=== PATIENT | female | born 1955 | race Caucasian/White ===

== ENCOUNTER 2019-09-10 20:49 | Inpatient (IN) | payer OTHER, SELFPAY ==
--- NOTE | ~2019-09-10 | XR_ITS ---
XR chest 1V portable DATE: 09/10/2019 22:24 INDICATION: Vomiting TECHNIQUE: AP chest on 09/10/2019 at 2202 hours COMPARISON: 10/28/2018 portable AP chest FINDINGS: Normal heart size. There is mild aortic calcification and tortuosity. No hilar or mediastin al enlargement. No pulmonary infiltrate or consolidation, pleural effusion or pulmonary vascular congestion or pneumo thorax. Degenerative spurring of the thoracic spine. IMPRESSION: No active cardiopulmonary disease Reviewed, dictated and finalized at location A. COVER MAKER
--- NOTE | ~2019-09-10 | CT_ITS ---
EXAMINATION: CT abdomen pelvis w con DATE: 09/10/2019 22:24 INDICATION: Abdominal pain, nausea and vomiting. History of prior appendectomy. History of breast can cer. TECHNIQUE: Computed tomography (CT) of the abdomen and pelvis was performed with 100 cc Omnipaque 350 intravenous contrast. Automated exposure control and iterative reconstruction technique were employe d. Exam dose: 702.09 mGy-cm total exam DLP. COMPARISON: 09/29/2018 CT abdomen pelvis FINDINGS: The lung bases are clear. Normal heart size. No pericardial or pleural effusion. Small sliding hiatal hernia. The liver, gallbladder, bile ducts, spleen are unremarkable. There is mild soft tissue infiltration around the uncinate process and head and neck of the pancreas suggesting mild uncomplicated pancreatitis. No pancreatic mass lesion, calcification or ductal dilata tion is evident. Normal morphology of the adrenal glands. No renal mass lesion or urinary tract calculus or hydroureteronephrosis. There is atherosclerotic calcification of the abdominal aorta but no aneurysm. No intraperitoneal or retroperitoneal or pelvic mass lesion or adenopathy or ascites. There is streak artifact in the pelvis from right total hip arthroplasty. No apparent abnormality uri nary bladder or uterus or adnexal areas is identified considering the streak artifact and limited vis ualization as result. There is a prominent amount of fecal material in the colon. No bowel obstruction is evident. There ar e surgical clips in the right lower quadrant. There is severe degenerative disc disease in the lower thoracic spine with prominent eburnation and s purring at multiple levels. There is moderate degenerative disease of the lumbar and lumbosacral spin e. There is degenerative change at the apophyseal joints in the lumbosacral area with associated grade 1 anterolisthesis at L4-5. IMPRESSION: Mild acute uncomplicated pancreatitis Small sliding hiatal hernia Right total hip arthroplasty Reviewed, dictated and finalized at Location [facility]. Reviewed, dictated and finalized at location A. STANT PROFESSOR OF ART
[2019-09-10] MEDS: PROMETHAZINE HCL 25 MG/ML AMPUL (21:05)
[2019-09-10] MEDS: SODIUM CHLORIDE 0.9% IV 1,000 ML 1000 ML ×2 (21:06→21:28)
[2019-09-10 21:11] VITALS: BP 166/93; PULSE 63; RESP 22; TEMP 37.1; O2SAT 100
--- NOTE | 2019-09-10 21:13 | ECG_ITS ---
Measurements Intervals [place] Rate: 65 P: 21 AK: 143 QRS: 4 QRSD: 111 T: 18 QT: 451 QTc: 469 Interpretive Statements SINUS RHYTHM WITH SINUS ARRHYTHMIA ATRIAL PREMATURE COMPLEX INTRAVENTRICULAR CONDUCTION DELAY BORDERLINE ST-T WAVE ABNORMALITY- INFERIOR LEADS BASELINE ARTIFACT- I, II, III, AVR, AVL, AVF, V4-V6 BORDERLINE ECG Electronically Signed On 09-11-2019 7:26:36 ELECTROPLATING WORKER by Jose Enrique Davalos D.O.
[2019-09-10] MEDS: PANTOPRAZOLE SODIUM IV 40 MG VIAL IV PUSH (21:31)
[2019-09-10 21:38] LABS: Basophils Absolute Auto 0.02 K/mm3 (0.00-0.10); Basophils Percent Auto 0.2 % (0.0-1.0); Eosinophils Absolute Auto 0.16 K/mm3 (0.02-0.50); Eosinophils Percent Auto 1.5 % (1.0-6.0); Hematocrit 33.6 % (35.0-49.0); Hemoglobin 11.8 g/dL (12.0-15.0); Immature Granulocyte Absolute 0.06 K/mm3 (0.00-0.00); Immature Granulocyte Percent A 0.5 % (0.0-0.0); Lymphocytes Absolute Auto 1.24 K/mm3 (1.10-4.50); Lymphocytes Percent Auto 11.3 % (18.0-42.0); Mean Corpuscular HGB Conc 35.1 g/dL (32.0-36.0); Mean Corpuscular Hemoglobin 29.9 pg (27.0-31.0); Mean Corpuscular Volume 85.3 fL (78.0-102.0); Mean Platelet Volume 10.2 fl (9.2-11.8); Monocytes Absolute Auto 0.63 K/mm3 (0.10-0.90); Monocytes Percent Auto 5.7 % (2.0-11.0); Neutrophils Absolute Auto 8.9 K/mm3 (1.7-7.2); Neutrophils Percent Auto 80.8 % (50.0-70.0); Platelet Count Result 221 K/mm3 (150-420); Red Blood Count 3.94 M/mm3 (4.20-5.40); Red Cell Distribution Width 13.8 % (11.6-14.4)
--- NOTE | 2019-09-10 21:48 | ED.NAVMDI ---
HPI - Nausea/Vomiting/Diarrhea General Chief complaint: Nausea/Vomiting/Diarrhea Stated complaint: nausea,vomiting Source: patient and family Mode of arrival: ambulatory Limitations: no limitations History of Present Illness HPI Narrative: 64-year-old female presents with nausea vomiting and diarrhea on a denies any current abdominal pain patient a history of GERD with Sow's esophagus and history of alcoholic induced pancreatitis. Currently there is no fever or chills no chest pain no shortness of breath. As a history of breast cancer history of CVA and history of cardiac arrest after taking Zofran /, pancreatitis. Currently no headaches no blurry vision MD elicited complaint: nausea, vomiting and diarrhea Pertinent past history: anorexia Onset (ago): hour(s) Description of vomiting: watery Description of diarrhea: watery Associated nausea: Yes Associated abdominal pain: No Location of pain: none Associated symptoms: nausea/vomiting Related Data Home Medications Medication Instructions Recorded Confirmed atorvastatin 20 mg PO HS 09/10/19 09/10/19 ergocalciferol (vitamin D2) 1 unit PO WEEKLY 09/10/19 09/10/19 escitalopram oxalate 20 mg PO DAILY 09/10/19 09/10/19 losartan-hydrochlorothiazide 1 tablet PO DAILY 09/10/19 09/10/19 metoprolol succinate 100 mg PO DAILY 09/10/19 09/10/19 Allergies Allergy/AdvReac Type Severity Reaction Status Date / Time morphine Allergy Severe SEVERE Verified 08/30/18 11:28 ITCHING prochlorperazine Allergy Severe Seizure Verified 08/30/18 11:28 ondansetron Allergy Anaphylaxis Verified 09/10/19 21:40 Review of Systems Review of Systems: All systems reviewed & are unremarkable except as noted in HPI and below PMFSH Past Medical History Medical History Sow's esophagus determined by biopsy GERD (gastroesophageal reflux disease) H/O: CVA (cerebrovascular accident) Pancreatitis Family History Family History Grandparent Family history of liver disease Carcinoma of colon Family history of lung cancer Mother Family history of lung cancer Father Family history of lung cancer Family history of renal failure Other Family history of malignant neoplasm of stomach Family history of malignant neoplasm of thyroid Social History Social History Smoking status: Former smoker Second hand tobacco smoke exposure: No Smoking end date: 08/17/91 Alcohol intake: current Exam Const: General: no acute distress and alert Orientation/consciousness: patient oriented x3 HENMT: Head: normal to inspection Eyes: Pupils: Equal, round and reactive pupils present Neck: Neck: normal visual inspection Chest: Chest palpation & inspection: normal inspection of the chest Resp: Effort & Inspection: normal respiratory effort Auscultation: clear to auscultation bilaterally Cardio: Rate: regular rate Rhythm: regular rhythm GI: GI Palp: Yes Soft to palpation : General: Yes no CVA tenderness Back/Spine/Pelvis: Back: no CVA tenderness Skin: General skin exam: normal color Rashes: no rashes Neuro: General: patient oriented x3, moves all extremities and no meningeal signs Extrem: General: normal to inspection and no pedal edema Psych: Appearance: grossly normal Mental Status: mental status grossly normal Thought content: Yes Normal thought content present Course Vital Signs Vital signs: Vital Signs Temperature 37.1 C 09/10/19 21:11 Pulse Rate 63 09/10/19 21:11 Respiratory Rate 22 H 09/10/19 21:11 Blood Pressure 166/93 H 09/10/19 21:11 Pulse Oximetry 100 09/10/19 21:11 Temperature 37.1 C 09/10/19 21:11 Pulse Rate 63 09/10/19 21:11 Respiratory Rate 22 H 09/10/19 21:11 Blood Pressure 166/93 H 09/10/19 21:11 Pulse Oximetry 100 09/10/19 21:11 MDM - Nausea/Vomit
[2019-09-10 21:56] LABS: Alanine Aminotransferase 25 U/L (14-59); Albumin Level 3.8 g/dL (3.4-5.0); Alkaline Phosphatase 105 U/L (46-116); Anion Gap 16.3 mmol/L (7-16); Aspartate Amino Transferase 18 U/L (15-37); Bilirubin,Total 0.4 mg/dL (0.00-1.00); Blood Urea Nitrogen 21 mg/dL (7-18); Calcium 8.7 mg/dL (8.5-10.1); Carbon Dioxide 25 mmol/L (21-32); Chloride 100 mmol/L (98-108); Estimated Glomerular Filt Rate 54; Glucose 139 mg/dL (70-99); Lipase 1124 U/L (73-393); Osmolality Calculated 291 mOsm/kg (285-295); Potassium 3.3 mmol/L (3.5-5.1); Sodium 138 mmol/L (136-145); Total Protein 7.4 g/dL (6.4-8.2)
[2019-09-10 21:57] LABS: Troponin I < 0.02 ng/mL (0.00-0.056)
[2019-09-10 21:59] LABS: Lactic Acid 1.8 mmol/L (0.4-2.0)
[2019-09-10 22:07] LABS: Add Urine Microscopic? YES; Appearance Urine Clear (Clear); Bilirubin Urine Negative (Negative); Blood Urine Negative (Negative); Color Urine Yellow (Yellow); Glucose Urine UA Negative (Negative); Ketones Urine 2+ (Negative); Leukocyte Esterase Ur Negative LEU/UL (Negative); Nitrate Urine Negative (Negative); Protein Urine Negative (Negative); Specific Grav Ur 1.015 (1.010-1.020); Urobilinogen Urine 0.2 mg/dL (0.2-1.0)
[2019-09-10 22:15] LABS: RBC Urine 0-2 /hpf (0-2); Squamous Epithelial Cell Urine Few /hpf (Few); WBC Urine 0-3 /hpf (0-3)
[2019-09-10 22:16] LABS: Bacteria Urine Trace /hpf
[2019-09-10] MEDS: PROMETHAZINE HCL 25 MG/ML AMPUL 12.5 MG IV PUSH (22:32)
[2019-09-10] MEDS: SODIUM CHLORIDE 0.9% IV 2,000 ML 999 ML IV CONT (22:33)
--- NOTE | 2019-09-10 22:36 | PC.NURSE ---
THIRD LITER NS INFUSING AT 125 ML/HR. TWO LITERS NS INFUSED AT THIS TIME.
[2019-09-10 22:40] VITALS: BP 182/95; PULSE 81; RESP 20; O2SAT 99
[2019-09-10 23:32] VITALS: BMI 27.7
[2019-09-11] VITALS (9 sets, daily range): BP systolic 120–197; BP diastolic 69–102; PULSE 20–88; RESP 16–20; TEMP 36.2–37.5; O2SAT 92–98
[2019-09-11] MEDS: SODIUM CHLORIDE 0.9% IV 1,000 ML 100 ML IV CONT (00:07)
[2019-09-11] MEDS: KCL 20 MEQ/SW 100 ML 100 ML 50 MEQ IVPB ×3 (00:45→16:35)
[2019-09-11] MEDS: PROMETHAZINE HCL 25 MG/ML AMPUL 12.5 MG IV PUSH ×2 (00:46→04:27)
[2019-09-11 08:16] LABS: Basophils Absolute Auto 0.01 K/mm3 (0.00-0.10); Basophils Percent Auto 0.1 % (0.0-1.0); Hematocrit 38.7 % (35.0-49.0); Hemoglobin 13.1 g/dL (12.0-15.0); Immature Granulocyte Absolute 0.09 K/mm3 (0.00-0.00); Immature Granulocyte Percent A 0.7 % (0.0-0.0); Lymphocytes Absolute Auto 0.64 K/mm3 (1.10-4.50); Lymphocytes Percent Auto 4.9 % (18.0-42.0); Mean Corpuscular HGB Conc 33.9 g/dL (32.0-36.0); Mean Corpuscular Hemoglobin 29.5 pg (27.0-31.0); Mean Corpuscular Volume 87.2 fL (78.0-102.0); Monocytes Absolute Auto 0.28 K/mm3 (0.10-0.90); Monocytes Percent Auto 2.1 % (2.0-11.0); Neutrophils Absolute Auto 12.1 K/mm3 (1.7-7.2); Neutrophils Percent Auto 92.2 % (50.0-70.0); Platelet Count Result 260 K/mm3 (150-420); Red Blood Count 4.44 M/mm3 (4.20-5.40); Red Cell Distribution Width 14.2 % (11.6-14.4); White Blood Count 13.1 K/mm3 (4.8-10.8)
--- NOTE | 2019-09-11 08:20 | PC.NURSE ---
Patient awoke very confused, pulled out IV site right wrist. Patient now alert and oriented. Does not remember pulling site
[2019-09-11 09:00] LABS: Alanine Aminotransferase 24 U/L (14-59); Albumin Level 4.2 g/dL (3.4-5.0); Alkaline Phosphatase 114 U/L (46-116); Anion Gap 24.5 mmol/L (7-16); Aspartate Amino Transferase 20 U/L (15-37); Bilirubin,Total 0.4 mg/dL (0.00-1.00); Blood Urea Nitrogen 13 mg/dL (7-18); Carbon Dioxide 19 mmol/L (21-32); Chloride 95 mmol/L (98-108); Estimated CRCL calculation 36 ml/min; Estimated Glomerular Filt Rate 34; Glucose 150 mg/dL (70-99); Magnesium 1.5 mg/dL (1.8-2.4); Osmolality Calculated 283 mOsm/kg (285-295); Potassium 3.5 mmol/L (3.5-5.1); Sodium 135 mmol/L (136-145); Total Protein 8.6 g/dL (6.4-8.2)
[2019-09-11 09:22] LABS: Lactate Dehydrogenase 258 U/L (81-234)
[2019-09-11 09:41] LABS: Lipase 503 U/L (73-393); Phosphorus 4.5 mg/dL (2.6-4.7)
[2019-09-11 09:42] LABS: Troponin I < 0.02 ng/mL (0.00-0.056)
[2019-09-11] MEDS: MAGNESIUM SULF 4 GM/WATER100ML 4 GM/100 ML BAG IVPB (10:35)
[2019-09-11 10:45] LABS: Lactic Acid 3.7 mmol/L (0.4-2.0)
[2019-09-11] MEDS: SODIUM CHLORIDE 0.9% IV 1,000 ML 200 ML IV CONT (11:01)
[2019-09-11] MEDS: SODIUM CHLORIDE 0.9% IV 500 ML IV CONT (13:15)
--- NOTE | 2019-09-11 13:26 | PM.IMHP ---
H&P: HPI History of Present Illness Chief complaint: nausea,vomiting <Oxana Bender NP - Last Filed: 09/11/19 16:12> Narrative: Meron Watson is a 64 year old female admitted with nausea, vomiting, and diarrhea. At admission, she denied any current abdominal pain. She has a history of GERD with Sow's esophagus, anorexia, and history of alcoholic induced pancreatitis. At admission, there was no fever or chills, no chest pain, and no shortness of breath. History of breast cancer, history of CVA, and history of cardiac arrest after taking Zofran. At admission, denied headaches and denied blurry vision. She was admitted with Acute Pancreatitis. She received IVFs in the ED, Protonix IV, and 2 doses of Promethazine (at 0046 and 0427). Meron was confused early this morning at my first examination of her. She could not remember the events of yesterday or overnight. She could only recall that she came to the ED for uncontrolled vomiting. She did recall that she has worked at [employer] in [place] for the last 4 years. Placed patient on Telemetry with frequent Neuro checks. Concerned that the 2 doses of Promethazine (same family of drug as Prochlorperazine) are lowering her Seizure thresh-hold, so currently holding Promethazine doses and will discuss with Dr. Lopez restarting with change from Q 4 hour to Q 12 hours. Considering using Dexamethasone for N/V treatment as well. Ordered IV Tylenol for her abdominal discomfort. Started IV Pepcid and Protonix. Increase NaCl IVFs to 250 ml/hr. Ordered 4 gm mag and 40 meq KCL IVPBs. Spoke with Radiologist Dr. Quick to review her CT abd at admission just to again rule out Peritonitis or Ileus. <Oxana Bender NP - Last Filed: 09/11/19 16:12> Review of Systems Review of Systems: All systems reviewed & are unremarkable except as noted in HPI and below <Oxana Bender NP - Last Filed: 09/11/19 16:12> Constitutional: Constitutional: Reports as per HPI, Reports no additional constitutional complaints, Reports chills, Reports fatigue, Reports lethargy and Reports weakness <Oxana Bender NP - Last Filed: 09/11/19 16:12> Eyes: Eyes: Reports as per HPI <Oxana Bender TRAFFIC CONTROL SUPERVISOR - Last Filed: 09/11/19 16:12> ENT: Reports as per HPI <Oxana Bender TRAFFIC CONTROL SUPERVISOR - Last Filed: 09/11/19 16:12> Cardiovascular: Cardiovascular: Reports as per HPI and Reports lightheadedness <Oxana Bender TRAFFIC CONTROL SUPERVISOR - Last Filed: 09/11/19 16:12> Respiratory: Respiratory: Reports as per HPI, Denies cough, Denies hemoptysis, Denies dyspnea, Denies dyspnea on exertion and Denies wheezing <Oxana Bender, TRAFFIC CONTROL SUPERVISOR - Last Filed: 09/11/19 16:12> Gastrointestinal: Gastrointestinal: Reports as per HPI, Reports abdominal pain, Denies melena, Reports bloating, Denies hematochezia, Denies constipation, Denies diarrhea, Reports nausea, Reports vomiting and Denies hematemesis <Oxana Bender, TRAFFIC CONTROL SUPERVISOR - Last Filed: 09/11/19 16:12> Genitourinary: Genitourinary: Reports as per HPI, Denies hematuria, Denies urinary frequency, Denies nocturia, Denies dysuria, Denies pelvic pain, Denies flank pain, Denies urinary incontinence, Denies urinary hesitancy and Denies urinary urgency <Oxana Bender, TRAFFIC CONTROL SUPERVISOR - Last Filed: 09/11/19 16:12> Musculoskeletal: Musculoskeletal: Reports as per HPI, Denies back pain, Reports myalgias, Denies arthralgias and Denies neck pain <Oxana Bender NP - Last Filed: 09/11/19 16:12> Integumentary/Breasts: Skin/Breast: Reports as per HPI <Oxana Bender, TRAFFIC CONTROL SUPERVISOR - Last Filed: 09/11/19 16:12> Neurologic: Reports as per HPI, Denies Abnormal speech present, Denies abnormal gait, Reports confusion, Denies headache(s) and Denies numbness <Oxana Bender NP - Last Filed: 09/11/19 16:12> Psychiatric: Psychiatric: Reports as per HPI, Denies anxiety and Reports confusion <Oxana Bender TRAFFIC CONTROL SUPERVISOR - Last Filed: 09/11/19 16:12> PMFSH Past Medical History Medical History: Medical History (Updated 09/11/19 @ 16:05 by Oxana Bender NP)
[2019-09-11 14:23] LABS: Anion Gap 18.2 mmol/L (7-16); Blood Urea Nitrogen 13 mg/dL (7-18); Calcium 8.7 mg/dL (8.5-10.1); Carbon Dioxide 23 mmol/L (21-32); Chloride 97 mmol/L (98-108); Estimated CRCL calculation 57 ml/min; Estimated Glomerular Filt Rate 60; Glucose 122 mg/dL (70-99); Magnesium 2.5 mg/dL (1.8-2.4); Osmolality Calculated 281 mOsm/kg (285-295); Potassium 3.2 mmol/L (3.5-5.1); Sodium 135 mmol/L (136-145)
[2019-09-11 14:32] LABS: Lactic Acid 2.7 mmol/L (0.4-2.0)
[2019-09-11 14:36] LABS: Lipase 436 U/L (73-393)
[2019-09-11 15:46] LABS: Lactate Dehydrogenase 281 U/L (81-234)
--- NOTE | 2019-09-11 16:09 | PM.EVENT ---
Event Note Event Note Event Note: For this patient encounter, I reviewed the MEDICAL LAB SPECIALIST or PA documentation, treatment plan, and medical decision making; and I had [id number] time with this patient. Pt. complains only of nausea, not pain. Past use of Zofran associated with cardiac arrest. Past use of Compazine associated with syncopal episode. Pt. appeared to tolerate promethazine given at 23:00 but confused this AM: medication vs. delirium. Denied hallucinations. Will monitor.
--- NOTE | 2019-09-11 16:52 | PC.NURSE ---
pt complains of general feeling of unwellness, still having trouble with n/v, dr cherry in to round
[2019-09-11] MEDS: FAMOTIDINE 20 MG/ISO 50 ML 20 MG/50 ML BAG 100 MG (17:01)
--- NOTE | 2019-09-11 17:02 | PM.EVENT ---
Event Note Event Note Event Note: 17:00 s) Pt has been having bouts of nausea followed by vomiting, occurring very 1-2 hours, moving sometimes brings it on. Pt. denies pain, headache. O) Stable vitals. Alert and conversant. Easily recites 7 random numbers correctly. Abdomen is flat and soft. A) Pancreatitis, Nausea and vomiting, likely secondary to pancreatitis. Cyclic Vomiting Syndrome possible other etiology. P) No syncope or cardiac arrest with promethazine 12.5 mg IV at 23:00 and 04:00 although she was sedated with some confusion which has resolved. I will give lorazepam 0.5 mg, repeat x 1. If no response, then promethazine 12.5 mg followed by 6.25 every 6 hours prn. Check AM lipase.
[2019-09-11] MEDS: LORAZEPAM INJ 2 MG/ML VIAL 0.5 MG IV PUSH (17:52)
[2019-09-11] MEDS: SODIUM CHLORIDE 0.9% IV 1,000 ML 250 ML IV CONT ×2 (18:17→22:53)
--- NOTE | 2019-09-11 19:10 | PC.NURSE ---
pt up to commode, iv running, still having dry heaves when sitting on commode but says her stomach is starting to feel better, pt puts on brief to help with stress incontinence, call light in reach
[2019-09-11] MEDS: FAMOTIDINE 20 MG/2 ML VIAL IVPB (21:11)
[2019-09-11] MEDS: PANTOPRAZOLE SODIUM IV 40 MG VIAL IV PUSH (21:11)
--- NOTE | 2019-09-11 22:24 | PC.NURSE ---
unable to put a stop time in for famotidine on OCT, stop time of 2140, pt reports only having issues with dry heaves when she sits up now, hob at 20 degrees
--- NOTE | 2019-09-11 23:55 | PC.NURSE ---
Tele SR Pupils reactive, speech clear. Tip Printer strong, equal. In bed @ present.
--- NOTE | 2019-09-12 02:07 | PC.NURSE ---
Pupils reactive to light. Road Commissioner strong. Telemetry SR.
[2019-09-12] MEDS: SODIUM CHLORIDE 0.9% IV 1,000 ML 250 ML IV CONT ×3 (03:22→12:20)
[2019-09-12 03:53] VITALS: PULSE 77
[2019-09-12 04:00] VITALS: BP 173/88; PULSE 74; RESP 20; TEMP 37.2; O2SAT 99
--- NOTE | 2019-09-12 04:04 | PC.NURSE ---
Pupils reactive to light. Speech clear. A&O x4. Factory Machine Computer Operator strong,. equal. Pt in bed @ present. Telemetry SR.
--- NOTE | 2019-09-12 05:46 | PC.NURSE ---
A&O x4. Speech clear sales support assistant strong, equal. Pupils reactive.
[2019-09-12 06:10] LABS: Hematocrit 34.5 % (35.0-49.0); Hemoglobin 12.1 g/dL (12.0-15.0); Mean Corpuscular HGB Conc 35.1 g/dL (32.0-36.0); Mean Corpuscular Hemoglobin 29.7 pg (27.0-31.0); Mean Corpuscular Volume 84.8 fL (78.0-102.0); Mean Platelet Volume 10.4 fl (9.2-11.8); Platelet Count Result 239 K/mm3 (150-420); Red Blood Count 4.07 M/mm3 (4.20-5.40); Red Cell Distribution Width 14.1 % (11.6-14.4); White Blood Count 17.7 K/mm3 (4.8-10.8)
[2019-09-12 06:41] LABS: Alanine Aminotransferase 22 U/L (14-59); Albumin Level 3.8 g/dL (3.4-5.0); Alkaline Phosphatase 96 U/L (46-116); Anion Gap 15.7 mmol/L (7-16); Aspartate Amino Transferase 21 U/L (15-37); Bilirubin,Total 0.5 mg/dL (0.00-1.00); Blood Urea Nitrogen 10 mg/dL (7-18); Calcium 8.5 mg/dL (8.5-10.1); Carbon Dioxide 25 mmol/L (21-32); Chloride 98 mmol/L (98-108); Estimated CRCL calculation 72 ml/min; Estimated Glomerular Filt Rate > 60; Glucose 110 mg/dL (70-99); Osmolality Calculated 282 mOsm/kg (285-295); Potassium 2.7 mmol/L (3.5-5.1); Sodium 136 mmol/L (136-145); Total Protein 7.1 g/dL (6.4-8.2)
[2019-09-12 07:45] VITALS: TEMP 37.9
[2019-09-12 08:00] VITALS: BP 191/78; PULSE 78; PULSE 90; RESP 20; TEMP 37.9; O2SAT 98
[2019-09-12 08:21] VITALS: TEMP 37.7
[2019-09-12] MEDS: KCL 20 MEQ/SW 100 ML 100 ML 50 MEQ IVPB ×2 (08:33→10:36)
[2019-09-12 08:43] LABS: CRP 4.1 mg/dL (0.0-0.9)
[2019-09-12 09:08] LABS: Appearance Urine Clear (Clear); Bilirubin Urine Negative (Negative); Color Urine Yellow (Yellow); Glucose Urine UA Negative (Negative); Ketones Urine Trace (Negative); Leukocyte Esterase Ur Negative LEU/UL (Negative); Nitrate Urine Negative (Negative); Protein Urine Negative (Negative); Urobilinogen Urine 0.2 mg/dL (0.2-1.0)
[2019-09-12 09:23] LABS: Add Urine Microscopic? YES
[2019-09-12 09:24] LABS: Bacteria Urine 1+ /hpf; Blood Urine Trace-Intact (Negative); RBC Urine 0-2 /hpf (0-2); Squamous Epithelial Cell Urine Few /hpf (Few); WBC Urine 0-3 /hpf (0-3)
[2019-09-12 09:43] LABS: Erythrocyte Sedimentation Rate 36 mm/hr (0-20)
[2019-09-12] MEDS: PANTOPRAZOLE SODIUM IV 40 MG VIAL IV PUSH (09:52)
--- NOTE | 2019-09-12 09:57 | ECHO_ITS ---
Patient Info Name: Meron Watson Age: 64 years : 1955 Gender: Female Ht: 66 in Wt: 1,711 lbs BSA: 6.63 m2 HR: 90 bpm BP: 191 / 78 mmHg Heart Rhythm: Sinus Rhythm Technical Quality: Fair Exam Date: 09/12/2019 11:29 AM Exam Location: [facility] Patient Status: Inpatient Admit Date: 09/10/2019 Staff Ordering Physician: Oxana Bender NP Slip Cover Sewer: ARIANA Attending Provider: Dany Machado MD Referring Physician: Napoleon HERNÁNDEZ; Exam Type: CA echo dop color flow w con Study Info Indications I10 - Essential (primary) hypertension Complete two-dimensional, color flow and Doppler transthoracic echocardiogram is performed. History/Risk Factors Hypertension: Yes Dyslipidemia: No Congenital Heart Disease (CHD): No Peripheral Arterial Disease (PAD): No Myocardial Infarction (CO): No Chronic Lung Disease: No Obesity: Yes Renal Disease: No Coronary Artery Disease (CAD) No Congestive Heart Failure (CHF): No Cardiomyopathy/LV Systolic Dysfunction: No Diabetes Mellitus: No COPD: No Tobacco Use: Former Cerebrovascular Disease: CVA, Yes Deep Vein Thrombosis (DVT): None Dialysis: Prior Frailty Scale (CSHA): 4: Vulnerable Cardiac Arrest: No Prior Interventions Pacemaker: No PCI: No CABG: No Valve Surgery: No ICD: No PV Intervention: None Heart Transplant: No Summary 1. Left ventricular chamber dimension is normal. 2. Left ventricular systolic function is normal, estimated at 60-65%. 3. There is moderately increased left ventricular wall thickness. 4. The left ventricular diastolic function is grade II diastolic dysfunction. 5. E/e' 7 is not elevated. 6. Left atrial chamber dimension is mildly enlarged. 7. Bowing of the interatrial septum to the right. 8. There is mild aortic valve sclerosis. 9. Mild mitral annular calcification. 10. There is mild mitral valve regurgitation. 11. There is trace tricuspid valve regurgitation. Left Ventricle E/e' 7 is not elevated. Left ventricular chamber dimension is normal. Left ventricular systolic function is normal, estimated at 60-65%. There is moderately increased left ventricular wall thickness. The left ventricular diastolic function is grade II diastolic dysfunction. Right Ventricle Right ventricular chamber dimension is normal. Right ventricular systolic function is normal. Left Atria Left atrial chamber dimension is mildly enlarged. Right Atria Right atrial chamber dimension is normal. Atrial Septum Bowing of the interatrial septum to the right. Aortic Valve The aortic valve is trileaflet. There is mild aortic valve sclerosis. There is no aortic valve stenosis. There is no aortic valve regurgitation. Pulmonic Valve There is no pulmonic regurgitation. Mitral Valve Mild mitral annular calcification. There is no mitral valve stenosis. There is mild mitral valve regurgitation. Tricuspid Valve There is trace tricuspid valve regurgitation. RVSP is not calculated due to an inadequate TR jet. Pericardium/Pleural There is no pericardial effusion. Inferior Vena Cava Normal inferior vena cava with >50% collapse upon inspiration consistent with normal right atrial pressure, 5 mmHg. Aorta The aortic root size at the sinus of Valsalva is normal. Left Ventricular Outflow Tract
[2019-09-12 10:30] LABS: Phosphorus 2.7 mg/dL (2.6-4.7)
[2019-09-12 10:36] LABS: Magnesium 1.9 mg/dL (1.8-2.4)
--- NOTE | 2019-09-12 11:12 | PM.DS ---
DS: Diagnosis Admitting Diagnosis Admitting Diagnosis: Acute pancreatitis without necrosis or infection, unspecified Discharge Diagnosis (1) Acute pancreatitis: Code(s): K85.90 - Acute pancreatitis without necrosis or infection, unspecified Status: Acute Assessment and Plan: Lactic levels have improved since treating pancreatitis and dehydration with increased IVFs, now at 250 ml/hr. Currently NPO due to persistent Nausea and Vomitting. She has had 2 episodes yesterda with 100ml of emesis out each time and continues to have Dry Heaving consistently today. Confusion this morning has slowly improved over last 24 hours, but still has not completely resolved or returned to baseline. Closely monitoring and replenishing Electrolytes. ordered IV Pepcid and IV Protonix. Continue Telemetry monitoring. Lipase improving from 1124 at admission, to 503, and then to 436. Troponin level was WNL x 2. Spoke with Radiologist Dr. Quick to review her CT abd at admission just to again rule out Peritonitis or Ileus. Should follow up with Pancreatitis / GI physician as soon as possible after discharge. Will continue to closely monitor. Due to New concerns: Fevers and elevating WBC with no improvement of N/V/Abdominal discomfort - now Recommend, Blood and urine Cultures, starting IV Zosyn and Vanc, repeat CT Abd/Pelvis scan and Transfer to [facility] for higher level of care. (2) Dehydration: Code(s): E86.0 - Dehydration Status: Acute Assessment and Plan: Improved since treating dehydration with increased IVFs, now at 250 ml/hr. Confusion and lethargy slightly better. 2 days - Nystagmus present on eye examination, verbal responses to questions are slightly delayed, otherwise neuro checks normal. Continue Telemetry monitoring. Creatinine 1.04 at admission, then 1.55, then after increase in IVFs Creatinine = 0.95 and 0.74 now. Troponin level was WNL x 2. Should follow up with PCP Dr. Larkin in the [facility]. Strict I and Os. Her urine output is finally catching up to her input with I/Os more closely matching now. Will continue to closely monitor. (3) Altered mental status: Code(s): R41.82 - Altered mental status, unspecified Status: Acute Assessment and Plan: Improved since holding the 2 doses of Promethazine (at 0046 and 0427). Continue to hold Promethazine if patient is lethargic or confused. Improved since treating dehydration with increased IVFs, now at 250 ml/hr. Concerned that her confusion this morning was similar to someone after a seizure (post-dictal). She has slowly improved since. Nystagmus present on eye examination, verbal responses to questions are slightly delayed, otherwise neuro checks normal. Ordered Neuro checks Q2 hours. Continue Telemetry monitoring. Hx. Seizures and Stroke and Anaphylactic rxn to past anti-emetic medications. Patient does not have a currently Neurologist that she follows up with on an outpatient basis. She only follow with her PCP Dr. Larkin in the [facility]. Troponin level was WNL x 2. Will continue to closely monitor. (4) Hypokalemia: Code(s): E87.6 - Hypokalemia Status: Acute Assessment and Plan: K = 3.3 at admission, 3.5 this morning with IVFs running at 100 ml/hr, then 3.2 with IVFs running at 250 ml/hr. This morning K = 2.7, ordered 40 meq KCL IV for replenishment since then with repeat BMP at 1300 today. repeat labs in morning. (5) Hypomagnesemia: Code(s): E83.42 - Hypomagnesemia Status: Acute Assessment and Plan: Mag = 1.5 this morning, treated with 4 gm Mag IVPB, then recheck showed Mag = 2.5. Mag was 1.9 this morning. No replacement ordered. Will need to check Mag level this afternoon. continuous IVFs. Telemetry monitoring continuously. (6) Elevated lactic acid level: Code(s): R79.89 - Other specified abnormal findings of blood chemistry S
[2019-09-12 12:00] VITALS: BP 166/92; PULSE 78; RESP 20; TEMP 37.6; O2SAT 98
--- NOTE | 2019-09-12 12:20 | PC.NURSE ---
[facility] ambulance here for patient transfer to [facility] room 259. Patient able to stand and transfer to stretcher. New bag of saline started, sent with EMS. Patient belongings sent with EMS. Patient off floor at 12:20
== END 2019-09-12 12:20 | disposition short-term general hospital (02) | DRG 440 ==
LOC: CHSED 20:54 → CHS2ND 22:52
PROVIDERS: Nurse Practitioner; Surgery; Admitting Provider Emergency Medicine; Emergency Provider Emergency Medicine; PCP Family Medicine; Visit Provider Emergency Medicine
DX: K85.90 Acute pancreatitis without necrosis or infection, unspecified (principal); E86.0 Dehydration; E87.6 Hypokalemia; E83.42 Hypomagnesemia; R41.82 Altered mental status, unspecified; K21.9 Gastro-esophageal reflux disease without esophagitis; K22.70 Barrett's esophagus without dysplasia; Z96.641 Presence of right artificial hip joint; Z86.73 Personal history of transient ischemic attack (TIA), and cerebral infarction without residual deficits; Z85.3 Personal history of malignant neoplasm of breast; Z86.74 Personal history of sudden cardiac arrest
CPT/HCPCS: 36415; 71045; 74177; 80048; 80053; 81001; 83605; 83615; 83690; 83735; 84100; 84484; 85025; 85027; 85652; 86140; 87040; 93005; 96361; 96374; 96375; 96376; 99283; 99285; C8929; C9113; J0131; J2060; J2543; J2550; J3370; J3475; J3480; J7030; J7040; Q9965

== ENCOUNTER 2019-09-12 13:05 | Inpatient (IN) | payer OTHER, SELFPAY ==
[2019-09-12] VITALS (7 sets, daily range): BP systolic 169–202; BP diastolic 81–102; PULSE 82–93; RESP 19–20; TEMP 36.4–37; O2SAT 98–99; BMI 28.8
--- NOTE | ~2019-09-12 | XR_ITS ---
XR chest 1V portable 09/12/2019 19:10 Indication: Right-sided ptosis and fever Procedure: AP portable chest Comparison: Comparison to multiple prior studies sequentially, with oldest reviewed study dated 03/02. Findings: NG tube in the stomach, side port above the GE junction. Heart size normal. No focal air sp jeramy disease, pulmonary edema, pleural effusion or suspected pneumothorax. Impression: 1: No acute cardiopulmonary disease. Reviewed, dictated and finalized at location A. SALES CONSULTANT Impression: 1: No acute cardiopulmonary disease.
--- NOTE | ~2019-09-12 | XR_ITS ---
EXAMINATION: XR abdomen NG/feed tube insert INDICATION: Nasogastric tube insertion TECHNIQUE: Portable AP KUB-NG at 1315 hours COMPARISON: 03/02/2018 FINDINGS: The nasogastric tube is in the stomach. The visualized lung bases are clear. The bowel gas pattern is normal. Surgical clips are noted in the right lower quadrant. IMPRESSION: 1. Nasogastric tube in the stomach. Reviewed, dictated and finalized at location A. [employer] COMMUNICATIONS INTERN
--- NOTE | 2019-09-12 13:18 | WPDGICN ---
Assessment and Plan Assessment and plan (1) Nausea and vomiting: Code(s): R11.2 - Nausea with vomiting, unspecified Status: Acute Assessment and Plan: Will rule out ileus with KUB, consider PUD in differential KUB NG Reglan QID Protonix May consider EGD pending hospital course Keep NPO at this time (2) Acute pancreatitis: Code(s): K85.90 - Acute pancreatitis without necrosis or infection, unspecified Status: Acute Assessment and Plan: Lipids, KT, IGG, a1C Will monitor (3) Leukocytosis: Code(s): D72.829 - Elevated white blood cell count, unspecified Status: Acute GI Consult Note Consult date/time: 09/12/19 13:18 HPI: Meron Watson is a 64 year old female presents as transfer from [facility]. She went to ER on 09/10/2019 after she began experiencing nausea/vomiting. She said the week prior she had flu like symptoms. She was found to have elevated lipase 1124 and mild uncomplicated pancreatitis on CT imaging. She denies abdominal pain but continues to have nausea/vomiting and dry-heaves. She said it is clear liquid. She does take Aciphex BID and that controls GERD symptoms well. She has not had worsening GERD, denies dysphagia or odynophagia. She does say her last BM was Thursday-4 days ago. She denies passing gas as well. She has hx of alcoholic pancreatitis with last episode she said was 10/2018 where she was admitted at [facility]. She said she almost secondary to cardiac arrest. She was noted to have elevated in WBC to 17 and elevated Lactic acid. VSS. Blood cultures are pending. No fevers have been documented thus far. She denies abnormal weight loss, fever or chills at home. Family hx of stomach cancer in grandmother. EGD 08/[address] Dugan she had fundic gland gastric polyps and mild chronic inflammation. No evidence of barretts Colonoscopy 2018 she had noted internal hemorrhoids. Review of Systems Review of Systems: All systems reviewed & are unremarkable except as noted in HPI and below [facility] Past Medical History Medical History (Updated 09/12/19 @ 13:25 by Morenita Mendieta, GARMENT STEAMER) Acute pancreatitis Altered mental status Sow's esophagus determined by biopsy Carcinoma of left breast, estrogen receptor positive Dehydration Fibroadenoma of left breast GERD (gastroesophageal reflux disease) H/O: CVA (cerebrovascular accident) History of external beam radiation therapy Hypokalemia Hypomagnesemia Pancreatitis Syncope TIA (transient ischemic attack) Surgical History Surgical History (Updated 09/12/19 @ 13:24 by Morenita Mendieta, GARMENT STEAMER) History of appendectomy History of total right hip arthroplasty Hx of colonoscopy Hx of esophagogastroduodenoscopy Hx of inguinal hernia repair Social History Social History (Updated 09/12/19 @ 13:25 by Morenita Mendieta, GARMENT STEAMER) Smoking packs per day: 0.5 Smoking cigarettes per day: 10.0 Smoking status: Former smoker Tobacco type: cigarettes Second hand tobacco smoke exposure: No Smoking end date: 08/17/91 Additional smoking assessment comments: dosent know how long smoked Alcohol intake: former Alcohol use details: has been sober for 1 year. Use to drink multiple bottles of wine daily Substance use: never Gender identity (if verbalized by the patient): Female Spiritual care concerns: Yes (episcopal) Meds Home Medications and Allergies Home Medications Medication Instructions Recorded Confirmed Type atorvastatin 20 mg PO HS 09/10/19 09/10/19 History ergocalciferol (vitamin D2) 1 unit PO WEEKLY 09/10/19 09/10/19 History escitalopram oxalate 20 mg PO DAILY 09/10/19 09/10/19 History losartan-hydrochlorothiazide 1 tablet PO DAILY 09/10/19 09/10/19 History metoprolol succinate 100 mg PO DAILY 09/10/19 09/10/19 History acetaminophen [Ofirmev] 1,000 mg IV Q6H PRN 30 Days ml 09/12/19 Rx famotidine (PF)-NaCl (iso-os) 20 mg IV Q12HR 30 Days #3000 ml 09/12/19 Rx
[2019-09-12 13:39] LABS: Basophils Percent Auto 0.2 % (0.2-1.2); Hematocrit 37.3 % (37.0-47.0); Hemoglobin 12.9 g/dL (12.0-15.0); Immature Granulocyte Absolute 0.13 K/mm3 (0.00-0.031); Immature Granulocyte Percent A 0.7 % (0-0.5); Lymphocytes Absolute Auto 1.23 K/mm3 (0.9-3.2); Lymphocytes Percent Auto 7.1 % (18.3-44.2); Mean Corpuscular HGB Conc 34.6 g/dl (32-36); Mean Corpuscular Hemoglobin 29.3 pg (26-34); Mean Corpuscular Volume 84.8 fl (80-100); Monocytes Percent Auto 5.8 % (2.6-8.5); Neutrophils Percent Auto 86.2 % (45.5-73.1); Platelet Count Result 257 k/mm3 (150-375); Red Cell Distribution Width 14.2 % (11.5-14.5); White Blood Count 17.4 K/mm3 (4.5-10.0)
[2019-09-12 13:57] LABS: Blood Urea Nitrogen 9 mg/dL (7-17); Calcium 8.9 mg/dL (8.4-10.2); Carbon Dioxide 23 mmol/L (22-30); Chloride 92 mmol/L (98-107); Estimated Glomerular Filt Rate > 60; Glucose 111 mg/dL (65-105); Potassium 2.9 mmol/L (3.4-5.0); Sodium 128 mmol/L (137-145)
[2019-09-12] MEDS: LACTATED RINGERS 500 ML 125 ML IV CONT (14:12)
[2019-09-12] MEDS: METOCLOPRAMIDE HCL INJ 10 MG/2 ML VIAL 5 MG IV PUSH (14:12)
--- NOTE | 2019-09-12 14:49 | ADMGEN ---
This patient, Meron Watson, was admitted to 2 Medical Room 259-01. Patient/family oriented to hospital policies and general routines including ID bracelet, bed and alarms, visiting hours, pain management, procedures, bathroom and other care routines, personal items, smoking policy, room service/diet, and visiting hours. Valuables list has been completed. Information on how to activate the Rapid Response Team has been discussed. Patient/Family are encouraged to report perceived risks to care and to ask questions if they do not understand what they are told or what they should do.
[2019-09-12 15:14] LABS: Hematocrit 38.2 % (37.0-47.0); Hemoglobin 13.3 g/dL (12.0-15.0); Mean Corpuscular HGB Conc 34.8 g/dl (32-36); Mean Corpuscular Hemoglobin 29.4 pg (26-34); Mean Corpuscular Volume 84.3 fl (80-100); Mean Platelet Volume 10.1 fl (7.4-10.4); Platelet Count Result 258 k/mm3 (150-375); Red Blood Count 4.53 M/mm3 (4.2-5.4); Red Cell Distribution Width 14.2 % (11.5-14.5); White Blood Count 16.8 K/mm3 (4.5-10.0)
[2019-09-12] MEDS: METOPROLOL TARTRATE INJ 5 MG/5 ML VIAL IV PUSH ×2 (15:24→18:34)
[2019-09-12 15:25] LABS: INR 1.1; Prothrombin Time 13.9 Seconds (11.1-14.7)
[2019-09-12 15:36] LABS: Alanine Aminotransferase 21 U/L (4-35); Albumin Level 4.6 g/dL (3.5-5.1); Alkaline Phosphatase 111 U/L (38-126); Aspartate Amino Transferase 28 U/L (14-36); Bilirubin,Total 0.7 mg/dL (0.2-1.3); Blood Urea Nitrogen 9 mg/dL (7-17); Calcium 9.1 mg/dL (8.4-10.2); Carbon Dioxide 25 mmol/L (22-30); Chloride 92 mmol/L (98-107); Cholesterol 157 mg/dL (0-200); Estimated CRCL calculation 89 ml/min; Estimated Glomerular Filt Rate > 60; Glucose 106 mg/dL (65-105); HDL Direct 78 mg/dL; Lipase 196 U/L (23-300); Magnesium 1.7 mg/dL (1.6-2.3); Potassium 2.6 mmol/L (3.4-5.0); Sodium 130 mmol/L (137-145); Triglycerides 80 mg/dL (<150)
[2019-09-12 15:39] LABS: LDL Cholesterol Direct 58 mg/dL
--- NOTE | 2019-09-12 16:00 | PM.IMHP ---
H&P: HPI History of Present Illness Chief complaint: Pancreatitis with persistent nausea and vomiting. Narrative: Meron Watson is a 64 year old female who is being directly admitted to the hospitalist service from [facility] for further treatment and evaluation of ongoing nausea and vomiting as well as pancreatitis. Her medical history is significant for alcohol abuse though she has abstained for 1 years time, pancreatitis, GERD, Sow's esophagus, breast cancer, and hypertension. She initially presented to the emergency department at the outside hospital in the evening of September 10, 2019 with complaints of nausea, vomiting, and abdominal pain. CT of the abdomen pelvis showed mild acute uncomplicated pancreatitis with a lipase of 1124 and she was admitted for aggressive IV fluid rehydration and bowel rest.. Given allergies to a couple of antiemetics, she was given promethazine which caused her some confusion the following morning. Unfortunately, she continues to have nausea, vomiting, and dry heaves. Her lipase has continued to trend downwards. Her white count, however, has climbed from 11.0 on admission to 17.7 this morning and she apparently had a low-grade fever 100.2? earlier this morning, prompting blood cultures, urinalysis, and initiation of vancomycin and Zosyn for unclear reasons. At the time my evaluation, an NG tube has been placed and she reports feeling better. She denies active abdominal pain at this time. She is having some mild back and hip discomfort due to being in bed the last couple of days and is requesting Tylenol for that. She denies fever, chills, and sweats. No headache. No chest pain or shortness of breath. She denies diarrhea and notes a normal bowel movement yesterday. Review of Systems Review of Systems: Narrative: Twelve systems were reviewed with pertinent positives and negatives as per HPI. No headache. No auditory or visual changes. She denies chest pain shortness of breath. No dysuria or hematuria. Abdominal pain from a couple of days ago has resolved at this time. Except as documented, all other systems were reviewed and are negative. [facility] Past Medical History Medical History (Updated 09/12/19 @ 18:15 by Shyla Lyn PA-C) Sow's esophagus determined by biopsy Cancer of left breast Invasive lobular cancer of the left breast, ER/[place] positive, diagnosed in 2011, status post lumpectomy, radiation, and tamoxifen therapy. CVA (cerebral vascular accident) Reported CVA without residual deficit. GERD (gastroesophageal reflux disease) History of alcohol use She has abstained from alcohol since the beginning of 2018. Hyperlipidemia Hypertension Surgical History Surgical History (Updated 09/12/19 @ 18:12 by Shyla Lyn PA-C) History of appendectomy History of total right hip arthroplasty Hx of colonoscopy Hx of esophagogastroduodenoscopy Hx of inguinal hernia repair Status post D&C Status post partial mastectomy of left breast Status post surgical removal of ganglion cyst Family History Family History Grandparent Family history of liver disease Carcinoma of colon Family history of lung cancer Mother Family history of lung cancer Father Family history of lung cancer Family history of renal failure Other Family history of malignant neoplasm of stomach Family history of malignant neoplasm of thyroid Social History Social History (Updated 09/12/19 @ 18:12 by Shyla Lyn PA-C) Smoking packs per day: 0.5 Smoking cigarettes per day: 10.0 Smoking status: Former smoker Tobacco type: cigarettes Second hand tobacco smoke exposure: No Smoking end date: 08/17/91 Additional smoking assessment comments: dosent know how long smoked Alcohol intake: former Alcohol use details: Has been sober for 1 year. Use to drink multiple bottles of wine daily Substance use: altaf
[2019-09-12 16:02] LABS: Hemoglobin A1C 5.7 % (<5.7)
[2019-09-12] MEDS: hydrALAZINE HCL 20 MG/ML VIAL 10 MG IV PUSH (16:09)
[2019-09-12 16:31] LABS: T4 Thyroxine 7.38 ug/dL (5.53-11.0)
[2019-09-12] MEDS: LACTATED RINGERS 1,000 ML 125 ML IV CONT (17:41)
[2019-09-12] MEDS: POTASSIUM PHOS,M-BASIC-D-BASIC 20 MMOL in SODIUM CHLORIDE 0.9% IV 250 ML 64 MMOL IVPB (18:34)
[2019-09-12 19:10] LABS: Influenza Control Positive
[2019-09-12] MEDS: PANTOPRAZOLE SODIUM IV 40 MG VIAL IV PUSH (20:18)
[2019-09-13] VITALS (12 sets, daily range): BP systolic 101–136; BP diastolic 63–88; PULSE 78–92; RESP 15–18; TEMP 36.4–37.2; O2SAT 94–96
[2019-09-13] MEDS: LACTATED RINGERS 1,000 ML 125 ML IV CONT ×2 (00:14→02:28)
[2019-09-13] MEDS: METOPROLOL TARTRATE INJ 5 MG/5 ML VIAL IV PUSH ×5 (00:16→23:46)
[2019-09-13 05:39] LABS: Basophils Percent Auto 0.1 % (0.2-1.2); Eosinophils Percent Auto 0.1 % (0-4.4); Immature Granulocyte Absolute 0.09 K/mm3 (0.00-0.031); Immature Granulocyte Percent A 0.6 % (0-0.5); Lymphocytes Absolute Auto 1.42 K/mm3 (0.9-3.2); Mean Corpuscular HGB Conc 34.2 g/dl (32-36); Mean Corpuscular Hemoglobin 28.9 pg (26-34); Mean Corpuscular Volume 84.4 fl (80-100); Mean Platelet Volume 10.2 fl (7.4-10.4); Monocytes Percent Auto 7.4 % (2.6-8.5); Neutrophils Absolute Auto 11.6 K/mm3 (1.3-6.7); Neutrophils Percent Auto 81.8 % (45.5-73.1); Platelet Count Result 254 k/mm3 (150-375); White Blood Count 14.1 K/mm3 (4.5-10.0)
[2019-09-13 05:53] LABS: Alanine Aminotransferase 19 U/L (4-35); Albumin Level 4.2 g/dL (3.5-5.1); Alkaline Phosphatase 95 U/L (38-126); Aspartate Amino Transferase 26 U/L (14-36); Bilirubin,Total 0.6 mg/dL (0.2-1.3); Blood Urea Nitrogen 9 mg/dL (7-17); Calcium 8.9 mg/dL (8.4-10.2); Carbon Dioxide 28 mmol/L (22-30); Chloride 90 mmol/L (98-107); Estimated CRCL calculation 89 ml/min; Estimated Glomerular Filt Rate > 60; Glucose 101 mg/dL (65-105); Magnesium 1.5 mg/dL (1.6-2.3); Phosphorus 2.8 mg/dL (2.5-4.5); Potassium 2.5 mmol/L (3.4-5.0); Sodium 130 mmol/L (137-145)
--- NOTE | 2019-09-13 06:23 | PC.NURSE ---
Linda Cleveland called at [address] Kim with no return call.
[2019-09-13] MEDS: MAGNESIUM SULF 1 GM/D5W 100 ML 1 GM/100 ML BAG IVPB (07:54)
[2019-09-13] MEDS: PANTOPRAZOLE SODIUM IV 40 MG VIAL IV PUSH ×2 (07:55→20:45)
--- NOTE | 2019-09-13 09:37 | WPDGIPROGNO ---
Subjective Date/time seen: 09/13/19 09:37 This very pleasant lady's feeling better. Tolerating NG tube. No further nausea or vomiting. No significant abdominal pain. Chest x-ray and KUB reviewed. Heart rate rhythm regular. Lungs CTA. Abdomen is soft without guarding or rigidity. Bowel sounds were active. Extremity without edema. Neuro nonfocal. HEENT and unremarkable. Impression: Acute pancreatitis. History of alcohol abuse. Presently in remission for the last year. GERD. Gastroparesis. Hypothyroidism. Electrolyte disorder. History of breast cancer. Hypertension. Hyperlipidemia. CVA/TIA. Status post cardiopulmonary arrest. Recommendation: Continue IV fluids. Recheck laboratory studies. Out of bed and ambulate. Continue Reglan as needed. Replace electrolytes. May consider EGD in the future. Continue PPI. Objective Data Vital Signs Vital Signs: Vital Signs - 24 hr 09/12/19 14:00 09/12/19 15:24 09/12/19 16:04 Temperature 37.0 C Pulse Rate 82 92 Respiratory Rate 19 Blood Pressure 202/96 H 191/102 H Pulse Oximetry 98 09/12/19 16:58 09/12/19 18:34 09/12/19 20:00 Temperature 36.9 C Pulse Rate 93 93 Respiratory Rate 19 Blood Pressure 169/81 H Pulse Oximetry 98 09/12/19 22:00 09/13/19 00:16 09/13/19 06:00 Temperature 36.4 C 36.8 C Pulse Rate 93 80 78 Respiratory Rate 20 18 Blood Pressure 175/95 H 136/82 Pulse Oximetry 99 96 09/13/19 06:05 09/13/19 09:26 Temperature Pulse Rate 80 Respiratory Rate Blood Pressure 108/72 Pulse Oximetry Intake/Output Intake/Output: Intake & Output 09/10/19 09/11/19 09/12/19 09/13/19 23:59 23:59 23:59 23:59 Intake Total 600 2350 Output Total 675 2050 Balance -75 300 Meds/Results Medications: Active Medications Generic Name Dose Route Start Last Admin Trade Name Freq PRN Reason Stop Dose Admin Dextrose 12.5 gm 09/12/19 18:21 Dextrose 50% Syringe IV PUSH PRN PRN Hypoglycemia Protocol Glucagon 1 mg 09/12/19 18:21 Glucagon For Inj IM PRN PRN Hypoglycemia Protocol Glucose 15 gm 09/12/19 18:21 Glutose 15 PO PRN PRN Hypoglycemia Protocol Hydralazine HCl 10 mg 09/12/19 15:05 09/12/19 16:09 Apresoline Hcl Inj IV PUSH 10 mg Q6H PRN Administration SBP > 165 or DBP > 105 Dextrose 1,000 mls @ 100 mls/hr 09/12/19 18:21 Dextrose 5% 1,000 Ml IVPB PRN PRN Hypoglycemia Protocol Potassium Phosphate 20 mmol/ 256.6667 mls @ 64 mls/hr 09/13/19 10:55 Sodium Chloride IVPB 09/13/19 14:55 ONCE ONE Potassium Chloride 500 mls @ 125 mls/hr 09/13/19 06:55 09/13/19 07:54 Kcl 40 Meq/D5w 500 Ml Peripheral IVPB 09/13/19 10:54 125 mls/hr ONCE ONE Administration Potassium Chloride/Sodium Chloride 1,000 mls @ 125 mls/hr 09/13/19 14:56 Kcl 40 Meq/Ns IV CONT .Q8H THANH Acetaminophen 1,000 mg in 100 mls @ 400 mls/hr 09/13/19 09:09 Ofirmev 1,000 Mg Ivpb IVPB 09/14/19 09:10 Q6H PRN Pain or Fever Metoclopramide HCl 5 mg 09/12/19 13:42 09/12/19 14:12 Reglan IV PUSH 5 mg Q6HR PRN Administration Nausea And Vomiting Metoprolol Tartrate 5 mg 09/12/19 15:05 09/13/19 06:05 Lopressor Inj IV PUSH 5 mg Q6HR THANH Administration Pantoprazole Sodium 40 mg 09/12/19 21:00 09/13/19 07:55 Protonix Iv IV PUSH 40 mg Q12HR THANH Administration Radiology Results: ITS Impressions Abdomen X-Ray 09/12/19 14:13 IMPRESSION: 1. Nasogastric tube in the stomach. Chest X-Ray 09/12/19 19:51 Impression: 1: No acute cardiopulmonary disease. Labs Labs: Laboratory Results - last 24 hr 09/12/19 09/12/19 09/12/19 13:34 13:34 14:56 WBC 17.4 H RBC 4.40 Hgb 12.9 Hct 37.3 MCV 84.8 MCH 29.3 MCHC 34.6 RDW 14.2 Plt Count 257 MPV 10.0 Immature Gran % (Auto) 0.7 H Neut % (Auto) 86.2 H Lymph % (Auto
--- NOTE | 2019-09-13 11:53 | PM.IMPN ---
Progress Note: A&P Assessment and Plan (1) Pancreatitis: Qualifiers: Chronicity: acute Pancreatitis type: unspecified pancreatitis type Acute pancreatitis complication: no infection or necrosis Qualified Code(s): K85.90 - Acute pancreatitis without necrosis or infection, unspecified Code(s): K85.90 - Acute pancreatitis without necrosis or infection, unspecified Status: Acute Assessment and Plan: She has a history of alcoholic pancreatitis, but reports she has abstained from alcohol for the last [address] Dugan following - appreciate recommendations regarding NG and diet advancement. Lipase was elevated to 1124, resolved to 196 yesterday. Continue supportive care with IV hydration and antiemetics. (2) Electrolyte abnormality: Code(s): E87.8 - Other disorders of electrolyte and fluid balance, not elsewhere classified Status: Acute Assessment and Plan: Including hyponatremia, hypokalemia, hypomagnesemia and hypophosphatemia. Potassium, Mag, phosphate replacement today and continue to monitor. Continue IV fluids with 40meq potassium, recheck levels in AM. (3) Leukocytosis: Qualifiers: Leukocytosis type: unspecified Qualified Code(s): D72.829 - Elevated white blood cell count, unspecified Code(s): D72.829 - Elevated white blood cell count, unspecified Status: Acute Assessment and Plan: Suspect secondary to above, improving today. Chest x-ray is clear. Influenza negative. UA grossly unremarkable. Continue to monitor CBC. No indication for antibiotics at this time. (4) Intractable nausea and vomiting: Code(s): R11.2 - Nausea with vomiting, unspecified Status: Acute Assessment and Plan: She lists severe allergies to ondansetron and prochlorperazine. Promethazine caused confusion. NG tube was placed and seems to be helping. Continue Reglan as needed. (5) Hypertension: Qualifiers: Hypertension type: essential hypertension Qualified Code(s): I10 - Essential (primary) hypertension Code(s): I10 - Essential (primary) hypertension Status: Acute Assessment and Plan: Blood pressures are variable. She had not been able to take her antihypertensive since Thursday due to vomiting. She has been started on scheduled IV Lopressor q.6. Hydralazine also available if needed. Continue to monitor BPs and adjust treatment as needed. (6) DVT prophylaxis: Code(s): Z29.9 - Encounter for prophylactic measures, unspecified Status: Acute Assessment and Plan: SCDs Subjective Date/time seen: 09/13/19 0945 Interval history: Ms. Watson is a 64yo F admitted with pancreatitis. She reports feeling improved. She denies nausea or vomiting this morning. She does complain of a slight headache and some throat irritation from the NG tube. She denies any chest pain or shortness of breath. Review of Systems Review of Systems: Narrative: Twelve systems were reviewed with pertinent positives and negatives as per HPI. Exam Narrative: Exam Narrative: General: Female resting supine in bed in no acute distress. HEENT: Normocephalic, EOMI, oral mucosa tacky. NG intact. Cardiovascular: Rate and rhythm regular. Respiratory: Lungs clear to auscultation all abbott. Non-labored breathing. Abdomen: Soft, non-tender, non-distended, bowel sounds present. Extremities: Peripheral pulses intact. No edema. Neuro: No focal neurological deficits. Speech is clear. Objective Data Vital Signs Vital Signs: Last Vital Signs Temp 98.3 F 09/13/19 06:00 Pulse 80 09/13/19 06:05 Resp 18 09/13/19 06:00 BP 108/72 09/13/19 09:26 Pulse Ox 96 09/13/19 06:00 Intake/Output Intake/Output: Intake & Output 09/10/19 09/11/19 09/12/19 09/13/19 2
[2019-09-13 12:14] LABS: Hematocrit 39.3 % (37.0-47.0); Hemoglobin 13.6 g/dL (12.0-15.0); Mean Corpuscular HGB Conc 34.6 g/dl (32-36); Mean Corpuscular Hemoglobin 29.1 pg (26-34); Mean Corpuscular Volume 84.2 fl (80-100); Mean Platelet Volume 9.9 fl (7.4-10.4); Platelet Count Result 262 k/mm3 (150-375); Red Blood Count 4.67 M/mm3 (4.2-5.4); Red Cell Distribution Width 13.9 % (11.5-14.5)
[2019-09-13 12:33] LABS: Alanine Aminotransferase 19 U/L (4-35); Albumin Level 4.3 g/dL (3.5-5.1); Alkaline Phosphatase 102 U/L (38-126); Aspartate Amino Transferase 26 U/L (14-36); Bilirubin,Total 0.7 mg/dL (0.2-1.3); Blood Urea Nitrogen 11 mg/dL (7-17); Calcium 9.1 mg/dL (8.4-10.2); Carbon Dioxide 29 mmol/L (22-30); Chloride 86 mmol/L (98-107); Estimated CRCL calculation 68 ml/min; Estimated Glomerular Filt Rate > 60; Glucose 104 mg/dL (65-105); Magnesium 2.7 mg/dL (1.6-2.3); Phosphorus 2.5 mg/dL (2.5-4.5); Potassium 2.8 mmol/L (3.4-5.0); Sodium 128 mmol/L (137-145)
[2019-09-13] MEDS: POTASSIUM PHOS,M-BASIC-D-BASIC 20 MMOL in SODIUM CHLORIDE 0.9% IV 250 ML 64 MMOL IVPB (13:17)
[2019-09-13] MEDS: KCL 40 MEQ/0.9% SOD CHL 1,000 ML 125 ML IV CONT (17:17)
[2019-09-14 05:39] LABS: Hematocrit 37.1 % (37.0-47.0); Hemoglobin 12.6 g/dL (12.0-15.0); Mean Corpuscular Volume 85.3 fl (80-100); Mean Platelet Volume 9.8 fl (7.4-10.4); Platelet Count Result 213 k/mm3 (150-375); Red Blood Count 4.35 M/mm3 (4.2-5.4); Red Cell Distribution Width 14.3 % (11.5-14.5); White Blood Count 8.8 K/mm3 (4.5-10.0)
[2019-09-14 06:00] VITALS: BP 125/66; PULSE 72; PULSE 88; RESP 16; TEMP 36.4; O2SAT 97
[2019-09-14] MEDS: METOPROLOL TARTRATE INJ 5 MG/5 ML VIAL IV PUSH (06:00)
[2019-09-14 06:03] LABS: Blood Urea Nitrogen 18 mg/dL (7-17); Calcium 8.5 mg/dL (8.4-10.2); Carbon Dioxide 27 mmol/L (22-30); Chloride 97 mmol/L (98-107); Estimated CRCL calculation 61 ml/min; Estimated Glomerular Filt Rate > 60; Glucose 81 mg/dL (65-105); Magnesium 2.4 mg/dL (1.6-2.3); Phosphorus 3.9 mg/dL (2.5-4.5); Potassium 3.3 mmol/L (3.4-5.0); Sodium 133 mmol/L (137-145)
[2019-09-14] MEDS: KCL 40 MEQ/0.9% SOD CHL 1,000 ML 125 ML IV CONT ×2 (08:20→16:32)
[2019-09-14] MEDS: PANTOPRAZOLE SODIUM IV 40 MG VIAL IV PUSH ×2 (08:20→20:26)
--- NOTE | 2019-09-14 11:28 | WPDGIPROGNO ---
Progress Note: A&P Assessment and Plan (1) Acute pancreatitis: Code(s): K85.90 - Acute pancreatitis without necrosis or infection, unspecified Status: Acute Assessment and Plan: This has resolved. EUS outpatient Will follow up in office.KT and IGG labs still pending (2) Nausea and vomiting: Code(s): R11.2 - Nausea with vomiting, unspecified Status: Acute Assessment and Plan: Discontinue NG and start clear liquids. Advance as tolerated to low fat diet (3) GERD (gastroesophageal reflux disease): Code(s): K21.9 - Gastro-esophageal reflux disease without esophagitis Status: Acute Assessment and Plan: Continue PPI at discharge (4) Gastroparesis: Code(s): K31.84 - Gastroparesis Status: Acute Assessment and Plan: Reglan PRN Consider before meals Subjective Date/time seen: 09/14/19 11:28 Patient denies nausea, vomiting or abdominal pain. Still remains NPO with NG in place. She feels hungry and ready to eat. She has not had BM but does report passing gas Review of Systems Review of Systems: All systems reviewed & are unremarkable except as noted in HPI and below Exam Const: General: cooperative, healthy appearing, comfortable, alert and awake Nutritional Appearance: average body habitus Orientation/consciousness: oriented to person, oriented to place, oriented to time and patient oriented x3 Limitations: no limitations HENMT: Head: normal to inspection and normocephalic General nose exam: Other nasal findings present (NG noted in place with green liquid in canister) Mouth: Yes Normal oral and palatal mucosa present and Yes moist mucous membranes Neck: Neck: normal visual inspection, supple and no JVD Carotids: no bruits Resp: Effort & Inspection: normal respiratory effort and no respiratory distress Auscultation: clear to auscultation bilaterally Cardio: Rate: regular rate Rhythm: regular rhythm Heart sounds: S1 normal heart sound present, S2 normal heart sound present, no gallops, no murmurs and no rubs GI: Inspection: normal to inspection and obesity GI Palp: No abdominal tenderness and No No hepatosplenomegaly present Percussion: Yes normal to percussion Auscultation: normal bowel sounds Rectal Exam: deferred Skin: General skin exam: normal color Lesions: no lesions Rashes: no rashes Neuro: General: oriented to person, oriented to place, oriented to time, patient oriented x3 and moves all extremities Cognition (Neuro): normal cognition Speech: normal speech Gait exam (Neuro): Normal gait present Extrem: General: normal to inspection Psych: Appearance: grossly normal Mental Status: mental status grossly normal Speech and movement: Normal speech and movement present Affect: normal affect Attitude: cooperative Thought process: Normal thought process present Objective Data Vital Signs Vital Signs: Vital Signs - 24 hr 09/13/19 13:16 09/13/19 13:17 09/13/19 14:00 Temperature 37.2 C Pulse Rate 92 92 87 Respiratory Rate 15 Blood Pressure 127/88 105/75 Pulse Oximetry 96 09/13/19 16:30 09/13/19 17:25 09/13/19 22:00 Temperature 36.4 C Pulse Rate 91 88 Respiratory Rate 16 Blood Pressure 119/66 101/72 Pulse Oximetry 94 09/13/19 23:46 09/13/19 23:57 09/14/19 06:00 Temperature 36.4 C L Pulse Rate 88 72 Respiratory Rate 16 Blood Pressure 122/63 125/66 Pulse Oximetry 97 Intake/Output Intake/Output: Intake & Output 09/11/19 09/12/19 09/13/19 09/14/19 23:59 23:59 23:59 23:59 Intake Total 600 4300 1000 Output Total 675 3350 750 Balance -75 950 250 Meds/Results Medications: Active Medications Generic Name Dose Route Start Last Admin Trade Name Freq PRN Reason Stop Dose Admin Dextrose 12.5 gm 09/12/19 18:21 Dextrose 50% Syringe IV PUSH PRN PRN Hypoglycemia Protocol Glucagon 1 mg 09/12/19 18:21 Glucagon For Inj IM PRN PRN Hypoglycemi
--- NOTE | 2019-09-14 11:51 | PM.IMPN ---
Progress Note: A&P Assessment and Plan (1) Pancreatitis: Qualifiers: Acute pancreatitis complication: no infection or necrosis Chronicity: acute Pancreatitis type: unspecified pancreatitis type Qualified Code(s): K85.90 - Acute pancreatitis without necrosis or infection, unspecified Code(s): K85.90 - Acute pancreatitis without necrosis or infection, unspecified Status: Acute Assessment and Plan: She has a history of alcoholic pancreatitis, but reports she has abstained from alcohol for the last 1 year. Lipase was elevated to 1124, resolved to 196. Dr Dugan following. Discussed case with ROXANNE Xavier. Plan to remove NG and start clear liquids. Continue supportive care with IV hydration and PRN reglan. (2) Electrolyte abnormality: Code(s): E87.8 - Other disorders of electrolyte and fluid balance, not elsewhere classified Status: Acute Assessment and Plan: Including hyponatremia, hypokalemia, hypomagnesemia and hypophosphatemia. Potassium improved this AM. Continue IV fluids with 40meq potassium, repeat levels in AM. (3) Leukocytosis: Qualifiers: Leukocytosis type: unspecified Qualified Code(s): D72.829 - Elevated white blood cell count, unspecified Code(s): D72.829 - Elevated white blood cell count, unspecified Status: Acute Assessment and Plan: Resolved. Suspect stress reaction related to above. (4) Intractable nausea and vomiting: Code(s): R11.2 - Nausea with vomiting, unspecified Status: Acute Assessment and Plan: She lists severe reactions to ondansetron and prochlorperazine. Promethazine caused confusion. NG tube helped and her symptoms are resolved this AM. Continue Reglan as needed. (5) Hypertension: Qualifiers: Hypertension type: essential hypertension Qualified Code(s): I10 - Essential (primary) hypertension Code(s): I10 - Essential (primary) hypertension Status: Acute Assessment and Plan: Stop IV lopressor and add back metoprolol succinate since her diet is advanced. Continue to monitor BPs and adjust treatment as needed. (6) DVT prophylaxis: Code(s): Z29.9 - Encounter for prophylactic measures, unspecified Status: Acute Assessment and Plan: SCDs Subjective Date/time seen: 09/14/19 1000 Interval history: Ms. Watson is a 64yo F admitted with pancreatitis. She reports she is feeling better and denies nausea or abdominal pain this morning. She continues to have throat discomfort related to the NG tube. She denies chest pain, shortness of breath, or calf tenderness. She is hungry and wants to eat. Review of Systems Review of Systems: Narrative: Twelve systems were reviewed with pertinent positives and negatives as per HPI. Exam Narrative: Exam Narrative: General: Female resting supine in bed in no acute distress. HEENT: Normocephalic, EOMI, oral mucosa tacky. NG intact. Cardiovascular: Rate and rhythm regular. Respiratory: Lungs clear to auscultation all abbott. Non-labored breathing. Abdomen: Soft, non-tender, non-distended, bowel sounds present. Extremities: Peripheral pulses intact. No edema. Neuro: No focal neurological deficits. Speech is clear. Objective Data Vital Signs Vital Signs: Laboratory Tests 09/14/19 05:22 09/14/19 05:22 Intake/Output Intake/Output: Intake & Output 09/11/19 09/12/19 09/13/19 09/14/19 23:59 23:59 23:59 23:59 Intake Total 600 4300 1000 Output Total 675 3350 750 Balance -75 950 250 Meds/Results Medications: Active Medications Generic Name Dose Route Start Last Admin Trade Name Cristoferq PRN Reason Stop Dose Admin Aspirin 81 mg 09/15/19 09:00 Aspirin Ec PO DAILY THANH Atorvastatin Calcium 20 mg 09/14/19 21:00 Lipitor PO
[2019-09-14 12:23] VITALS: PULSE 82
[2019-09-14] MEDS: METOPROLOL SUCCINATE EXT REL 50 MG TABCR PO (12:23)
[2019-09-14 14:00] VITALS: BP 112/70; PULSE 88; RESP 16; TEMP 36.6; O2SAT 97
[2019-09-14 20:00] VITALS: PULSE 88; RESP 16; O2SAT 97
[2019-09-14] MEDS: ATORVASTATIN 20 MG TABLET PO (20:25)
[2019-09-14 21:51] VITALS: BP 110/58; PULSE 81; RESP 20; TEMP 37.1; O2SAT 98
[2019-09-14 22:56] LABS: Immunoglobulin G, Serum 1138 mg/dL (600-1540); Immunoglobulin G1 767 mg/dL (382-929); Immunoglobulin G2 222 mg/dL (241-700); Immunoglobulin G3 46 mg/dL (22-178); Immunoglobulin G4 1.3 mg/dL (4.0-86.0)
[2019-09-15] MEDS: KCL 40 MEQ/0.9% SOD CHL 1,000 ML 125 ML IV CONT (00:55)
[2019-09-15 05:48] VITALS: BP 129/68; PULSE 76; RESP 20; TEMP 36.6; O2SAT 97
[2019-09-15 06:15] LABS: Blood Urea Nitrogen 11 mg/dL (7-17); Calcium 8.5 mg/dL (8.4-10.2); Carbon Dioxide 27 mmol/L (22-30); Chloride 104 mmol/L (98-107); Estimated CRCL calculation 68 ml/min; Estimated Glomerular Filt Rate > 60; Glucose 87 mg/dL (65-105); Magnesium 1.8 mg/dL (1.6-2.3); Phosphorus 2.9 mg/dL (2.5-4.5); Potassium 4.3 mmol/L (3.4-5.0); Sodium 136 mmol/L (137-145)
[2019-09-15 08:32] VITALS: PULSE 82
[2019-09-15] MEDS: PANTOPRAZOLE SODIUM IV 40 MG VIAL IV PUSH (08:32)
[2019-09-15] MEDS: ASPIRIN 81 MG ENTERIC TABLET PO (08:32)
[2019-09-15] MEDS: METOPROLOL SUCCINATE EXT REL 100 MG TABCR PO (08:32)
[2019-09-15] MEDS: ESCITALOPRAM OXALATE 10 MG TABLET 20 MG PO (08:32)
--- NOTE | 2019-09-15 09:52 | WPDGIPROGNO ---
Subjective Date/time seen: 09/15/19 09:52 This very pleasant lady's feeling much better. Tolerating clear liquids. No nausea, vomiting or abdominal pain. She is passing flatus and stool. Heart rate rhythm regular. Lungs CTA. Abdomen is soft with no guarding or rigidity. Bowel sounds were active. Impression: Acute pancreatitis. History of alcohol abuse. Presently in remission for the last year. GERD. Gastroparesis. Hypothyroidism. Electrolyte disorder. History of breast cancer. Hypertension. Hyperlipidemia. CVA/TIA. Status post cardiopulmonary arrest. Recommendation: Advance to low-fat diet. Repeat CT scan 6 weeks. Routine office visit after CT scan. Will arrange EUS after office visit. Objective Data Vital Signs Vital Signs: Vital Signs - 24 hr 09/14/19 12:23 09/14/19 14:00 09/14/19 20:00 Temperature 36.6 C Pulse Rate 82 88 88 Respiratory Rate 16 16 Blood Pressure 112/70 Pulse Oximetry 97 97 09/14/19 21:51 09/15/19 05:48 09/15/19 08:32 Temperature 37.1 C 36.6 C Pulse Rate 81 76 82 Respiratory Rate 20 20 Blood Pressure 110/58 L 129/68 Pulse Oximetry 98 97 Intake/Output Intake/Output: Intake & Output 09/12/19 09/13/19 09/14/19 09/15/19 23:59 23:59 23:59 23:59 Intake Total 600 4300 3440 2600 Output Total 675 3350 1200 1200 Balance -75 950 2240 1400 Meds/Results Medications: Active Medications Generic Name Dose Route Start Last Admin Trade Name Freq PRN Reason Stop Dose Admin Aspirin 81 mg 09/15/19 09:00 09/15/19 08:32 Aspirin Ec PO 81 mg DAILY THANH Administration Atorvastatin Calcium 20 mg 09/14/19 21:00 09/14/19 20:25 Lipitor PO 20 mg HS HTANH Administration Dextrose 12.5 gm 09/12/19 18:21 Dextrose 50% Syringe IV PUSH PRN PRN Hypoglycemia Protocol Escitalopram Oxalate 20 mg 09/15/19 09:00 09/15/19 08:32 Lexapro PO 20 mg DAILY THANH Administration Glucagon 1 mg 09/12/19 18:21 Glucagon For Inj IM PRN PRN Hypoglycemia Protocol Glucose 15 gm 09/12/19 18:21 Glutose 15 PO PRN PRN Hypoglycemia Protocol Hydralazine HCl 10 mg 09/12/19 15:05 09/12/19 16:09 Apresoline Hcl Inj IV PUSH 10 mg Q6H PRN Administration SBP > 165 or DBP > 105 Dextrose 1,000 mls @ 100 mls/hr 09/12/19 18:21 Dextrose 5% 1,000 Ml IVPB PRN PRN Hypoglycemia Protocol Metoclopramide HCl 5 mg 09/12/19 13:42 09/12/19 14:12 Reglan IV PUSH 5 mg Q6HR PRN Administration Nausea And Vomiting Metoprolol Succinate 100 mg 09/15/19 09:00 09/15/19 08:32 Toprol Xl PO 100 mg DAILY THANH Administration Pantoprazole Sodium 40 mg 09/12/19 21:00 09/15/19 08:32 Protonix Iv IV PUSH 40 mg Q12HR THANH Administration Phenol 1 spray 09/13/19 11:54 Chloraseptic Maramec MUCOUS MEM PRN PRN Sore Throat Radiology Results: ITS Impressions Abdomen X-Ray 09/12/19 14:13 IMPRESSION: 1. Nasogastric tube in the stomach. Chest X-Ray 09/12/19 19:51 Impression: 1: No acute cardiopulmonary disease. Labs Labs: Laboratory Results - last 24 hr 09/12/19 09/15/19 14:55 05:26 Sodium 136 L Potassium 4.3 Chloride 104 Carbon Dioxide 27 BUN 11 D Creatinine 0.80 Estim Creat Clear Calc 68 Estimated GFR > 60 Glucose 87 Calcium 8.5 Phosphorus 2.9 Magnesium 1.8 IgG 1138 IgG1 767 IgG2 222 L IgG3 46 IgG4 1.3 L
[2019-09-15 14:00] VITALS: BP 128/66; PULSE 77; RESP 16; TEMP 36.2; O2SAT 100
--- NOTE | 2019-09-15 18:21 | PM.DS ---
DS: Diagnosis Admitting Diagnosis Admitting Diagnosis: Nausea with vomiting, unspecified Discharge Diagnosis (1) Pancreatitis: Qualifiers: Chronicity: acute Pancreatitis type: unspecified pancreatitis type Acute pancreatitis complication: no infection or necrosis Qualified Code(s): K85.90 - Acute pancreatitis without necrosis or infection, unspecified Code(s): K85.90 - Acute pancreatitis without necrosis or infection, unspecified Status: Acute Assessment and Plan: Date of Service 09/15/19 Ms. Watson is a pleasant 64 yo F with history of hypertension who [facility] nausea and vomiting with abdominal pain. She was treated at [facility] from 09/10/19 - 09/12/19 for pancreatitis, transferred to [facility] for further management after no improvement in her symptoms. She is known to have been a heavy drinker in the past and has suffered from alcoholic pancreatitis previously, but she reported this admission that she has abstained from alcohol consumption for the last [address] abdomen showed mild acute uncomplicated pancreatitis and lipase was elevated to 1124. She is known to have severe reactions to zofran and prochlorperazine. On arrival to [facility], GI was consulted (Dr Dugan) and NG tube was placed to low intermittent suction. Her nausea improved and vomiting resolved not long after initiation of NG. She had relief with Reglan as well. She was treated with supportive care to include bowel rest, IV hydration, and electrolyte repletion. She was found to have hypokalemia, hypomagnesemia, and hypophosphatemia on arrival. This electrolytes were replaced parenterally and stable at discharge. After 2 days of bowel rest with NG tube, her symptoms were resolved and she was feeling much better. NG was removed and she was started on a clear liquid diet and advanced to a low-fat diet as tolerated. She tolerated a low fat diet without nausea, vomiting, or abdominal pain prior to discharge. She was hemodynamically stable for discharge 09/15/19 with plans to follow up with PCP and Dr Dugan. Recommendations: Repeat abdominal CT in 6 weeks. Office appointment with Dr Dugan in [address] scan is obtained. Dr Dugan considering endoscopic ultrasound in the future. Short-interval follow up with PCP in the interim. She has a history of alcoholic pancreatitis, but reports she has abstained from alcohol for the last 1 year. Lipase was elevated to 1124, resolved to 196. Improved with supportive care. (2) Electrolyte abnormality: Code(s): E87.8 - Other disorders of electrolyte and fluid balance, not elsewhere classified Status: Acute Assessment and Plan: Including hyponatremia, hypokalemia, hypomagnesemia and hypophosphatemia. Suspect secondary to GI loss. Replaced IV and stable at discharge. (3) Leukocytosis: Qualifiers: Leukocytosis type: unspecified Qualified Code(s): D72.829 - Elevated white blood cell count, unspecified Code(s): D72.829 - Elevated white blood cell count, unspecified Status: Acute Assessment and Plan: Resolved. Suspect stress reaction related to above. (4) Intractable nausea and vomiting: Code(s): R11.2 - Nausea with vomiting, unspecified Status: Acute Assessment and Plan: She lists severe reactions to ondansetron and prochlorperazine. Promethazine caused confusion. She had relief here with Reglan. See above. (5) Hypertension: Qualifiers: Hypertension type: essential hypertension Qualified Code(s): I10 - Essential (primary) hypertension Code(s): I10 - Essential (primary) hypertension Status: Acute Assessment and Plan: Maintained on IV lopressor while NPO, transitioned back to her oral metoprolol
== END 2019-09-15 15:00 | disposition home or self-care (01) | DRG 439 ==
PROVIDERS: Internal Medicine Gastroenterology; Nurse Practitioner; Physician Assistant; Admitting Provider Family Medicine; PCP Family Medicine; Visit Provider Family Medicine
DX: K85.90 Acute pancreatitis without necrosis or infection, unspecified (principal); E87.1 Hypo-osmolality and hyponatremia; D72.829 Elevated white blood cell count, unspecified; K21.9 Gastro-esophageal reflux disease without esophagitis; I10 Essential (primary) hypertension; E78.5 Hyperlipidemia, unspecified; E87.6 Hypokalemia; E83.39 Other disorders of phosphorus metabolism; E83.42 Hypomagnesemia; K31.84 Gastroparesis; E03.9 Hypothyroidism, unspecified; Z96.641 Presence of right artificial hip joint; Z86.73 Personal history of transient ischemic attack (TIA), and cerebral infarction without residual deficits; Z85.3 Personal history of malignant neoplasm of breast; Z87.891 Personal history of nicotine dependence
CPT/HCPCS: 36415; 71045; 80048; 80053; 80061; 80076; 82784; 82787; 83036; 83690; 83735; 84100; 84132; 84436; 84443; 85025; 85027; 85610; 86038; 87804; A9270; C9113; J0131; J0360; J2765; J3475; J3480; J7050; J7120

== ENCOUNTER 2019-12-13 08:27 | Outpatient (CLI) | payer OTHER, SELFPAY ==
--- NOTE | ~2019-12-13 | MM_ITS ---
EXAMINATION: MM screening [facility] BI w ciera HISTORY: Screening mammogram TECHNIQUE: Craniocaudal and mediolateral oblique 3-D tomosynthesis images were obtained and synthetic 2-D images were generated. CAD analysis was submitted and interpreted. COMPARISON: Comparison to multiple prior studies sequentially, with oldest reviewed study dated 01/02. BREAST PARENCHYMAL COMPOSITION: There are scattered areas of fibroglandular density. FINDINGS: Stable architectural distortion of the left breast consistent with previous lumpectomy. The re is no evidence of suspicious mass, calcification, or architectural distortion to suggest malignanc y in either breast. There has been no suspicious interval change. IMPRESSION: 1. No mammographic evidence of malignancy. 2. Recommend routine screening mammography in one year. BI-RADS Category 2: Benign finding(s). Reviewed, dictated and finalized at location A.
== END 2019-12-13 08:28 | disposition home or self-care (01) ==
LOC: ANHIMG 08:30
PROVIDERS: PCP Family Medicine; Visit Provider Obstetrics & Gynecology Gynecology
DX: Z12.31 Encounter for screening mammogram for malignant neoplasm of breast (principal)
CPT/HCPCS: 77063; 77067

== ENCOUNTER 2020-02-07 13:36 | Emergency (ER) | payer OTHER, SELFPAY ==
--- NOTE | ~2020-02-07 | XR_ITS ---
EXAMINATION: XR ankle LT min 3V EXAM DATE: 02/07/2020 14:18 INDICATION: Initial encounter following injury, with pain of the left ankle. TECHNIQUE: Left ankle frontal, lateral and oblique projections obtained and reviewed. There is no pr ior study for comparison. FINDINGS: The left ankle mortise appears intact. There are no acute fractures or dislocations ident ified. There is no subcutaneous gas. There is soft tissue swelling over the ankle laterally. There are no radiopaque foreign bodies. IMPRESSION: 1. Left ankle exam without acute osseous findings. 2. Soft tissue swelling. Reviewed, dictated and finalized at location B.
[2020-02-07 13:55] VITALS: BP 82/56; PULSE 64; RESP 12; TEMP 36.9; O2SAT 96
--- NOTE | 2020-02-07 14:00 | ED.LOWEXIN ---
HPI - Extremity Injury (Lower) General Chief Complaint: Extremity Injury, Lower Stated Complaint: L ankle pain Time Seen by Provider: 02/07/20 14:00 Source: patient Mode of arrival: wheelchair Limitations: no limitations History of Present Illness HPI Narrative: 64-year-old woman comes in today complaining of left ankle pain and swelling. She states that this morning she slipped on some stairs and twisted her ankle in the process. She denies other injury. She states that 1st he was able to bear weight but as time went on she was unable to bear weight because of pain. She denies any numbness or tingling is had no prior ankle or foot issues. complaint: ankle injury Onset (ago): hour(s) (2) Injury: Left: ankle Type of Injury: inversion Place: home Severity: moderate Relieving factors: rest Exacerbating factors: weight bearing, movement and palpation Context: walking Associated symptoms: swelling and unable to bear weight Related Data Home Medications Medication Instructions Recorded Confirmed ergocalciferol (vitamin D2) 1 unit PO WEEKLY 09/10/19 02/07/20 escitalopram oxalate 20 mg PO DAILY 09/10/19 02/07/20 aspirin 81 mg PO DAILY 09/12/19 02/07/20 multivitamin 1 tablet PO DAILY 09/26/19 02/07/20 Allergies Allergy/AdvReac Type Severity Reaction Status Date / Time morphine Allergy Severe SEVERE Verified 01/24/20 14:11 ITCHING ondansetron Allergy Severe Anaphylaxis Verified 01/24/20 14:11 prochlorperazine Allergy Severe Seizure Verified 01/24/20 14:11 Review of Systems Constitutional: Constitutional: Denies chills and Denies fever(s) Cardiovascular: Cardiovascular: Denies chest pain and Denies radiating jaw, neck or arm pain Respiratory: Respiratory: Denies cough, Denies dyspnea and Denies wheezing Gastrointestinal: Gastrointestinal: Denies abdominal pain and Denies nausea Musculoskeletal: Musculoskeletal: Reports as per HPI, Denies back pain, Reports arthralgias and Reports joint swelling Integumentary/Breasts: Skin/Breast: Denies pruritus, Denies rash and Denies skin ulcer Neurologic: Denies vertigo, Denies dizziness and Denies syncope Hematologic/Lymphatic: Hematologic/Lymphatic: Denies easy bleeding and Denies easy bruising Allergic/Immunologic: Allergic/Immunologic: Denies lip swelling and Denies wheezing PMFSH Past Medical History Medical History Sow's esophagus determined by biopsy Cancer of left breast Invasive lobular cancer of the left breast, ER/[place] positive, diagnosed in 2011, status post lumpectomy, radiation, and tamoxifen therapy. CVA (cerebral vascular accident) Reported CVA without residual deficit. GERD (gastroesophageal reflux disease) History of alcohol use She has abstained from alcohol since the beginning of 2018. Hyperlipidemia Recurrent pancreatitis Surgical History Surgical History History of appendectomy History of total right hip arthroplasty Hx of esophagogastroduodenoscopy Hx of inguinal hernia repair Status post D&C Status post partial mastectomy of left breast Status post surgical removal of ganglion cyst Social History Social History Smoking packs per day: 0.5 Smoking cigarettes per day: 10.0 Smoking status: Former smoker Tobacco type: cigarettes Second hand tobacco smoke exposure: No Smoking end date: 08/17/91 Additional smoking assessment comments: dosent know how long smoked Alcohol intake: former Substance use: never Additional living arrangements comments: Lives with in [place]. Additional occupation/education comments: Works at [employer]. Gender identity (if verbalized by the patient): Female Spiritual care concerns: No Agree to blood products: Yes Exam Const: General: healthy appearing and alert Orientation/consciousness: pat
[2020-02-07] MEDS: ACETAMINOPHEN 325 MG TABLET 650 MG PO (14:25)
[2020-02-07 15:16] VITALS: BP 101/54; PULSE 64; RESP 14; O2SAT 98
== END 2020-02-07 15:22 | disposition home or self-care (01) ==
PROVIDERS: Emergency Provider Emergency Medicine; PCP Family Medicine
DX: S93.402A Sprain of unspecified ligament of left ankle, initial encounter (principal); W01.0XXA Fall on same level from slipping, tripping and stumbling without subsequent striking against object, initial encounter
CPT/HCPCS: 29515; 73610; 99282; 99283; A9270; L4350

== ENCOUNTER 2020-02-20 07:20 | Outpatient (CLI) | payer OTHER, SELFPAY ==
[2020-02-20 07:29] LABS: Basophils Absolute Auto 0.04 K/mm3 (0.00-0.10); Basophils Percent Auto 0.5 % (0.0-1.0); Eosinophils Absolute Auto 0.19 K/mm3 (0.02-0.50); Eosinophils Percent Auto 2.5 % (1.0-6.0); Hemoglobin 12.9 g/dL (12.0-15.0); Immature Granulocyte Absolute 0.02 K/mm3 (0.00-0.00); Immature Granulocyte Percent A 0.3 % (0.0-0.0); Lymphocytes Absolute Auto 1.72 K/mm3 (1.10-4.50); Lymphocytes Percent Auto 22.9 % (18.0-42.0); Mean Corpuscular HGB Conc 33.9 g/dL (32.0-36.0); Mean Corpuscular Hemoglobin 29.9 pg (27.0-31.0); Mean Platelet Volume 9.8 fl (9.2-11.8); Monocytes Absolute Auto 0.45 K/mm3 (0.10-0.90); Neutrophils Absolute Auto 5.1 K/mm3 (1.7-7.2); Neutrophils Percent Auto 67.8 % (50.0-70.0); Platelet Count Result 191 K/mm3 (150-420); Red Blood Count 4.32 M/mm3 (4.20-5.40); Red Cell Distribution Width 14.6 % (11.6-14.4); White Blood Count 7.5 K/mm3 (4.8-10.8)
[2020-02-20 08:45] LABS: Alanine Aminotransferase 55 U/L (14-59); Albumin Level 4.1 g/dL (3.4-5.0); Alkaline Phosphatase 147 U/L (46-116); Anion Gap 11.3 mmol/L (7-16); Aspartate Amino Transferase 29 U/L (15-37); Bilirubin,Total 0.3 mg/dL (0.00-1.00); Blood Urea Nitrogen 18 mg/dL (7-18); Calcium 9.4 mg/dL (8.5-10.1); Carbon Dioxide 32 mmol/L (21-32); Chloride 100 mmol/L (98-108); Cholesterol 193 mg/dL (0-200); Estimated Glomerular Filt Rate 55; Glucose 82 mg/dL (70-99); HDL Direct 59 mg/dL (40-60); LDL Cholesterol Calculated 90 mg/dL (<130); Osmolality Calculated 288 mOsm/kg (285-295); Potassium 4.3 mmol/L (3.5-5.1); Sodium 139 mmol/L (136-145); Thyroid Stimulating Hormone 5.37 uIU/mL (0.36-3.74); Total Protein 7.5 g/dL (6.4-8.2); Triglycerides 220 mg/dL (0-150)
[2020-02-22 21:22] LABS: Vitamin D 25 Hydroxy 50 ng/mL (30-100)
== END 2020-02-20 07:21 | disposition home or self-care (01) ==
LOC: CHSLAB 07:22
PROVIDERS: PCP Family Medicine; Visit Provider Family Medicine
DX: Z00.00 Encounter for general adult medical examination without abnormal findings (principal); E78.5 Hyperlipidemia, unspecified; I10 Essential (primary) hypertension; E55.9 Vitamin D deficiency, unspecified
CPT/HCPCS: 36415; 80053; 80061; 82306; 84443; 85025

== ENCOUNTER 2020-05-25 08:46 | Outpatient (CLI) | payer OTHER, SELFPAY ==
--- NOTE | ~2020-05-25 | DEXA_ITS ---
Bone Density Report Name: Meron Watson Age: 64 Sex: Female Ethnicity: White Date of : 1955 Indication: postmenopausal; cancer; Referring Provider: BRISEYDA WOLF Study: Bone densitometry was performed. Exam Date: May 25, 2020 Accession number: [id number] Bone Density: Region BMD T-score Z-score Classification AP Spine (L1-L4) 1.121 0.7 2.3 Normal Femoral Neck (Left) 0.993 1.3 2.7 Normal Total Hip (Left) 1.137 1.6 2.7 Normal World Health Organization criteria for BMD impression classify patients as: Normal (T-score at or above -1.0), Osteopenia (T-score between -1.0 and -2.5), or Osteoporosis (T-score at or below -2.5). 10-year Fracture Risk: FRAX not reported because: All T-scores for Spine Total, Hip Total, Femoral Neck at or above -1.0 Previous Exams: Region Exam Age BMD T-score BMD Change BMD Change Date g/cm2 vs Baseline vs Previous AP Spine(L1-L4) 05/25/2020 64 1.121 0.7 -0.037(-3.2%)* -0.037(-3.2%)* 03/26/2017 61 1.158 1.0 Total Hip(Left) 05/25/2020 64 1.137 1.6 -0.069(-5.8%)* -0.069(-5.8%)* 03/26/2017 61 1.206 2.2 *Denotes significance at 95% confidence level, LSC for AP Spine = 0.022 g/cm2, LSC for Total Hip = 0.027 g/cm2 Clinical Information Provided by Patient: Has used the following medications: Vitamin D Has the following medical conditions: Cancer Patient maximum height was 66 Menopause Age: 54 Onset of menses at age 13 Number of children 1 Impression: The patient has normal bone mass. The BMD for the AP Spine(L1-L4) decreased, changing by -3.2% since the last DXA exam. The BMD for the Total Hip(Left) decreased, changing by -5.8% since the last DXA exam. Discussion: LOW RISK OF FRACTURE; BONE DENSITY IS WELL ABOVE THE MINIMUM DESIRABLE LEVEL AND ABOVE AVERAGE FOR AGE AND SEX AT ALL SKELETAL SITES TESTED. This person's bone density is above expected limits for age and sex. This is rarely clinically significant, but should be pursued if there are significant musculoskeletal complaints. The patient should follow a healthful lifestyle (good nutrition with adequate calcium and vitamin D, and appropriate weight-bearing exercise). Follow-Up: Consider repeating this study in 3 to 4 years to reassess this patient's status, or sooner if there is some new clinical indication. Reported by: JOSE on 05/25/2020 9:03:00 AM. Reviewed, dictated and finalized at location Jonathan CALLAHAN
== END 2020-05-25 08:47 | disposition home or self-care (01) ==
LOC: ANHIMG 08:47
PROVIDERS: PCP Family Medicine; Visit Provider Obstetrics & Gynecology Gynecology
DX: Z78.0 Asymptomatic menopausal state (principal)
CPT/HCPCS: 77080

== ENCOUNTER 2020-12-26 08:05 | Outpatient (CLI) | payer SELFPAY ==
--- NOTE | ~2020-12-26 | MM_ITS ---
EXAMINATION: MM screening [facility] BI w ciera HISTORY: Screening mammogram, history of left breast cancer TECHNIQUE: Craniocaudal and mediolateral oblique 3-D tomosynthesis images were obtained and synthetic 2-D images were generated. CAD analysis was submitted and interpreted. COMPARISON: 12/13/2019, 11/29/2018, 11/16/2017 BREAST PARENCHYMAL COMPOSITION: The breasts are heterogeneously dense, which may obscure small masses . FINDINGS: There are stable lumpectomy changes in the upper outer quadrant of the left breast. There i s no evidence of suspicious mass, calcification, or architectural distortion to suggest malignancy in either breast. There has been no suspicious interval change. IMPRESSION: 1. No mammographic evidence of malignancy. 2. Recommend routine screening mammography in one year. BI-RADS Category 2: Benign finding(s). Reviewed, dictated and finalized at location A.
== END 2020-12-26 08:06 | disposition home or self-care (01) ==
LOC: ANHIMG 08:07
PROVIDERS: PCP Family Medicine; Visit Provider Obstetrics & Gynecology Gynecology
DX: Z12.31 Encounter for screening mammogram for malignant neoplasm of breast (principal)
CPT/HCPCS: 77063; 77067

== ENCOUNTER 2021-01-04 09:15 | Inpatient (IN) | payer OTHER, SELFPAY ==
[2021-01-04] VITALS (7 sets, daily range): BP systolic 130–168; BP diastolic 81–97; PULSE 75–90; RESP 16–20; TEMP 36.8–37.3; O2SAT 96–100
--- NOTE | ~2021-01-04 | XR_ITS ---
XR abdomen NG/feed tube insert DATE: 01/04/2021 14:58 INDICATION: NG tube placement TECHNIQUE: Portable supine AP view on 01/04/2021 at 1415 hours COMPARISON: None FINDINGS: A nasogastric tube is present in the proximal stomach, the proximal side-port situated just distal to the diaphragmatic hiatus. Advancement of the tube is recommended. There is bilateral excretion of contrast material by the kidneys without evidence of hydronephrosis. The bowel gas pattern is unremarkable. Surgical clips overlie the right lower quadrant. IMPRESSION: NG tube in very proximal stomach; advancement is recommended Reviewed, dictated and finalized at [facility]. Reviewed, dictated and finalized at [facility].
--- NOTE | ~2021-01-04 | CT_ITS ---
EXAMINATION: CT abdomen pelvis w con EXAM DATE: 01/04/2021 10:40 INDICATION: Pancreatitis. TECHNIQUE: Spiral CT of the abdomen and pelvis was performed following intravenous injection of 100 m L Omnipaque 350. Axial, coronal and sagittal images of the abdomen and pelvis were reviewed. The do se-length product (DLP) for this examination was 723.14 mGy-cm. The exposure was tailored according to patient size (auto mA exposure control), and iterative reconstruction (ASIR) was used as additiona l dose reduction technique. Comparison is made to prior examination from 09/10/2019. FINDINGS: There is mild to moderate inflammation surrounding the pancreatic head and uncinate process , appearance consistent with acute uncomplicated pancreatitis. Gallbladder is unremarkable. No bili corinne obstruction. Portal and splenic veins are patent. Kidneys enhance symmetrically. There is no h ydronephrosis. The uterus is unremarkable. The bladder is unremarkable. There is no retroperiton eal or pelvic lymphadenopathy. There is mild scattered arteriosclerotic disease. Pericecal surgical clips. The stomach and small bowel are unremarkable. There is expected amount of colonic stool. No free intraperitoneal gas. The heart is normal in size. There are no pericardi al or pleural effusions. The lung bases are unremarkable. There are no osteoblastic or osteolytic l esions identified. There is advanced lower thoracic disc disease. Right hip replacement. Patient had acute pancreatitis on prior study, there is more inflammation on this appearance. IMPRESSION: 1. Acute uncomplicated pancreatitis. Reviewed, dictated and finalized at [facility].
--- NOTE | ~2021-01-04 | XR_ITS ---
EXAMINATION: XR abdomen NG/feed tube rechec INDICATION: Nasogastric tube repositioning TECHNIQUE: Portable AP KUB-NG at 1542 hours COMPARISON: 1458 hours FINDINGS: A nasogastric tube has been advanced and now ends with its tip and proximal side port in th e stomach. The lung bases are clear. Surgical clips are noted in the right mid abdomen. Contrast from earlier CT partially opacifies the urinary tract. IMPRESSION: 1. Nasogastric tube in the stomach. Reviewed, dictated and finalized at [facility].
[2021-01-04] MEDS: SODIUM CHLORIDE 0.9% IV 1,000 ML 150 ML IV CONT (09:47)
[2021-01-04] MEDS: fentaNYL CITRATE INJ (*CRX) 100 MCG/2 ML VIAL 50 MCG IV PUSH (09:47)
[2021-01-04 10:09] LABS: Basophils Percent Auto 0.2 % (0.2-1.2); Eosinophils Absolute Auto 0.2 K/mm3 (0-0.3); Eosinophils Percent Auto 1.1 % (0-4.4); Hematocrit 43.1 % (37.0-47.0); Hemoglobin 14.4 g/dL (12.0-15.0); Immature Granulocyte Absolute 0.04 K/mm3 (0.00-0.031); Immature Granulocyte Percent A 0.3 % (0-0.5); Lymphocytes Absolute Auto 1.01 K/mm3 (0.9-3.2); Lymphocytes Percent Auto 7.7 % (18.3-44.2); Mean Corpuscular HGB Conc 33.4 g/dl (32-36); Mean Corpuscular Hemoglobin 29.6 pg (26-34); Mean Corpuscular Volume 88.5 fl (80-100); Mean Platelet Volume 10.7 fl (7.4-10.4); Monocytes Absolute Auto 0.9 K/mm3 (0.1-0.6); Monocytes Percent Auto 6.8 % (2.6-8.5); Neutrophils Absolute Auto 11.1 K/mm3 (1.3-6.7); Neutrophils Percent Auto 83.9 % (45.5-73.1); Platelet Count Result 227 k/mm3 (150-375); Red Blood Count 4.87 M/mm3 (4.2-5.4); Red Cell Distribution Width 13.9 % (11.5-14.5); White Blood Count 13.2 K/mm3 (4.5-10.0)
[2021-01-04 10:21] LABS: Alanine Aminotransferase 23 U/L (4-35); Alkaline Phosphatase 98 U/L (38-126); Anion Gap 8 mmol/L (8-16); Aspartate Amino Transferase 27 U/L (14-36); Bilirubin,Total 0.6 mg/dL (0.2-1.3); Blood Urea Nitrogen 14 mg/dL (7-17); Calcium 10.1 mg/dL (8.4-10.2); Carbon Dioxide 30 mmol/L (22-30); Chloride 97 mmol/L (98-107); Estimated CRCL calculation 59 ml/min; Estimated Glomerular Filt Rate > 60; Glucose 104 mg/dL (65-105); Potassium 3.6 mmol/L (3.4-5.0); Sodium 135 mmol/L (137-145)
[2021-01-04 10:34] LABS: Lipase 211 U/L (23-300)
[2021-01-04 10:37] LABS: Ethanol < 10 mg/dL (<10)
[2021-01-04 10:42] LABS: Prothrombin Time 13.7 Seconds (11.1-14.7)
[2021-01-04 11:10] LABS: Add Urine Microscopic? NO; Appearance Urine Clear (Clear); Bilirubin Urine Negative (Negative); Blood Urine Negative (Negative); Color Urine Straw (Yellow); Glucose Urine UA Negative (Negative); Ketones Urine Negative (Negative); Leukocyte Esterase Ur Negative LEU/UL (Negative); Nitrate Urine Negative (Negative); Protein Urine Negative (Negative); Urobilinogen Urine Negative mg/dL (<2.0)
--- NOTE | 2021-01-04 11:40 | ED.ABDPAIN ---
HPI - Abdominal Pain General Chief Complaint: Abdominal Pain Stated Complaint: abdominal pain Time Seen by Provider: 01/04/21 09:23 Source: patient and family Mode of arrival: ambulatory Limitations: no limitations History of Present Illness HPI narrative: 65-year-old with a history of pancreatitis HTN , here with complaints of upper abdominal pain associated with nausea patient states that she has been dealing this pain for last 4 to 5 days. She followed all instructions given by her primary doctor however symptoms got worse this morning she states that she threw up once prior to coming to the ER. She denies any fever or chills. No history of blood in the stool. She denied any alcohol in the recent past. MD elicited complaint: abdominal pain Pertinent past history: none Onset (ago): day(s) (5) Location: epigastric Severity: moderate Quality: aching Migration to: no migration Exacerbating factors: nothing Relieving factors: nothing Related Data Home Medications Medication Instructions Recorded Confirmed ergocalciferol (vitamin D2) 1 unit PO WEEKLY 09/10/19 01/04/21 escitalopram oxalate 20 mg PO DAILY 09/10/19 01/04/21 aspirin 81 mg PO DAILY 09/12/19 02/07/20 multivitamin 1 tablet PO DAILY 09/26/19 02/07/20 Allergies Allergy/AdvReac Type Severity Reaction Status Date / Time morphine Allergy Severe SEVERE Verified 01/04/21 09:41 ITCHING ondansetron Allergy Severe Anaphylaxis Verified 01/04/21 09:41 prochlorperazine Allergy Severe Seizure Verified 01/04/21 09:41 Review of Systems Review of Systems: All systems reviewed & are unremarkable except as noted in HPI and below Constitutional: Constitutional: Reports no additional constitutional complaints Eyes: Eyes: Reports no additional eye complaints ENT: Reports system reviewed and no additional complaints, except as documented Cardiovascular: Cardiovascular: Reports no additional cardiovascular complaints Respiratory: Respiratory: Reports no additional respiratory complaints Gastrointestinal: Gastrointestinal: Reports as per HPI Musculoskeletal: Musculoskeletal: Reports no additional musculoskeletal complaints Integumentary/Breasts: Skin/Breast: Reports system reviewed and no additional complaints, except as docu Neurologic: Reports system reviewed and no additional complaints, except as documented Psychiatric: Psychiatric: Reports no additional psychiatric complaints PMFSH Past Medical History Medical History (Updated 01/04/21 @ 11:49 by Ramón Short MD) Sow's esophagus determined by biopsy Cancer of left breast Invasive lobular cancer of the left breast, ER/[place] positive, diagnosed in 2011, status post lumpectomy, radiation, and tamoxifen therapy. CVA (cerebral vascular accident) Reported CVA without residual deficit. GERD (gastroesophageal reflux disease) History of alcohol use She has abstained from alcohol since the beginning of 2018. Hyperlipidemia Recurrent pancreatitis Surgical History Surgical History History of appendectomy History of total right hip arthroplasty Hx of esophagogastroduodenoscopy Hx of inguinal hernia repair Status post D&C Status post partial mastectomy of left breast Status post surgical removal of ganglion cyst Family History Family History Grandparent Family history of liver disease Carcinoma of colon Family history of lung cancer Mother Family history of lung cancer Father Family history of lung cancer Family history of renal failure Other Family history of malignant neoplasm of stomach Family history of malignant neoplasm of thyroid Social History Social History Smoking packs per day: 0.5 Smoking cigarettes per day: 10.0 Smoking status: Former smoker Tobacco type: cigarettes Second hand tobacco smoke exposure: No Smoking
--- NOTE | 2021-01-04 12:27 | PC.NURSE ---
called to give report. Was told that nurse was in anther room and will call me back when done.
--- NOTE | 2021-01-04 12:55 | ADMGEN ---
This patient, Meron aWtson, was admitted to 2 Medical Room 257-01. Patient/family oriented to hospital policies and general routines including ID bracelet, bed and alarms, visiting hours, pain management, procedures, bathroom and other care routines, personal items, smoking policy, room service/diet, and visiting hours. Information on how to activate the Rapid Response Team has been discussed. Patient/Family are encouraged to report perceived risks to care and to ask questions if they do not understand what they are told or what they should do.
[2021-01-04] MEDS: SODIUM CHLORIDE 0.9% IV 1,000 ML 125 ML IV CONT ×2 (13:06→22:15)
[2021-01-04] MEDS: LORazepam INJ (*CRX) 2 MG/ML VIAL 0.5 MG IV PUSH ×3 (13:17→23:05)
--- NOTE | 2021-01-04 13:29 | PM.IMHP ---
H&P: HPI History of Present Illness Date/Time: 01/04/21 13:29Celestino is a 65-year-old female patient who has a past medical history of having pancreatitis. The patient has abstained from alcohol since 2018. Her last episode of pancreatitis was August of 2019. The patient stated that the only new medication that she started was a fish oil. She has not had any alcohol. Complaints of upper abdominal pain associated with nausea vomiting without any diarrhea. This is been going on for 4-5 days. When I assessed her she stated that she had a tenderness all over her abdomen. She said she vomited multiple times. She did not notice any coffee-ground emesis or any bright red blood. The patient has multiple allergies to pain medication and nausea medication. The patient stated that she typically has a NG tube when she gets admitted. The patient is afebrile. White count is 13.2. Lipase is 211 radiology as acute uncomplicated pancreatitis. The patient was ordered fentanyl. The patient stated that she has severe allergic reaction to Zofran and Compazine in the past. The patient is being admitted to inpatient status on the date of service 01/04/2021 Chief Complaint: Abdominal pain Review of Systems Review of Systems: All systems reviewed & are unremarkable except as noted in HPI and below Constitutional: Constitutional: Reports as per HPI and Reports no additional constitutional complaints Eyes: Eyes: Reports as per HPI and Reports no additional eye complaints ENT: Reports system reviewed and no additional complaints, except as documented and Reports Normal hearing present Cardiovascular: Cardiovascular: Reports no additional cardiovascular complaints Respiratory: Respiratory: Reports no additional respiratory complaints and Reports no additional respiratory complaints Gastrointestinal: Gastrointestinal: Reports as per HPI and Reports no additional gastrointestinal complaints Musculoskeletal: Musculoskeletal: Reports no additional musculoskeletal complaints Integumentary/Breasts: Skin/Breast: Reports system reviewed and no additional complaints, except as docu and Reports as per HPI Neurologic: Reports system reviewed and no additional complaints, except as documented, Reports as per HPI and Reports Normal hearing present Psychiatric: Psychiatric: Reports no additional psychiatric complaints and Reports as per HPI Endocrine: Endocrine: Reports no additional endocrine complaints Hematologic/Lymphatic: Hematologic/Lymphatic: Reports no additional hematologic/lymphatic complaints Allergic/Immunologic: Allergic/Immunologic: Reports no additional allergic/immunologic complaints PMFSH Past Medical History Medical History Sow's esophagus determined by biopsy Cancer of left breast Invasive lobular cancer of the left breast, ER/[place] positive, diagnosed in 2011, status post lumpectomy, radiation, and tamoxifen therapy. CVA (cerebral vascular accident) Reported CVA without residual deficit. GERD (gastroesophageal reflux disease) History of alcohol use She has abstained from alcohol since the beginning of 2018. Hyperlipidemia Recurrent pancreatitis Surgical History Surgical History (Updated 01/04/21 @ 13:47 by Ledy Gamez NP) History of appendectomy History of total right hip arthroplasty Hx of esophagogastroduodenoscopy Hx of inguinal hernia repair Status post D&C Status post partial mastectomy of left breast The patient had a lumpectomy and then reconstructive surgery to another lump that was removed Status post surgical removal of ganglion cyst Family History Family History Grandparent Family history of liver disease Carcinoma of colon Family history of lung cancer Mother Family history of lung cancer Father Family history of lung cancer Family history of renal failure Other Family history of malignant neopl
[2021-01-04] MEDS: KETOROLAC 30 MG/ML VIAL (*BKC) IV PUSH ×2 (14:27→22:18)
[2021-01-05 05:34] VITALS: BP 139/74; PULSE 77; RESP 18; TEMP 36.4; O2SAT 96
[2021-01-05 06:55] LABS: Basophils Percent Auto 0.2 % (0.2-1.2); Eosinophils Percent Auto 0.1 % (0-4.4); Hematocrit 34.2 % (37.0-47.0); Hemoglobin 11.5 g/dL (12.0-15.0); Immature Granulocyte Absolute 0.07 K/mm3 (0.00-0.031); Immature Granulocyte Percent A 0.5 % (0-0.5); Lymphocytes Absolute Auto 1.16 K/mm3 (0.9-3.2); Mean Corpuscular HGB Conc 33.6 g/dl (32-36); Mean Corpuscular Hemoglobin 29.6 pg (26-34); Mean Corpuscular Volume 88.1 fl (80-100); Mean Platelet Volume 10.5 fl (7.4-10.4); Monocytes Absolute Auto 0.9 K/mm3 (0.1-0.6); Neutrophils Absolute Auto 12.4 K/mm3 (1.3-6.7); Neutrophils Percent Auto 85.2 % (45.5-73.1); Platelet Count Result 188 k/mm3 (150-375); Red Blood Count 3.88 M/mm3 (4.2-5.4); White Blood Count 14.6 K/mm3 (4.5-10.0)
[2021-01-05 07:10] LABS: Alanine Aminotransferase 15 U/L (4-35); Albumin Level 3.9 g/dL (3.5-5.1); Alkaline Phosphatase 74 U/L (38-126); Anion Gap 6 mmol/L (8-16); Aspartate Amino Transferase 21 U/L (14-36); Bilirubin,Total 0.4 mg/dL (0.2-1.3); Blood Urea Nitrogen 16 mg/dL (7-17); Calcium 8.8 mg/dL (8.4-10.2); Carbon Dioxide 25 mmol/L (22-30); Chloride 104 mmol/L (98-107); Estimated CRCL calculation 59 ml/min; Estimated Glomerular Filt Rate > 60; Glucose 105 mg/dL (65-105); Lipase 60 U/L (23-300); Magnesium 1.7 mg/dL (1.6-2.3); Potassium 3.9 mmol/L (3.4-5.0); Sodium 135 mmol/L (137-145)
[2021-01-05] MEDS: SODIUM CHLORIDE 0.9% IV 1,000 ML 125 ML IV CONT ×2 (09:16→20:02)
[2021-01-05] MEDS: PANTOPRAZOLE SODIUM IV 40 MG VIAL IV PUSH (09:45)
[2021-01-05] MEDS: LORazepam INJ (*CRX) 2 MG/ML VIAL 0.5 MG IV PUSH (11:24)
[2021-01-05] MEDS: KETOROLAC 30 MG/ML VIAL (*BKC) IV PUSH ×2 (11:27→22:40)
[2021-01-05 14:00] VITALS: BP 137/71; PULSE 84; RESP 20; TEMP 36.6; O2SAT 97
--- NOTE | 2021-01-05 15:23 | PM.IMPN ---
Progress Note: A&P Assessment and Plan (1) Acute pancreatitis: Qualifiers: Acute pancreatitis complication: no infection or necrosis Pancreatitis type: unspecified pancreatitis type Qualified Code(s): K85.90 - Acute pancreatitis without necrosis or infection, unspecified Code(s): K85.90 - Acute pancreatitis without necrosis or infection, unspecified Status: Acute Assessment and Plan: Lipase was 211 yesterday and down to [address] scan: acute uncomplicated pancreatitis. The patient has multiple allergies and cannot take Compazine or Zofran. Reglan 10mg IV q6hr. Ativan 0.5 iV q6hr PRN NG tube for decompression fentanyl 50mcq IV q2hr, Toradol 30mg IV Q6hr PRN NPO except for ice chips at this time. NS 125ml/hr (2) Anxiety: Code(s): F41.9 - Anxiety disorder, unspecified Status: Acute Assessment and Plan: Ativan 0.5 IV Q6hr PRN Will continue Lexapro when able to take PO (3) History of stroke: Code(s): Z86.73 - Personal history of transient ischemic attack (TIA), and cerebral infarction without residual deficits Status: Acute Assessment and Plan: aspirin and atorvastatin. (4) GERD (gastroesophageal reflux disease): Code(s): K21.9 - Gastro-esophageal reflux disease without esophagitis Status: Acute Assessment and Plan: Continue with IV Protonix 40mg IV Daily (5) History of breast cancer: Code(s): Z85.3 - Personal history of malignant neoplasm of breast Status: Acute Assessment and Plan: The patient had a lumpectomy x2 with reconstructive surgery to the left breast. She was treated with radiation and tamoxifen. (6) Essential (primary) hypertension: Code(s): I10 - Essential (primary) hypertension Status: Acute Assessment and Plan: Trend blood pressure Patient is NPO Hold losartan at home. hydralazine 10mg IV q8hr PRN with parameters. Adjust medications as needed (7) Dyslipidemia: Code(s): E78.5 - Hyperlipidemia, unspecified Status: Acute Assessment and Plan: Atorvastatin is on hold. Will continue statin when she is able to take PO Subjective Date/time seen: 01/05/21 15:23 Patient is a 65-year-old female with past medical history of pancreatitis and alcohol abuse who presented to the ED yesterday for severe abdominal pain accompanied with nausea vomiting. Patient stated that she was having some nausea this morning and pain that was relieved with pain medication. She states that she is feeling better today however she still unable to take anything p.o.. She stated that she is unaware of the trigger however she stated that her thinks it was that it was all the cheese she eats. however she states she started taking fish oil as well. Patient currently has an NG tube which she stated was helping her a lot. She states she still has no appetite and is tolerating ice chips with the suction on. She did have some nausea and her pain was mainly in her stomach and back she also has a cough that is not producing anything and when she vomits she always has a headache. Patient denies chest pain shortness of breath, constipation, diarrhea, vomiting, headache, numbness and tingling, lightheadedness, dizziness, syncope or falls. I explained to patient the plan of care she agreed and all questions were answered. Review of Systems Review of Systems: All systems reviewed & are unremarkable except as noted in HPI and below Exam Const: General: cooperative, healthy appearing, comfortable, no acute distress, well developed, alert, awake and Physically active Nutritional Appearance: average body habitus and well nourished Orientation/consciousness: oriented to person, oriented to place, oriented to time and patient oriented x3 Limitations: no limitations HENMT: Head: normal to inspect
[2021-01-05 21:06] VITALS: BP 136/83; PULSE 80; RESP 20; TEMP 37.1; O2SAT 93
[2021-01-06 02:14] VITALS: O2SAT 93
[2021-01-06] MEDS: SODIUM CHLORIDE 0.9% IV 1,000 ML 125 ML IV CONT (04:11)
[2021-01-06 04:49] VITALS: BP 163/84; PULSE 73; RESP 20; TEMP 36.4; O2SAT 97
[2021-01-06 05:24] LABS: Hemoglobin 10.6 g/dL (12.0-15.0); Mean Corpuscular HGB Conc 34.2 g/dl (32-36); Mean Corpuscular Hemoglobin 29.8 pg (26-34); Mean Corpuscular Volume 87.1 fl (80-100); Mean Platelet Volume 10.3 fl (7.4-10.4); Platelet Count Result 168 k/mm3 (150-375); Red Blood Count 3.56 M/mm3 (4.2-5.4); Red Cell Distribution Width 14.1 % (11.5-14.5); White Blood Count 9.5 K/mm3 (4.5-10.0)
[2021-01-06 05:39] LABS: Anion Gap 5 mmol/L (8-16); Blood Urea Nitrogen 14 mg/dL (7-17); Calcium 8.3 mg/dL (8.4-10.2); Carbon Dioxide 25 mmol/L (22-30); Chloride 105 mmol/L (98-107); Estimated CRCL calculation 66 ml/min; Estimated Glomerular Filt Rate > 60; Glucose 93 mg/dL (65-105); Lipase 85 U/L (23-300); Sodium 135 mmol/L (137-145)
[2021-01-06 08:26] VITALS: O2SAT 95
[2021-01-06] MEDS: MAGNESIUM SULF 2 GM/WATER 50ML 2 GM/50 ML BAG IVPB (08:48)
--- NOTE | 2021-01-06 10:38 | P.PNIM_ITS ---
Progress Note: A&P Assessment and Plan (1) Acute pancreatitis: Qualifiers: Acute pancreatitis complication: no infection or necrosis Pancreatitis type: unspecified pancreatitis type Qualified Code(s): K85.90 - Acute pancreatitis without necrosis or infection, unspecified Code(s): K85.90 - Acute pancreatitis without necrosis or infection, unspecified Status: Acute Assessment and Plan: * Lipase was 60 yesterday and up a bit to 85 today. * CT scan: acute uncomplicated pancreatitis. * The patient has multiple allergies and cannot take Compazine or Zofran. * Reglan 10mg IV q6hr. * Ativan 0.5 IV q6hr PRN * NG tube for decompression--DC'd * fentanyl 50mcq IV q4hr, Toradol 30mg IV Q6hr PRN * Clear diet advanced to full liquids * If tolerating full liquids will advance to a bland diet * NS 125ml/hr--DC'd (2) Anxiety: Code(s): F41.9 - Anxiety disorder, unspecified Status: Acute Assessment and Plan: * Ativan 0.5 IV Q6hr PRN * continue Lexapro 20MG DAILY (3) History of stroke: Code(s): Z86.73 - Personal history of transient ischemic attack (TIA), and cerebral infarction without residual deficits Status: Acute Assessment and Plan: * Continue aspirin 81mg and atorvastatin 20mg (4) GERD (gastroesophageal reflux disease): Code(s): K21.9 - Gastro-esophageal reflux disease without esophagitis Status: Acute Assessment and Plan: * Continue with IV Protonix 40mg IV Daily (5) History of breast cancer: Code(s): Z85.3 - Personal history of malignant neoplasm of breast Status: Acute Assessment and Plan: * The patient had a lumpectomy x2 with reconstructive surgery to the left breast. She was treated with radiation and tamoxifen. (6) Essential (primary) hypertension: Code(s): I10 - Essential (primary) hypertension Status: Acute Assessment and Plan: * BP is 163/84 * Trend blood pressure * Patient is tolerating PO * Continued home losartan/HCTZ 50/12.5 and Metoprolol 100mg Daily. * hydralazine 10mg IV q8hr PRN with parameters. * Adjust medications as needed (7) Dyslipidemia: Code(s): E78.5 - Hyperlipidemia, unspecified Status: Acute Assessment and Plan: * Atorvastatin 20mg PO. Subjective Date/time seen: 01/06/21 10:38 Patient is a 65-year-old female with a past medical history of alcohol abuse and pancreatitis who presented to the ER on Thursday01/04/2021 with complaints of nausea vomiting and abdominal pain. Patient stated that she is doing a lot better today she is able to keep down clears. NG tube was hanging out at 10 cm today from 50 cm yesterday, so I took the NG tube out. Patient does not have any complaints of nausea vomiting she also states she is able to tolerate some liquids. She is little hesitant to do anything acidic or any types of juices. Currently patient is in the chair and this morning she had broth Jell-O and ensure. Which she stated the Ensure was an apple juice. She did say she is not hungry however she would like to try foods I told I would advance her diet to a full liquid if she does well with full liquid then at dinner I will transition her into a bland diet. Patient also stated that her abdominal pain is better she is able to touch and palpate her abdomen, but states that she does not know if she has pain or not. Patient denies chest pain
--- NOTE | 2021-01-06 10:38 | PM.IMPN ---
Progress Note: A&P Assessment and Plan (1) Acute pancreatitis: Qualifiers: Acute pancreatitis complication: no infection or necrosis Pancreatitis type: unspecified pancreatitis type Qualified Code(s): K85.90 - Acute pancreatitis without necrosis or infection, unspecified Code(s): K85.90 - Acute pancreatitis without necrosis or infection, unspecified Status: Acute Assessment and Plan: Lipase was 60 yesterday and up a bit to [address] scan: acute uncomplicated pancreatitis. The patient has multiple allergies and cannot take Compazine or Zofran. Reglan 10mg IV q6hr. Ativan 0.5 IV q6hr PRN NG tube for decompression--DC'd fentanyl 50mcq IV q4hr, Toradol 30mg IV Q6hr PRN Clear diet advanced to full liquids If tolerating full liquids will advance to a bland diet NS 125ml/hr--DC'd (2) Anxiety: Code(s): F41.9 - Anxiety disorder, unspecified Status: Acute Assessment and Plan: Ativan 0.5 IV Q6hr PRN continue Lexapro 20MG DAILY (3) History of stroke: Code(s): Z86.73 - Personal history of transient ischemic attack (TIA), and cerebral infarction without residual deficits Status: Acute Assessment and Plan: Continue aspirin 81mg and atorvastatin 20mg (4) GERD (gastroesophageal reflux disease): Code(s): K21.9 - Gastro-esophageal reflux disease without esophagitis Status: Acute Assessment and Plan: Continue with IV Protonix 40mg IV Daily (5) History of breast cancer: Code(s): Z85.3 - Personal history of malignant neoplasm of breast Status: Acute Assessment and Plan: The patient had a lumpectomy x2 with reconstructive surgery to the left breast. She was treated with radiation and tamoxifen. (6) Essential (primary) hypertension: Code(s): I10 - Essential (primary) hypertension Status: Acute Assessment and Plan: BP is 163/84 Trend blood pressure Patient is tolerating PO Continued home losartan/HCTZ 50/12.5 and Metoprolol 100mg Daily. hydralazine 10mg IV q8hr PRN with parameters. Adjust medications as needed (7) Dyslipidemia: Code(s): E78.5 - Hyperlipidemia, unspecified Status: Acute Assessment and Plan: Atorvastatin 20mg PO. Subjective Date/time seen: 01/06/21 10:38 Patient is a 65-year-old female with a past medical history of alcohol abuse and pancreatitis who presented to the ER on Thursday01/04/2021 with complaints of nausea vomiting and abdominal pain. Patient stated that she is doing a lot better today she is able to keep down clears. NG tube was hanging out at 10 cm today from 50 cm yesterday, so I took the NG tube out. Patient does not have any complaints of nausea vomiting she also states she is able to tolerate some liquids. She is little hesitant to do anything acidic or any types of juices. Currently patient is in the chair and this morning she had broth Jell-O and ensure. Which she stated the Ensure was an apple juice. She did say she is not hungry however she would like to try foods I told I would advance her diet to a full liquid if she does well with full liquid then at dinner I will transition her into a bland diet. Patient also stated that her abdominal pain is better she is able to touch and palpate her abdomen, but states that she does not know if she has pain or not. Patient denies chest pain, shortness of breath, cough, palpitations, weakness, nausea, vomiting, numbness and tingling, headache, weakness, fatigue, syncope, diarrhea, or urination issues. Patient did state that she is constipated however this is nothing new for her she stated that she usually has 1 day a week that is her day to have a bowel movement. She was offered a laxative have however she stated that anything synthetic makes her stomach hurt and she worries that she will put herself into an exacerbatio
[2021-01-06] MEDS: PANTOPRAZOLE SODIUM IV 40 MG VIAL IV PUSH (10:52)
[2021-01-06] MEDS: KETOROLAC 30 MG/ML VIAL (*BKC) IV PUSH ×2 (13:01→20:26)
[2021-01-06 14:00] VITALS: BP 133/82; PULSE 81; RESP 18; TEMP 37.1; O2SAT 99
[2021-01-06] MEDS: ERGOCALCIFEROL 50,000 UNIT CAPSULE 50000 UNITS PO (15:27)
[2021-01-06 16:40] LABS: Potassium 3.3 mmol/L (3.4-5.0)
[2021-01-06 20:23] VITALS: BP 148/72; PULSE 75; RESP 16; TEMP 36.7; O2SAT 99
[2021-01-06] MEDS: ATORVASTATIN 20 MG TABLET PO (20:24)
[2021-01-07 05:17] LABS: Hematocrit 30.2 % (37.0-47.0); Hemoglobin 10.4 g/dL (12.0-15.0); Mean Corpuscular HGB Conc 34.4 g/dl (32-36); Mean Corpuscular Hemoglobin 29.9 pg (26-34); Mean Corpuscular Volume 86.8 fl (80-100); Platelet Count Result 181 k/mm3 (150-375); Red Blood Count 3.48 M/mm3 (4.2-5.4); White Blood Count 5.9 K/mm3 (4.5-10.0)
[2021-01-07 05:19] LABS: Alanine Aminotransferase 14 U/L (4-35); Albumin Level 3.4 g/dL (3.5-5.1); Alkaline Phosphatase 64 U/L (38-126); Anion Gap 1 mmol/L (8-16); Aspartate Amino Transferase 19 U/L (14-36); Bilirubin,Total 0.4 mg/dL (0.2-1.3); Blood Urea Nitrogen 10 mg/dL (7-17); Calcium 8.5 mg/dL (8.4-10.2); Carbon Dioxide 27 mmol/L (22-30); Chloride 108 mmol/L (98-107); Estimated CRCL calculation 66 ml/min; Estimated Glomerular Filt Rate > 60; Glucose 99 mg/dL (65-105); Potassium 3.4 mmol/L (3.4-5.0); Sodium 136 mmol/L (137-145)
[2021-01-07 05:45] VITALS: BP 142/82; PULSE 73; RESP 16; TEMP 36.6; O2SAT 99
[2021-01-07] MEDS: hydroCHLOROthiazide 12.5 MG CAPSULE PO (08:26)
[2021-01-07] MEDS: LOSARTAN POTASSIUM 50 MG TABLET PO (08:26)
[2021-01-07] MEDS: ASPIRIN 81 MG ENTERIC TABLET PO (08:26)
[2021-01-07] MEDS: ESCITALOPRAM OXALATE 10 MG TABLET 20 MG PO (08:26)
[2021-01-07 08:27] VITALS: PULSE 85
[2021-01-07] MEDS: PANTOPRAZOLE SODIUM IV 40 MG VIAL IV PUSH (08:27)
[2021-01-07] MEDS: METOPROLOL SUCCINATE EXT REL 100 MG TABCR PO (08:27)
[2021-01-07] MEDS: MULTIVITAMINS THERAPEUTIC TAB (*BKC) 1 TABLET PO (08:27)
--- NOTE | 2021-01-07 08:57 | P.DS_ITS ---
DS: Admitting Diagnosis Admitting Diagnosis Admitting Diagnosis: Acute pancreatitis DS: Discharge Diagnosis Discharge Diagnosis (1) Acute pancreatitis: Qualifiers: Acute pancreatitis complication: no infection or necrosis Pancreatitis type: unspecified pancreatitis type Qualified Code(s): K85.90 - Acute pancre atitis without necrosis or infection, unspecified Code(s): K85.90 - Acute pancreatitis without necrosis or infection, unspecified Status: Acute Assessment and Plan: * Lipase was 60 yesterday and up a bit to 85 today. * CT scan: acute uncomplicated pancreatitis. * The patient has multiple allergies and cannot take Compazine or Zofran. * Reglan 10mg IV q6hr. * Ativan 0.5 IV q6hr PRN * NG tube for decompression--DC'd * fentanyl 50mcq IV q4hr, Toradol 30mg IV Q6hr PRN * Clear diet advanced to full liquids * If tolerating full liquids will advance to a bland diet * NS 125ml/hr--DC'd (2) Anxiety: Code(s): F41.9 - Anxiety disorder, unspecified Status: Acute Assessment and Plan: * Ativan 0.5 IV Q6hr PRN * continue Lexapro 20MG DAILY (3) History of stroke: Code(s): Z86.73 - Personal history of transient ischemic attack (TIA), and cerebral infarction without residual deficits Status: Acute Assessment and Plan: * Continue aspirin 81mg and atorvastatin 20mg (4) GERD (gastroesophageal reflux disease): Qualifiers: Esophagitis presence: esophagitis presence not specified Qualified Code(s): K21.9 - Gastro-esophageal reflux disease without esophagitis Code(s): K21.9 - Gastro-esophageal reflux disease without esophagitis Status: Acute Assessment and Plan: * Continue with IV Protonix 40mg IV Daily (5) History of breast cancer: Code(s): Z85.3 - Personal history of malignant neoplasm of breast Status: Acute Assessment and Plan: * The patient had a lumpectomy x2 with reconstructive surgery to the left breast. She was treated with radiation and tamoxifen. (6) Essential (primary) hypertension: Code(s): I10 - Essential (primary) hypertension Status: Acute Assessment and Plan: * BP is 142/82 * Trend blood pressure * Patient is tolerating PO * Continued home losartan/HCTZ 50/12.5 and Metoprolol 100mg Daily. * hydralazine 10mg IV q8hr PRN with parameters. * Adjust medications as needed (7) Dyslipidemia: Code(s): E78.5 - Hyperlipidemia, unspecified Status: Acute Assessment and Plan: * Atorvastatin 20mg PO. DS: Summary Hospital Course Reason for hospitalization: Acute pancreatitis Hospital Course: Patient is a 65-year-old female with past medical history of alcohol abuse and pancreatitis who presented to the ED on 01/04/21 with complaints of nausea, vomiting and abdominal pain. Since patient has been here she has had NG tube to help decompress her stomach, Ativan and fentanyl for nausea and pain. Yesterday NG tube was discontinued and patient was given a diet she was slowly increased to a bland diet. She was able to tolerate her diet and today was sitting in the chair writing down her visit. Patient stated that she is feeling a whole lot better, she does which she knew with exacerbation was from. The only culprit she could come up with, but that is a new fish oil supplement and eating cheese. The eating cheese she said is no
--- NOTE | 2021-01-07 08:57 | PM.DS ---
DS: Admitting Diagnosis Admitting Diagnosis Admitting Diagnosis: Acute pancreatitis DS: Discharge Diagnosis Discharge Diagnosis (1) Acute pancreatitis: Qualifiers: Acute pancreatitis complication: no infection or necrosis Pancreatitis type: unspecified pancreatitis type Qualified Code(s): K85.90 - Acute pancreatitis without necrosis or infection, unspecified Code(s): K85.90 - Acute pancreatitis without necrosis or infection, unspecified Status: Acute Assessment and Plan: Lipase was 60 yesterday and up a bit to [address] scan: acute uncomplicated pancreatitis. The patient has multiple allergies and cannot take Compazine or Zofran. Reglan 10mg IV q6hr. Ativan 0.5 IV q6hr PRN NG tube for decompression--DC'd fentanyl 50mcq IV q4hr, Toradol 30mg IV Q6hr PRN Clear diet advanced to full liquids If tolerating full liquids will advance to a bland diet NS 125ml/hr--DC'd (2) Anxiety: Code(s): F41.9 - Anxiety disorder, unspecified Status: Acute Assessment and Plan: Ativan 0.5 IV Q6hr PRN continue Lexapro 20MG DAILY (3) History of stroke: Code(s): Z86.73 - Personal history of transient ischemic attack (TIA), and cerebral infarction without residual deficits Status: Acute Assessment and Plan: Continue aspirin 81mg and atorvastatin 20mg (4) GERD (gastroesophageal reflux disease): Qualifiers: Esophagitis presence: esophagitis presence not specified Qualified Code(s): K21.9 - Gastro-esophageal reflux disease without esophagitis Code(s): K21.9 - Gastro-esophageal reflux disease without esophagitis Status: Acute Assessment and Plan: Continue with IV Protonix 40mg IV Daily (5) History of breast cancer: Code(s): Z85.3 - Personal history of malignant neoplasm of breast Status: Acute Assessment and Plan: The patient had a lumpectomy x2 with reconstructive surgery to the left breast. She was treated with radiation and tamoxifen. (6) Essential (primary) hypertension: Code(s): I10 - Essential (primary) hypertension Status: Acute Assessment and Plan: BP is 142/82 Trend blood pressure Patient is tolerating PO Continued home losartan/HCTZ 50/12.5 and Metoprolol 100mg Daily. hydralazine 10mg IV q8hr PRN with parameters. Adjust medications as needed (7) Dyslipidemia: Code(s): E78.5 - Hyperlipidemia, unspecified Status: Acute Assessment and Plan: Atorvastatin 20mg PO. DS: Summary Hospital Course Reason for hospitalization: Acute pancreatitis Hospital Course: Patient is a 65-year-old female with past medical history of alcohol abuse and pancreatitis who presented to the ED on 01/04/21 with complaints of nausea, vomiting and abdominal pain. Since patient has been here she has had NG tube to help decompress her stomach, Ativan and fentanyl for nausea and pain. Yesterday NG tube was discontinued and patient was given a diet she was slowly increased to a bland diet. She was able to tolerate her diet and today was sitting in the chair writing down her visit. Patient stated that she is feeling a whole lot better, she does which she knew with exacerbation was from. The only culprit she could come up with, but that is a new fish oil supplement and eating cheese. The eating cheese she said is not new. Since she has been here patient has received multiple doses potassium probably related to the NG tube. Educated patient about sticking with a bland diet for a week or 2. I also educated patient about following up with primary in a week or 2. Patient stated that she was ready to go home and she felt fine. Patient denies chest pain, shortness of breath, nausea vomiting, abdominal pain, numbness and tingling, headache, sweats chills, syncope, falls, or generalized pain weakness or fatigue.
== END 2021-01-07 11:35 | disposition home or self-care (01) | DRG 440 ==
LOC: ANHED 11:49 → ANH2MED 12:02
PROVIDERS: Admitting Provider Internal Medicine; Emergency Provider Family Medicine; PCP Family Medicine; Visit Provider Nurse Practitioner
DX: K85.90 Acute pancreatitis without necrosis or infection, unspecified (principal); Z86.73 Personal history of transient ischemic attack (TIA), and cerebral infarction without residual deficits; E78.5 Hyperlipidemia, unspecified; F41.9 Anxiety disorder, unspecified; Z85.3 Personal history of malignant neoplasm of breast; I10 Essential (primary) hypertension; K21.9 Gastro-esophageal reflux disease without esophagitis
CPT/HCPCS: 36415; 74018; 74177; 80048; 80053; 80307; 81003; 83605; 83690; 83735; 84132; 85025; 85027; 85610; 96374; 96375; 99285; A9270; C9113; J1885; J2060; J3010; J3475; J3480; J7030; Q9967

== ENCOUNTER 2021-06-18 09:24 | Inpatient (IN) | payer OTHER, SELFPAY ==
[2021-06-18] VITALS (9 sets, daily range): BP systolic 143–190; BP diastolic 72–106; PULSE 58–70; RESP 14–18; TEMP 36.2–36.8; O2SAT 97–100; BMI 27.4
--- NOTE | ~2021-06-18 | CT_ITS ---
EXAMINATION: CT abdomen pelvis w con INDICATION: Pancreatitis TECHNIQUE: Computed tomographic images of the abdomen and pelvis were obtained after the administrati on of 100 cc of Omnipaque 350 intravenous contrast. The dose-length product (DLP) was 608.25 mGy-cm. Automated exposure control and iterative reconstruction technique were employed. COMPARISON: 01/04/2021 FINDINGS: Minimal dependent atelectasis is present in the lung bases. The heart size is normal. The l iver, spleen, and adrenal glands are normal. There is stranding and fluid surrounding the pancreas. F at stranding is also seen surrounding the gallbladder which is not distended. Hypoattenuating lesions in the kidneys, measuring up to 3 mm on the right, are too small to characterize but likely represen t cysts. There is calcified atherosclerosis of the aorta and many of the other arteries. No pathologi jody enlarged abdominal or pelvic lymph nodes are identified. There is no free intraperitoneal gas o r evidence of bowel obstruction. There are changes of right total hip arthroplasty. There is mild ost eoarthritis of the left hip. There is mild lumbar and severe lower thoracic spondylosis. Foci of gas and infiltration in the subcutaneous tissues of the right lower abdomen likely reflect injection sit es. IMPRESSION: 1. Findings consistent with acute pancreatitis, likely interstitial edematous. Reviewed, dictated and finalized at location B.
--- NOTE | ~2021-06-18 | XR_ITS ---
XR abdomen/kub 1V DATE: 06/18/2021 17:56 INDICATION: Vomiting, hyperactive bowel signs. Pancreatitis. History of appendectomy. TECHNIQUE: 2 supine AP views COMPARISON: 01/04/2021 KUB for NG tube placement FINDINGS: Surgical clips, right lower quadrant; history of appendectomy. The psoas shadows are intact. No visceromegaly is evident. No evidence of bowel obstruction. Status post right total hip arthroplasty. There is moderate left hip osteoarthritis. IMPRESSION: No evidence of bowel obstruction Status post appendectomy Status post right total hip arthroplasty; moderate left hip arthritis Reviewed, dictated and finalized at Location A. Reviewed, dictated and finalized at location A.
--- NOTE | 2021-06-18 09:40 | ED.ABDPAIN ---
HPI - Abdominal Pain General Chief Complaint: Abdominal Pain Stated Complaint: RUQ ABD PAIN Time Seen by Provider: 06/18/21 09:31 Source: patient and family Mode of arrival: ambulatory Limitations: no limitations History of Present Illness HPI narrative: The patient is a 66-year-old female with a past medical history of hypertension, hyperlipidemia, acid reflux, stroke, breast cancer, recurrent pancreatitis presenting for evaluation of nausea, vomiting, epigastric pain. Patient states it feels like previous episode of pancreatitis for which she was hospitalized for. Patient has abstained from alcohol since 2019. She denies any recent alcohol use or drug use. States that she ate fried salmon patties over the weekend, and she believes this may have triggered her pancreatitis. Patient reports dull, aching pain in the upper epigastric region with radiation to the mid back. She denies chest pain, palpitations, shortness of breath. She reports nausea with 1 episode of vomiting this morning. Patient denies diarrhea or constipation. No lower abdominal pain. Of note, patient with history of cardiac arrest twice secondary to allergic reaction to Compazine(11/02) and Zofran(02/01). With her last inpatient stay she received scheduled Reglan and Ativan for nausea. Related Data Home Medications Medication Instructions Recorded Confirmed ergocalciferol (vitamin D2) 1 unit PO WEEKLY 09/10/19 03/13/21 escitalopram oxalate 20 mg PO DAILY 09/10/19 03/13/21 aspirin 81 mg PO DAILY 09/12/19 03/13/21 multivitamin 1 tablet PO DAILY 09/26/19 03/13/21 Allergies Allergy/AdvReac Type Severity Reaction Status Date / Time morphine Allergy Severe SEVERE Verified 06/18/21 11:06 ITCHING ondansetron Allergy Severe Anaphylaxis Verified 06/18/21 11:06 prochlorperazine Allergy Severe Seizure Verified 06/18/21 11:06 Review of Systems Review of Systems: CONSTITUTIONAL: Denies fever, chills, or sweats. EYES: Denies visual changes, redness, or discharge. ENT: Denies rhinorrhea, congestion, sore throat, or otalgia. CARDIOVASCULAR: Denies chest pain, palpitations, or edema. RESPIRATORY: Denies cough or dyspnea. GASTROINTESTINAL: Reports abdominal pain, nausea, vomiting GENITOURINARY: Denies dysuria or hematuria. SKIN: Denies rash or itching. MUSCULOSKELETAL: Reports middle back pain without joint pain, or myalgia. NEUROLOGIC: Denies headache, numbness, or weakness. [facility], [facility] Past Medical History Medical History Cancer of left breast Invasive lobular cancer of the left breast, ER/SD positive, diagnosed in 2011, status post lumpectomy, radiation, and tamoxifen therapy. CVA (cerebral vascular accident) Reported CVA without residual deficit. History of alcohol use She has abstained from alcohol since the beginning of 2018. Hyperlipidemia Recurrent pancreatitis Surgical History Surgical History History of appendectomy (~1990) History of total right hip arthroplasty (~2010) Hx of esophagogastroduodenoscopy (~2010) Hx of inguinal hernia repair (~1962) Status post D&C (~2018) Status post partial mastectomy of left breast (~2012) The patient had a lumpectomy and then reconstructive surgery to another lump that was removed Status post surgical removal of ganglion cyst (~2006) Family History Family History Grandparent Family history of liver disease Carcinoma of colon Family history of lung cancer Mother Family history of lung cancer Father Family history of lung cancer Family history of renal failure Other Family history of malignant neoplasm of stomach Family history of malignant neoplasm of thyroid Social History Social History Social History: The patient works for an [employer] office. 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 Now s
[2021-06-18] MEDS: SODIUM CHLORIDE 0.9% IV 1,000 ML 999 ML IV CONT (09:59)
[2021-06-18] MEDS: METOCLOPRAMIDE HCL INJ 10 MG/2 ML VIAL IV PUSH ×2 (10:00→17:07)
[2021-06-18] MEDS: LORazepam INJ (*CRX) 2 MG/ML VIAL 0.5 MG IV PUSH (10:00)
[2021-06-18 10:07] LABS: Basophils Percent Auto 0.4 % (0.2-1.2); Eosinophils Absolute Auto 0.1 K/mm3 (0-0.3); Eosinophils Percent Auto 1.7 % (0-4.4); Hematocrit 38.6 % (37.0-47.0); Hemoglobin 13.2 g/dL (12.0-15.0); Immature Granulocyte Absolute 0.01 K/mm3 (0.00-0.031); Immature Granulocyte Percent A 0.1 % (0-0.5); Lymphocytes Absolute Auto 1.06 K/mm3 (0.9-3.2); Lymphocytes Percent Auto 12.7 % (18.3-44.2); Mean Corpuscular HGB Conc 34.2 g/dl (32-36); Mean Corpuscular Hemoglobin 30.1 pg (26-34); Mean Corpuscular Volume 88.1 fl (80-100); Mean Platelet Volume 10.6 fl (7.4-10.4); Monocytes Absolute Auto 0.5 K/mm3 (0.1-0.6); Neutrophils Absolute Auto 6.6 K/mm3 (1.3-6.7); Neutrophils Percent Auto 79.1 % (45.5-73.1); Platelet Count Result 194 k/mm3 (150-375); Red Blood Count 4.38 M/mm3 (4.2-5.4); White Blood Count 8.3 K/mm3 (4.5-10.0)
[2021-06-18 10:22] LABS: Add Urine Microscopic? NO; Appearance Urine Clear (Clear); Bilirubin Urine Negative (Negative); Blood Urine Negative (Negative); Color Urine Yellow (Yellow); Glucose Urine UA Negative (Negative); Ketones Urine Negative (Negative); Leukocyte Esterase Ur Negative LEU/UL (Negative); Nitrate Urine Negative (Negative); Protein Urine Negative (Negative); Specific Grav Ur 1.016 (1.001-1.035); Urobilinogen Urine Negative mg/dL (<2.0)
[2021-06-18 10:47] LABS: Alanine Aminotransferase 23 U/L (4-35); Albumin Level 4.5 g/dL (3.5-5.1); Alkaline Phosphatase 97 U/L (38-126); Anion Gap 9 mmol/L (8-16); Aspartate Amino Transferase 27 U/L (14-36); Bilirubin,Total 0.6 mg/dL (0.2-1.3); Blood Urea Nitrogen 16 mg/dL (7-17); Calcium 9.7 mg/dL (8.4-10.2); Carbon Dioxide 27 mmol/L (22-30); Chloride 99 mmol/L (98-107); Estimated CRCL calculation 65 ml/min; Estimated Glomerular Filt Rate > 60; Glucose 98 mg/dL (65-110); Lipase 1925 U/L (23-300); Potassium 4.1 mmol/L (3.4-5.0); Sodium 135 mmol/L (137-145)
[2021-06-18] MEDS: fentaNYL CITRATE INJ (*CRX) 100 MCG/2 ML VIAL 25 MCG IV PUSH (13:08)
--- NOTE | 2021-06-18 14:29 | ADMGEN ---
This patient, Meron Watson, was admitted to [facility] Surg Room 328-01. Patient/family oriented to hospital policies and general routines including ID bracelet, bed and alarms, visiting hours, pain management, procedures, bathroom and other care routines, personal items, smoking policy, room service/diet, and visiting hours. Information on how to activate the Rapid Response Team has been discussed. Patient/Family are encouraged to report perceived risks to care and to ask questions if they do not understand what they are told or what they should do.
--- NOTE | 2021-06-18 14:34 | ECG_ITS ---
Measurements Intervals [place] Rate: 71 P: 12 SC: 205 QRS: -21 QRSD: 102 T: 6 QT: 406 QTc: 441 Interpretive Statements SINUS RHYTHM INCOMPLETE RIGHT BUNDLE BRANCH BLOCK POOR R WAVE PROGRESSION, ANTERIOR LEADS INFERIOR INFARCT, AGE INDETERMINATE BASELINE ARTIFACT- I, II, AVR, V1 ABNORMAL ECG Electronically Signed On 06-18-2021 15:09:31 CDT by Jose Enrique Davalos D.O.
--- NOTE | 2021-06-18 15:00 | PM.IMHP ---
H&P: HPI History of Present Illness Date/Time: 06/18/21 15:00 Chief Complaint: Abdominal pain, nausea, and vomiting. Narrative: This is a 66-year-old female with history of recurrent pancreatitis, Sow's esophagus, gastroesophageal reflux disease, hypertension, and breast cancer who presented to the emergency department earlier today from home for evaluation of abdominal pain, nausea, and vomiting. Yesterday afternoon not long after eating salmon patties she developed a dull, aching pain in the upper abdomen which radiated somewhat through to the mid back. She was able to sleep overnight however this morning the discomfort had returned along with the nausea, vomiting, bloating, and sweats. The symptoms are similar to when she had pancreatitis in the past and she presented to the emergency department this morning for evaluation. Aside from a lipase of 1925, the rest of her labs were unremarkable. Clinically she was suffering from recurrent pancreatitis and given ongoing nausea and vomiting it was felt best to keep her overnight for observation. At the time my evaluation she is in quite a bit of discomfort due to ongoing nausea. Unfortunately she is allergic to Compazine and Zofran thus we are relying on Reglan at this time. She did receive a half a mg of Ativan the emergency department as well, with some benefit. She denies fever, chest pain, shortness of breath, hematemesis, melena, and hematochezia. She had a bowel movement yesterday which was unremarkable. Patient reports a history of alcohol abuse but has abstained since 2018. Review of Systems Review of Systems: Twelve systems were reviewed. No recent cold or flu symptoms. She denies sick contacts. Except as documented, all other systems were reviewed and are negative. [facility] Past Medical History Medical History Sow esophagus (05/10/08) Cancer of left breast Invasive lobular cancer of the left breast, ER/NH positive, diagnosed in 2011, status post lumpectomy, radiation, and tamoxifen therapy. Cerebrovascular accident Without residual deficit. Gastroesophageal reflux disease History of alcohol use She has abstained from alcohol since the beginning of 2018. 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 Hyperlipidemia Hypertension Recurrent pancreatitis Seizure (03/01/18) Precipitating etiology unclear, may have been related to Compazine or alcohol withdrawal. Surgical History Surgical History History of appendectomy (~1990) History of esophagogastroduodenoscopy (~2010) History of inguinal hernia repair (~1962) History of total right hip arthroplasty (~2010) Status post D&C (~2018) Status post partial mastectomy of left breast (~2012) The patient had a lumpectomy and then reconstructive surgery to another lump that was removed Status post surgical removal of ganglion cyst (~2006) Family History Family History Grandparent Family history of lung cancer Family history of liver disease Carcinoma of colon Mother Family history of lung cancer Father Family history of lung cancer Family history of renal failure Other Family history of malignant neoplasm of stomach Son Family history of malignant neoplasm of thyroid Social History Social History (Updated 06/18/21 @ 19:11 by Shyla Lyn PA-C) Social History: Surrogate decision maker: Donn Shirley, spouse. Code status: Full code. Smoking packs per day: 0.5 Smoking cigarettes per day: 10.0 Smoking status: Former smoker Second hand tobacco smoke exposure: No Alcohol intake: never Alcohol use details: History of alcohol abuse. Sober since early 2018. Substance use: current Substance use type: marijuana Additional living arrangements comments: Lives with h
[2021-06-18] MEDS: SODIUM CHLORIDE 0.9% IV 1,000 ML 100 ML IV CONT (15:09)
[2021-06-18] MEDS: ENOXAPARIN 40 MG/0.4 ML SYRINGE SUB-Q (20:59)
[2021-06-18] MEDS: PANTOPRAZOLE SODIUM IV 40 MG VIAL IV PUSH (21:22)
[2021-06-19] MEDS: SODIUM CHLORIDE 0.9% IV 1,000 ML 150 ML IV CONT ×2 (00:05→06:24)
[2021-06-19] MEDS: METOCLOPRAMIDE HCL INJ 10 MG/2 ML VIAL IV PUSH (03:37)
[2021-06-19 06:00] VITALS: BP 158/84; PULSE 77; RESP 16; TEMP 36.9; O2SAT 97
[2021-06-19 06:06] LABS: Hematocrit 40.4 % (37.0-47.0); Hemoglobin 13.8 g/dL (12.0-15.0); Mean Corpuscular HGB Conc 34.2 g/dl (32-36); Mean Corpuscular Hemoglobin 30.4 pg (26-34); Mean Platelet Volume 10.6 fl (7.4-10.4); Platelet Count Result 199 k/mm3 (150-375); Red Blood Count 4.54 M/mm3 (4.2-5.4); Red Cell Distribution Width 14.1 % (11.5-14.5)
[2021-06-19 06:13] LABS: Alanine Aminotransferase 22 U/L (4-35); Albumin Level 4.9 g/dL (3.5-5.1); Alkaline Phosphatase 99 U/L (38-126); Anion Gap 16 mmol/L (8-16); Aspartate Amino Transferase 27 U/L (14-36); Bilirubin,Total 0.8 mg/dL (0.2-1.3); Blood Urea Nitrogen 13 mg/dL (7-17); Calcium 9.4 mg/dL (8.4-10.2); Carbon Dioxide 22 mmol/L (22-30); Chloride 98 mmol/L (98-107); Estimated CRCL calculation 84 ml/min; Estimated Glomerular Filt Rate > 60; Glucose 144 mg/dL (65-110); Lipase 647 U/L (23-300); Magnesium 1.6 mg/dL (1.6-2.3); Potassium 3.3 mmol/L (3.4-5.0); Sodium 136 mmol/L (137-145); Triglycerides 151 mg/dL (<150)
[2021-06-19] MEDS: PANTOPRAZOLE SODIUM IV 40 MG VIAL IV PUSH ×2 (09:20→20:10)
[2021-06-19 09:23] VITALS: PULSE 77
[2021-06-19] MEDS: hydroCHLOROthiazide 12.5 MG CAPSULE PO (09:23)
[2021-06-19] MEDS: METOPROLOL SUCCINATE EXT REL 100 MG TABCR PO (09:23)
[2021-06-19] MEDS: LOSARTAN POTASSIUM 50 MG TABLET PO (09:23)
[2021-06-19] MEDS: MAGNESIUM SULFATE 3GM/D5W100ML 3 GM/100 ML BAG IVPB (11:49)
[2021-06-19 14:00] VITALS: BP 192/98; PULSE 92; RESP 18; TEMP 36.8; O2SAT 98
--- NOTE | 2021-06-19 14:04 | PCCCNOTE ---
On 06/19/21, the student, [Evette Villanueva ], provided care and completed [facility] documentation on this patient. I have reviewed the student's documentation and agree with the findings.
[2021-06-19] MEDS: SODIUM CHLORIDE 0.9% IV 1,000 ML 250 ML IV CONT ×3 (14:59→23:13)
--- NOTE | 2021-06-19 17:12 | PM.IMPN ---
Progress Note: A&P Assessment and Plan (1) Recurrent pancreatitis: Code(s): K85.90 - Acute pancreatitis without necrosis or infection, unspecified Status: Acute (2) Acute pancreatitis: Qualifiers: Pancreatitis type: unspecified pancreatitis type Acute pancreatitis complication: unspecified Qualified Code(s): K85.90 - Acute pancreatitis without necrosis or infection, unspecified Code(s): K85.90 - Acute pancreatitis without necrosis or infection, unspecified Status: Acute (3) Nausea and vomiting: Qualifiers: Vomiting type: unspecified Vomiting Intractability: non-intractable Qualified Code(s): R11.2 - Nausea with vomiting, unspecified Code(s): R11.2 - Nausea with vomiting, unspecified Status: Acute (4) Anxiety: Code(s): F41.9 - Anxiety disorder, unspecified Status: Acute (5) Dyslipidemia: Code(s): E78.5 - Hyperlipidemia, unspecified Status: Acute (6) Essential (primary) hypertension: Code(s): I10 - Essential (primary) hypertension Status: Acute (7) GERD without esophagitis: Code(s): K21.9 - Gastro-esophageal reflux disease without esophagitis Status: Acute (8) History of breast cancer: Code(s): Z85.3 - Personal history of malignant neoplasm of breast Status: Acute (9) Hypokalemia: Code(s): E87.6 - Hypokalemia Status: Acute Time Spent With Patient Time: 1. recurrent Pancreatitis- acute: -has been extensively evaluated in the past with triglyceride levels as well as IgG4 levels -patient reports complete abstinence to alcohol -it is only noted that her medication that could be concerning for recurrent episodes of pancreatitis could possibly be losartan which we are holding for now -she tells me that lisinopril gave her worsening cough and she was not able to tolerate it hence she was changed to losartan roughly around 2 years ago -continue IV fluids, NPO status, antiemetics and IV fentanyl 3 5 mg Q 4 p.r.n. for pain in combination with IV Toradol as needed 2. Uncontrolled blood pressure: -possibly secondary to pain -we will increase the dosage of hydrochlorothiazide to 25 mg daily. Will discontinue losartan. Continue metoprolol 100 daily and will also add amlodipine 10 mg -will add IV hydralazine p.r.n. Time with patient: 25 - 35 minutes Subjective Date/time seen: 06/19/21 17:12 Interval history: 89 female with past medical history significant for recurrent pancreatitis, Sow's esophagus, GERD, hypertension and history of breast cancer presented with nausea vomiting and abdominal pain. She is being managed as a case of acute pancreatitis. She has continued to receive IV fluids, is currently NPO and is being monitored closely. With regard to the etiology of pancreatitis, patient has a history of alcohol abuse however she has been clean and has not had any alcohol since 2019. She is noted to be on losartan which she had started roughly about 2 years ago after she was unable to tolerate lisinopril. She had an extensive workup for her recurrent pancreatitis, even after discontinuing alcohol, with tightness when seen in the wound to be within normal limits an IgG 4 levels were also elevated the troponin normal. Surgeon continued to worsen we can obtain a CT abdomen pelvis to re-evaluate. Review of Systems Review of Systems: A 10 point review of system was conducted which was otherwise negative Exam Narrative: General: Moderately ill-appearing female lying on her right side in bed. Weight: 77.1 kg. BMI: 27.4. HEENT: PERRL, EOMI. Sclerae anicteric. Tacky mucous membranes. Oropharynx poorly visualized. Neck: Supple. Respiratory: Lungs are clear to auscultation bilaterally. Cardiovascular: Regular rate and rhythm with S1-S2. Gastrointestinal: Abdomen is soft and nondistended with hypoactive bowel sounds. She is tender to palpation in the upper abdomen without voluntary guarding or reboun
[2021-06-19 18:30] LABS: Glucose Point of Care 139 mg/dl (65-105)
[2021-06-19] MEDS: KETOROLAC 15 MG/ML VIAL (*BKC) IV PUSH (18:59)
[2021-06-19] MEDS: ENOXAPARIN 40 MG/0.4 ML SYRINGE SUB-Q (20:10)
[2021-06-19 22:00] VITALS: BP 192/108; PULSE 96; RESP 18; TEMP 36.9; O2SAT 99
[2021-06-19] MEDS: hydrALAZINE HCL 20 MG/ML VIAL 10 MG IV PUSH (22:22)
[2021-06-20 00:18] LABS: Glucose Point of Care 124 mg/dl (65-105)
[2021-06-20] MEDS: SODIUM CHLORIDE 0.9% IV 1,000 ML 250 ML IV CONT ×2 (05:51→12:44)
[2021-06-20] MEDS: hydrALAZINE HCL 20 MG/ML VIAL 10 MG IV PUSH (05:51)
[2021-06-20 06:00] VITALS: BP 193/95; PULSE 93; RESP 18; TEMP 36.7; O2SAT 96
[2021-06-20 06:04] LABS: Glucose Point of Care 149 mg/dl (65-105)
[2021-06-20 06:21] LABS: Basophils Percent Auto 0.1 % (0.2-1.2); Hematocrit 41.6 % (37.0-47.0); Hemoglobin 14.3 g/dL (12.0-15.0); Immature Granulocyte Absolute 0.15 K/mm3 (0.00-0.031); Immature Granulocyte Percent A 0.8 % (0-0.5); Lymphocytes Absolute Auto 1.02 K/mm3 (0.9-3.2); Lymphocytes Percent Auto 5.7 % (18.3-44.2); Mean Corpuscular HGB Conc 34.4 g/dl (32-36); Mean Corpuscular Volume 87.2 fl (80-100); Mean Platelet Volume 10.9 fl (7.4-10.4); Monocytes Absolute Auto 1.2 K/mm3 (0.1-0.6); Monocytes Percent Auto 6.8 % (2.6-8.5); Neutrophils Absolute Auto 15.4 K/mm3 (1.3-6.7); Neutrophils Percent Auto 86.6 % (45.5-73.1); Platelet Count Result 221 k/mm3 (150-375); Red Blood Count 4.77 M/mm3 (4.2-5.4); Red Cell Distribution Width 14.6 % (11.5-14.5); White Blood Count 17.8 K/mm3 (4.5-10.0)
[2021-06-20] MEDS: KETOROLAC 15 MG/ML VIAL (*BKC) IV PUSH ×2 (06:21→12:47)
[2021-06-20 06:41] LABS: Lactic Acid Reflex 1.1 mmol/L (0.7-2.1)
[2021-06-20 07:34] LABS: Alanine Aminotransferase 20 U/L (4-35); Albumin Level 4.5 g/dL (3.5-5.1); Alkaline Phosphatase 100 U/L (38-126); Anion Gap 14 mmol/L (8-16); Aspartate Amino Transferase 28 U/L (14-36); Bilirubin,Total 0.9 mg/dL (0.2-1.3); Blood Urea Nitrogen 12 mg/dL (7-17); Calcium 8.9 mg/dL (8.4-10.2); Carbon Dioxide 23 mmol/L (22-30); Chloride 95 mmol/L (98-107); Creatine Kinase 79 U/L (30-135); Estimated CRCL calculation 75 ml/min; Estimated Glomerular Filt Rate > 60; Glucose 115 mg/dL (65-110); Phosphorus 2.6 mg/dL (2.5-4.5); Potassium 2.6 mmol/L (3.4-5.0); Sodium 132 mmol/L (137-145)
[2021-06-20 08:22] LABS: Glucose Point of Care 125 mg/dl (65-105)
[2021-06-20 08:39] VITALS: PULSE 95
[2021-06-20] MEDS: METOPROLOL SUCCINATE EXT REL 100 MG TABCR PO (08:39)
[2021-06-20] MEDS: hydroCHLOROthiazide 25 MG TABLET PO (08:39)
[2021-06-20] MEDS: amLODIPine BESYLATE 5 MG TABLET 10 MG PO (08:39)
[2021-06-20] MEDS: PANTOPRAZOLE SODIUM IV 40 MG VIAL IV PUSH ×2 (08:40→22:07)
[2021-06-20 12:26] LABS: Glucose Point of Care 113 mg/dl (65-105)
[2021-06-20 14:00] VITALS: BP 160/90; PULSE 91; RESP 18; TEMP 36.9; O2SAT 98
[2021-06-20 17:17] LABS: Glucose Point of Care 116 mg/dl (65-105)
--- NOTE | 2021-06-20 18:59 | PM.IMPN ---
Progress Note: A&P Assessment and Plan (1) Acute pancreatitis: Qualifiers: Pancreatitis type: unspecified pancreatitis type Acute pancreatitis complication: unspecified Qualified Code(s): K85.90 - Acute pancreatitis without necrosis or infection, unspecified Code(s): K85.90 - Acute pancreatitis without necrosis or infection, unspecified Status: Acute (2) Hypokalemia: Code(s): E87.6 - Hypokalemia Status: Acute (3) Leukocytosis: Code(s): D72.829 - Elevated white blood cell count, unspecified Status: Acute (4) Nausea and vomiting: Qualifiers: Vomiting type: unspecified Vomiting Intractability: non-intractable Qualified Code(s): R11.2 - Nausea with vomiting, unspecified Code(s): R11.2 - Nausea with vomiting, unspecified Status: Resolved (5) Gastroesophageal reflux disease: Code(s): K21.9 - Gastro-esophageal reflux disease without esophagitis Status: Acute (6) Dyslipidemia: Code(s): E78.5 - Hyperlipidemia, unspecified Status: Acute (7) GERD without esophagitis: Code(s): K21.9 - Gastro-esophageal reflux disease without esophagitis Status: Acute (8) Recurrent pancreatitis: Code(s): K85.90 - Acute pancreatitis without necrosis or infection, unspecified Status: Acute Additional Plan 1. Increasing leukocytosis: -noted to have increased to 17.8 CT abdomen pelvis with IV contrast was performed for this purpose and noted to have interstitial edematous acute pancreatitis -should the patient spike a fever, or have increasing leukocytosis, I would suggest the patient be started on antibiotics (Cipro and Flagyl) -advance diet to clear liquids and if tolerated can go up to regular diet -check CRP, ESR Time Spent With Patient Time with patient: 25 - 35 minutes Subjective Date/time seen: 06/20/21 18:59 Interval history: 66 year old female with past medical history significant for recurrent pancreatitis, Sow's esophagus, GERD, hypertension and history of breast cancer presented with nausea vomiting and abdominal pain. She is being managed as a case of acute pancreatitis. She she was managed with IV fluids, pain medications and NPO status. Patient received a CT abdomen pelvis with concerns for acute pancreatitis more so interstitial edematous. She is now being started on liquid diet and will be advanced as tolerated. With regard to the etiology of pancreatitis, patient has a history of alcohol abuse however she has been clean and has not had any alcohol since 2019. She is noted to be on losartan which she had started roughly about 2 years ago after she was unable to tolerate lisinopril. She had an extensive workup for her recurrent pancreatitis, even after discontinuing alcohol, with tightness when seen in the wound to be within normal limits an IgG 4 levels were also elevated the troponin normal. Review of Systems Review of Systems: A 10 point review of system was conducted which was otherwise negative Exam Narrative: General: Moderately ill-appearing female lying on her right side in bed. Weight: 77.1 kg. BMI: 27.4. HEENT: PERRL, EOMI. Sclerae anicteric. Tacky mucous membranes. Oropharynx poorly visualized. Neck: Supple. Respiratory: Lungs are clear to auscultation bilaterally. Cardiovascular: Regular rate and rhythm with S1-S2. Gastrointestinal: Abdomen is soft and nondistended with hypoactive bowel sounds. She is tender to palpation in the upper abdomen without voluntary guarding or rebound tenderness. Some improvement noted Skin: Warm and moist. Extremities: No cyanosis, clubbing, or edema. Radial and pedal pulses intact. Neurological: Alert. Cranial nerves 2-12 are grossly intact. No gross focal deficits to casual conversation. Psychiatric: Appropriate mood and affect. Objective Data Vital Signs Vital Signs: Vital Signs - 24 hr 06/19/21 22:00 06/20/21 06:00 06/20/21 08:39 Temperature 9
[2021-06-20 20:00] VITALS: PULSE 85; RESP 16; O2SAT 99
[2021-06-20 20:02] LABS: Anion Gap 7 mmol/L (8-16); Blood Urea Nitrogen 15 mg/dL (7-17); Calcium 9.6 mg/dL (8.4-10.2); Carbon Dioxide 30 mmol/L (22-30); Chloride 95 mmol/L (98-107); Estimated CRCL calculation 58 ml/min; Estimated Glomerular Filt Rate > 60; Glucose 118 mg/dL (65-110); Potassium 2.6 mmol/L (3.4-5.0); Sodium 132 mmol/L (137-145)
[2021-06-20 22:00] VITALS: BP 172/92; PULSE 85; RESP 16; TEMP 36.8; O2SAT 99
[2021-06-20] MEDS: fentaNYL CITRATE INJ (*CRX) 100 MCG/2 ML VIAL 25 MCG IV PUSH (22:06)
[2021-06-20] MEDS: ENOXAPARIN 40 MG/0.4 ML SYRINGE SUB-Q (22:07)
[2021-06-21 05:42] LABS: Glucose Point of Care 98 mg/dl (65-105)
[2021-06-21 06:00] VITALS: BP 173/92; PULSE 71; RESP 16; TEMP 36.6; O2SAT 98
[2021-06-21 06:18] VITALS: PULSE 72
[2021-06-21] MEDS: LABETALOL HCL INJ 100 MG/20 ML VIAL 10 MG IV PUSH (06:18)
[2021-06-21 06:33] LABS: Basophils Percent Auto 0.1 % (0.2-1.2); Eosinophils Percent Auto 0.1 % (0-4.4); Hemoglobin 13.6 g/dL (12.0-15.0); Immature Granulocyte Absolute 0.07 K/mm3 (0.00-0.031); Immature Granulocyte Percent A 0.6 % (0-0.5); Lymphocytes Absolute Auto 1.12 K/mm3 (0.9-3.2); Lymphocytes Percent Auto 8.9 % (18.3-44.2); Mean Corpuscular HGB Conc 34.9 g/dl (32-36); Mean Corpuscular Hemoglobin 29.5 pg (26-34); Mean Corpuscular Volume 84.6 fl (80-100); Mean Platelet Volume 9.9 fl (7.4-10.4); Monocytes Absolute Auto 0.9 K/mm3 (0.1-0.6); Monocytes Percent Auto 7.1 % (2.6-8.5); Neutrophils Absolute Auto 10.5 K/mm3 (1.3-6.7); Neutrophils Percent Auto 83.2 % (45.5-73.1); Platelet Count Result 205 k/mm3 (150-375); Red Blood Count 4.61 M/mm3 (4.2-5.4); Red Cell Distribution Width 14.5 % (11.5-14.5); White Blood Count 12.6 K/mm3 (4.5-10.0)
[2021-06-21 06:50] LABS: Alanine Aminotransferase 18 U/L (4-35); Albumin Level 4.1 g/dL (3.5-5.1); Alkaline Phosphatase 76 U/L (38-126); Anion Gap 7 mmol/L (8-16); Aspartate Amino Transferase 26 U/L (14-36); Bilirubin,Total 0.8 mg/dL (0.2-1.3); Blood Urea Nitrogen 17 mg/dL (7-17); CRP 7.1 mg/dL (<1.0); Calcium 9.1 mg/dL (8.4-10.2); Carbon Dioxide 28 mmol/L (22-30); Chloride 97 mmol/L (98-107); Creatine Kinase 73 U/L (30-135); Estimated CRCL calculation 65 ml/min; Estimated Glomerular Filt Rate > 60; Glucose 107 mg/dL (65-110); Potassium 2.9 mmol/L (3.4-5.0); Sodium 132 mmol/L (137-145)
[2021-06-21] MEDS: SODIUM CHLORIDE 0.9% IV 1,000 ML 250 ML IV CONT ×2 (09:49→14:34)
[2021-06-21] MEDS: amLODIPine BESYLATE 5 MG TABLET 10 MG PO (09:50)
[2021-06-21] MEDS: METOPROLOL SUCCINATE EXT REL 100 MG TABCR PO (09:50)
[2021-06-21] MEDS: PANTOPRAZOLE SODIUM IV 40 MG VIAL IV PUSH ×2 (09:50→21:53)
[2021-06-21 12:30] LABS: Glucose Point of Care 80 mg/dl (65-105)
--- NOTE | 2021-06-21 12:42 | PCCCNOTE ---
On 06/21/21, the student, [Evette Villanueva ], provided care and completed [facility] documentation on this patient. I have reviewed the student's documentation and agree with the findings.
[2021-06-21] MEDS: POTASSIUM CHLORIDE 20 MEQ PACKET (FOR LIQUID) 40 MEQ PO (13:04)
[2021-06-21 14:00] VITALS: BP 96/50; PULSE 75; RESP 16; TEMP 36.7; O2SAT 100
[2021-06-21] MEDS: LIDOCAINE 5% PATCH 1 PATCH TRANSDERM (16:46)
[2021-06-21] MEDS: KETOROLAC 15 MG/ML VIAL (*BKC) IV PUSH (16:59)
[2021-06-21 17:15] LABS: Glucose Point of Care 110 mg/dl (65-105)
--- NOTE | 2021-06-21 20:08 | PM.IMPN ---
Progress Note: A&P Assessment and Plan (1) Acute pancreatitis: Qualifiers: Pancreatitis type: unspecified pancreatitis type Acute pancreatitis complication: unspecified Qualified Code(s): K85.90 - Acute pancreatitis without necrosis or infection, unspecified Code(s): K85.90 - Acute pancreatitis without necrosis or infection, unspecified Status: Acute (2) Hypokalemia: Code(s): E87.6 - Hypokalemia Status: Acute (3) Leukocytosis: Code(s): D72.829 - Elevated white blood cell count, unspecified Status: Acute (4) Nausea and vomiting: Qualifiers: Vomiting type: unspecified Vomiting Intractability: non-intractable Qualified Code(s): R11.2 - Nausea with vomiting, unspecified Code(s): R11.2 - Nausea with vomiting, unspecified Status: Resolved (5) Gastroesophageal reflux disease: Code(s): K21.9 - Gastro-esophageal reflux disease without esophagitis Status: Acute (6) Dyslipidemia: Code(s): E78.5 - Hyperlipidemia, unspecified Status: Acute (7) GERD without esophagitis: Code(s): K21.9 - Gastro-esophageal reflux disease without esophagitis Status: Acute (8) Recurrent pancreatitis: Code(s): K85.90 - Acute pancreatitis without necrosis or infection, unspecified Status: Acute Additional Plan 1. Increasing leukocytosis: improving. CT abdomen pelvis with IV contrast was performed for this purpose and noted to have interstitial edematous acute pancreatitis -should the patient spike a fever, or have increasing leukocytosis, I would suggest the patient be started on antibiotics (Cipro and Flagyl) -advance diet to clear liquids and if tolerated can go up to regular diet -Monitor CRP, ESR Subjective Date/time seen: 06/21/21 20:08 S: Patient is examined at the bedside. She denies any complaints. Diet is advanced to regular tonight. Potassium is being replaced. Interval history: 66 year old female with past medical history significant for recurrent pancreatitis, Sow's esophagus, GERD, hypertension and history of breast cancer presented with nausea vomiting and abdominal pain. She is being managed as a case of acute pancreatitis. She she was managed with IV fluids, pain medications and NPO status. Patient received a CT abdomen pelvis with concerns for acute pancreatitis more so interstitial edematous. She is now being started on liquid diet and will be advanced as tolerated. With regard to the etiology of pancreatitis, patient has a history of alcohol abuse however she has been clean and has not had any alcohol since 2019. She is noted to be on losartan which she had started roughly about 2 years ago after she was unable to tolerate lisinopril. She had an extensive workup for her recurrent pancreatitis, even after discontinuing alcohol, with tightness when seen in the wound to be within normal limits an IgG 4 levels were also elevated the troponin normal. Review of Systems Review of Systems: All systems reviewed & are unremarkable except as noted in HPI and below Exam Narrative: General: Moderately ill-appearing female lying on her right side in bed. Weight: 77.1 kg. BMI: 27.4. HEENT: PERRL, EOMI. Sclerae anicteric. Tacky mucous membranes. Oropharynx poorly visualized. Neck: Supple. Respiratory: Lungs are clear to auscultation bilaterally. Cardiovascular: Regular rate and rhythm with S1-S2. Gastrointestinal: Abdomen is soft and nondistended with hypoactive bowel sounds. She is tender to palpation in the upper abdomen without voluntary guarding or rebound tenderness. Some improvement noted Skin: Warm and moist. Extremities: No cyanosis, clubbing, or edema. Radial and pedal pulses intact. Neurological: Alert. Cranial nerves 2-12 are grossly intact. No gross focal deficits to casual conversation. Psychiatric: Appropriate mood and affect. Objective Data Vital Signs Vital Signs: Vital Signs - 24 hr 06/20/21 22:
[2021-06-21 20:35] VITALS: PULSE 74; RESP 16; O2SAT 100
[2021-06-21] MEDS: ENOXAPARIN 40 MG/0.4 ML SYRINGE SUB-Q (21:52)
[2021-06-21 22:00] VITALS: BP 116/59; PULSE 74; RESP 16; TEMP 36.4; O2SAT 100
[2021-06-22 06:00] VITALS: BP 137/60; PULSE 64; RESP 18; TEMP 36.6; O2SAT 94
[2021-06-22 07:02] LABS: Hematocrit 32.4 % (37.0-47.0); Mean Corpuscular Hemoglobin 29.6 pg (26-34); Mean Corpuscular Volume 87.3 fl (80-100); Mean Platelet Volume 10.1 fl (7.4-10.4); Platelet Count Result 158 k/mm3 (150-375); Red Blood Count 3.71 M/mm3 (4.2-5.4); Red Cell Distribution Width 14.8 % (11.5-14.5); White Blood Count 6.7 K/mm3 (4.5-10.0)
[2021-06-22 07:15] LABS: Alanine Aminotransferase 14 U/L (4-35); Albumin Level 3.2 g/dL (3.5-5.1); Alkaline Phosphatase 55 U/L (38-126); Anion Gap 2 mmol/L (8-16); Aspartate Amino Transferase 20 U/L (14-36); Bilirubin,Total 0.5 mg/dL (0.2-1.3); Blood Urea Nitrogen 17 mg/dL (7-17); Calcium 8.5 mg/dL (8.4-10.2); Carbon Dioxide 28 mmol/L (22-30); Chloride 104 mmol/L (98-107); Estimated CRCL calculation 58 ml/min; Estimated Glomerular Filt Rate > 60; Glucose 91 mg/dL (65-110); Potassium 3.5 mmol/L (3.4-5.0); Sodium 134 mmol/L (137-145)
[2021-06-22 08:58] VITALS: PULSE 64
[2021-06-22] MEDS: METOPROLOL SUCCINATE EXT REL 100 MG TABCR PO (08:58)
[2021-06-22] MEDS: amLODIPine BESYLATE 5 MG TABLET 10 MG PO (08:58)
[2021-06-22] MEDS: PANTOPRAZOLE SODIUM IV 40 MG VIAL IV PUSH (08:59)
[2021-06-22] MEDS: POTASSIUM CHLORIDE 20 MEQ PACKET (FOR LIQUID) 40 MEQ PO (09:58)
--- NOTE | 2021-06-22 17:22 | PM.DS ---
DS: Admitting Diagnosis Discharge Date 06/22/21 Admitting Diagnosis Acute pancreatitis DS: Discharge Diagnosis Discharge Diagnosis (1) Acute pancreatitis: Qualifiers: Pancreatitis type: unspecified pancreatitis type Acute pancreatitis complication: unspecified Qualified Code(s): K85.90 - Acute pancreatitis without necrosis or infection, unspecified Code(s): K85.90 - Acute pancreatitis without necrosis or infection, unspecified Status: Acute (2) Hypokalemia: Code(s): E87.6 - Hypokalemia Status: Acute (3) Leukocytosis: Code(s): D72.829 - Elevated white blood cell count, unspecified Status: Acute (4) Nausea and vomiting: Qualifiers: Vomiting type: unspecified Vomiting Intractability: non-intractable Qualified Code(s): R11.2 - Nausea with vomiting, unspecified Code(s): R11.2 - Nausea with vomiting, unspecified Status: Resolved (5) Gastroesophageal reflux disease: Code(s): K21.9 - Gastro-esophageal reflux disease without esophagitis Status: Acute (6) Dyslipidemia: Code(s): E78.5 - Hyperlipidemia, unspecified Status: Acute (7) GERD without esophagitis: Code(s): K21.9 - Gastro-esophageal reflux disease without esophagitis Status: Acute (8) Recurrent pancreatitis: Code(s): K85.90 - Acute pancreatitis without necrosis or infection, unspecified Status: Acute DS: Summary Hospital Course Reason for hospitalization: Abdominal pain, nausea, and vomiting. Hospital Course: Please refer to the admission HPI. Briefly, this is a 66-year-old female with history of recurrent pancreatitis, Sow's esophagus, gastroesophageal reflux disease, hypertension, and breast cancer who presented to the emergency department on 06/18/2021 from home for evaluation of abdominal pain, nausea, and vomiting. Yesterday afternoon not long after eating salmon patties she developed a dull, aching pain in the upper abdomen which radiated somewhat through to the mid back. She was able to sleep overnight however this morning the discomfort had returned along with the nausea, vomiting, bloating, and sweats. The symptoms are similar to when she had pancreatitis in the past and she presented to the emergency department this morning for evaluation. Aside from a lipase of 1925, the rest of her labs were unremarkable. Clinically she was suffering from recurrent pancreatitis and given ongoing nausea and vomiting it was felt best to keep her overnight for observation. she feels that her episodes are triggered by ingestion of fatty food. Historically,patient reports a history of alcohol abuse but has abstained since 2019. on admission the patient was stable and afebrile. She was nontoxic in appearance in an abdominal exam was benign. He was managed conservatively with IV fluids, IV Protonix, and potassium supplementation. Losartan was held. Patient has cough with lisinopril. She was treated with IV fluids, NPO, antiemetics and IV fentanyl and IV Toradol. Leukocytosis was worsening from 15-17.8. CT abdomen pelvis with IV contrast was performed for this purpose and noted to have interstitial edema to his acute pancreatitis. Patient remain afebrile and was never started on antibiotic. She is on the 2nd day of admission she was advanced to clear liquid. On day 3 of admission her leukocytosis improved from 17.8-12.6. Diet was advanced to regular diet. On the day of discharge white count was normal as acid 0.7. Potassium was normal at 3.5. She was given 1 final dose of potassium 40 minutes POA the repeat labs scheduled within a week of discharge. During his admission the patient complained of back pain which appears to be chronic in nature. She did not have any deficit. She was started on lidocaine pain patch which was prescribed as an outpatient. She will follow-up with her provider within 1 week of discharge. Time Spent with Patient Time attestation
== END 2021-06-22 11:40 | disposition home or self-care (01) | DRG 440 ==
LOC: ANHED 11:26 → ANH3MEDSUR 12:00
PROVIDERS: Internal Medicine; Physician Assistant; Admitting Provider Family Medicine; Emergency Provider Emergency Medicine; PCP Family Medicine; Visit Provider Internal Medicine
DX: K85.90 Acute pancreatitis without necrosis or infection, unspecified (principal); K21.9 Gastro-esophageal reflux disease without esophagitis; Z23 Encounter for immunization; E87.6 Hypokalemia; D72.829 Elevated white blood cell count, unspecified; E78.5 Hyperlipidemia, unspecified; I10 Essential (primary) hypertension; Z96.641 Presence of right artificial hip joint; Z85.3 Personal history of malignant neoplasm of breast; Z86.73 Personal history of transient ischemic attack (TIA), and cerebral infarction without residual deficits; Z90.49 Acquired absence of other specified parts of digestive tract; Z79.82 Long term (current) use of aspirin
CPT/HCPCS: 36415; 74018; 74177; 80048; 80053; 81003; 82550; 82948; 83605; 83690; 83735; 84100; 84478; 85025; 85027; 86140; 90471; 90653; 93005; 96361; 96374; 96375; 99285; A9270; C9113; G0008; G0378; J0131; J0360; J1650; J1885; J2060; J2765; J3010; J3475; J3480; J7030; J7060; Q9967

== ENCOUNTER 2021-12-03 10:43 | Emergency (ER) | payer OTHER, SELFPAY ==
--- NOTE | ~2021-12-03 | XR_ITS ---
EXAMINATION: XR shoulder RT min 2V DATE: 12/03/2021 10:59 INDICATION: Right shoulder pain. Limited range of motion. TECHNIQUE: 4 views of right shoulder were obtained. COMPARISON: None. FINDINGS: Bone alignment is normal. No fracture. There is mild osteoarthritis of glenohumeral joint a nd severe osteoarthritis of acromioclavicular joint. There is a loose body in bicipital groove. IMPRESSION: 1. Polyarticular osteoarthritis. 2. Loose body in bicipital groove. Reviewed, dictated and finalized at location B.
[2021-12-03 10:47] VITALS: BP 133/90; PULSE 58; RESP 16; TEMP 36.4; O2SAT 97
--- NOTE | 2021-12-03 10:50 | ED.UPPEXIN ---
HPI - Extremity Injury (Upper) General Chief Complaint: Extremity Injury, Upper Stated Complaint: R SHOULDER INJURY Time Seen by Provider: 12/03/21 10:50 Source: patient Mode of arrival: ambulatory Limitations: no limitations History of Present Illness HPI narrative: 66-year-old female presented for complaint of right shoulder pain for over 1 week. She states that the onset she injured it while overusing it in the garden. Pain Improved but then about 2 days ago she states the holiday caused her to use the arm more putting away dishes and cooking etc. She states she has been taking Tylenol for pain with moderate relief. Pain is worse with movement and endorses decreased range of motion. Pain at rest is about a 2 out of 10. Denies numbness, tingling, weakness of the extremity. Related Data Home Medications Medication Instructions Recorded Confirmed ergocalciferol (vitamin D2) 1 unit PO WEEKLY 09/10/19 06/18/21 escitalopram oxalate 20 mg PO DAILY 09/10/19 06/18/21 aspirin 81 mg PO DAILY 09/12/19 06/18/21 multivitamin 1 tablet PO DAILY 09/26/19 06/18/21 Allergies Allergy/AdvReac Type Severity Reaction Status Date / Time morphine Allergy Severe SEVERE Verified 06/18/21 14:48 ITCHING ondansetron Allergy Severe Anaphylaxis Verified 06/18/21 14:48 prochlorperazine Allergy Severe Seizure Verified 06/18/21 14:48 Review of Systems Review of Systems: CONSTITUTIONAL: Denies body aches, fever, chills EYES: Denies visual changes ENT: Denies rhinorrhea, congestion CARDIOVASCULAR: Denies chest pain, palpitations, or edema. RESPIRATORY: Denies cough or dyspnea. GASTROINTESTINAL: Denies abdominal pain, nausea, vomiting, or diarrhea. SKIN: Denies rash, itching, or wounds. MUSCULOSKELETAL:reports right shoulder pain. NEUROLOGIC: Denies headache, numbness, tingling, or weakness. PSYCH: Denies depression or anxiety. All systems reviewed & are unremarkable except as noted in HPI and below PMFSH Past Medical History Medical History Sow esophagus (05/10/08) Cancer of left breast Invasive lobular cancer of the left breast, ER/[place] positive, diagnosed in 2011, status post lumpectomy, radiation, and tamoxifen therapy. Cerebrovascular accident Without residual deficit. Gastroesophageal reflux disease History of alcohol use She has abstained from alcohol since the beginning of 2018. 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 Hyperlipidemia Hypertension Recurrent pancreatitis Seizure (03/01/18) Precipitating etiology unclear, may have been related to Compazine or alcohol withdrawal. Surgical History Surgical History History of appendectomy (~1990) History of esophagogastroduodenoscopy (~2010) History of inguinal hernia repair (~1962) History of total right hip arthroplasty (~2010) Status post D&C (~2018) Status post partial mastectomy of left breast (~2012) The patient had a lumpectomy and then reconstructive surgery to another lump that was removed Status post surgical removal of ganglion cyst (~2006) Family History Family History Grandparent Family history of lung cancer Family history of liver disease Carcinoma of colon Mother Family history of lung cancer Father Family history of lung cancer Family history of renal failure Other Family history of malignant neoplasm of stomach Son Family history of malignant neoplasm of thyroid Social History Social History Social History: Surrogate decision maker: Donn Watson, spouse. Code status: Full code. Smoking packs per day: 0.5 Smoking cigarettes per day: 10.0 Smoking status: Former smoker Second hand tobacco smoke exposure: No Alcohol intake: never [place]
== END 2021-12-03 11:28 | disposition home or self-care (01) ==
PROVIDERS: Emergency Provider Nurse Practitioner Family; PCP Family Medicine
DX: M25.511 Pain in right shoulder (principal); Z87.891 Personal history of nicotine dependence; K22.70 Barrett's esophagus without dysplasia; Z85.3 Personal history of malignant neoplasm of breast; Z86.73 Personal history of transient ischemic attack (TIA), and cerebral infarction without residual deficits; K21.9 Gastro-esophageal reflux disease without esophagitis; E78.5 Hyperlipidemia, unspecified; I10 Essential (primary) hypertension; G40.909 Epilepsy, unspecified, not intractable, without status epilepticus; Z96.641 Presence of right artificial hip joint; Z90.12 Acquired absence of left breast and nipple
CPT/HCPCS: 73030; 99213; G0463

== ENCOUNTER 2021-12-18 08:12 | Outpatient (RCR) | payer OTHER, SELFPAY ==
--- NOTE | 2021-12-24 08:01 | PTOPEVAL ---
Thank you for referring Meron Watson to [facility].? The patient is scheduled to be seen for therapy? ____x/week for ___ weeks. Please review, sign, date and return this plan of care MIL. I agree with and certify that the following plan of care is medically necessary. Referring Physician Date Admitting Provider: Attending Provider: BLANCA Gu Referring Provider: *PT Outpatient Evaluation Start: 12/18/21 07:52 Freq: Status: Active Protocol: Document 12/18/21 08:01 Rivera (Rec: 12/18/21 09:38 [facility] [id number]) Therapy Assessment Status Assessment Status Assessment Status Evaluation Outpatient Past Medical History Neurological History Hx Cerebrovascular Accident (CVA) Yes Cardiovascular History Hx Hypercholesterolemia Yes Hx Hypertension Yes Hx Other Cardiac Disorders Yes: CARDIAC ARREST - APPARENT ANAPHYLAXIS Respiratory History Hx Respiratory Disorders No Significant History Gastrointestinal History Hx Appendectomy Yes Hx Gastroesophageal Reflux Disease Yes Hx Hernia Yes Hx Pancreatitis Yes Genitourinary History Hx Urinary Tract Infection Yes Musculoskeletal History Hx Joint Replacement Yes: right hip replacement 2009 Hx Other Musculoskeletal Disorders Yes: left ankle sprain Hematological History Hx Hematological Disorders No Significant History Endocrine History Hx Endocrine Disorders No Significant History HEENT History Hx HEENT Disorders No Significant History Integumentary History Hx Skin Disorders No Significant History Reproductive History Hx Post Menopausal Yes Psychosocial History Hx Anxiety Yes Pain History Has Past Pain Affected Your Daily Life Yes: Hx of pancreatitis Anesthesia History Hx Anesthesia Reactions No Significant History Other History Hx Cancer Yes: L breast lymph node removal Hx Radiation Therapy Yes Evaluation Information Problem Diagnosis R Shoulder Pain Onset 10/31/21 Additional Evaluation Detail quick dash = 47% functionally impaired Subjective Information Pt reports that she was Query Text:As Reported By Patient/ digging in the garden approx 2 Family weeks ago and that she overdid it. She went to urgent care and got an XRAY, showing arthritis. She got a cortisone shot and prednisone which helped to reduce the pain. She reports that
--- NOTE | 2022-04-23 06:52 | PCPTNOTE ---
Shirley Fay attended her initial evaluation on 12/18/21. She has failed to return to the clinic and will be discharged from our care.
== END 2021-12-18 23:59 | disposition home or self-care (01) ==
LOC: CHSPT 08:12
PROVIDERS: Visit Provider Physician Assistant Surgical
DX: M25.511 Pain in right shoulder (principal)
CPT/HCPCS: 97014; 97110; 97161; G0283

== ENCOUNTER 2022-02-08 11:28 | Emergency (ER) | payer OTHER, SELFPAY ==
--- NOTE | ~2022-02-08 | XR_ITS ---
EXAMINATION: XR chest 1V portable INDICATION: Lower chest pain TECHNIQUE: Portable AP chest at 1249 hours COMPARISON: 09/12/2019 FINDINGS: The lungs are free of acute opacities. No pleural effusion or pneumothorax. The cardiomedia stinal silhouette is normal. IMPRESSION: 1. No acute cardiopulmonary abnormality. Reviewed, dictated and finalized at location A.
--- NOTE | ~2022-02-08 | CT_ITS ---
EXAMINATION: CT abdomen pelvis w con INDICATION: Abdominal pain and vomiting TECHNIQUE: Computed tomographic images of the abdomen and pelvis were obtained after the administrati on of 100 cc of Omnipaque 350 intravenous contrast. The dose-length product (DLP) was 582.52 mGy-cm. Automated exposure control and iterative reconstruction technique were employed. COMPARISON: 06/20/2021 FINDINGS: Minimal dependent atelectasis is present in the lung bases. The heart size is normal. The l iver, spleen, pancreas, gallbladder, and adrenal glands are normal. Hypoattenuating lesions in the ki dneys, measuring up to 3 mm on the right, are too small to characterize but likely represent cysts. N o pathologically enlarged abdominal or pelvic lymph nodes are identified. There is no free intraperit tran gas or evidence of bowel obstruction. There are surgical changes of appendectomy. Streak artifa ct from right total hip arthroplasty partially obscures visualization of the pelvis. There is severe lower thoracic spondylosis. IMPRESSION: 1. No CT correlate for the patient's symptoms. Reviewed, dictated and finalized at location A.
[2022-02-08 11:36] VITALS: BP 176/103; PULSE 63; RESP 14; TEMP 36.1; O2SAT 100
[2022-02-08 11:44] LABS: Basophils Percent Auto 0.6 % (0.2-1.2); Eosinophils Absolute Auto 0.2 K/mm3 (0-0.3); Eosinophils Percent Auto 2.5 % (0-4.4); Hematocrit 40.1 % (37.0-47.0); Hemoglobin 13.5 g/dL (12.0-15.0); Immature Granulocyte Absolute 0.02 K/mm3 (0.00-0.031); Immature Granulocyte Percent A 0.3 % (0-0.5); Lymphocytes Absolute Auto 1.47 K/mm3 (0.9-3.2); Lymphocytes Percent Auto 20.5 % (18.3-44.2); Mean Corpuscular HGB Conc 33.7 g/dl (32-36); Mean Corpuscular Hemoglobin 29.7 pg (26-34); Mean Corpuscular Volume 88.3 fl (80-100); Mean Platelet Volume 9.7 fl (7.4-10.4); Monocytes Absolute Auto 0.5 K/mm3 (0.1-0.6); Monocytes Percent Auto 6.6 % (2.6-8.5); Neutrophils Percent Auto 69.5 % (45.5-73.1); Platelet Count Result 228 k/mm3 (150-375); Red Blood Count 4.54 M/mm3 (4.2-5.4); Red Cell Distribution Width 14.6 % (11.5-14.5); White Blood Count 7.2 K/mm3 (4.5-10.0)
[2022-02-08 11:53] LABS: Alanine Aminotransferase 26 U/L (6-35); Alkaline Phosphatase 128 U/L (38-126); Anion Gap 8 mmol/L (8-16); Aspartate Amino Transferase 29 U/L (14-36); Bilirubin,Total 0.2 mg/dL (0.2-1.3); Blood Urea Nitrogen 21 mg/dL (7-17); Calcium 9.6 mg/dL (8.4-10.2); Carbon Dioxide 29 mmol/L (22-30); Chloride 99 mmol/L (98-107); Estimated CRCL calculation 65 ml/min; Estimated Glomerular Filt Rate > 60; Glucose 94 mg/dL (65-110); Lipase 104 U/L (23-300); Potassium 4.6 mmol/L (3.4-5.0); Sodium 136 mmol/L (137-145)
--- NOTE | 2022-02-08 12:10 | ECG_ITS ---
Measurements Intervals [place] Rate: 58 P: 25 NC: 216 QRS: -15 QRSD: 103 T: -4 QT: 424 QTc: 417 Interpretive Statements SINUS BRADYCARDIA WITH FIRST DEGREE AV BLOCK ABNORMAL ECG COMPARED TO ECG 06/18/2021 14:53:14 NC INTERVAL IS SLIGHTLY LONGER Electronically Signed On 02-09-2022 7:08:00 CDT by Dany Corral M.D.
--- NOTE | 2022-02-08 12:14 | ED.ABDPAIN ---
HPI - Abdominal Pain General Chief Complaint: Abdominal Pain Stated Complaint: abdominal pain - pancreatitis i think - prior hx Time Seen by Provider: 02/08/22 12:02 Source: RN notes reviewed History of Present Illness HPI narrative: Patient presents emergency department from home for abdominal pain. Patient states symptoms began this morning. The pain is located in the epigastric region of the abdomen described as aching in nature states it radiated into her back earlier today states she has had nausea and vomiting with the episode states that she has a history of pancreatitis and this feels similar to prior she denies any fevers or chills denies shortness of breath denies any diarrhea. States she has a history of recurrent pancreatitis from alcohol use was not drinking for years having followed by Dr. Nino in the past and is now being followed by a new GI physician at all Related Data Home Medications Medication Instructions Recorded Confirmed ergocalciferol (vitamin D2) 1,250 1 unit PO WEEKLY 09/10/19 06/18/21 mcg (50,000 unit) capsule escitalopram oxalate 20 mg tablet 20 mg PO DAILY 09/10/19 06/18/21 aspirin 81 mg tablet,delayed 81 mg PO DAILY 09/12/19 06/18/21 release multivitamin 1 tablet PO DAILY 09/26/19 06/18/21 Allergies Allergy/AdvReac Type Severity Reaction Status Date / Time morphine Allergy Severe SEVERE Verified 02/08/22 11:54 ITCHING ondansetron Allergy Severe Anaphylaxis Verified 02/08/22 11:54 prochlorperazine Allergy Severe Seizure Verified 02/08/22 11:54 Review of Systems Review of Systems: Gen.: Denies fevers or chills ENT: Denies congestion Respiratory: Denies shortness of breath or cough CV: Denies chest pain or palpitations GI: See HPI Musculoskeletal: Denies back pain or muscle pain Neuro: Denies numbness, tingling, weakness or focal weakness Skin: Denies rash Except as documented, all other systems reviewed and negative PMFSH Past Medical History Medical History Sow esophagus (05/10/08) Cancer of left breast Invasive lobular cancer of the left breast, ER/[place] positive, diagnosed in 2011, status post lumpectomy, radiation, and tamoxifen therapy. Cerebrovascular accident Without residual deficit. Gastroesophageal reflux disease History of alcohol use She has abstained from alcohol since the beginning of 2018. 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 Hyperlipidemia Hypertension Recurrent pancreatitis Seizure (03/01/18) Precipitating etiology unclear, may have been related to Compazine or alcohol withdrawal. Surgical History Surgical History History of appendectomy (~1990) History of esophagogastroduodenoscopy (~2010) History of inguinal hernia repair (~1962) History of total right hip arthroplasty (~2010) Status post D&C (~2018) Status post partial mastectomy of left breast (~2012) The patient had a lumpectomy and then reconstructive surgery to another lump that was removed Status post surgical removal of ganglion cyst (~2006) Family History Family History Grandparent Family history of lung cancer Family history of liver disease Carcinoma of colon Mother Family history of lung cancer Father Family history of lung cancer Family history of renal failure Other Family history of malignant neoplasm of stomach Son Family history of malignant neoplasm of thyroid Social History Social History Social History: Surrogate decision maker: Donn Shirley, spouse. Code status: Full code. Smoking packs per day: 0.5 Smoking cigarettes per day: 10.0 Smoking status: Former smoker Second hand tobacco smoke exposure: No Alcohol intake: never Alcohol use details: Hist
[2022-02-08 12:22] LABS: Appearance Urine Clear (Clear); Bilirubin Urine Negative (Negative); Color Urine Yellow (Yellow); Glucose Urine UA Negative (Negative); Ketones Urine Negative (Negative); Leukocyte Esterase Ur Negative LEU/UL (Negative); Nitrate Urine Negative (Negative); Protein Urine Negative (Negative); Urobilinogen Urine 0.2 mg/dL (<2.0); pH Urine 6.5 (5.0-9.0)
[2022-02-08] MEDS: SODIUM CHLORIDE 0.9% IV 1,000 ML 999 ML IV CONT (12:30)
[2022-02-08 12:39] LABS: Bacteria Urine Trace /hpf; Mucus Urine Rare /lpf; WBC Urine 0-3 /hpf
[2022-02-08 12:42] LABS: Add Urine Microscopic? YES; Blood Urine Trace-Intact (Negative)
[2022-02-08 12:47] LABS: Troponin I < 0.012 ng/mL (0.000-0.034)
[2022-02-08 15:35] LABS: Troponin I < 0.012 ng/mL (0.000-0.034)
[2022-02-08 16:07] VITALS: BP 179/87; PULSE 61; RESP 18; O2SAT 100
== END 2022-02-08 16:06 | disposition home or self-care (01) ==
PROVIDERS: Emergency Medicine; Emergency Provider Emergency Medicine; PCP Family Medicine
DX: R10.13 Epigastric pain (principal); Z79.82 Long term (current) use of aspirin; K22.70 Barrett's esophagus without dysplasia; Z85.3 Personal history of malignant neoplasm of breast; Z86.73 Personal history of transient ischemic attack (TIA), and cerebral infarction without residual deficits; K21.9 Gastro-esophageal reflux disease without esophagitis; E78.5 Hyperlipidemia, unspecified; I10 Essential (primary) hypertension; Z96.641 Presence of right artificial hip joint; Z90.12 Acquired absence of left breast and nipple; I44.0 Atrioventricular block, first degree; R00.1 Bradycardia, unspecified
CPT/HCPCS: 36415; 71045; 74177; 80053; 81001; 83690; 84484; 85025; 93005; 96360; 99284; A9270; J7030; Q9967

== ENCOUNTER 2022-02-08 18:34 | Observation (INO) | payer OTHER, SELFPAY ==
--- NOTE | ~2022-02-08 | US_ITS ---
EXAMINATION: US abdomen limited DATE: 02/10/2022 07:58 INDICATION: Abdominal pain TECHNIQUE: Multiple grayscale and Doppler ultrasound images of the abdomen were obtained. COMPARISON: CT from 02/08/2022 FINDINGS: Bowel gas obscures visualization of the pancreas. The liver is normal with normal echogenic ity and echotexture. No surface nodularity. Normal hepatopetal flow in the main portal vein. The gall bladder is normal with no abnormal wall thickening, pericholecystic fluid or stones. The normal commo n bile duct measures 4 mm. There was no sonographic Plummer sign. IMPRESSION: 1. Normal sonographic study of the gallbladder. Reviewed, dictated and finalized at location A.
[2022-02-08 18:46] VITALS: BP 144/82; PULSE 81; RESP 16; TEMP 36.8; O2SAT 97
[2022-02-08 19:12] LABS: Glucose Point of Care 139 mg/dl (65-105)
[2022-02-08 19:19] VITALS: BP 204/98; PULSE 64; RESP 18; O2SAT 100
[2022-02-08 19:20] LABS: Basophils Percent Auto 0.3 % (0.2-1.2); Eosinophils Absolute Auto 0.1 K/mm3 (0-0.3); Eosinophils Percent Auto 0.9 % (0-4.4); Hematocrit 39.7 % (37.0-47.0); Hemoglobin 14.4 g/dL (12.0-15.0); Immature Granulocyte Absolute 0.06 K/mm3 (0.00-0.031); Immature Granulocyte Percent A 0.5 % (0-0.5); Lymphocytes Absolute Auto 1.38 K/mm3 (0.9-3.2); Lymphocytes Percent Auto 12.6 % (18.3-44.2); Mean Corpuscular HGB Conc 36.3 g/dl (32-36); Mean Corpuscular Hemoglobin 30.4 pg (26-34); Mean Corpuscular Volume 83.8 fl (80-100); Mean Platelet Volume 10.5 fl (7.4-10.4); Monocytes Absolute Auto 0.6 K/mm3 (0.1-0.6); Monocytes Percent Auto 5.7 % (2.6-8.5); Neutrophils Absolute Auto 8.7 K/mm3 (1.3-6.7); Platelet Count Result 278 k/mm3 (150-375); Red Blood Count 4.74 M/mm3 (4.2-5.4); Red Cell Distribution Width 14.4 % (11.5-14.5); White Blood Count 10.9 K/mm3 (4.5-10.0)
--- NOTE | 2022-02-08 19:20 | ED.GENADULT ---
HPI - General Adult General Chief complaint: Nausea/Vomiting/Diarrhea Stated complaint: nausea and vomiting after d/c from here at 3pm Time Seen by Provider: 02/08/22 18:41 Source: RN notes reviewed History of Present Illness HPI narrative: Patient presents emergency department from home via EMS for nausea vomiting. Patient states she has been having numerous episodes of nausea vomiting since approximately 3 PM today states is been associated with abdominal pain in the epigastric region. Patient denies any fevers or chills denies any chest pain shortness of breath or any other symptoms states she has a history of recurrent pancreatitis. The patient was seen earlier today in the emergency department had a negative work-up at that time including a CT scan of her abdomen pelvis patient states she is allergic to Zofran Related Data Home Medications Medication Instructions Recorded Confirmed ergocalciferol (vitamin D2) 1,250 1 unit PO WEEKLY 09/10/19 06/18/21 mcg (50,000 unit) capsule escitalopram oxalate 20 mg tablet 20 mg PO DAILY 09/10/19 06/18/21 aspirin 81 mg tablet,delayed 81 mg PO DAILY 09/12/19 06/18/21 release multivitamin 1 tablet PO DAILY 09/26/19 06/18/21 Allergies Allergy/AdvReac Type Severity Reaction Status Date / Time morphine Allergy Severe SEVERE Verified 02/08/22 18:47 ITCHING ondansetron Allergy Severe Anaphylaxis Verified 02/08/22 18:47 prochlorperazine Allergy Severe Seizure Verified 02/08/22 18:47 Review of Systems Review of Systems: Gen.: Denies fevers or chills ENT: Denies congestion Respiratory: Denies shortness of breath or cough CV: Denies chest pain or palpitations GI: see HPI Musculoskeletal: Denies back pain or muscle pain Neuro: Denies numbness, tingling, weakness or focal weakness Skin: Denies rash Except as documented, all other systems reviewed and negative PMF Past Medical History Medical History Sow esophagus (05/10/08) Cancer of left breast Invasive lobular cancer of the left breast, ER/[place] positive, diagnosed in 2011, status post lumpectomy, radiation, and tamoxifen therapy. Cerebrovascular accident Without residual deficit. Gastroesophageal reflux disease History of alcohol use She has abstained from alcohol since the beginning of 2018. 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 Hyperlipidemia Hypertension Recurrent pancreatitis Seizure (03/01/18) Precipitating etiology unclear, may have been related to Compazine or alcohol withdrawal. Surgical History Surgical History History of appendectomy (~1990) History of esophagogastroduodenoscopy (~2010) History of inguinal hernia repair (~1962) History of total right hip arthroplasty (~2010) Status post D&C (~2018) Status post partial mastectomy of left breast (~2012) The patient had a lumpectomy and then reconstructive surgery to another lump that was removed Status post surgical removal of ganglion cyst (~2006) Family History Family History Grandparent Family history of lung cancer Family history of liver disease Carcinoma of colon Mother Family history of lung cancer Father Family history of lung cancer Family history of renal failure Other Family history of malignant neoplasm of stomach Son Family history of malignant neoplasm of thyroid Social History Social History Social History: Surrogate decision maker: Donn Fallonlincolnmadison, spouse. Code status: Full code. Smoking packs per day: 0.5 Smoking cigarettes per day: 10.0 Smoking status: Former smoker Second hand tobacco smoke exposure: No Alcohol intake: never Alcohol use details: History of alcohol abuse. Sober since early 2018. Substance use:
[2022-02-08] MEDS: METOCLOPRAMIDE HCL INJ 10 MG/2 ML VIAL IV PUSH (19:21)
[2022-02-08] MEDS: SODIUM CHLORIDE 0.9% IV 1,000 ML 999 ML IV CONT (19:21)
[2022-02-08 19:31] LABS: Alanine Aminotransferase 25 U/L (6-35); Alkaline Phosphatase 132 U/L (38-126); Anion Gap 17 mmol/L (8-16); Aspartate Amino Transferase 28 U/L (14-36); Bilirubin,Total 0.6 mg/dL (0.2-1.3); Blood Urea Nitrogen 17 mg/dL (7-17); Calcium 9.8 mg/dL (8.4-10.2); Carbon Dioxide 15 mmol/L (22-30); Chloride 102 mmol/L (98-107); Estimated CRCL calculation 58 ml/min; Estimated Glomerular Filt Rate > 60; Glucose 127 mg/dL (65-110); Lipase 106 U/L (23-300); Potassium 3.2 mmol/L (3.4-5.0); Sodium 134 mmol/L (137-145)
--- NOTE | 2022-02-08 19:50 | PM.IMHP ---
H&P: HPI History of Present Illness Date/Time: 02/08/22 19:50 Chief Complaint: Nausea and vomiting. Narrative: This is a 66-year-old female with past medical history significant for tobacco dependence, alcohol dependence, chronic pancreatitis. Patient presents to the emergency room due to intractable nausea and vomiting ongoing for 1 day initially presented to emergency room and was able to be discharged home however returns via EMS due to continuing vomiting and nausea, patient denies any fevers, rigors, chills, cough, sputum production, no diarrhea. Patient with abdominal pain localized to the epigastric area, relieved by IV medication, has been present for 1 day started the evening prior, patient has been her usual state of health up until this point. Preliminary workup has been essentially nonrevealing including CT of abdomen and pelvis which showed no acute intra-abdominal abnormality. Patient has been admitted for further evaluation management and treatment. Review of Systems Review of Systems: Nausea vomiting and abdominal pain. Constitutional: Constitutional: Denies chills, Denies fatigue, Denies fever(s), Denies lethargy, Denies malaise and Denies poor appetite Eyes: Eyes: Denies change in vision ENT: Denies dysphagia, Denies vertigo, Denies dizziness, Denies nasal congestion, Denies nasal discharge and Denies odynophagia Cardiovascular: Cardiovascular: Denies chest pain, Denies pedal edema, Denies lightheadedness, Denies palpitations, Denies dyspnea, Denies dyspnea on exertion and Denies paroxysmal nocturnal dyspnea Respiratory: Respiratory: Denies chest congestion, Denies cough and Denies excessive phlegm production Gastrointestinal: Gastrointestinal: Reports abdominal pain, Denies dyspepsia, Denies heartburn, Denies diarrhea, Reports nausea and Reports vomiting Genitourinary: Genitourinary: Denies dysuria Musculoskeletal: Musculoskeletal: Denies arthralgias and Denies joint swelling Integumentary/Breasts: Skin/Breast: Denies rash Neurologic: Denies focal weakness and Denies Sensory deficit (Neuro) Psychiatric: Psychiatric: Reports no additional psychiatric complaints and Reports as per HPI Endocrine: Endocrine: Denies cold intolerance, Denies fatigue, Denies flushing, Denies heat intolerance, Denies polyphagia, Denies polydipsia and Denies palpitations Hematologic/Lymphatic: Hematologic/Lymphatic: Reports no additional hematologic/lymphatic complaints and Reports as per HPI Allergic/Immunologic: Allergic/Immunologic: Reports no additional allergic/immunologic complaints PMFSH Past Medical History Medical History (Updated 02/09/22 @ 16:24 by Valentine Bright APRN) Sow esophagus (05/10/08) Cancer of left breast Invasive lobular cancer of the left breast, ER/[place] positive, diagnosed in 2011, status post lumpectomy, radiation, and tamoxifen therapy. Cerebrovascular accident Without residual deficit. Gastroesophageal reflux disease History of alcohol use She has abstained from alcohol since the beginning of 2018. 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 Hyperlipidemia Hypertension Recurrent pancreatitis Seizure (03/01/18) Precipitating etiology unclear, may have been related to Compazine or alcohol withdrawal. Surgical History Surgical History History of appendectomy (~1990) History of esophagogastroduodenoscopy (~2010) History of inguinal hernia repair (~1962) History of total right hip arthroplasty (~2010) Status post D&C (~2018) Status post partial mastectomy of left breast (~2012) The patient had a lumpectomy and then reconstructive surgery to another lump that was removed Status post surgical removal of ganglion cyst (~2006) Family History Family History Grandparent Family history of lung cancer Family history of
[2022-02-08] MEDS: PANTOPRAZOLE SODIUM IV 40 MG VIAL IV PUSH (20:00)
[2022-02-08 20:52] VITALS: BP 187/99; PULSE 76; RESP 28; O2SAT 100
--- NOTE | 2022-02-08 21:05 | ADMGEN ---
This patient, Meron Watson, was admitted to 2 Medical Room 260-01. Patient/family oriented to hospital policies and general routines including ID bracelet, bed and alarms, visiting hours, pain management, procedures, bathroom and other care routines, personal items, smoking policy, room service/diet, and visiting hours. Information on how to activate the Rapid Response Team has been discussed. Patient/Family are encouraged to report perceived risks to care and to ask questions if they do not understand what they are told or what they should do.
[2022-02-08 21:24] VITALS: BP 185/78; PULSE 71; RESP 18; TEMP 35.8; O2SAT 99
[2022-02-08 21:25] VITALS: BMI 28.1
[2022-02-08] MEDS: SODIUM CHLORIDE 0.9% IV 1,000 ML 125 ML IV CONT (22:19)
[2022-02-08] MEDS: ZOLPIDEM TARTRATE (*CRX) 5 MG TABLET PO (23:04)
[2022-02-09 02:49] VITALS: BP 180/86; PULSE 71; RESP 17; TEMP 36.6; O2SAT 95
[2022-02-09] MEDS: METOCLOPRAMIDE HCL INJ 10 MG/2 ML VIAL IV PUSH (03:18)
[2022-02-09 05:41] LABS: Basophils Percent Auto 0.1 % (0.2-1.2); Hematocrit 42.3 % (37.0-47.0); Hemoglobin 14.4 g/dL (12.0-15.0); Immature Granulocyte Absolute 0.06 K/mm3 (0.00-0.031); Immature Granulocyte Percent A 0.5 % (0-0.5); Lymphocytes Absolute Auto 0.71 K/mm3 (0.9-3.2); Lymphocytes Percent Auto 5.9 % (18.3-44.2); Mean Corpuscular Hemoglobin 29.8 pg (26-34); Mean Corpuscular Volume 87.4 fl (80-100); Mean Platelet Volume 10.2 fl (7.4-10.4); Monocytes Absolute Auto 0.4 K/mm3 (0.1-0.6); Monocytes Percent Auto 3.1 % (2.6-8.5); Neutrophils Percent Auto 90.4 % (45.5-73.1); Platelet Count Result 246 k/mm3 (150-375); Red Blood Count 4.84 M/mm3 (4.2-5.4); Red Cell Distribution Width 14.7 % (11.5-14.5); White Blood Count 12.1 K/mm3 (4.5-10.0)
[2022-02-09 05:44] LABS: Alanine Aminotransferase 26 U/L (6-35); Albumin Level 5.2 g/dL (3.5-5.1); Alkaline Phosphatase 110 U/L (38-126); Anion Gap 12 mmol/L (8-16); Aspartate Amino Transferase 30 U/L (14-36); Bilirubin,Total 0.7 mg/dL (0.2-1.3); Blood Urea Nitrogen 13 mg/dL (7-17); Calcium 8.9 mg/dL (8.4-10.2); Carbon Dioxide 23 mmol/L (22-30); Chloride 97 mmol/L (98-107); Estimated CRCL calculation 74 ml/min; Estimated Glomerular Filt Rate > 60; Glucose 146 mg/dL (65-110); Lipase 111 U/L (23-300); Potassium 3.8 mmol/L (3.4-5.0); Sodium 132 mmol/L (137-145)
[2022-02-09] MEDS: SODIUM CHLORIDE 0.9% IV 1,000 ML 125 ML IV CONT ×2 (06:29→22:19)
[2022-02-09 09:52] VITALS: PULSE 71
[2022-02-09] MEDS: PANTOPRAZOLE 40 MG TABLET PO (09:52)
[2022-02-09] MEDS: ASPIRIN 81 MG ENTERIC TABLET PO (09:52)
[2022-02-09] MEDS: METOPROLOL SUCCINATE EXT REL 100 MG TABCR PO (09:52)
[2022-02-09] MEDS: ATORVASTATIN 20 MG TABLET PO (09:52)
[2022-02-09] MEDS: ESCITALOPRAM OXALATE 10 MG TABLET 20 MG PO (09:52)
[2022-02-09] MEDS: ENOXAPARIN 40 MG/0.4 ML SYRINGE SUB-Q (09:53)
[2022-02-09 14:00] VITALS: BP 130/74; PULSE 71; RESP 18; TEMP 37.3; O2SAT 97
--- NOTE | 2022-02-09 15:59 | PM.IMPN ---
Progress Note: A&P Assessment and Plan (1) Abdominal pain, epigastric: Code(s): R10.13 - Epigastric pain Status: Acute Assessment and Plan: CT abd/pelvis negative for acute disease. Lipase and LFTs normal. -Check RUQ US to rule out gallbladder disease. -Clear liquid diet. Advance as tolerated to low fat diet. -Continue PPI. -Consider GI consult if symptoms do not improve. (2) Nausea and vomiting: Code(s): R11.2 - Nausea with vomiting, unspecified Status: Acute Assessment and Plan: -PRN Reglan for nausea & vomiting. Patient has anaphylaxis allergy to Zofran. (3) Gastroesophageal reflux disease: Code(s): K21.9 - Gastro-esophageal reflux disease without esophagitis Status: Chronic Assessment and Plan: H/O Sow's esophagus. -Continue PPI. Plan CODE STATUS: FULL CODE DISPOSITION: home with spouse Estimated LOS: Plan to discharge tomorrow if tolerating diet and US negative. Time Spent With Patient Time with patient: 15 - 25 minutes Subjective Date/time seen: 02/09/22 15:59 Patient is a 66 yo female with medical history of Sow esophagus, chronic pancreatitis, GERD, HTN, HLD, and left breast cancer. She presented to the ED twice yesterday for c/o epigastric pain, nausea and vomiting. CT abdomen/pelvis and lab work was negative for acute disease, despite persistent symptoms. She reports feeling a little better this morning. She denies abdominal pain, nausea or emesis since admission. She does endorse epigastric pain yesterday that radiated to her back after eating, which she thought was a recurrence of pancreatitis. She denies fever, chills, hematemesis, melena, or hematochezia. She c/o not wanting to eat this morning, so has only been taking sips of water. Review of Systems Review of Systems: All systems reviewed & are unremarkable except as noted in HPI and below Exam Narrative: GENERAL: No distress, older adult female lying in bed. No oxygen. HEENT: normocephalic, atraumatic. PERRLA/EOMI, conjunctivae clear. Hearing grossly intact. Mucous membranes dry. Oropharynx normal. NECK: Supple. Thyroid without nodularity. Trachea midline. No JVD. LUNGS: Respirations unlabored. Lung sounds clear to auscultation without wheezing, rhonchi or rales. No accessory muscle use. HEART: Normal S1 and S2 regular rate and rhythm without murmurs, rubs or gallops. ABDOMEN: Soft, round, mildly tender to palpation epigastric region. No CVA or suprapubic tenderness. Normoactive bowel sounds.? No guarding. EXTREMITIES: Moves all extremities equally and with full strength. No edema. No calf tenderness. NEURO: Alert. AOx4. Cranial nerves II through XII grossly intact.? Speech clear. SKIN: Warm, dry. Fair and normal for ethnicity. No rashes, lesions or open wounds. PSYCHIATRIC: Neutral mood and flat affect Objective Data Vital Signs Vital Signs: Vital Signs - 24 hr 02/08/22 18:46 02/08/22 19:19 02/08/22 20:52 Temperature 98.2 F Pulse Rate 81 64 76 Respiratory Rate 16 18 28 H Blood Pressure 144/82 H 204/98 H 187/99 H Pulse Oximetry 97 100 100 Oxygen Delivery 02/08/22 21:24 02/09/22 02:49 02/09/22 09:52 Temperature 96.5 F L 97.8 F Pulse Rate 71 71 71 Respiratory Rate 18 17 Blood Pressure 185/78 H 180/86 H Pulse Oximetry 99 95 Oxygen Delivery 02/09/22 08:00 02/09/22 14:00 Temperature 99.1 F Pulse Rate 71 Respiratory Rate 18 Blood Pressure 130/74 Pulse Oximetry 97 Oxygen Delivery Room Air Intake/Output Intake/Output: Intake & Output 02/06/22 02/07/22 02/08/22 02/09/22 23:59 23:59 23:59 23:59 Intake Total 1000 1120 Output Total 800 3200 Balance 200 -2080 Meds/Results Medications: Active Medications Generic Name Dose Route Start Last Admin Trade Name Freq PRN Reason Stop Dose Admin Aspirin 81 mg 02/09/22 09:00 02/09/22 09:52 Aspirin 81 Mg Enteric Tablet PO 81 mg DAILY THANH Adminis
[2022-02-09 19:56] VITALS: BP 108/58; PULSE 66; RESP 18; TEMP 37.1; O2SAT 98
[2022-02-10 04:29] VITALS: BP 145/77; PULSE 67; RESP 18; TEMP 36.6; O2SAT 99
[2022-02-10 05:21] LABS: Basophils Percent Auto 0.2 % (0.2-1.2); Eosinophils Percent Auto 0.5 % (0-4.4); Hematocrit 33.6 % (37.0-47.0); Hemoglobin 11.3 g/dL (12.0-15.0); Immature Granulocyte Absolute 0.04 K/mm3 (0.00-0.031); Immature Granulocyte Percent A 0.5 % (0-0.5); Lymphocytes Absolute Auto 1.86 K/mm3 (0.9-3.2); Lymphocytes Percent Auto 22.4 % (18.3-44.2); Mean Corpuscular HGB Conc 33.6 g/dl (32-36); Mean Corpuscular Hemoglobin 29.7 pg (26-34); Mean Corpuscular Volume 88.4 fl (80-100); Mean Platelet Volume 9.5 fl (7.4-10.4); Monocytes Absolute Auto 0.7 K/mm3 (0.1-0.6); Monocytes Percent Auto 8.3 % (2.6-8.5); Neutrophils Absolute Auto 5.7 K/mm3 (1.3-6.7); Neutrophils Percent Auto 68.1 % (45.5-73.1); Platelet Count Result 195 k/mm3 (150-375); Red Cell Distribution Width 15.1 % (11.5-14.5); White Blood Count 8.3 K/mm3 (4.5-10.0)
[2022-02-10 05:40] LABS: Lipase 171 U/L (23-300)
[2022-02-10 05:47] LABS: Alanine Aminotransferase 16 U/L (6-35); Albumin Level 3.5 g/dL (3.5-5.1); Alkaline Phosphatase 67 U/L (38-126); Anion Gap 5 mmol/L (8-16); Aspartate Amino Transferase 24 U/L (14-36); Bilirubin,Total 0.4 mg/dL (0.2-1.3); Blood Urea Nitrogen 13 mg/dL (7-17); Calcium 8.2 mg/dL (8.4-10.2); Carbon Dioxide 26 mmol/L (22-30); Chloride 106 mmol/L (98-107); Estimated CRCL calculation 66 ml/min; Estimated Glomerular Filt Rate > 60; Glucose 94 mg/dL (65-110); Potassium 3.2 mmol/L (3.4-5.0); Sodium 137 mmol/L (137-145)
[2022-02-10] MEDS: SODIUM CHLORIDE 0.9% IV 1,000 ML 125 ML IV CONT (06:04)
[2022-02-10 08:15] LABS: Magnesium 1.8 mg/dL (1.6-2.3)
[2022-02-10 08:18] VITALS: PULSE 58
[2022-02-10] MEDS: MULTIVITAMINS THERAPEUTIC TAB (*BKC) 1 TABLET PO (08:18)
[2022-02-10] MEDS: ENOXAPARIN 40 MG/0.4 ML SYRINGE SUB-Q (08:18)
[2022-02-10] MEDS: PANTOPRAZOLE 40 MG TABLET PO (08:18)
[2022-02-10] MEDS: METOPROLOL SUCCINATE EXT REL 100 MG TABCR PO (08:18)
[2022-02-10] MEDS: ERGOCALCIFEROL 50,000 UNIT CAPSULE 50000 UNITS PO (08:18)
[2022-02-10] MEDS: ATORVASTATIN 20 MG TABLET PO (08:18)
[2022-02-10] MEDS: ASPIRIN 81 MG ENTERIC TABLET PO (08:19)
[2022-02-10] MEDS: POTASSIUM CHLORIDE 20 MEQ PACKET (FOR LIQUID) 40 MEQ PO (08:27)
[2022-02-10] MEDS: ESCITALOPRAM OXALATE 10 MG TABLET 20 MG PO (08:56)
[2022-02-10] MEDS: ACETAMINOPHEN 325 MG TABLET 650 MG PO (10:31)
--- NOTE | 2022-02-10 11:53 | PM.DS ---
DS: Admitting Diagnosis Discharge Date 02/10/2022 1632 Admitting Diagnosis Abdominal pain, epigastric Nausea and vomiting DS: Discharge Diagnosis Discharge Diagnosis (1) Abdominal pain, epigastric: Code(s): R10.13 - Epigastric pain Status: Acute (2) Nausea and vomiting: Code(s): R11.2 - Nausea with vomiting, unspecified Status: Acute (3) Gastroesophageal reflux disease: Code(s): K21.9 - Gastro-esophageal reflux disease without esophagitis Status: Chronic (4) Essential (primary) hypertension: Code(s): I10 - Essential (primary) hypertension Status: Chronic (5) Sow esophagus: Onset Date: 05/10/08 Code(s): K22.70 - Sow's esophagus without dysplasia Status: Chronic DS: Summary Hospital Course Hospital Course: Meron Pena is a 66 yo female with past medical history significant for tobacco dependence, alcohol dependence, and chronic pancreatitis.? She presented to the emergency room due to intractable nausea and vomiting ongoing for 1 day. She had been seen in the emergency room earlier in the day and discharged home, however, she continued to have vomiting. No fevers, rigors, chills, cough, sputum production, or diarrhea.?She had associated abdominal pain localized to the epigastric area, relieved by IV medication. She reported the pain radiated to her mid-back at one point. Preliminary workup has been essentially nonrevealing including CT of abdomen and pelvis which showed no acute intra-abdominal abnormality. CMP and lipase were negative. WBC was 10. She was afebrile with stable vitals in the ED. The patient was referred for observation. She was placed on clear liquid diet, IV fluids and IV PPI. Her symptoms improved, however, she continued to have poor appetite. Her WBC increased to 12 on hospital day 2 and given her symptoms, RUQ ultrasound was ordered. Today, the patient reported no c/o indigestion, nausea, vomiting or abdominal pain. RUQ US was negative for gallbladder disease. Her diet was advanced with good tolerance. Her symptoms were thought to be secondary to GERD/Sow esophagus or possible food poisoning. She was counseled to continue PPI therapy as prescribed, decrease portion sizes, avoid acid producing foods/drinks, sit up following meals, not eat right before bed and to schedule outpatient appointment with GI for Sow esophagus surveillance. She was also instructed to avoid smoking marijuana, as this could be a possible trigger for worsening GERD. She was discharged home in stable condition. Time spent discussing smoking cessation with patient: 3 to 10 minutes Status at Discharge Cognitive/behavioral status at discharge: AAOx4. Pleasant Functional status at discharge: independent ambulation Overall status at discharge: patient is back to baseline Time Spent with Patient Time attestation: Total time spent providing and/or coordinating discharge services: Time spent: Less than 30 minutes Exam Narrative: GENERAL: No distress, older adult female lying in bed. No oxygen. HEENT: normocephalic, atraumatic. PERRLA/EOMI, conjunctivae clear. Hearing grossly intact. Mucous membranes dry. Oropharynx normal. NECK: Supple. Thyroid without nodularity. Trachea midline. No JVD. LUNGS: Respirations unlabored. Lung sounds clear to auscultation without wheezing, rhonchi or rales. No accessory muscle use. HEART: Normal S1 and S2 regular rate and rhythm without murmurs, rubs or gallops. ABDOMEN: Soft, round, mildly tender to palpation epigastric region. No CVA or suprapubic tenderness. Normoactive bowel sounds.? No guarding. EXTREMITIES: Moves all extremities equally and with full strength. No edema. No calf tenderness. NEURO: Alert. AOx4. Cranial nerves II through XII grossly intact.? Speech clear. SKIN: Warm, dry. Fair and normal for ethnicity. No rashes, lesions or open wounds. PSYCHIATRIC: Neutral mood and flat affect DS: Data Data Completed an
== END 2022-02-10 13:30 | disposition home or self-care (01) ==
LOC: ANHED 20:18 → ANH2MED 02-09 00:49
PROVIDERS: Admitting Provider Internal Medicine; Emergency Provider Emergency Medicine; PCP Family Medicine; Visit Provider Nurse Practitioner Family
DX: R10.13 Epigastric pain (principal); R11.2 Nausea with vomiting, unspecified; Z79.82 Long term (current) use of aspirin; Z85.3 Personal history of malignant neoplasm of breast; K21.9 Gastro-esophageal reflux disease without esophagitis; I10 Essential (primary) hypertension; E78.5 Hyperlipidemia, unspecified; Z86.73 Personal history of transient ischemic attack (TIA), and cerebral infarction without residual deficits; Z87.891 Personal history of nicotine dependence; K22.70 Barrett's esophagus without dysplasia
CPT/HCPCS: 36415; 71045; 74177; 76705; 80053; 81001; 82948; 83690; 83735; 84484; 85025; 93005; 96360; 96361; 96374; 99285; A9270; C9113; G0378; J1650; J2765; J7030; Q9967

== ENCOUNTER 2022-03-27 08:57 | Outpatient (CLI) | payer OTHER, SELFPAY ==
--- NOTE | ~2022-03-27 | MM_ITS ---
EXAMINATION: MM screening cherelle BI w ciera HISTORY: Screening mammogram, history of left breast cancer TECHNIQUE: Craniocaudal and mediolateral oblique 3-D tomosynthesis images were obtained and synthetic 2-D images were generated. CAD analysis was submitted and interpreted. COMPARISON: 12/26/2020, 12/13/2019, 11/29/2018 BREAST PARENCHYMAL COMPOSITION: There are scattered areas of fibroglandular density. FINDINGS: Again seen are stable lumpectomy changes in the upper outer quadrant of the left breast. Th ere is no suspicious mass, calcification, or architectural distortion to suggest malignancy in either breast. There has been no suspicious interval change. IMPRESSION: 1. No mammographic evidence of malignancy. 2. Recommend routine screening mammography in one year. BI-RADS Category 2: Benign finding(s). Reviewed, dictated and finalized at location A.
== END 2022-03-27 08:58 | disposition home or self-care (01) ==
LOC: ANHIMG 08:59
PROVIDERS: PCP Family Medicine; Visit Provider Obstetrics & Gynecology Gynecology
DX: Z12.31 Encounter for screening mammogram for malignant neoplasm of breast (principal)
CPT/HCPCS: 77063; 77067

== ENCOUNTER 2022-08-19 15:44 | Emergency (ER) | payer MEDICARE, SELFPAY ==
--- NOTE | ~2022-08-19 | CT_ITS ---
EXAMINATION: CT abdomen pelvis w con DATE: 08/19/2022 22:19 INDICATION: abdominal pain, history of pancreatitis TECHNIQUE: Computed tomography (CT) of the abdomen and pelvis was performed with 100 mL Omnipaque-350 intravenous contrast. Automated exposure control and iterative reconstruction technique were employe d. The dose-length product was 511.68 mGy-cm. COMPARISON: 02/08/2022. FINDINGS: Lower thorax: Moderate coronary artery calcification Liver: Normal. Biliary/Gallbladder: Gallbladder is normal. No bile duct dilation. Pancreas: Mild edema and inflammatory change at the pancreatic head. Spleen: Normal. Adrenals:No mass. Kidneys: No mass, stone, or hydronephrosis. GI tract: Distal esophageal and gastric wall edema No small or large bowel dilation. Status post appe ndectomy Mesentery/Peritoneum: No ascites, mass, or free air. Retroperitoneum: No mass. Pelvis: Pelvic organs are within normal limits. Soft Tissues: Soft tissues and body wall unremarkable. Bones: No acute osseous finding. Uncomplicated appearing right hip arthroplasty. IMPRESSION: Esophagitis/gastritis. Mild edema at the pancreatic head, may represent early/mild pancreatitis in th e appropriate clinical and laboratory context. Otherwise no acute abdominopelvic process detected. Reviewed, dictated and finalized at location K. DESK SUPPORT SPECIALIST IMPRESSION: Esophagitis/gastritis. Mild edema at the pancreatic head, may represent early/m ild pancreatitis in the appropriate clinical and laboratory context. Otherwise no acute abdominopelvic process detected.
[2022-08-19 16:00] VITALS: BP 130/93; PULSE 73; RESP 18; TEMP 36.8; O2SAT 96
[2022-08-19 16:43] LABS: Basophils Percent Auto 0.3 % (0.2-1.2); Eosinophils Absolute Auto 0.1 K/mm3 (0-0.3); Eosinophils Percent Auto 0.7 % (0-4.4); Hematocrit 42.5 % (37.0-47.0); Hemoglobin 14.6 g/dL (12.0-15.0); Immature Granulocyte Absolute 0.04 K/mm3 (0.00-0.031); Immature Granulocyte Percent A 0.3 % (0-0.5); Lymphocytes Absolute Auto 1.06 K/mm3 (0.9-3.2); Lymphocytes Percent Auto 8.2 % (18.3-44.2); Mean Corpuscular HGB Conc 34.4 g/dl (32-36); Mean Corpuscular Hemoglobin 30.2 pg (26-34); Mean Corpuscular Volume 87.8 fl (80-100); Mean Platelet Volume 10.1 fl (7.4-10.4); Monocytes Absolute Auto 0.7 K/mm3 (0.1-0.6); Monocytes Percent Auto 5.6 % (2.6-8.5); Neutrophils Absolute Auto 10.9 K/mm3 (1.3-6.7); Neutrophils Percent Auto 84.9 % (45.5-73.1); Platelet Count Result 233 k/mm3 (150-375); Red Blood Count 4.84 M/mm3 (4.2-5.4); Red Cell Distribution Width 14.1 % (11.5-14.5); White Blood Count 12.9 K/mm3 (4.5-10.0)
[2022-08-19 16:53] LABS: Alanine Aminotransferase 28 U/L (6-35); Albumin Level 5.2 g/dL (3.5-5.1); Alkaline Phosphatase 103 U/L (38-126); Anion Gap 13 mmol/L (8-16); Aspartate Amino Transferase 27 U/L (14-36); Bilirubin,Total 0.6 mg/dL (0.2-1.3); Blood Urea Nitrogen 14 mg/dL (7-17); Calcium 9.9 mg/dL (8.4-10.2); Carbon Dioxide 26 mmol/L (22-30); Chloride 94 mmol/L (98-107); Estimated CRCL calculation 58 ml/min; Estimated Glomerular Filt Rate > 60; Glucose 107 mg/dL (65-110); Lipase 132 U/L (23-300); Potassium 3.7 mmol/L (3.4-5.0); Sodium 133 mmol/L (137-145)
[2022-08-19 17:59] LABS: Add Urine Microscopic? YES; Appearance Urine Clear (Clear); Bilirubin Urine Negative (Negative); Blood Urine Negative (Negative); Color Urine Yellow (Yellow); Glucose Urine UA Negative (Negative); Ketones Urine 2+ mg/dL (Negative); Leukocyte Esterase Ur Trace LEU/UL (Negative); Nitrate Urine Negative (Negative); Protein Urine 1+ mg/dL (Negative); Specific Grav Ur 1.015 (1.001-1.035); Urobilinogen Urine 0.2 mg/dL (<2.0)
[2022-08-19 18:05] LABS: Bacteria Urine Trace /hpf; Mucus Urine Rare /lpf; Squamous Epithelial Cell Urine Rare /hpf (Few)
[2022-08-19 21:52] VITALS: BP 162/116; PULSE 94; RESP 20; O2SAT 98
[2022-08-19] MEDS: LACTATED RINGERS 1,000 ML 999 ML IV CONT (22:50)
--- NOTE | 2022-08-19 22:54 | PC.NURSE ---
Dr. Rivas at bedside to assess pt.
[2022-08-19 22:55] VITALS: BP 155/93; PULSE 76; RESP 14; O2SAT 99
--- NOTE | 2022-08-19 23:15 | PC.NURSE ---
Patient report given to YAN Mancilla. All questions answered and care of patient transferred.
[2022-08-19] MEDS: METOCLOPRAMIDE HCL INJ 10 MG/2 ML VIAL IV PUSH (23:29)
[2022-08-19] MEDS: diphenhydrAMINE HCl INJ 50 MG/ML VIAL 25 MG IV PUSH (23:29)
--- NOTE | 2022-08-20 01:03 | ED.NAVMDI ---
HPI - Nausea/Vomiting/Diarrhea General Chief complaint: Nausea/Vomiting/Diarrhea Stated complaint: vomiting Time Seen by Provider: 08/19/22 22:28 History of Present Illness HPI Narrative: 67-year-old female with history of pancreatitis presents here with some nausea and a mild headache, she states that she wanted to make sure she came in before she went to full-blown pancreatitis. She has had symptoms like this in the past where it was pancreatitis. No abdominal pain. No dysuria. Related Data Home Medications Medication Instructions Recorded Confirmed ergocalciferol (vitamin D2) 1,250 1 unit PO WEEKLY 09/10/19 06/19/22 mcg (50,000 unit) capsule escitalopram oxalate 20 mg tablet 20 mg PO DAILY 09/10/19 06/19/22 aspirin 81 mg tablet,delayed 81 mg PO DAILY 09/12/19 06/19/22 release multivitamin 1 tablet PO DAILY 09/26/19 06/19/22 rabeprazole 20 mg tablet,delayed 20 mg PO DAILY 06/19/22 06/19/22 release (AcipHex) Allergies Allergy/AdvReac Type Severity Reaction Status Date / Time morphine Allergy Severe SEVERE Verified 08/19/22 16:03 ITCHING ondansetron Allergy Severe Anaphylaxis Verified 08/19/22 16:03 prochlorperazine Allergy Severe Seizure Verified 08/19/22 16:03 Review of Systems Review of Systems: CONST: No fever. HEENT: No sore throat C/V: No chest pain RESP: No cough GI: Reports nausea, vomiting : No dysuria. M/S: No joint pain. SKIN: No rash. NEURO: LEE without focal numbness or weakness PSYCH: [No depression] [facility] Past Medical History Medical History Sow esophagus (05/10/08) Cancer of left breast Invasive lobular cancer of the left breast, ER/MA positive, diagnosed in 2011, status post lumpectomy, radiation, and tamoxifen therapy. Cerebrovascular accident Without residual deficit. Gastroesophageal reflux disease History of alcohol use She has abstained from alcohol since the beginning of 2018. 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 Hyperlipidemia Hypertension Recurrent pancreatitis Seizure (03/01/18) Precipitating etiology unclear, may have been related to Compazine or alcohol withdrawal. Surgical History Surgical History History of appendectomy (~1990) History of esophagogastroduodenoscopy (~2010) History of inguinal hernia repair (~1962) History of total right hip arthroplasty (~2010) Status post D&C (~2018) Status post partial mastectomy of left breast (~2012) The patient had a lumpectomy and then reconstructive surgery to another lump that was removed Status post surgical removal of ganglion cyst (~2006) Family History Family History Grandparent Family history of lung cancer Family history of liver disease Carcinoma of colon Mother Family history of lung cancer Father Family history of lung cancer Family history of renal failure Other Family history of malignant neoplasm of stomach Son Family history of malignant neoplasm of thyroid Social History Social History Social History: Surrogate decision maker: Donn Watson, spouse. Code status: Full code. Smoking packs per day: 0.5 Smoking cigarettes per day: 10.0 Smoking status: Never smoker Second hand tobacco smoke exposure: No Alcohol intake: never Alcohol use details: History of alcohol abuse. Sober since early 2018. Substance use: current Substance use type: marijuana Last use: 02/07/22 Additional living arrangements comments: Lives with in [place]. 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 Gender identity (if verbalized by the patient): Female Sexual Orientation (if Verbalized by the Patient): Straight or Heterosexual Spiritual care concerns: No Exa
[2022-08-20 01:30] VITALS: BP 143/86; PULSE 77; RESP 14; O2SAT 100
== END 2022-08-20 01:30 | disposition home or self-care (01) ==
PROVIDERS: Emergency Medicine; Emergency Provider Emergency Medicine; PCP Family Medicine
DX: K85.90 Acute pancreatitis without necrosis or infection, unspecified (principal); E78.5 Hyperlipidemia, unspecified; I10 Essential (primary) hypertension; K21.9 Gastro-esophageal reflux disease without esophagitis; Z96.641 Presence of right artificial hip joint; Z90.12 Acquired absence of left breast and nipple; Z86.73 Personal history of transient ischemic attack (TIA), and cerebral infarction without residual deficits; Z85.3 Personal history of malignant neoplasm of breast; F17.210 Nicotine dependence, cigarettes, uncomplicated; Z79.82 Long term (current) use of aspirin; K20.90 Esophagitis, unspecified without bleeding; K29.70 Gastritis, unspecified, without bleeding
CPT/HCPCS: 36415; 74177; 80053; 81001; 83690; 85025; 96361; 96374; 96375; 99284; J1200; J2765; J7120; Q9967

== ENCOUNTER 2023-04-22 07:18 | Outpatient (CLI) | payer MEDICARE, SELFPAY ==
[2023-04-22 07:29] LABS: Basophils Absolute Auto 0.04 K/mm3 (0.00-0.10); Basophils Percent Auto 0.8 % (0.0-1.0); Eosinophils Absolute Auto 0.16 K/mm3 (0.02-0.50); Eosinophils Percent Auto 3.2 % (1.0-6.0); Hematocrit 38.2 % (35.0-42.0); Immature Granulocyte Absolute 0.01 K/mm3 (0.00-0.00); Immature Granulocyte Percent A 0.2 % (0.0-0.0); Lymphocytes Absolute Auto 1.16 K/mm3 (1.10-4.50); Mean Corpuscular Hemoglobin 30.9 pg (27.0-31.0); Mean Corpuscular Volume 90.7 fL (78.0-102.0); Mean Platelet Volume 9.9 fl (9.2-11.8); Monocytes Absolute Auto 0.33 K/mm3 (0.10-0.90); Monocytes Percent Auto 6.5 % (2.0-11.0); Neutrophils Absolute Auto 3.4 K/mm3 (1.7-7.2); Neutrophils Percent Auto 66.3 % (50.0-70.0); Platelet Count Result 185 K/mm3 (150-420); Red Blood Count 4.21 M/mm3 (4.20-5.40); Red Cell Distribution Width 13.3 % (11.6-14.4); White Blood Count 5.1 K/mm3 (4.8-10.8)
[2023-04-22 08:12] LABS: Alanine Aminotransferase 22 U/L (14-59); Albumin Level 3.8 g/dL (3.4-5.0); Alkaline Phosphatase 110 U/L (46-116); Anion Gap 6 mmol/L (8-16); Aspartate Amino Transferase 13 U/L (15-37); Bilirubin,Total 0.4 mg/dL (0.00-1.00); Blood Urea Nitrogen 17 mg/dL (7-18); Calcium 9.3 mg/dL (8.5-10.1); Carbon Dioxide 30 mmol/L (21-32); Chloride 105 mmol/L (98-108); Cholesterol 177 mg/dL (0-200); Estimated Glomerular Filt Rate 57; Glucose 85 mg/dL (70-99); HDL Direct 54 mg/dL (40-60); LDL Cholesterol Calculated 92 mg/dL (<130); Osmolality Calculated 292 mOsm/kg (285-295); Potassium 4.4 mmol/L (3.5-5.1); Sodium 141 mmol/L (136-145); Thyroid Stimulating Hormone 2.28 uIU/mL (0.36-3.74); Total Protein 6.8 g/dL (6.4-8.2); Triglycerides 157 mg/dL (0-150)
== END 2023-04-22 07:19 | disposition home or self-care (01) ==
LOC: CHSLAB 07:21
PROVIDERS: PCP Internal Medicine; Visit Provider Internal Medicine
DX: I10 Essential (primary) hypertension (principal); E78.5 Hyperlipidemia, unspecified
CPT/HCPCS: 36415; 80053; 80061; 84443; 85025

== ENCOUNTER 2023-05-26 13:58 | Outpatient (CLI) | payer MEDICARE, SELFPAY ==
--- NOTE | ~2023-05-26 | XR_ITS ---
AP and lateral views of the bilateral hips Clinical history: Pain Findings: No acute fracture or dislocation is seen. Right hip arthroplasty in place. No hardware conv ocation seen. There is mild degenerative change of the left hip joint. Soft tissues are unremarkable. Impression: Mild left hip joint degenerative change. Right hip arthroplasty in place. Reviewed, dictated and finalized at location . Impression: Mild left hip joint degenerative change. Right hip arthroplasty in place.
--- NOTE | ~2023-05-26 | XR_ITS ---
XR lumbar spine 2-3V 05/26/2023 14:30 Indication: Chronic leg pain Procedure: 3 views lumbar spine Comparison: No prior studies for comparison. Findings: There is disc narrowing at L4-5 and L5-S1. Vertebral body heights are maintained. There is multilevel degenerative disc disease of the lower thoracic spine. There is facet hypertrophy of the m id and lower lumbar spine. No evidence for spondylolisthesis. No acute osseous abnormality. Impression: 1: Moderate lower thoracic and lumbar spondylosis. Reviewed, dictated and finalized at location L. Impression: 1: Moderate lower thoracic and lumbar spondylosis.
== END 2023-05-26 13:59 | disposition home or self-care (01) ==
LOC: CHSIMG 14:01
PROVIDERS: PCP Internal Medicine; Visit Provider Internal Medicine
DX: M79.605 Pain in left leg (principal); M79.604 Pain in right leg; M43.06 Spondylolysis, lumbar region; Z96.641 Presence of right artificial hip joint
CPT/HCPCS: 72100; 73521

== ENCOUNTER 2023-05-30 07:39 | Outpatient (CLI) | payer MEDICARE, SELFPAY ==
--- NOTE | ~2023-05-30 | MR_ITS ---
EXAMINATION: MR lumbar spine wo con DATE: 05/30/2023 08:30 INDICATION: Spinal stenosis. Numbness in the feet. TECHNIQUE: Magnetic resonance imaging (MRI) of the lumbar spine was performed without intravenous con trast. Sequences included sagittal T2-weighted FSE, sagittal T2-weighted FS FSE, sagittal T1-weighted FSE, and axial T2-weighted FSE. COMPARISON: None FINDINGS: There is 6 degrees dextrocurvature of lumbar spine. There is 4 mm anterolisthesis of L4 on L5. Vertebral body heights are normal. There is severely decreased disc height at T10-T11 and T11-T12 , mildly decreased disc at L3-L4, and severely decreased disc height at L4-L5. The distal spinal cord signal intensity is normal. The conus medullaris is at L1-L2. The following disc levels are specific ally discussed: L1-L2: The disc is bulging. There is moderate bilateral facet joint osteoarthritis. There is no neura l foraminal stenosis. There is mild central canal stenosis. L2-L3: The disc is bulging. There is severe bilateral facet joint osteoarthritis. There is mild bilat eral neural foraminal stenosis. There is no central canal stenosis. L3-L4: The disc is bulging and has an annular fissure. There is severe bilateral facet joint osteoart hritis. There is mild bilateral neural foraminal stenosis. There is mild central canal stenosis. L4-L5: The disc is bulging and has an annular fissure. There is severe bilateral facet joint osteoart hritis. There is mild right and moderate left neural foraminal stenosis. There is moderate central ca nal stenosis. L5-S1: The disc does not extend beyond the endplate margin. There is severe bilateral facet joint ost eoarthritis. There is mild bilateral neural foraminal stenosis. There is no central canal stenosis. IMPRESSION: 1. Severe lumbar and thoracic spondylosis. Reviewed, dictated and finalized at location A.
== END 2023-05-30 07:40 | disposition home or self-care (01) ==
LOC: CHSIMG 07:41
PROVIDERS: PCP Internal Medicine; Visit Provider Internal Medicine
DX: M48.061 Spinal stenosis, lumbar region without neurogenic claudication (principal); M43.04 Spondylolysis, thoracic region; M43.06 Spondylolysis, lumbar region
CPT/HCPCS: 72148

== ENCOUNTER 2023-06-01 08:34 | Outpatient (CLI) | payer MEDICARE, SELFPAY ==
--- NOTE | ~2023-06-01 | MM_ITS ---
EXAMINATION: MM screening cherelle BI w ciera HISTORY: Screening TECHNIQUE: Craniocaudal and mediolateral oblique 3-D tomosynthesis images were obtained and synthetic 2-D images were generated. CAD analysis was submitted and interpreted. COMPARISON: Comparison to multiple prior studies sequentially, with oldest reviewed study dated 01/03. BREAST PARENCHYMAL COMPOSITION: Breast composed of scattered areas of fibroglandular density FINDINGS: There is no evidence of suspicious mass, calcification, or architectural distortion to sugg est malignancy in either breast. There has been no suspicious interval change. IMPRESSION: 1. No mammographic evidence of malignancy. 2. Recommend routine screening mammography in one year. BI-RADS Category 1: Negative Reviewed, dictated and finalized at location A.
== END 2023-06-01 08:35 | disposition home or self-care (01) ==
LOC: ANHIMG 08:39
PROVIDERS: PCP Internal Medicine; Visit Provider Obstetrics & Gynecology Gynecology
DX: Z12.31 Encounter for screening mammogram for malignant neoplasm of breast (principal)
CPT/HCPCS: 77063; 77067

== ENCOUNTER 2023-06-09 07:48 | Outpatient (RCR) | payer MEDICARE, SELFPAY ==
--- NOTE | 2023-06-09 07:59 | OPREHPOC ---
Outpatient Therapy Plan of Care This is a Multidisciplinary Plan of Care that may contain components documented by all disciplines (PT, OT, and ST.) PT Problem 1 PT Problem #1 Knowledge Deficit PT Goal 1 Goal independent and compliant with HEP to improve tolerance for continued skilled PT and exercises. Target Visit 4 PT Problem 2 PT Problem #2 Pain PT Goal 1 Goal reduce pain at worst to 4/10 in the lower back. patient to report reduction of all paresthesias to not passed the buttocks. Target Visit 8 PT Problem 3 PT Problem #3 Impaired Strength PT Goal 1 Goal improve bilateral hip strength to 4+/5 or better overall. improve bilateral knee flex to 5/5. improve core strength to hold PPT in hooklying double hip flexion for 10 seconds. Target Visit 8 PT Problem 4 PT Problem #4 Impaired Functional Mobil PT Goal 1 Goal patient to stand and exercise for 30 minutes without sitting rest. patient to complete 10 minute walk for improved endurance and quality of life. patient to squat and safely lift 30lbs from floor to waist. Target Visit 8
--- NOTE | 2023-06-09 08:00 | PTOPEVAL1 ---
Assessment and note entered by JT File, PT Evaluation Information Assessment Status Evaluation Diagnosis lumbar spinal stenosis Onset 06/04/23 Subjective Information patient reports she has been having sharp/shooting pains down her legs. she reports her feet and ankles are also numb all the time. she reports she went and saw the MD who thinks it is her lower back. she reports she has difficulty with walking. she reports the legs are pulling and cramping while she is walking. she reports she is taking steroid meds and an anti-inflamatory that have helped. she reports it has been worse since this summer. she reports she did have xrays and and MRI already. she reports she would like to get back to walking for exercise, lifting things for home care, and her other normal activities. Reported Pain Level Pain Score 0: Self Report Assessment PT Clinical Summary mrs. lewis is a 67 yo woman who presents to skilled PT services for evaluation and treatment of lower back pain and bilateral LE paresthesias. she presents this date with weakness of the core, weakness of the hips, and pulling/paresthesias down the R more than L LE. her symptoms are consistent with her referring diagnosis of lumbar spinal stenosis. she would benefit from continued skilled PT to address her objective/functional deficits and return to her prior level functional activity performance/quality of life. Plan of Care Interventions Electrical Stimulation,Gait Training,Hot Pack/Cold Pack,Manual Therapy,Neuro Re-education,Patient/ Caregiver Educati,Therapeutic Activities, Therapeutic Exercise PT Services Indicated Yes Treatment Frequency and 2x weekly for 8 visits Duration These treatments will address the objective and functional deficits as defined above. The patient will be advanced safely and appropriately in order for the patient to progress towards his/her prior level of function. Additional exercises will be introduced and as well as a comprehensive home exercise program upon discharge, if needed, ?to ensure carryover of functional gains achieved in the clinic. This treatment plan has been reviewed and agreement upon by the patient.
== END 2023-06-11 14:30 | disposition home or self-care (01) ==
LOC: CHSPT 07:48
PROVIDERS: PCP Internal Medicine; Visit Provider Internal Medicine
DX: M48.061 Spinal stenosis, lumbar region without neurogenic claudication (principal); M54.16 Radiculopathy, lumbar region
CPT/HCPCS: 97110; 97140; 97161

== ENCOUNTER 2023-07-07 10:39 | Outpatient (CLI) | payer MEDICARE, SELFPAY ==
--- NOTE | ~2023-07-07 | DEXA_ITS ---
Bone Density Report Name: YAIR GARCIA Age: 68 Sex: Female Ethnicity: White Date of : 1955 Indication: postmenopausal; screening for osteoporosis; height loss; Referring Provider: RUTH DICKERSON Study: Bone densitometry was performed. Exam Date: July 07, 2023 Accession number: [id number] Bone Density: Region BMD T-score Z-score Classification AP Spine(L1-L4) 1.130 0.8 2.6 Normal Femoral Neck (Left) 0.995 1.3 2.9 Normal Total Hip (Left) 1.075 1.1 2.4 Normal World Health Organization criteria for BMD impression classify patients as: Normal (T-score at or above -1.0), Osteopenia (T-score between -1.0 and -2.5), or Osteoporosis (T-score at or below -2.5). 10-year Fracture Risk: FRAX not reported because: All T-scores for Spine Total, Hip Total, Femoral Neck at or above -1.0 Clinical Information Provided by Patient: Has used the following medications: Vitamin D, MULTIVITAMIN Patient maximum height was 66 No regular weight bearing exercise Drinks caffeinated beverages Onset of menses at age 14 Number of children 1 Impression: The patient has normal bone mass. Discussion: LOW RISK OF FRACTURE; BONE DENSITY IS WELL ABOVE THE MINIMUM DESIRABLE LEVEL AND ABOVE AVERAGE FOR AGE AND SEX AT ALL SKELETAL SITES TESTED. This person's bone density is above expected limits for age and sex. This is rarely clinically significant, but should be pursued if there are significant musculoskeletal complaints. The patient should follow a healthful lifestyle (good nutrition with adequate calcium and vitamin D, and appropriate weight-bearing exercise). Follow-Up: Consider repeating this study in 5 years or sooner if there is some new clinical indication. Reported by: Dr. Hossein Quick on 07/07/2023 11:04:00 AM. Reviewed, dictated and finalized at location A.
== END 2023-07-07 10:40 | disposition home or self-care (01) ==
LOC: CHSIMG 10:41
PROVIDERS: PCP Internal Medicine; Visit Provider Advanced Practice Midwife
DX: Z78.0 Asymptomatic menopausal state (principal)
CPT/HCPCS: 77080

== ENCOUNTER 2023-09-22 10:12 | Outpatient (CLI) | payer MEDICARE, SELFPAY ==
[2023-09-25 12:22] LABS: Vitamin D 25 Hydroxy 47 ng/mL (30-100)
== END 2023-09-22 10:13 | disposition home or self-care (01) ==
LOC: CHSLAB 10:14
PROVIDERS: PCP Internal Medicine; Visit Provider Advanced Practice Midwife
DX: E55.9 Vitamin D deficiency, unspecified (principal)
CPT/HCPCS: 36415; 82306

== ENCOUNTER 2023-10-29 07:27 | Outpatient (CLI) | payer MEDICARE, SELFPAY ==
[2023-10-29 07:39] LABS: Appearance Urine Clear (Clear); Bilirubin Urine Negative (Negative); Blood Urine 1+ (Negative); Color Urine Light Yellow (Yellow); Glucose Urine UA Negative (Negative); Ketones Urine Negative (Negative); Leukocyte Esterase Ur 1+ (Negative); Nitrate Urine Negative (Negative); Protein Urine Negative (Negative); Urobilinogen Urine 0.2 mg/dL (0.2-1.0)
[2023-10-29 07:44] LABS: Add Urine Microscopic? YES; RBC Urine 0-2 /hpf (0-2)
[2023-10-29 07:45] LABS: Bacteria Urine Trace /hpf; Renal Epithelial Cells Urine Few /hpf; Squamous Epithelial Cell Urine Few /hpf (Few); WBC Urine 0-3 /hpf (0-3)
[2023-10-29 08:40] LABS: Alanine Aminotransferase 24 U/L (14-59); Albumin Level 4.4 g/dL (3.4-5.0); Alkaline Phosphatase 117 U/L (46-116); Anion Gap 11 mmol/L (8-16); Aspartate Amino Transferase 28 U/L (15-37); Bilirubin,Total 0.5 mg/dL (0.00-1.00); Blood Urea Nitrogen 21 mg/dL (7-18); Calcium 9.3 mg/dL (8.5-10.1); Carbon Dioxide 29 mmol/L (21-32); Chloride 100 mmol/L (98-108); Cholesterol 223 mg/dL (0-200); Estimated Glomerular Filt Rate 52; Glucose 91 mg/dL (70-99); HDL Direct 75 mg/dL (40-60); LDL Cholesterol Calculated 126 mg/dL (<130); Osmolality Calculated 293 mOsm/kg (285-295); Potassium 4.3 mmol/L (3.5-5.1); Sodium 140 mmol/L (136-145); Total Protein 7.8 g/dL (6.4-8.2); Triglycerides 111 mg/dL (0-150)
== END 2023-10-29 07:28 | disposition home or self-care (01) ==
LOC: CHSLAB 07:28
PROVIDERS: PCP Internal Medicine; Visit Provider Internal Medicine
DX: I10 Essential (primary) hypertension (principal); E78.5 Hyperlipidemia, unspecified
CPT/HCPCS: 36415; 80053; 80061; 81001

== ENCOUNTER 2023-11-27 07:54 | Outpatient (CLI) | payer MEDICARE, SELFPAY ==
--- NOTE | ~2023-11-27 | CT_ITS ---
EXAMINATION: CT lumbar spine w con DATE: 11/27/2023 08:40 INDICATION: Lumbar spinal stenosis. TECHNIQUE: Computed tomography (CT) of the lumbar spine was performed with 100 mL Omnipaque 350 intra venous contrast. Automated exposure control and iterative reconstruction technique were employed. The dose-length product was 935.95 mGy-cm. COMPARISON: None FINDINGS: Aortic atherosclerosis is noted. There is 4 degrees levocurvature of thoracic lumbar spine. There is 3 mm anterolisthesis of L4 on L5. There is mild chronic anterior wedging of T10-T12 vertebr al bodies. There is severely decreased disc height from T9-T10 through T11-T12, mildly decreased disc height at L3-L4, and severely decreased disc height at L4-L5. The following disc levels are specific ally discussed: L1-L2: There is a left foraminal protrusion. There is moderate bilateral facet joint osteoarthritis. There is mild left neural foraminal stenosis. There is no central canal stenosis. L2-L3: The disc is bulging. There is severe bilateral facet joint osteoarthritis. There is mild bilat eral neural foraminal stenosis. There is mild central canal stenosis. L3-L4: The disc is bulging. There is severe bilateral facet joint osteoarthritis. There is mild bilat eral neural foraminal stenosis. There is mild central canal stenosis. L4-L5: The disc is bulging. There is severe bilateral facet joint osteoarthritis. There is moderate b ilateral neural foraminal stenosis. There is severe central canal stenosis. L5-S1: This is bulging. There is severe bilateral facet joint osteoarthritis. There is mild bilateral neural foraminal stenosis. There is mild central canal stenosis. IMPRESSION: 1. Severe lumbar spondylosis. Severe lower thoracic spondylosis. Reviewed, dictated and finalized at location A.
--- NOTE | ~2023-11-27 | XR_ITS ---
EXAMINATION: XR lumbar spine min 4V DATE: 11/27/2023 08:40 INDICATION: Lumbar spinal stenosis. TECHNIQUE: 4 views of lumbar spine including flexion and extension views were obtained. COMPARISON: Lumbar spine radiograph 05/26/2023 FINDINGS: There is 10 degrees levoscoliosis of thoracolumbar spine. There is 3 mm anterolisthesis of L3 on L4 and 9 mm anterolisthesis of L4 on L5. There is mild chronic anterior wedging of T11 and T12 vertebral bodies. There is severely decreased disc height at T10-T11 and T11-T12, mildly decreased di sc height at L3-L4, and severely decreased disc height at L4-L5. There are endplate osteophytes at mo st levels. There is multilevel severe facet joint osteoarthritis. Surgical clips overlie the right ab domen. There is a right hip arthroplasty. IMPRESSION: 1. Severe lower thoracic and lower lumbar spondylosis, stable from 05/26/2023. 2. Thoracolumbar levoscoliosis. Reviewed, dictated and finalized at location A.
== END 2023-11-27 07:55 | disposition home or self-care (01) ==
LOC: CHSIMG 07:56
PROVIDERS: PCP Internal Medicine; Visit Provider Neurological Surgery
DX: M48.061 Spinal stenosis, lumbar region without neurogenic claudication (principal); M43.06 Spondylolysis, lumbar region; M43.04 Spondylolysis, thoracic region
CPT/HCPCS: 72110; 72132; Q9967

== ENCOUNTER 2024-01-21 11:56 | Observation (INO) | payer MEDICARE, SELFPAY ==
[2024-01-21] VITALS (49 sets, daily range): BP systolic 171–204; BP diastolic 88–124; PULSE 81–105; RESP 16–24; TEMP 35.7–36.7; O2SAT 91–100; BMI 26.9
--- NOTE | ~2024-01-21 | XR_ITS ---
EXAMINATION: XR chest 1V portable DATE: 01/21/2024 12:19 INDICATION: Dyspnea. TECHNIQUE: A single frontal view of the chest was obtained. COMPARISON: Chest single view 02/08/2022, CT abdomen pelvis 08/19/2022 FINDINGS: There is no pneumonia, pleural effusion, or pneumothorax. The heart size is normal. IMPRESSION: 1. No acute cardiopulmonary disease. Reviewed, dictated and finalized at location A.
--- NOTE | ~2024-01-21 | CT_ITS ---
EXAMINATION: CTA chest PE abdomen pel DATE: 01/21/2024 14:21 INDICATION: Shortness of breath. TECHNIQUE: Computed tomography angiography (CTA) of the chest was performed with 100 mL Omnipaque-350 intravenous contrast timed to evaluate the pulmonary arteries. Coronal maximum intensity projection 3D-reconstructions were created by the technologist. Computed tomography (CT) of the abdomen and pelv is was performed with intravenous contrast. Automated exposure control and iterative reconstruction t echnique were employed. The dose-length product was 767.47 mGy-cm. COMPARISON: CT abdomen and pelvis 08/19/2022 FINDINGS: CTA chest: The lungs demonstrate mild dependent atelectasis. No pleural effusion. The heart size is n ormal. There are coronary artery calcifications. No pericardial effusion. There is no pulmonary embol us. CT abdomen and pelvis: There is a small sliding hiatal hernia. The liver, spleen, gallbladder, pancre as, and adrenal glands are normal. There are cysts in the kidneys measuring up to 6 mm on the right. There are no dilated loops of bowel. There are changes of appendectomy. There are no pathologically e nlarged lymph nodes. There is no free intraperitoneal fluid. Aortic atherosclerosis is noted. There i s a total right hip arthroplasty. There are changes of anterior and posterior fusion procedures at L4 -L5. There is severe thoracic spondylosis and mild lumbar spondylosis. IMPRESSION: 1. No pulmonary embolus. 2. Small sliding hiatal hernia. Reviewed, dictated and finalized at location A.
--- NOTE | 2024-01-21 12:02 | ECG_ITS ---
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 Measurements Intervals [place] Rate: 91 P: 70 CT: 199 QRS: 1 QRSD: 104 T: 18 QT: 324 QTc: 400 Interpretive Statements SINUS RHYTHM WITH OCCASIONAL SUPRAVENTRICULAR PREMATURE COMPLEXES NONSPECIFIC T-WAVE ABNORMALITY No previous ECG available for comparison Electronically Signed On 01-21-2024 13:32:59 CDT by Linda Saez M.D.
[2024-01-21] MEDS: SODIUM CHLORIDE 0.9% IV 1,000 ML 999 ML IV CONT (12:11)
[2024-01-21] MEDS: METOCLOPRAMIDE HCL INJ 10 MG/2 ML VIAL IV PUSH ×3 (12:11→21:47)
[2024-01-21] MEDS: LORazepam INJ (*CRX) 2 MG/ML VIAL 0.5 MG IV PUSH (12:34)
[2024-01-21 12:39] LABS: Base Excess ABG -2.1 mmol/L (0-2); HCO3 ABG 16.6 mmol/L (23-29); Oxygen Content ABG 15.4 %vol (16.0-22.0); Oxygen Saturation ABG 98.3 % (95-97); Oxyhemoglobin 97.7 % (94-100); PO2 ABG 119.7 mmHg (75-85); Total Hemoglobin 11.1 g/dL (12.0-18.0); pH ABG 7.64 (7.35-7.45)
[2024-01-21 12:43] LABS: Basophils Absolute Auto 0.03 K/mm3 (0.00-0.10); Basophils Percent Auto 0.2 % (0.0-1.0); Eosinophils Absolute Auto 0.04 K/mm3 (0.02-0.50); Eosinophils Percent Auto 0.3 % (1.0-6.0); Hematocrit 32.6 % (35.0-42.0); Hemoglobin 10.9 g/dL (11.7-13.8); Immature Granulocyte Absolute 0.09 K/mm3 (0.00-0.00); Immature Granulocyte Percent A 0.7 % (0.0-0.0); Lymphocytes Absolute Auto 1.03 K/mm3 (1.10-4.50); Lymphocytes Percent Auto 7.7 % (18.0-42.0); Mean Corpuscular HGB Conc 33.4 g/dL (32-36); Mean Corpuscular Hemoglobin 29.1 pg (27.0-31.0); Mean Corpuscular Volume 86.9 fL (78.0-102.0); Mean Platelet Volume 9.7 fl (9.2-11.8); Monocytes Absolute Auto 0.95 K/mm3 (0.10-0.90); Monocytes Percent Auto 7.1 % (2.0-11.0); Platelet Count Result 310 K/mm3 (150-420); Red Blood Count 3.75 M/mm3 (4.20-5.40); Red Cell Distribution Width 13.9 % (11.6-14.4); White Blood Count 13.3 K/mm3 (4.8-10.8)
[2024-01-21 12:44] LABS: Device ROOM AIR; Modified Allen's Test Pass; Site Drawn RIGHT RADIAL
[2024-01-21 12:45] LABS: PCO2 ABG 15.7 mmHg (35-45)
[2024-01-21 12:52] LABS: Lipase 24 U/L (16-77)
[2024-01-21 13:05] LABS: Alanine Aminotransferase 16 U/L (14-59); Albumin Level 3.3 g/dL (3.4-5.0); Alkaline Phosphatase 92 U/L (46-116); Anion Gap 22 mmol/L (4-12); Aspartate Amino Transferase 16 U/L (15-37); Bilirubin,Total 0.7 mg/dL (0.00-1.00); Blood Urea Nitrogen 10 mg/dL (7-18); Calcium 9.2 mg/dL (8.5-10.1); Carbon Dioxide 20 mmol/L (21-32); Chloride 94 mmol/L (98-108); Estimated CRCL calculation 43 ml/min; Estimated Glomerular Filt Rate 51; Glucose 158 mg/dL (70-99); Magnesium 1.5 mg/dL (1.8-2.4); NT Pro B Type Natriuretic Pept 1025 pg/mL (0-125); Osmolality Calculated 284 mOsm/kg (285-295); Potassium 2.6 mmol/L (3.5-5.1); Sodium 136 mmol/L (136-145); Total Protein 7.3 g/dL (6.4-8.2); Troponin I 21.6 ng/L (0.00-60.4)
[2024-01-21 13:07] LABS: Partial Thromboplastin Time 25.4 Sec (23.9-30.70); Prothrombin Time 10.6 Seconds (9.50-12.1)
[2024-01-21 13:10] LABS: D Dimer 4.42 mg/L (0.19-0.50)
[2024-01-21 13:23] LABS: SARS-CoV-2 RNA PCR Negative (Negative)
[2024-01-21 13:26] LABS: Influenza A QL RT-PCR Negative (Negative); Influenza B QL RT-PCR Negative (Negative); RSV RNA, RT-PCR Negative (Negative)
[2024-01-21] MEDS: LABETALOL HCL INJ 100 MG/20 ML VIAL 20 MG IV PUSH ×2 (13:28→14:27)
[2024-01-21] MEDS: KCL 20 MEQ/SW 100 ML 100 ML 50 MEQ IVPB (13:28)
[2024-01-21 13:38] LABS: Base Excess ABG -3.4 mmol/L (0-2); HCO3 ABG 18.4 mmol/L (23-29); Oxygen Content ABG 15.4 %vol (16.0-22.0); Oxygen Saturation ABG 98.2 % (95-97); Oxyhemoglobin 97.7 % (94-100); PCO2 ABG 23.8 mmHg (35-45); PO2 ABG 131.6 mmHg (75-85); pH ABG 7.51 (7.35-7.45)
[2024-01-21 13:38] LABS: Appearance Urine Clear (Clear); Bilirubin Urine Negative (Negative); Blood Urine Negative (Negative); Color Urine Light Yellow (Yellow); Glucose Urine UA Negative (Negative); Ketones Urine 3+ (Negative); Leukocyte Esterase Ur Trace LEU/UL (Negative); Nitrate Urine Negative (Negative); Protein Urine Negative (Negative); Urobilinogen Urine 0.2 mg/dL (0.2-1.0); pH Urine 7.5 (5.0-8.0)
[2024-01-21 13:39] LABS: Amphetamine Screen Urine Negative (Negative); Barbiturate Screen Urine Negative (Negative); Benzodiazepines Screen Urine Negative (Negative); Cannabinoid Screen Urine Positive (Negative); Cocaine Screen Urine Negative (Negative); Methadone Screen Urine Negative (Negative); Opiate Screen Urine Negative (Negative); Phencyclidine Screen Urine Negative (Negative)
[2024-01-21 13:39] LABS: Device ROOM AIR; Modified Allen's Test Pass; Site Drawn RIGHT RADIAL
[2024-01-21 13:47] LABS: Add Urine Microscopic? YES; Bacteria Urine Rare /hpf; RBC Urine None seen /hpf (0-2); Squamous Epithelial Cell Urine Rare /hpf (Few); WBC Urine 0-3 /hpf (0-3)
[2024-01-21] MEDS: MAGNESIUM SULF 2 GM/WATER 50ML 2 GM/50 ML BAG IVPB (14:27)
--- NOTE | 2024-01-21 14:30 | ED.SOB ---
HPI - SOB/Dyspnea General Chief Complaint: Nausea/Vomiting/Diarrhea Stated Complaint: nausea, vomiting, chest pain, and short of breath Time Seen by Provider: 01/21/24 12:01 Source: patient and EMS Mode of arrival: EMS Limitations: no limitations History of Present Illness HPI Narrative: this is a 68-year-old female that presents via EMS with shortness breath this started earlier this morning patient appears anxious/ apprehensive with no chest pain no abdominal pain the patient does have nausea with no vomiting. Patient has a history of hypertension history of anxiety history of pancreatitis. Patient recently had lumbar spinal surgery fusion approximately 1 week ago at [facility] in [place]. Patient states she has also had episodes of constipation. Patient has no fever chills denies chest pain no abdominal pain no flank pain no dysuria. MD elicited complaint: shortness of breath Onset (ago): hour(s) Timing: constant Severity: severe Exacerbating factors: stress and talking Relieving factors: oxygen and rest Associated symptoms: nausea/vomiting Treatment prior to arrival: none Related Data Home Medications Medication Instructions Recorded Confirmed ergocalciferol (vitamin D2) 1,250 1 unit PO WEEKLY 09/10/19 06/19/22 mcg (50,000 unit) capsule escitalopram oxalate 20 mg tablet 20 mg PO DAILY 09/10/19 06/19/22 aspirin 81 mg tablet,delayed 81 mg PO DAILY 09/12/19 06/19/22 release multivitamin 1 tablet PO DAILY 09/26/19 06/19/22 rabeprazole 20 mg tablet,delayed 20 mg PO DAILY 06/19/22 06/19/22 release (AcipHex) Allergies Allergy/AdvReac Type Severity Reaction Status Date / Time morphine Allergy Severe SEVERE Verified 08/19/22 16:03 ITCHING ondansetron Allergy Severe Anaphylaxis Verified 08/19/22 16:03 prochlorperazine Allergy Severe Seizure Verified 08/19/22 16:03 Review of Systems Review of Systems: All systems reviewed & are unremarkable except as noted in HPI and below PMFSH Past Medical History Medical History 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 Cerebrovascular accident Without residual deficit. Gastroesophageal reflux disease History of alcohol use She has abstained from alcohol since the beginning of 2018. 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 Hyperlipidemia Hypertension Recurrent pancreatitis Seizure (03/01/18) Precipitating etiology unclear, may have been related to Compazine or alcohol withdrawal. Surgical History Surgical History History of appendectomy (~1990) History of esophagogastroduodenoscopy (~2010) History of inguinal hernia repair (~1962) History of total right hip arthroplasty (~2010) Status post D&C (~2018) Status post partial mastectomy of left breast (~2012) The patient had a lumpectomy and then reconstructive surgery to another lump that was removed Status post surgical removal of ganglion cyst (~2006) Family History Family History Grandparent Family history of lung cancer Family history of liver disease Carcinoma of colon Mother Family history of lung cancer Father Family history of lung cancer Family history of renal failure Other Family history of malignant neoplasm of stomach Son Family history of malignant neoplasm of thyroid Social History Social History Social History: Surrogate decision maker: Donn Watson, spouse. Code status: Full code. Smoking packs per day: 0.5 Smoking cigarettes per day: 10.0 Smoking status: Never smoker Second hand tobacco smoke exposure: No Alcohol intak
[2024-01-21] MEDS: ENALAPRILAT 2.5 MG/2 ML VIAL IV PUSH (15:06)
[2024-01-21 15:42] LABS: Reflex Lactic Acid Yes or No Add Lactic
[2024-01-21 16:03] LABS: Base Excess ABG 1.6 mmol/L (0-2); HCO3 ABG 22.9 mmol/L (23-29); Oxygen Saturation ABG 96.4 % (95-97); Oxyhemoglobin 95.9 % (94-100); PCO2 ABG 26.4 mmHg (35-45); PO2 ABG 87.1 mmHg (75-85); Total Hemoglobin 11.8 g/dL (12.0-18.0); pH ABG 7.56 (7.35-7.45)
[2024-01-21 16:05] LABS: Device ROOM AIR; Modified Allen's Test Pass; Site Drawn LEFT RADIAL
[2024-01-21 16:14] LABS: Lactic Acid 1.6 mmol/L (0.4-2.0)
[2024-01-21] MEDS: SODIUM CHLORIDE 0.9% IV 1,000 ML 100 ML IV CONT (17:27)
--- NOTE | 2024-01-21 17:35 | ADMGEN ---
This patient, Meron Watson, was admitted to 2nd Floor Room 209-1. Patient/family oriented to hospital policies and general routines including ID bracelet, bed and alarms, visiting hours, pain management, procedures, bathroom and other care routines, personal items, smoking policy, room service/diet, and visiting hours. Information on how to activate the Rapid Response Team has been discussed. Patient/Family are encouraged to report perceived risks to care and to ask questions if they do not understand what they are told or what they should do.
--- NOTE | 2024-01-21 17:40 | PC.NURSE ---
Patient had oyxcodone and Tizanidine in purse. Patient prescribed medications for recent back surgery. Patients xin jonas took medications home.
[2024-01-21] MEDS: ENALAPRILAT 2.5 MG/2 ML VIAL 1.25 MG IV PUSH ×2 (18:16→23:46)
[2024-01-22] VITALS (17 sets, daily range): BP systolic 150–212; BP diastolic 91–118; PULSE 89–112; RESP 16–17; TEMP 35.8–36.7; O2SAT 96–99
[2024-01-22] MEDS: METOPROLOL SUCCINATE EXT REL 50 MG TABCR 100 MG PO (00:46)
[2024-01-22] MEDS: hydroCHLOROthiazide 25 MG TABLET PO (00:47)
--- NOTE | 2024-01-22 01:35 | PC.NURSE ---
Spoke with Dr. Machado to clarify medication orders for blood pressure medications
--- NOTE | 2024-01-22 02:50 | PC.NURSE ---
Pt's blood pressure is 214/106; Dr. Machado notified and new orders were recieved and noted for Lopressor 5mg IVP x1
[2024-01-22] MEDS: METOPROLOL TARTRATE INJ 5 MG/5 ML VIAL IV PUSH ×2 (03:03→03:48)
--- NOTE | 2024-01-22 03:15 | PC.NURSE ---
Dr. Machado called and wanted pt's blood pressure checked now; It was 179/108. Dr. Machado ordered another dose of Lopressor 5 mg IVP x1 and hydralazine 10 mg PO every 6 hrs with the first dose now.
[2024-01-22] MEDS: hydrALAZINE 10 MG TABLET PO (03:48)
[2024-01-22] MEDS: SODIUM CHLORIDE 0.9% IV 1,000 ML 100 ML IV CONT (04:04)
[2024-01-22 05:30] LABS: Base Excess ABG 1.2 mmol/L (0-2); Basophils Absolute Auto 0.03 K/mm3 (0.00-0.10); Basophils Percent Auto 0.2 % (0.0-1.0); Eosinophils Absolute Auto 0.02 K/mm3 (0.02-0.50); Eosinophils Percent Auto 0.1 % (1.0-6.0); HCO3 ABG 22.5 mmol/L (23-29); Hematocrit 35.6 % (35.0-42.0); Immature Granulocyte Absolute 0.09 K/mm3 (0.00-0.00); Immature Granulocyte Percent A 0.6 % (0.0-0.0); Lymphocytes Absolute Auto 0.84 K/mm3 (1.10-4.50); Lymphocytes Percent Auto 5.5 % (18.0-42.0); Mean Corpuscular HGB Conc 33.7 g/dL (32-36); Mean Corpuscular Hemoglobin 28.5 pg (27.0-31.0); Mean Corpuscular Volume 84.6 fL (78.0-102.0); Mean Platelet Volume 9.2 fl (9.2-11.8); Monocytes Absolute Auto 0.77 K/mm3 (0.10-0.90); Monocytes Percent Auto 5.1 % (2.0-11.0); Neutrophils Absolute Auto 13.48 K/mm3 (1.70-7.20); Neutrophils Percent Auto 88.5 % (50.0-70.0); Oxygen Saturation ABG 97.9 % (95-97); Oxyhemoglobin 96.8 % (94-100); PCO2 ABG 26.9 mmHg (35-45); PO2 ABG 106.1 mmHg (75-85); Platelet Count Result 384 K/mm3 (150-420); Red Blood Count 4.21 M/mm3 (4.20-5.40); Red Cell Distribution Width 14.1 % (11.6-14.4); Total Hemoglobin 13.1 g/dL (12.0-18.0); White Blood Count 15.2 K/mm3 (4.8-10.8); pH ABG 7.54 (7.35-7.45)
[2024-01-22 05:33] LABS: Device ROOM AIR; Modified Allen's Test Pass; Site Drawn LEFT RADIAL
[2024-01-22] MEDS: ENALAPRILAT 2.5 MG/2 ML VIAL 1.25 MG IV PUSH ×2 (05:34→08:08)
[2024-01-22 05:59] LABS: Alanine Aminotransferase 16 U/L (14-59); Albumin Level 3.3 g/dL (3.4-5.0); Alkaline Phosphatase 96 U/L (46-116); Anion Gap 16 mmol/L (4-12); Aspartate Amino Transferase 17 U/L (15-37); Bilirubin,Total 0.6 mg/dL (0.00-1.00); Blood Urea Nitrogen 6 mg/dL (7-18); Calcium 9.1 mg/dL (8.5-10.1); Carbon Dioxide 24 mmol/L (21-32); Chloride 94 mmol/L (98-108); Estimated CRCL calculation 62 ml/min; Estimated Glomerular Filt Rate > 60; Glucose 152 mg/dL (70-99); Osmolality Calculated 278 mOsm/kg (285-295); Potassium 2.8 mmol/L (3.5-5.1); Sodium 134 mmol/L (136-145); Total Protein 7.7 g/dL (6.4-8.2)
[2024-01-22 06:11] LABS: NT Pro B Type Natriuretic Pept 7023 pg/mL (0-125)
--- NOTE | 2024-01-22 06:50 | PC.NURSE ---
New orders for lasix and KCL rider. Pt given lasix 40 mg IVP and KCL 20 MEQ rider infusing as ordered.
[2024-01-22] MEDS: FUROSEMIDE INJ 40 MG/4 ML VIAL IV PUSH (06:55)
[2024-01-22] MEDS: KCL 20 MEQ/SW 100 ML 100 ML 50 MEQ IVPB (06:57)
--- NOTE | 2024-01-22 07:40 | PC.NURSE ---
elevated blood pressure reported to bianca Watkins. Awaiting orders.
[2024-01-22] MEDS: LABETALOL HCL INJ 100 MG/20 ML VIAL 20 MG IV PUSH (08:07)
[2024-01-22] MEDS: METOCLOPRAMIDE HCL INJ 10 MG/2 ML VIAL IV PUSH ×2 (08:16→14:07)
--- NOTE | 2024-01-22 09:10 | PC.NURSE ---
bp repeated 1 hour after ivp meds. Still elevated. Reported to NP. Roland
--- NOTE | 2024-01-22 10:05 | PC.NURSE ---
Elevated blood pressure reported to ROXANNE Watkins. Awaiting orders.
--- NOTE | 2024-01-22 10:08 | PM.IMHP ---
H&P: HPI History of Present Illness Date/Time: 01/22/24 10:08 Chief Complaint: dyspnea, vomiting Narrative: This is a 68-year-old female patient past history of cyclic vomiting, hypertension, GERD, CVA without residual. Patient has previously suffered cardiac arrest with successful resuscitation thought to be related to IV Zofran. Patient has also had history of alcohol withdrawal in the past states she no longer uses alcohol and had seizure attributed to either alcohol withdrawal or Compazine. Patient presented to the emergency department yesterday with complaints of acute onset dyspnea and nausea vomiting unable to tolerate oral intake. Initial workup in the emergency department was significant for hypertension, hypokalemia, elevated D-dimer. Patient underwent CTA of the chest with follow-through abdomen and pelvis. CTA negative for PE, L4-L5 surgical hardware in place with radiation scatter throughout the abdomen pelvis CT. Patient reports that she was also having diarrhea yesterday. Patient received IV potassium and IV fluids. Lactic acid initially 6 and now has decreased to normal range. No signs of infection the blood cell count is somewhat elevated. ProBNP was mildly elevated at about a 1000 on initial labs troponin was initially normal. Repeat labs this morning show proBNP up to 7000 and troponin had elevated 5 times initial measurement with morning labs. Unable to tolerate oral intake as she is still having significant nausea and vomiting. We have attempted IV antihypertensives without much improvement. Patient initially attempted to be transferred to [place] who declined yesterday then tried transfer to [facility] yesterday but the orthopedic surgeon said that her recent surgery has nothing to do with her current condition so declined. Patient reports that after her surgery she was on narcotic pain medication as well as her antihypertensives and her blood pressure was low so she was told not to restart her blood pressure medicines yet. She has been about a week off of her usual antihypertensives of metoprolol, hydrochlorothiazide and losartan. She reports that she did attempt to take those yesterday prior to coming to the emergency department but with the recurrent vomiting uncertain if any of them stayed down. Patient denies fever chills. She denies abdominal pain or tenderness. Patient will be initiated on nicardipine drip and transfer arranged to another facility capable of obtaining echocardiogram with Cardiology consult if needed. 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 Cerebrovascular accident Without residual deficit. Gastroesophageal reflux disease History of alcohol use She has abstained from alcohol since the beginning of 2018. 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 Hyperlipidemia Hypertension Recurrent pancreatitis Seizure (03/01/18) Precipitating etiology unclear, may have been related to Compazine or alcohol withdrawal. Surgical History Surgical History History of appendectomy (~1990) History of esophagogastroduodenoscopy (~2010) History of inguinal hernia repair (~1962) History of total right hip arthroplasty (~2010) Status post D&C (~2018) Status post partial mastectomy of left breast (~2012) The patient had a lumpectomy and then reconstructive surgery to another lump that was removed Status post surgical removal of ganglion cyst (~2006) Family History Family History (Reviewed 01/22/24 @ 12:04 by Hossein Fischer,
[2024-01-22 10:26] LABS: Troponin I 126.1 ng/L (0.00-60.4)
--- NOTE | 2024-01-22 10:48 | ECG_ITS ---
Test Date: 2024-01-22 11:04:08 Measurements Intervals [place] Rate: 93 P: 56 RI: 171 QRS: -30 QRSD: 96 T: 43 QT: 397 QTc: 495 Interpretive Statements SINUS RHYTHM INFERIOR MYOCARDIAL INFARCTION , PROBABLY OLD [40+ ms Q WAVE AND/OR ST/T ABNORMALITY IN II/aVF] NONSPECIFIC T-WAVE ABNORMALITY Compared to ECG 01/21/2024 12:25:09 Myocardial infarct finding now present Electronically Signed On 01-26-2024 10:38:04 CDT by Linda Saez M.D.
[2024-01-22] MEDS: niCARdipine 20 MG/200 ML 20 MG/200 ML BAG 25 MG IV CONT (11:19)
--- NOTE | 2024-01-22 11:53 | PM.TDS ---
Transfer Discharge Sum: Prov Provider Date of admission: 01/21/24 17:03 Primary care physician: Dc Velarde MD Admitting clinician: Jeramie Frey MD Attending physician on discharge: Reddy Frey Discharging clinician: Hosesin Fischer Anticipated date of transfer: 01/22/24 Receiving physician/facility: Dr. Golden, Intesivist at [facility] DS: Admitting Diagnosis Discharge Date 01/22/2024 Admitting Diagnosis anxiety, alkalosis, nausea vomiting DS: Discharge Diagnosis Discharge Diagnosis (1) Hypertensive crisis: Code(s): I16.9 - Hypertensive crisis, unspecified Status: Acute (2) Elevated troponin: Code(s): R79.89 - Other specified abnormal findings of blood chemistry Status: Acute (3) Leukocytosis: Code(s): D72.829 - Elevated white blood cell count, unspecified Status: Acute (4) Hypokalemia: Code(s): E87.6 - Hypokalemia Status: Acute (5) Nausea and vomiting: Code(s): R11.2 - Nausea with vomiting, unspecified Status: Acute (6) Gastroesophageal reflux disease: Code(s): K21.9 - Gastro-esophageal reflux disease without esophagitis Status: Chronic (7) Anxiety: Code(s): F41.9 - Anxiety disorder, unspecified Status: Acute (8) Dyslipidemia: Code(s): E78.5 - Hyperlipidemia, unspecified Status: Acute (9) History of breast cancer: Code(s): Z85.3 - Personal history of malignant neoplasm of breast Status: Acute (10) History of stroke: Code(s): Z86.73 - Personal history of transient ischemic attack (TIA), and cerebral infarction without residual deficits Status: Acute (11) Acute respiratory alkalosis: Code(s): E87.3 - Alkalosis Status: Acute (12) History of sudden cardiac arrest successfully resuscitated: Code(s): Z86.74 - Personal history of sudden cardiac arrest Status: Acute Assessment and Plan: due to Zofran, ???QT prolongation (13) Lactic acidosis: Code(s): E87.20 - Acidosis, unspecified Status: Acute Transfer Discharge Sum: Med Medications Active and Home Medications: Home Medications ergocalciferol (vitamin D2) 1,250 mcg (50,000 unit) capsule 1 unit PO WEEKLY 09/10/19 [History Confirmed 01/22/24] escitalopram oxalate 20 mg tablet 20 mg PO DAILY 09/10/19 [History Confirmed 01/22/24] aspirin 81 mg tablet,delayed release 81 mg PO DAILY 09/12/19 [History Confirmed 01/22/24] multivitamin 1 tablet PO DAILY 09/26/19 [History Confirmed 01/22/24] atorvastatin 20 mg tablet 20 mg PO DAILY #90 tabs 03/20/22 [Rx Confirmed 01/22/24] losartan 50 mg-hydrochlorothiazide 12.5 mg tablet 1 tablet PO DAILY #90 tabs 03/20/22 [Rx Confirmed 01/22/24] metoprolol succinate 100 mg tablet,extended release 24 hr 100 mg PO DAILY #90 tabs 03/20/22 [Rx Confirmed 01/22/24] rabeprazole 20 mg tablet,delayed release (AcipHex) 20 mg PO DAILY 06/19/22 [History Confirmed 01/22/24] metoclopramide HCl 10 mg tablet (Reglan) 10 mg PO Q6H PRN nausea and vomiting #10 tabs 08/20/22 [Rx Confirmed 01/22/24] Active Medications Hydralazine HCl (Hydralazine 10 Mg Tablet) 10 mg PO Q6H [facility] Last Admin: 01/22/24 11:30 Dose: Not Given Hydrochlorothiazide (Hydrochlorothiazide 25 Mg Tablet) 25 mg PO QAM [facility] Last Admin: 01/22/24 11:28 Dose: Not Given Nicardipine/Sodium Chloride (Cardene 20 Mg/200 Ml Ns) 20 mg in 200 mls @ 25 mls/hr IV CONT .Q8H [facility] Last Admin: 01/22/24 11:19 Dose: 2.5 mg/hr, 25 mls/hr Lorazepam (Lorazepam Inj (*Crx) 2 Mg/Ml Vial) 0.5 mg IV PUSH Q6H PRN PRN Reason: Anxiety Losartan Potassium (Losartan Potassium 50 Mg Tablet) 100 mg PO DAILY [facility] Last Admin: 01/22/24 11:28 Dose: Not Given Metoclopramide HCl (Metoclopramide Hcl Inj 10 Mg/2 Ml Vial) 10 mg IV PUSH Q6HR PRN PRN Reason: Nausea And Vomiting Last Admin: 01/22/24 08:16 Dose: 10 mg Metoprolol Succinate (Metoprolol Succinate Ext Rel 50 Mg Tabcr) 100 mg PO DAILY S
[2024-01-22] MEDS: diphenhydrAMINE HCl INJ 50 MG/ML VIAL (14:08)
--- NOTE | 2024-01-22 14:15 | PC.NURSE ---
Report given to SAAEris. Pt assisted to strether and discharged with nicardipine drip infusing.
== END 2024-01-22 14:15 | disposition short-term general hospital (02) ==
LOC: CHSED 17:03 → CHS2ND 17:11
PROVIDERS: Nurse Practitioner; Admitting Provider Internal Medicine; Emergency Provider Emergency Medicine; PCP Internal Medicine; Visit Provider Internal Medicine
DX: I16.9 Hypertensive crisis, unspecified (principal); R79.89 Other specified abnormal findings of blood chemistry; D72.829 Elevated white blood cell count, unspecified; E87.6 Hypokalemia; E87.20 Acidosis, unspecified; F41.9 Anxiety disorder, unspecified; F12.90 Cannabis use, unspecified, uncomplicated; E87.3 Alkalosis; R11.2 Nausea with vomiting, unspecified; R07.9 Chest pain, unspecified; R06.02 Shortness of breath; K21.9 Gastro-esophageal reflux disease without esophagitis; I10 Essential (primary) hypertension; E78.5 Hyperlipidemia, unspecified; Z98.1 Arthrodesis status; Z79.82 Long term (current) use of aspirin; Z85.3 Personal history of malignant neoplasm of breast; Z92.3 Personal history of irradiation; Z86.73 Personal history of transient ischemic attack (TIA), and cerebral infarction without residual deficits; Z86.74 Personal history of sudden cardiac arrest; Z20.822 Contact with and (suspected) exposure to COVID-19
CPT/HCPCS: 36415; 36600; 71045; 71275; 74177; 80053; 80307; 81001; 82805; 83605; 83690; 83735; 83880; 84484; 85025; 85380; 85610; 85730; 87040; 87637; 93005; 96361; 96365; 96366; 96367; 96375; 96376; 99285; A9270; G0378; J1200; J1940; J2060; J2404; J2765; J3475; J3480; J7030; Q9967

== ENCOUNTER 2024-02-02 08:23 | Outpatient (CLI) | payer MEDICARE, SELFPAY ==
[2024-02-02 08:40] LABS: Hematocrit 30.9 % (35.0-42.0); Hemoglobin 10.4 g/dL (11.7-13.8); Mean Corpuscular HGB Conc 33.7 g/dL (32-36); Mean Corpuscular Hemoglobin 29.5 pg (27.0-31.0); Mean Corpuscular Volume 87.8 fL (78.0-102.0); Mean Platelet Volume 8.8 fl (9.2-11.8); Platelet Count Result 358 K/mm3 (150-420); Red Blood Count 3.52 M/mm3 (4.20-5.40); Red Cell Distribution Width 14.9 % (11.6-14.4); White Blood Count 6.8 K/mm3 (4.8-10.8)
[2024-02-02 09:00] LABS: Anion Gap 10 mmol/L (4-12); Blood Urea Nitrogen 9 mg/dL (7-18); Calcium 8.9 mg/dL (8.5-10.1); Carbon Dioxide 27 mmol/L (21-32); Chloride 100 mmol/L (98-108); Estimated Glomerular Filt Rate > 60; Glucose 90 mg/dL (70-99); Magnesium 1.7 mg/dL (1.8-2.4); Osmolality Calculated 282 mOsm/kg (285-295); Potassium 4.2 mmol/L (3.5-5.1); Sodium 137 mmol/L (136-145)
== END 2024-02-02 08:24 | disposition home or self-care (01) ==
LOC: CHSLAB 08:27
PROVIDERS: PCP Internal Medicine
DX: E87.1 Hypo-osmolality and hyponatremia (principal)
CPT/HCPCS: 36415; 80048; 83735; 85027

== ENCOUNTER 2024-02-25 09:03 | Outpatient (CLI) | payer MEDICARE, SELFPAY ==
--- NOTE | ~2024-02-25 | XR_ITS ---
Lumbosacral Spine: AP and lateral views Clinical History: Spinal stenosis COMPARISON: 11/27/2023 Findings: Status post interval posterior and interbody fusion from L4 to L5. Interval reduction of th e anterolisthesis of L4 over L5. Extensive severe facet arthropathy is present. There are mild degene rative disc changes throughout the lumbar spine otherwise. The sacroiliac joints are normally outline d. Impression: Status post interval posterior and interbody fusion of L4-L5. Recommend diffuse facet arthropathy. Reviewed, dictated and finalized at location M. Impression: Status post interval posterior and interbody fusion of L4-L5. Recommend diffuse facet arthropathy.
== END 2024-02-25 09:04 | disposition home or self-care (01) ==
LOC: CHSIMG 09:08
PROVIDERS: PCP Internal Medicine
DX: M48.061 Spinal stenosis, lumbar region without neurogenic claudication (principal); Z98.1 Arthrodesis status
CPT/HCPCS: 72100

== ENCOUNTER 2024-05-14 05:48 | Emergency (ER) | payer MEDICARE, SELFPAY ==
[2024-05-14] VITALS (40 sets, daily range): BP systolic 167–222; BP diastolic 92–134; PULSE 58–88; RESP 17–28; TEMP 33.2–35.1; O2SAT 99–100
--- NOTE | ~2024-05-14 | CT_ITS ---
EXAMINATION: CT BRAIN W/O DATE: 05/14/2024 06:37 INDICATION: Altered mental status TECHNIQUE: Computed tomography (CT) of the head was performed without intravenous contrast. The dose- length product was 756.67 mGy-cm. COMPARISON: No prior studies for comparison. FINDINGS: Normal brain parenchymal volume for age. Normal loyola-white differentiation. No acute intrac ranial hemorrhage, infarction, mass or mass effect. Mild generalized atrophy. There is intracranial a therosclerosis. There are scattered mild periventricular and subcortical white matter changes, most l ikely related to small vessel ischemic disease (microangiopathy). No ventriculomegaly or midline shift. Midline sagittal images demonstrate a normal corpus callosum, c raniovertebral junction and sella turcica. Basilar cisterns are patent. Paranasal sinuses and mastoids are pneumatized. No depressed skull fractures. IMPRESSION: 1. No acute intracranial abnormality. Reviewed, dictated and finalized at location B.
--- NOTE | ~2024-05-14 | CT_ITS ---
EXAMINATION: CT abdomen pelvis wo con DATE: 05/14/2024 07:25 INDICATION: Abdomen pain, vomiting and shortness of breath. TECHNIQUE: Computed tomography (CT) of the abdomen and pelvis was performed without intravenous contr ast. The dose-length product was 1155.99 mGy-cm. Automated exposure control and iterative reconstruct ion technique were employed. COMPARISON: CT dated 01/21/2024 FINDINGS: There is residual contrast in the renal collecting systems, ureters and bladder. Correlate for recent CT examination. Lung bases unremarkable. No significant pleural or pericardial effusion. H eart size normal. The liver, spleen, pancreas, adrenal glands and kidneys are unremarkable. Gallbladd er is present. There is moderate colonic fecal loading. No obstruction. There are surgical clips sugg esting prior appendectomy. Gallbladder is present. No free air or free fluid. Status post fusion at L 4-5 with grade 1 spondylolisthesis at this level. There is prosthetic disc device. There is severe lo wer thoracic spondylosis. There is a right total hip arthroplasty. Small hiatal hernia. IMPRESSION: 1. No acute abdominal abnormality. Reviewed, dictated and finalized at location B.
--- NOTE | ~2024-05-14 | CT_ITS ---
EXAMINATION: CTA chest DATE: 05/14/2024 06:50 CDT INDICATION: Chest pain and shortness of breath TECHNIQUE: Computed tomographic angiography (CTA) of the chest was performed with 100 mL Omnipaque-35 0 intravenous contrast. The dose-length product was 732.89 mGy-cm. Maximum intensity projection 3D-re constructions of the aorta and other arteries were constructed by the technologist on a separate work station. Automated exposure control and iterative reconstruction technique were employed. COMPARISON: CT dated 01/21/2024. FINDINGS: The liver, spleen, pancreas, adrenal glands and kidneys are unremarkable. Gallbladder is pr esent. No evidence for aortic aneurysm or dissection. No focal airspace consolidation. No pulmonary n odules or masses. No pneumothorax. No endobronchial lesions. No thoracic lymphadenopathy. Small hiatal hernia. No pulmonary embolism identified. There is severe t horacic spondylosis. IMPRESSION: 1. No acute cardiopulmonary disease identified. Reviewed, dictated and finalized at location B.
--- NOTE | 2024-05-14 05:50 | PC.NURSE ---
ERP notified of low temp, will apply warm blankets at this time.
[2024-05-14] MEDS: SODIUM CHLORIDE 0.9% IV 1,000 ML 999 ML IV CONT (06:00)
--- NOTE | 2024-05-14 06:11 | ECG_ITS ---
Test Date: 2024-05-14 06:00:10 Measurements Intervals [place] Rate: 59 P: 62 WV: 174 QRS: 11 QRSD: 112 T: 29 QT: 475 QTc: 471 Interpretive Statements SINUS BRADYCARDIA INTRAVENTRICULAR CONDUCTION DELAY DELAYED PRECORDIAL R/S TRANSITION CONSIDER INFERIOR INFARCT, AGE INDETERMINATE BASELINE ARTIFACT- II, III, AVF ABNORMAL ECG Compared to ECG 01/22/2024 11:04:08 HEART RATE HAS DECREASED Electronically Signed On 05-14-2024 09:19:34 CDT by Jose Enrique Davalos D.O.
[2024-05-14] MEDS: methylPREDNISolone SOD SUCC 125 MG VIAL IV PUSH (06:25)
--- NOTE | 2024-05-14 06:25 | PC.NURSE ---
temp came up a little bit, ERP notified, will apply bear hugger to patient to increase core temp.
[2024-05-14 06:27] LABS: Basophils Absolute Auto 0.04 K/mm3 (0.00-0.10); Basophils Percent Auto 0.3 % (0.0-1.0); Eosinophils Absolute Auto 0.12 K/mm3 (0.02-0.50); Eosinophils Percent Auto 0.9 % (1.0-6.0); Hematocrit 41.6 % (35.0-42.0); Hemoglobin 13.7 g/dL (11.7-13.8); Immature Granulocyte Absolute 0.06 K/mm3 (0.00-0.00); Immature Granulocyte Percent A 0.4 % (0.0-0.0); Immature Platelet Fraction Pct 3.7 % (1.0-7.0); Lymphocytes Absolute Auto 1.38 K/mm3 (1.10-4.50); Lymphocytes Percent Auto 10.3 % (18.0-42.0); Mean Corpuscular HGB Conc 32.9 g/dL (32-36); Mean Corpuscular Hemoglobin 27.9 pg (27.0-31.0); Mean Corpuscular Volume 84.7 fL (78.0-102.0); Mean Platelet Volume 11.5 fl (9.2-11.8); Monocytes Absolute Auto 0.61 K/mm3 (0.10-0.90); Monocytes Percent Auto 4.6 % (2.0-11.0); Neutrophils Absolute Auto 11.13 K/mm3 (1.70-7.20); Neutrophils Percent Auto 83.5 % (50.0-70.0); Platelet Count Result 197 K/mm3 (150-420); Red Blood Count 4.91 M/mm3 (4.20-5.40); Red Cell Distribution Width 14.7 % (11.6-14.4); White Blood Count 13.3 K/mm3 (4.8-10.8)
--- NOTE | 2024-05-14 06:30 | PC.NURSE ---
Patient taken down CT via stretcher with photo lab technician and this RN on monitor.
--- NOTE | 2024-05-14 06:30 | ED.CHESTPAIN ---
HPI - Chest Pain General Chief Complaint: Chest Pain Stated Complaint: vomiting dizzy Time Seen by Provider: 05/14/24 05:52 Source: patient Mode of arrival: EMS Limitations: no limitations History of Present Illness HPI narrative: patient is a 68-year-old female with no prior coronary issues having some chest pain and elevated blood pressure and hypothermia presentation to the emergency room via EMS. She awoke from sleep about an hour ago with these symptoms. She has associated nausea and vomiting. MD complaint: chest pain Onset (ago): hour(s) (1) Timing of current episode: constant Prior episodes: No Onset: during rest Pain location: substernal Pain radiation: none Severity: moderate Pain scale (0-10): 5 Quality: heaviness Relieving factors: nothing Exacerbating factors: nothing Context: other ( Patient awoke with acute pain and nausea with vomiting) Associated symptoms: nausea and vomiting Treatment prior to arrival: none Risk Factors Coronary artery disease risk factors: hyperlipidemia and hypertension Thoracic aortic dissection risk factors: none Related Data On Oral Contraceptives: No Home Medications Medication Instructions Recorded Confirmed ergocalciferol (vitamin D2) 1,250 1 unit PO WEEKLY 09/10/19 05/14/24 mcg (50,000 unit) capsule escitalopram oxalate 20 mg tablet 20 mg PO DAILY 09/10/19 05/14/24 aspirin 81 mg tablet,delayed 81 mg PO DAILY 09/12/19 05/14/24 release multivitamin 1 tablet PO DAILY 09/26/19 05/14/24 rabeprazole 20 mg tablet,delayed 20 mg PO DAILY 06/19/22 05/14/24 release (AcipHex) losartan 50 mg tablet 50 mg PO Q12H 05/14/24 05/14/24 metoprolol succinate 50 mg 50 mg PO Q12H 05/14/24 05/14/24 tablet,extended release 24 hr Allergies Allergy/AdvReac Type Severity Reaction Status Date / Time ondansetron Allergy Severe Anaphylaxis Verified 05/14/24 08:31 prochlorperazine Allergy Severe Seizure Verified 05/14/24 08:31 morphine Allergy Intermediate Nausea and Verified 05/14/24 12:26 Vomiting Review of Systems Review of Systems: All systems reviewed & are unremarkable except as noted in HPI and below Constitutional: Constitutional: Reports no additional constitutional complaints Eyes: Eyes: Reports no additional eye complaints ENT: Reports system reviewed and no additional complaints, except as documented Cardiovascular: Cardiovascular: Reports no additional cardiovascular complaints Respiratory: Respiratory: Reports no additional respiratory complaints Gastrointestinal: Gastrointestinal: Reports no additional gastrointestinal complaints Genitourinary: Genitourinary: Reports no additional female genitourinary complaints Musculoskeletal: Musculoskeletal: Reports no additional musculoskeletal complaints Integumentary/Breasts: Skin/Breast: Reports system reviewed and no additional complaints, except as docu Neurologic: Reports system reviewed and no additional complaints, except as documented Psychiatric: Psychiatric: Reports no additional psychiatric complaints Endocrine: Endocrine: Reports no additional endocrine complaints Hematologic/Lymphatic: Hematologic/Lymphatic: Reports no additional hematologic/lymphatic complaints Allergic/Immunologic: Allergic/Immunologic: Reports no additional allergic/immunologic complaints [facility] Past Medical History Medical History (Updated 05/15/24 @ 07:28 by Anjel Cohen MD) Anxiety 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 Cerebrovascular accident Without residual deficit. Cyclic vomiting syndrome Gastroesophageal reflux disease History of alcohol use She has abstained from alcohol since the beginning of 2018. History of sudden cardiac arrest successfully resuscitated Secondary to allergic reaction to Zofran (01/2018). Hyperlipidemia Hypertension Marijuana abuse Recur
[2024-05-14 06:33] LABS: INR 0.9; Partial Thromboplastin Time 23.1 Sec (23.9-30.70); Prothrombin Time 10.3 Seconds (9.50-12.1)
[2024-05-14 06:38] LABS: Alanine Aminotransferase 18 U/L (14-59); Albumin Level 4.1 g/dL (3.4-5.0); Alkaline Phosphatase 113 U/L (46-116); Anion Gap 18 mmol/L (4-12); Aspartate Amino Transferase 21 U/L (15-37); Bilirubin,Total 0.5 mg/dL (0.00-1.00); Blood Urea Nitrogen 22 mg/dL (7-18); Calcium 9.6 mg/dL (8.5-10.1); Carbon Dioxide 18 mmol/L (21-32); Chloride 101 mmol/L (98-108); Estimated CRCL calculation 39 ml/min; Estimated Glomerular Filt Rate 46; Glucose 171 mg/dL (70-99); Osmolality Calculated 291 mOsm/kg (285-295); Sodium 137 mmol/L (136-145); Total Protein 7.8 g/dL (6.4-8.2)
--- NOTE | 2024-05-14 06:45 | PC.NURSE ---
patient back in room
--- NOTE | 2024-05-14 07:20 | PC.NURSE ---
Patient taken back down to CT via stretcher with this RN and anesthesiology technologist.
[2024-05-14 07:31] LABS: NT Pro B Type Natriuretic Pept 372 pg/mL (0-125)
--- NOTE | 2024-05-14 07:37 | PC.NURSE ---
patient back in room.
--- NOTE | 2024-05-14 07:45 | PC.NURSE ---
Patient had urinated, still needed straight cathed as she could not finish urinating without getting up. Patient was cleaned up, new gown put on patient, bear hugger reapplied, blankets put on patient. Patient states she is more comfortable at this time.
--- NOTE | 2024-05-14 08:00 | PC.NURSE ---
ERP updated niece at bedside of plan of care of patient.
[2024-05-14] MEDS: hydrALAZINE HCL 20 MG/ML VIAL 10 MG IV PUSH (08:07)
[2024-05-14] MEDS: KCL 20 MEQ/SW 100 ML 100 ML 50 MEQ IVPB (08:09)
[2024-05-14 08:20] LABS: Add Urine Microscopic? NO; Appearance Urine Clear (Clear); Bilirubin Urine Negative (Negative); Blood Urine Negative (Negative); Color Urine Light Yellow (Yellow); Glucose Urine UA Negative (Negative); Ketones Urine 1+ (Negative); Leukocyte Esterase Ur Negative (Negative); Nitrate Urine Negative (Negative); Protein Urine Negative (Negative); Specific Grav Ur <= 1.005 (1.010-1.020); Urobilinogen Urine 0.2 mg/dL (0.2-1.0); pH Urine 5.5 (5.0-8.0)
[2024-05-14 08:24] LABS: Lactic Acid Reflex 6.8 mmol/L (0.4-2.0)
[2024-05-14] MEDS: PIPERACILLN/TAZ 3.375GM/NS50ML 3.375 GM/50 ML BAG IVPB (08:42)
[2024-05-14 08:47] LABS: Lipase 34 U/L (16-77)
[2024-05-14 09:17] LABS: Base Excess ABG -4.8 mmol/L (0-2); HCO3 ABG 13.9 mmol/L (23-29); Oxygen Content ABG 19.9 %vol (16.0-22.0); Oxygen Saturation ABG 98.2 % (95-97); Oxyhemoglobin 97.8 % (94-100); pH ABG 7.57 (7.35-7.45)
[2024-05-14 09:18] LABS: Device ROOM AIR; Modified Allen's Test Pass; PCO2 ABG 15.4 mmHg (35-45); Site Drawn RIGHT RADIAL
[2024-05-14] MEDS: PANTOPRAZOLE SODIUM IV 40 MG VIAL 80 MG IV PUSH (09:25)
[2024-05-14] MEDS: SODIUM BICARBONATE 8.4% 50 MEQ/50 ML SYRINGE 75 MEQ IV PUSH (09:34)
[2024-05-14 10:31] LABS: Salicylate 3.3 mg/dL (2.8-20.0)
[2024-05-14 10:32] LABS: Reflex Lactic Acid Yes or No Add Lactic
[2024-05-14 10:55] LABS: Lactic Acid 8.3 mmol/L (0.4-2.0)
[2024-05-14 10:55] LABS: Troponin I 19.5 ng/L (0.00-60.4)
--- NOTE | 2024-05-20 13:38 | PC.NURSE ---
noted blood culture, no growth 5 days
== END 2024-05-14 11:30 | disposition short-term general hospital (02) ==
PROVIDERS: Emergency Medicine; Emergency Provider Emergency Medicine; PCP Internal Medicine
DX: I16.9 Hypertensive crisis, unspecified (principal); R11.2 Nausea with vomiting, unspecified; E87.20 Acidosis, unspecified; I10 Essential (primary) hypertension; E78.5 Hyperlipidemia, unspecified; Z79.82 Long term (current) use of aspirin; Z79.899 Other long term (current) drug therapy; Z87.891 Personal history of nicotine dependence
CPT/HCPCS: 36415; 36600; 70450; 71275; 74176; 80053; 80307; 81003; 82805; 82810; 83605; 83690; 83880; 84484; 85018; 85025; 85055; 85610; 85730; 87040; 93005; 96361; 96365; 96366; 96367; 96375; 99285; J0360; J2470; J2543; J2919; J3480; J7030; Q9967

== ENCOUNTER 2024-05-14 16:38 | Inpatient (IN) | payer MEDICARE, SELFPAY ==
[2024-05-14] VITALS (23 sets, daily range): BP systolic 145–196; BP diastolic 73–123; PULSE 88–130; RESP 12–28; TEMP 36.5–37.3; O2SAT 97–100; BMI 26.5
--- NOTE | ~2024-05-14 | US_ITS ---
US retroperitoneal duplex ltd Ordering provider: Ramo iH MD History: . Repeat test to evaluate left side . Comparison: None. Technique: Ultrasound left kidney Doppler sampling. Findings/impression: Proximal left renal artery peak systolic velocity is 64.7 cm/s. Proximal left renal artery end diastolic velocity is 13.1 cm/s. Proximal resistive index is 0.80 Mid left renal artery peak systolic velocity is 44 cm/s. Mid left renal artery end-diastolic velocity is 12.8 cm/s. Mid left renal artery Resistive index is 0.71 Distal left renal artery peak systolic velocity is 54.5 cm/s. Distal left renal artery end diastolic velocity is 9.3 cm/s. Distal resistive index is 0.73 Reviewed, dictated and finalized at location A.
--- NOTE | ~2024-05-14 | MR_ITS ---
MRI of the brain Clinical History: Encephalopathy Technique: Axial and sagittal T1-weighted images were acquired. These were followed by axial T2-weigh angelica, diffusion weighted, gradient, and FLAIR images. Following intravenous administration of 15 cc Mu ltiHance gadolinium, T1-weighted fat-sat imaging was performed in the axial and coronal planes. Findings: No acute infarct, internal hemorrhage, mass lesion seen. Single small focal area of FLAIR h yperintensity present in the white matter in the left occipital region. Ventricles and subarachnoid spaces are unremarkable. Orbits are unremarkable. Paranasal sinuses and m astoid air cells are clear. Major intracranial flow voids are intact. Sagittal midline structures are intact. No abnormal postcontrast enhancement identified. IMPRESSION: Single small nonspecific FLAIR hyperintense white matter lesion in the left occipital region. Focal/m ild chronic microvascular ischemic change is a consideration. Demyelinating disease, vasculitis would be alternative considerations. Reviewed, dictated and finalized at location . IMPRESSION: Single small nonspecific FLAIR hyperintense white matter lesion in the left occ ipital region. Focal/mild chronic microvascular ischemic change is a considerat ion. Demyelinating disease, vasculitis would be alternative considerations.
--- NOTE | ~2024-05-14 | CT_ITS ---
CT brain wo con Ordering provider: Reddy Frey MD History: 68 years Female with . stroke r/o . Comparison: None. Technique: CT of the head without contrast. Radiation reduction technique utilized. The dose-length product was 1059.33 3mGy-cm. FINDINGS: BRAIN PARENCHYMA AND CSF SPACES: Mild leukoaraiosis and diffuse cortical atrophy. Mild atheromatous d isease.No midline shift, mass effect or hemorrhage. The brain parenchyma and CSF spaces are otherwis e normal. VISUALIZED PARANASAL SINUSES: Well aerated. MASTOIDS: Well aerated. BONES: The bones appear intact. Old fracture in the medial wall of the right orbit. SOFT TISSUES: Visualized nasopharynx is normal. Superficial soft tissues are normal. IMPRESSION: No acute intracranial findings. Reviewed, dictated and finalized at location A.
--- NOTE | ~2024-05-14 | US_ITS ---
US retroperitoneal comp, US retroperitoneal duplex ltd Ordering provider: Shyla Lyn PA-C History: . ELEV CREATININE . Comparison: None. Technique: Ultrasound bilateral kidneys. Findings: RIGHT KIDNEY: Measures 9.9x 5.2x 5.2 cm in length which is normal in size. No renal cysts. No renal m ass or visualized echogenic stones. Otherwise, normal echotexture and contour. No hydronephrosis. Nor mal renal cortical thickness. Distal PS velocity is 107.4 cm/s. Distal end diastolic velocity is 25.8 cm/s. Resistive indexes 0.76. MID artery PS velocity is 127.7 cm/s. MId artery end diastolic velocity is 31.3 cm/s. Resistive indexes 0.76. LEFT KIDNEY: Measures 10.4X 6.3X 5.1 cm in length which is normal in size. No renal cysts. No renal m ass or visualized echogenic stones. Otherwise, normal echotexture and contour. No hydronephrosis. Nor mal renal cortical thickness. Vascularity was not possible to be evaluated.. BLADDER: Niño's catheter is seen. IMPRESSION: No definite abnormality seen in both kidneys. Resistive index of the right renal artery is 0.76. The vascularity of the left kidney was not possible to be evaluated. Reviewed, dictated and finalized at location A. IMPRESSION: No definite abnormality seen in both kidneys. Resistive index of the right renal artery is 0.76. The vascularity of the left kidney was not possible to be evaluated.
--- NOTE | 2024-05-14 12:19 | ADMGEN ---
This patient, Meron Watson, was admitted to IMU Room 232-01. Patient/family oriented to hospital policies and general routines including ID bracelet, bed and alarms, visiting hours, pain management, procedures, bathroom and other care routines, personal items, smoking policy, room service/diet, and visiting hours. Information on how to activate the Rapid Response Team has been discussed. Patient/Family are encouraged to report perceived risks to care and to ask questions if they do not understand what they are told or what they should do.
--- NOTE | 2024-05-14 14:10 | PM.IMHP ---
H&P: HPI History of Present Illness Date/Time: 05/14/24 14:10 <Shyla Lyn PA-C - Last Filed: 05/15/24 13:13> Chief Complaint: Chest pain, vomiting, dizziness. <Shyla Lyn PA-C - Last Filed: 05/15/24 13:13> Narrative: This is a 68-year-old female with history of hypertension, pancreatitis, Sow's esophagus, gastroesophageal reflux disease, numerous hospitalizations for cyclic vomiting, breast cancer, anxiety, daily marijuana use, and alcohol abuse for which she has abstained since 2019 who presented to the emergency department at [facility] via EMS from home for evaluation of chest pain, vomiting, and dizziness. The patient provides the following history. She was in her usual state of health yesterday and did yard work and got her porch decorated for fall. Later in the evening she had some nausea and sometime in the middle of the night she started dry heaving. She also had a couple episodes of nonbloody and nonbilious emesis. She was feeling dizzy at that time and reports having pain in the lower chest and epigastric region. She went to the bathroom at around 04:30 and when went to check on her she was on the ground and he called 911. The patient does not really remember how she ended up on the floor and she does not think she passed out. She reports a mild headache and continues to have nausea and abdominal discomfort. She denies visual changes, facial droop, difficulty speaking and swallowing, exertional chest pain, pleuritic pain, cough, hematemesis, melena, hematochezia, diarrhea, and dysuria. In the ED: Vital signs include a temperature of 91.7? F, blood pressure 219/134, pulse is 70, respiratory rate 23, SpO2 100% on room air. Labs were significant for WBC count 13.3, sodium 137, potassium 3.0, carbon dioxide 18, anion gap 18, BUN 22, creatinine 1.18, glucose 171, lactic acid 8.3, high sensitivity troponin 6.0. ABG showed a pH of 7.57, pCO2 15.4, HC03 13.9. Urine showed a specific gravity < 1.005 and 1+ ketones. CT scans of the head, chest, and abdomen and pelvis were without acute abnormalities. She was placed under a Reji Hugger with improvement in her temperature. She was initially started on a nitroprusside drip for her blood pressure but that was discontinued. She also received sodium bicarbonate 75 mEq, potassium chloride 20 mEq, hydralazine 10 mg, methylprednisolone 125 mg, and piperacillin/tazobactam 3.375 g. Transfer was initiated to [facility]. Upon arrival to her room: She was alert and oriented x4 and provided the above history. At 15:11 a rapid response was called after the automation control technician entered the room and found the patient unresponsive with ?fluid coming out of her mouth.? Nurse reports that she was not responding to physical or verbal stimuli and she was diaphoretic and body was rigid. Vitals at that time included a blood pressure of 210/115, heart rate 90, SpO2 97% on room air. Glucose was 243. She became more alert over the next 5 minutes or so but was not following commands or answering questions however would track with her eyes. Stat brain CT was ordered which was without acute findings. Repeat ABG showed a pH of 7.208, pCO2 22.0, bicarb 8.6. Repeat labs were significant for a potassium of 3.1, carbon dioxide 14, anion gap 22, glucose 225, lactic acid 7.7, beta hydroxybutyrate 0.31, CRP 1.5, troponin 0.039. She was given 2 g of sodium bicarbonate and 30 mL/kg IV fluid bolus. She was also started on nicardipine drip and was transferred to the ICU after discussing with the instrument technologist. On re-examination she was very restless, moaning, and consistently moving around in the bed. She seemed anxious and had persistent dry heaves. Rvmotfia-[id number] states she has had several hospitalizations over the years with similar symptoms attributed to cyclic vomiting and her symptoms improved with benzodiazepines. Ativan 1 mg given with some improvement. <Shyla Lyn PA-C - Last Filed: 05/15/24 13:1
[2024-05-14 14:31] LABS: Basophils Percent Auto 0.2 % (0.2-1.2); Hematocrit 42.3 % (37.0-47.0); Hemoglobin 14.7 g/dL (12.0-15.0); Immature Granulocyte Absolute 0.09 K/mm3 (0.00-0.031); Immature Granulocyte Percent A 0.6 % (0-0.5); Lymphocytes Absolute Auto 0.51 K/mm3 (0.9-3.2); Lymphocytes Percent Auto 3.5 % (18.3-44.2); Mean Corpuscular HGB Conc 34.8 g/dl (32-36); Mean Corpuscular Hemoglobin 28.7 pg (26-34); Mean Corpuscular Volume 82.6 fl (80-100); Mean Platelet Volume 10.6 fl (7.4-10.4); Monocytes Absolute Auto 0.3 K/mm3 (0.1-0.6); Neutrophils Absolute Auto 13.7 K/mm3 (1.3-6.7); Neutrophils Percent Auto 93.7 % (45.5-73.1); Platelet Count Result 235 k/mm3 (150-375); Red Blood Count 5.12 M/mm3 (4.2-5.4); Red Cell Distribution Width 14.9 % (11.5-14.5); White Blood Count 14.6 K/mm3 (4.5-10.0)
--- NOTE | 2024-05-14 14:32 | ECG_ITS ---
Test Date: 2024-05-14 14:48:28 Measurements Intervals [place] Rate: 90 P: 50 MI: 205 QRS: -4 QRSD: 108 T: 45 QT: 415 QTc: 510 Interpretive Statements SINUS RHYTHM BORDERLINE AV CONDUCTION DELAY MODERATE ST DEPRESSION IN ANTEROLATERAL LEADS- CONSIDER ISCHEMIA BASELINE ARTIFACT- I, II, III, AVR, AVL, AVF ABNORMAL ECG Compared to ECG 05/14/2024 06:00:10 HEART RATE HAS INCREASED ST DEPRESSION NOW PRESENT Electronically Signed On 05-14-2024 16:51:14 CDT by Jose Enrqiue Davalos D.O.
[2024-05-14 14:41] LABS: Salicylate < 1.0 mg/dL (2-20)
[2024-05-14 14:42] LABS: Ethanol < 10 mg/dL (<10)
[2024-05-14 14:44] LABS: CRP 1.5 mg/dL (<1.0); Phosphorus 2.7 mg/dL (2.5-4.5)
[2024-05-14 14:46] LABS: Beta-Hydroxybutyrate/Acetoacetate 0.31 mmol/L (0.02-0.27)
[2024-05-14 14:53] LABS: Erythrocyte Sedimentation Rate 8 mm/hr (0-20)
[2024-05-14 14:54] LABS: Alanine Aminotransferase 28 U/L (6-35); Albumin Level 5.4 g/dL (3.5-5.1); Alkaline Phosphatase 124 U/L (38-126); Anion Gap 22 mmol/L (4-12); Aspartate Amino Transferase 35 U/L (14-36); Blood Urea Nitrogen 17 mg/dL (7-17); Calcium 9.9 mg/dL (8.4-10.2); Carbon Dioxide 14 mmol/L (22-30); Chloride 103 mmol/L (98-107); Estimated CRCL calculation 56 ml/min; Estimated Glomerular Filt Rate > 60; Glucose 225 mg/dL (65-110); Magnesium 1.7 mg/dL (1.6-2.3); Potassium 3.1 mmol/L (3.4-5.0); Sodium 139 mmol/L (137-145)
[2024-05-14 14:59] LABS: Lactic Acid Reflex 7.7 mmol/L (0.7-2.0)
[2024-05-14 15:23] LABS: Alveolar/Arterial O2 Gradient 16.8 mmHg; Base Excess ABG -17.2 mEq/l (+/-2.0); Fractional Inspired Oxygen 21 %; HCO3 ABG 8.6 mEq/l (22.0-26.0); Oxygen Content ABG 21.6 %vol (16.0-22.0); Oxygen Saturation ABG 96.9 % (95.0-100.0); Oxyhemoglobin 96.3 % THb (90.0-100.0); PO2 ABG 106.6 mmHg (80.0-100.0); PO2 FiO2 Ratio Arterial Blood 5.08 %; Total Hemoglobin 15.9 g/dL (12.0-18.0)
[2024-05-14 15:23] LABS: Hemoglobin A1C 5.6 % (<5.7)
[2024-05-14 15:29] LABS: pH ABG 7.208 (7.350-7.450)
[2024-05-14 15:30] LABS: Device ROOM AIR; Site Drawn RIGHT BRACHIAL
--- NOTE | 2024-05-14 15:41 | ECG_ITS ---
Test Date: 2024-05-14 15:45:12 Measurements Intervals [place] Rate: 101 P: 60 [place]: 201 QRS: -8 QRSD: 108 T: 54 QT: 382 QTc: 496 Interpretive Statements SINUS TACHYCARDIA POSSIBLE LEFT ATRIAL ENLARGEMENT BORDERLINE AV CONDUCTION DELAY CONSIDER INFERIOR INFARCT, AGE INDETERMINATE BORDERLINE ST ABNORMALITY- ANTEROLATERAL LEADS BASELINE ARTIFACT- II, III, AVF ABNORMAL ECG Compared to ECG 05/14/2024 14:48:28 HEART RATE HAS INCREASED Electronically Signed On 05-15-2024 08:56:32 CDT by Jose Enrique Davalos D.O.
--- NOTE | 2024-05-14 15:42 | PC.NURSE ---
Pt was found with foamy discharge around her mouth. Eyes open but unfocused Not responding. Rapid response called. BP 210/115, HR 90, oxygen 97%. BS 243. Dr. Frey and Gerson Lyn at bedside. ABG drawn. Pt sent for stat CT of the head accompanied by RN.
--- NOTE | 2024-05-14 15:45 | PC.NURSE ---
Pt received into ICU-7 from 232 after rapid response. Bedside report received from RN
[2024-05-14] MEDS: SODIUM BICARBONATE 8.4% 50 MEQ/50 ML SYRINGE 75 MEQ IV PUSH (15:48)
[2024-05-14 15:50] LABS: Troponin I 0.039 ng/mL (0.000-0.034)
[2024-05-14] MEDS: SODIUM CHLORIDE 0.9% IV 2,200 ML/1,000 ML BAG 999 ML IV CONT ×3 (15:55→18:13)
[2024-05-14] MEDS: niCARdipine 20 MG/200 ML 20 MG/200 ML BAG 50 MG IV CONT ×2 (16:11)
[2024-05-14 16:22] LABS: Procalcitonin 0.1 ng/mL
[2024-05-14] MEDS: POTASSIUM CHLORIDE INJ 40 MEQ in SODIUM CHLORIDE 0.9% IV 500 ML 130 MEQ IVPB (16:28)
[2024-05-14 16:31] LABS: Creatinine Urine 19.4 mg/dL
[2024-05-14 16:32] LABS: Potassium Urine Random 21.8 meq/L; Sodium Urine Random 162 meq/L
[2024-05-14 16:34] LABS: Amphetamine Screen Urine Negative (Negative); Barbiturate Screen Urine Negative (Negative); Benzodiazepines Screen Urine Negative (Negative); Cannabinoid Screen Urine Positive (Negative); Cocaine Screen Urine Negative (Negative); Methadone Screen Urine Negative (Negative); Opiate Screen Urine Negative (Negative); Phencyclidine Screen Urine Negative (Negative)
[2024-05-14 16:40] LABS: Glucose Point of Care 232 mg/dl (65-105)
[2024-05-14 17:06] LABS: Ammonia < 9 umol/L (9-30)
[2024-05-14 17:29] LABS: MRSA (PCR) NOT DETECTED (NOT DETECTE)
[2024-05-14] MEDS: LORazepam INJ (*CRX) 2 MG/ML VIAL 1 MG IV PUSH (17:36)
[2024-05-14 17:47] LABS: Glucose Point of Care 222 mg/dl (65-105)
[2024-05-14 17:48] LABS: HIV 1/2 Ab P24 Ag Result Negative (Negative)
[2024-05-14 21:45] LABS: Rapid Plasma Reagin Non-Reactive (NonReactive)
[2024-05-14 22:32] LABS: Fractional Inspired Oxygen 21 %; PO2 VBG 44.8 mmHg (35.0-45.0)
[2024-05-14 22:34] LABS: Device ROOM AIR; PCO2 VBG 24.8 mmHg (42.0-48.0); pH VBG 7.453 (7.300-7.400)
[2024-05-14 22:43] LABS: Lactic Acid Reflex 3.1 mmol/L (0.7-2.0)
[2024-05-14 22:44] LABS: Anion Gap 17 mmol/L (4-12); Blood Urea Nitrogen 14 mg/dL (7-17); Calcium 9.4 mg/dL (8.4-10.2); Carbon Dioxide 15 mmol/L (22-30); Chloride 110 mmol/L (98-107); Estimated CRCL calculation 64 ml/min; Estimated Glomerular Filt Rate > 60; Glucose 196 mg/dL (65-110); Potassium 3.6 mmol/L (3.4-5.0); Sodium 142 mmol/L (137-145)
[2024-05-14 23:10] LABS: Troponin I 0.265 ng/mL (0.000-0.034)
[2024-05-15] VITALS (17 sets, daily range): BP systolic 92–185; BP diastolic 50–123; PULSE 62–120; RESP 14–23; TEMP 36.9–37.7; O2SAT 95–100
[2024-05-15 00:19] LABS: Glucose Point of Care 155 mg/dl (65-105)
[2024-05-15] MEDS: LACTATED RINGERS 1,000 ML 100 ML IV CONT (00:38)
[2024-05-15 01:31] LABS: Reflex Lactic Acid Yes or No Add Lactic
[2024-05-15 02:12] LABS: Lactic Acid 2.8 mmol/L (0.7-2.0)
[2024-05-15 05:25] LABS: Hematocrit 45.4 % (37.0-47.0); Hemoglobin 14.9 g/dL (12.0-15.0); Mean Corpuscular HGB Conc 32.8 g/dl (32-36); Mean Corpuscular Volume 88.3 fl (80-100); Mean Platelet Volume 10.3 fl (7.4-10.4); Platelet Count Result 242 k/mm3 (150-375); Red Blood Count 5.14 M/mm3 (4.2-5.4); Red Cell Distribution Width 15.8 % (11.5-14.5); White Blood Count 20.7 K/mm3 (4.5-10.0)
[2024-05-15 05:38] LABS: Alanine Aminotransferase 16 U/L (6-35); Albumin Level 4.7 g/dL (3.5-5.1); Alkaline Phosphatase 106 U/L (38-126); Anion Gap 13 mmol/L (4-12); Aspartate Amino Transferase 30 U/L (14-36); Bilirubin,Total 0.5 mg/dL (0.2-1.3); Blood Urea Nitrogen 17 mg/dL (7-17); Calcium 9.1 mg/dL (8.4-10.2); Carbon Dioxide 18 mmol/L (22-30); Chloride 111 mmol/L (98-107); Estimated CRCL calculation 51 ml/min; Estimated Glomerular Filt Rate > 60; Glucose 138 mg/dL (65-110); Lactic Acid Reflex 2.5 mmol/L (0.7-2.0); Sodium 142 mmol/L (137-145)
[2024-05-15] MEDS: METOCLOPRAMIDE HCL INJ 10 MG/2 ML VIAL IV PUSH ×4 (05:56→23:22)
[2024-05-15 08:39] LABS: Troponin I 0.366 ng/mL (0.000-0.034)
[2024-05-15] MEDS: MULTIVITAMINS THERAPEUTIC TAB (*BKC) 1 TABLET PO (08:45)
[2024-05-15] MEDS: ATORVASTATIN 20 MG TABLET PO (08:45)
[2024-05-15] MEDS: ASPIRIN 81 MG ENTERIC TABLET PO (08:45)
[2024-05-15] MEDS: PANTOPRAZOLE SODIUM IV 40 MG VIAL IV PUSH (08:45)
[2024-05-15] MEDS: LOSARTAN POTASSIUM 50 MG TABLET PO (08:45)
[2024-05-15] MEDS: METOPROLOL SUCCINATE EXT REL 50 MG TABCR PO (08:45)
--- NOTE | 2024-05-15 10:26 | WPDCNINT ---
Assessment and Plan Assessment and plan (1) Hypertensive emergency: Code(s): I16.1 - Hypertensive emergency Status: Acute Assessment and Plan: Patient presented with high blood pressure with systolic above 200 range she was started on nicardipine infusion which has been now been weaned off She she has been resumed on her home dose of losartan and metoprolol I have added p.r.n. labetalol hydralazine Depending on her blood pressures today we will adjust her medication may need to add a 3rd medication if poorly controlled It appears the patient's hypertension has been poorly controlled even as an outpatient. At the time of admission the admitting physician has ordered workup for pheochromocytoma with 24 hour metanephrines and catecholamines Renal ultrasound with duplex ordered and may have to be repeated due to incomplete. Resistive index on the right renal artery was slightly elevated. Consult nephrology (2) Acute kidney failure: Code(s): N17.9 - Acute kidney failure, unspecified Status: Acute Assessment and Plan: Patient presented with creatinine elevated at 1.1 in the ER but has now normalized after treatment with IV fluids and control of her blood pressure (3) Lactic acidosis: Code(s): E87.20 - Acidosis, unspecified Status: Acute Assessment and Plan: Patient presented with lactic acidosis with no obvious signs of infection Her CT scan of chest abdomen pelvis is negative for any evidence infection, UA is normal, procalcitonin level is low Quite possible the patient had a seizure leading to lactic acidosis Lactic acid level is improving and is now down to 2.5 Continue monitoring. Continue IV fluids (4) Encephalopathy: Code(s): G93.40 - Encephalopathy, unspecified Status: Acute Assessment and Plan: Patient was encephalopathy when she came in but now she is alert oriented x3 and appears to be at baseline Hypertensive encephalopathy versus postictal Monitor. Avoid sedatives Control blood pressure Head CT was negative MRI brain has been done and report is pending (5) Seizures: Code(s): R56.9 - Unspecified convulsions Status: Acute Assessment and Plan: Is quite possible the patient had a seizure secondary to elevated hypertensive encephalopathy Seizure precautions and monitor in ICU Hold AEDs at this time MRI brain has been done and is pending Plan DVT prophylaxis - Lovenox Nutrition -diet ordered Code Status - Full Code Director Of Marketing And Promotions Consult Note Consult date: 05/15/24 Reason for consult: Uncontrolled hypertension HPI: Meron Watson is a 68 year old female with past medical history of hypertension, back surgery who presented yesterday to [facility] ER with with chief complaint of dizziness and nausea vomiting. Patient today states the patient was laying in bed and she suddenly started feeling dizzy with room spinning around. After that followed by nausea and vomiting which would not get better has she went to ER. She states prior to that she was feeling good and she does not have vomiting regularly. Patient denies fever, chest pain, shortness of breath, cough, abdominal pain,, diarrhea, headache, blurred vision or constipation. At this time she denies any any complaints sinus symptoms have resolved. All other systems were reviewed and were negative Patient told me that she has had yiafflimp-[id number] blood pressures since she had her back surgery and she is currently taking 2 different medication although she admits that prior to that she was not even monitoring her blood pressures so she does not know whether it was well controlled or not prior to the surgery. In start in ER patient was found to be hypertensive with systolic blood pressure above 200. Had a CT head and CTA of chest abdomen pelvis done which was unremarkable. Her lactate was elevated. She was given IV fluids and started IV antibiotics although no f
[2024-05-15] MEDS: LACTATED RINGERS 1,000 ML 75 ML IV CONT ×2 (10:52→23:22)
--- NOTE | 2024-05-15 12:07 | P.CONNP_ITS ---
Assessment and Plan Assessment and plan (1) Hypertensive emergency: Code(s): I16.1 - Hypertensive emergency Status: Acute Assessment and Plan: * as noted on presentation to OSH ER as well as on transfer to [facility] * initated on nicardipine gtt upon transfer to ICU * weaned off overnight/earlier this AM * back on home medications (losartan and metoprolol) * PRN IV labetalol and hydralazine ordered * possible secondary cause to hypertension (?) * 24hr urine collection for metanephrines and catecholamines ordered * check alosterone and renin as well * renal duplex results noted -- may need to repeat versus check CTA of abdomen to better assess renal arteries * follow trend of hemodynamics (2) Acute kidney failure: Code(s): N17.9 - Acute kidney failure, unspecified Status: Acute Assessment and Plan: * creatinine mildly elevated on admission * creatinine normal following IVFs and better BP control * follow trend of repeat labs (3) Lactic acidosis: Code(s): E87.20 - Acidosis, unspecified Status: Acute Assessment and Plan: * noted on admission and at OSH ER * no signs of infection by imaging and laboratory testing * lactic acid improving with current therapy * follow trend with IVFs (4) Encephalopathy: Code(s): G93.40 - Encephalopathy, unspecified Status: Acute Assessment and Plan: * resolved at this time * due to HTN/PRES versus possible seizure? * CT of head negative * MRI of brain done - results pending * follow mentation I will continue to follow the patient with you while she remains hospitalized and make further recommendations as deemed necessary. Thank you for allowing me to participate in the care of this patient. History of Present Illness Reason for Consult Consult date: 05/15/24 Reason for consult: accelerated hypertension Chief Complaint Chief complaint: Hypertensive urgency/lactic acidosis History of Present Illness Narrative: The patient is a 68-year-old female with a past medical history as outlined below who initially presented to [facility] emergency room with complaints of nausea, vomiting, and dizziness. The patient reports that she had been doing reasonably well yesterday and just completed some yard work as well as completed some decorations on her porch. However, later that evening, she developed some nausea in association with dry heaving. She also reportedly had a couple of episodes of vomiting as well. Around the same time, she reports some dizziness as well as discomfort in the epigastric area. At around 4:00 a.m. in the morning yesterday, she went to use the restroom and apparently her went to check on her and found her on the ground. He immediately called 911. upon further questioning, the patient does not recall how she ended up on the floor but does not think that she passed out although she did report a mild headache and ongoing nausea and abdominal discomfort in general. She denied any visual changes difficulty speaking or swallowing, cough, hematemesis, melena, hematochezia, diarrhea, dysuria, fevers, or chills. She was subsequently transported to [facility] for further assessment. Workup and evaluation in the emergency room demonstrated significant hypertension with her systolic BP greater than 200 in association with hypothermia With a temperature of 91.7 degrees. Routine blood work was significant for a white blood cell count of 13.3 mild hypokalemia, mild metabolic acidosis, and a slightly elevated BUN and c
--- NOTE | 2024-05-15 12:07 | PM.CNNEP ---
Assessment and Plan Assessment and plan (1) Hypertensive emergency: Code(s): I16.1 - Hypertensive emergency Status: Acute Assessment and Plan: as noted on presentation to OSH ER as well as on transfer to [facility] initated on nicardipine gtt upon transfer to ICU weaned off overnight/earlier this AM back on home medications (losartan and metoprolol) PRN IV labetalol and hydralazine ordered possible secondary cause to hypertension (?) 24hr urine collection for metanephrines and catecholamines ordered check alosterone and renin as well renal duplex results noted -- may need to repeat versus check CTA of abdomen to better assess renal arteries follow trend of hemodynamics (2) Acute kidney failure: Code(s): N17.9 - Acute kidney failure, unspecified Status: Acute Assessment and Plan: creatinine mildly elevated on admission creatinine normal following IVFs and better BP control follow trend of repeat labs (3) Lactic acidosis: Code(s): E87.20 - Acidosis, unspecified Status: Acute Assessment and Plan: noted on admission and at OSH ER no signs of infection by imaging and laboratory testing lactic acid improving with current therapy follow trend with IVFs (4) Encephalopathy: Code(s): G93.40 - Encephalopathy, unspecified Status: Acute Assessment and Plan: resolved at this time due to HTN/PRES versus possible seizure? CT of head negative MRI of brain done - results pending follow mentation I will continue to follow the patient with you while she remains hospitalized and make further recommendations as deemed necessary. Thank you for allowing me to participate in the care of this patient. History of Present Illness Reason for Consult Consult date: 05/15/24 Reason for consult: accelerated hypertension Chief Complaint Chief complaint: Hypertensive urgency/lactic acidosis History of Present Illness Narrative: The patient is a 68-year-old female with a past medical history as outlined below who initially presented to [facility] emergency room with complaints of nausea, vomiting, and dizziness. The patient reports that she had been doing reasonably well yesterday and just completed some yard work as well as completed some decorations on her porch. However, later that evening, she developed some nausea in association with dry heaving. She also reportedly had a couple of episodes of vomiting as well. Around the same time, she reports some dizziness as well as discomfort in the epigastric area. At around 4:00 a.m. in the morning yesterday, she went to use the restroom and apparently her went to check on her and found her on the ground. He immediately called 911. upon further questioning, the patient does not recall how she ended up on the floor but does not think that she passed out although she did report a mild headache and ongoing nausea and abdominal discomfort in general. She denied any visual changes difficulty speaking or swallowing, cough, hematemesis, melena, hematochezia, diarrhea, dysuria, fevers, or chills. She was subsequently transported to [facility] for further assessment. Workup and evaluation in the emergency room demonstrated significant hypertension with her systolic BP greater than 200 in association with hypothermia With a temperature of 91.7 degrees. Routine blood work was significant for a white blood cell count of 13.3 mild hypokalemia, mild metabolic acidosis, and a slightly elevated BUN and creatinine above baseline in association with a lactic acidosis of 8.3. Her urinalysis was only significant for a low urine specific gravity and 1+ ketones. Subsequent imaging studies including a CT of her head, chest, abdomen, and pelvis worth out any acute pathology or abnormalities. She was placed on a Reji Hugger with improvement in her temperature and receive
--- NOTE | 2024-05-15 18:28 | PM.IMPN ---
Progress Note: A&P Assessment and Plan (1) Hypertensive emergency: Code(s): I16.1 - Hypertensive emergency Status: Acute Assessment and Plan: Blood pressures have been as high as the 220s over 130s at the OSH. She had a similar episode back in January of this year for which she was transferred to [facility] in [place]. Records have been requested for review. Blood pressure spikes could simply be due to distress from ongoing dry heaves related to cyclic vomiting in the setting of her not receiving her medications today however she has episodes where her blood pressure spikes and she develops headaches with flushed face and profuse diaphoresis which is concerning for possible pheochromocytoma though that seems less likely. UDS positive for cannabinoids. Marijuana could be laced with some other substances. Nicardipine drip started and BP improved. This was titrated off last night. Home medications resumed and her BP has improved. Continue to monitor (2) Encephalopathy: Code(s): G93.40 - Encephalopathy, unspecified Status: Acute Assessment and Plan: The patient was reportedly a bit confused at the outside facility but was alert and oriented when she arrived to [place]. Following the episode of unresponsiveness she has become encephalopathic. May very well be hypertensive encephalopathy vs seizure given lactic acidosis. She does not have any significant electrolyte abnormalities on labs and does not seem to have an underlying infection. CTA head/neck showing no acute findings. Head CT showing no acute intracranial abnormalities. She is back to baseline Brain MRI completed but results pending. EEG ordered. Continue to monitor (3) Hypothermia: Code(s): T68.XXXA - Hypothermia, initial encounter Status: Acute Assessment and Plan: Temperature was 91.7? F on arrival to the outside facility. Etiology unclear. She is now normothermic. TSH normal Unclear why she had temperature dysregulation. Last time she had similar episode in January, temperature was normal. Monitor. (4) Metabolic acidosis with respiratory alkalosis: Code(s): E87.20 - Acidosis, unspecified; E87.3 - Alkalosis Status: Acute Assessment and Plan: Initial ABG showed a pH of 7.5 with mixed respiratory alkalosis and metabolic acidosis. She was given Solu-Medrol and IV Bicarb at the OSH. Salicyclate level was negative. TSH normal. Considered [employer] infection or sepsis. Consider Carbon Monoxide poisoning. Following her episode of unresponsiveness her pH dropped precipitously. It is possible that she had a hyponeic event when she was unresponsive causing decompensation. Consider seizure. Lactic acid remains elevated despite IV fluids received at the outside facility. She received more IV fluids for the elevated lactic and bicarb. Repeat VBG 7.45//45. She states she has a CO detector at home and recently had her furnace checked. WBC was elevated at 13K but higher today at 20K. Possibly related to steroids. Bicarb is better and AG closing. Follow (5) Chest pain: Code(s): R07.9 - Chest pain, unspecified Status: Acute Assessment and Plan: Patient has low chest/epigastric pain last evening and early this morning prior to nausea, vomiting, and dry heaves. Chest pain due to significantly elevated blood pressures though would consider a gastritis given cyclic vomiting picture as well. Troponin climbed to 0.36. EKG shows sinus bradycardia (59), delayed transition and possible old inferior infarct but no change from prior Repeat EKG showing similar findings except ST depression in the anterolateral leads. Echo pending Tele showing possible SVT or AFlutter. Will discuss with Cardiology. (6) Acute kidney failure: Code(s): N17.9 - Acute kidney failure, unspecified Status: Acute Assessment and Plan: Creatinine is elevated from baseline at 1.18. Likely in part due
--- NOTE | 2024-05-15 22:30 | PC.NURSE ---
This patient, Meron Watson, was transferred to [facility] on 05/15/24 at 2230. Personal belongings sent with patient. Report given to YAN Higgins. Appropriate documentation sent with patient.
[2024-05-16] VITALS (19 sets, daily range): BP systolic 115–166; BP diastolic 59–82; PULSE 57–69; RESP 16–20; TEMP 36.4–36.9; O2SAT 97–100
--- NOTE | 2024-05-16 | ECHO_ITS ---
Patient Info Name: Meron Watson Age: 68 years : 1955 Gender: Female Ht: 66 in Wt: 164 lbs BSA: 1.88 m2 HR: 57 bpm BP: 115 / 59 mmHg Heart Rhythm: Sinus Rhythm Technical Quality: Good Exam Date: 05/16/2024 10:43 AM Exam Location: Echo Lab Patient Status: Inpatient Admit Date: 05/15/2024 Staff Ordering Physician: Shyla Lyn PA-C Rooming House Keeper: Cesar Lopez RDCS Attending Provider: Reddy Frey MD Referring Physician: Riki ELY; Exam Type: CA echo doppler color flow Study Info Indications - elevated troponin, hypertensive urgency Complete two-dimensional, color flow and Doppler transthoracic echocardiogram is performed. History/Risk Factors Hypertension: Yes Dyslipidemia: No Congenital Heart Disease (CHD): No Peripheral Arterial Disease (PAD): No Myocardial Infarction (PR): No Chronic Lung Disease: No Obesity: Yes Renal Disease: No Coronary Artery Disease (CAD) No Congestive Heart Failure (CHF): No Cardiomyopathy/LV Systolic Dysfunction: No Diabetes Mellitus: No COPD: No Tobacco Use: Former Cerebrovascular Disease: CVA, Yes Deep Vein Thrombosis (DVT): None Dialysis: Prior Frailty Scale (CSHA): 4: Vulnerable Cardiac Arrest: No Prior Interventions Pacemaker: No PCI: No CABG: No Valve Surgery: No ICD: No PV Intervention: None Heart Transplant: No Summary 1. Complete two-dimensional, color flow and Doppler transthoracic echocardiogram is performed. 2. Left ventricular chamber dimension is mildly enlarged. 3. Left ventricular systolic function is normal, estimated at 60-65%. 4. The left ventricular diastolic function is normal. 5. E/e' 9 is minimally elevated. 6. Left atrial chamber dimension is mildly enlarged. 7. There is mild aortic valve sclerosis. 8. There is mild mitral valve regurgitation. 9. No pulmonary hypertension, estimated pulmonary arterial systolic pressure is 29 mmHg. Left Ventricle E/e' 9 is minimally elevated. Left ventricular chamber dimension is mildly enlarged. Left ventricular systolic function is normal, estimated at 60-65%. The left ventricular diastolic function is normal. Right Ventricle Right ventricular systolic function is normal and with normal TAPSE 3.1 cm. Right ventricular chamber dimension is normal. Left Atria Left atrial chamber dimension is mildly enlarged. Right Atria Right atrial chamber dimension is normal. Aortic Valve The aortic valve is trileaflet. There is mild aortic valve sclerosis. There is no aortic valve stenosis. There is no aortic valve regurgitation. Pulmonic Valve There is no pulmonic regurgitation. Mitral Valve There is no mitral valve stenosis. There is mild mitral valve regurgitation. Tricuspid Valve There is no tricuspid valve regurgitation. No pulmonary hypertension, estimated pulmonary arterial systolic pressure is 29 mmHg. Pericardium/Pleural There is no pericardial effusion. Inferior Vena Cava Normal inferior vena cava with >50% collapse upon inspiration consistent with normal right atrial pressure, 5 mmHg. Aorta The aortic root size at the sinus of Valsalva is normal. Left Ventricular Outflow Tract Name Value Normal LVOT 2D LVOT Diameter
[2024-05-16 00:17] LABS: Glucose Point of Care 108 mg/dl (65-105)
[2024-05-16 04:57] LABS: Hematocrit 35.9 % (37.0-47.0); Hemoglobin 11.5 g/dL (12.0-15.0); Mean Corpuscular Volume 87.6 fl (80-100); Mean Platelet Volume 10.4 fl (7.4-10.4); Platelet Count Result 180 k/mm3 (150-375); Red Cell Distribution Width 15.8 % (11.5-14.5); White Blood Count 14.7 K/mm3 (4.5-10.0)
[2024-05-16 05:11] LABS: Alanine Aminotransferase 16 U/L (6-35); Albumin Level 3.6 g/dL (3.5-5.1); Alkaline Phosphatase 77 U/L (38-126); Anion Gap 8 mmol/L (4-12); Aspartate Amino Transferase 27 U/L (14-36); Bilirubin,Total 0.4 mg/dL (0.2-1.3); Blood Urea Nitrogen 18 mg/dL (7-17); Calcium 9.1 mg/dL (8.4-10.2); Carbon Dioxide 23 mmol/L (22-30); Chloride 106 mmol/L (98-107); Estimated CRCL calculation 51 ml/min; Estimated Glomerular Filt Rate > 60; Glucose 83 mg/dL (65-110); Potassium 3.5 mmol/L (3.4-5.0); Sodium 137 mmol/L (137-145)
[2024-05-16 05:51] LABS: Cortisol Random 4.47 ug/dL
--- NOTE | 2024-05-16 05:57 | PC.NURSE ---
24 hour urine was started 05/15/24 @ 4276
[2024-05-16] MEDS: ASPIRIN 81 MG ENTERIC TABLET PO (10:13)
[2024-05-16] MEDS: ATORVASTATIN 20 MG TABLET PO (10:13)
[2024-05-16] MEDS: LOSARTAN POTASSIUM 50 MG TABLET PO ×2 (10:13→20:24)
[2024-05-16] MEDS: METOPROLOL SUCCINATE EXT REL 50 MG TABCR PO (10:13)
[2024-05-16] MEDS: MULTIVITAMINS THERAPEUTIC TAB (*BKC) 1 TABLET PO (10:14)
[2024-05-16] MEDS: PANTOPRAZOLE SODIUM IV 40 MG VIAL IV PUSH (10:14)
[2024-05-16] MEDS: ENOXAPARIN 40 MG/0.4 ML SYRINGE SUB-Q (10:14)
--- NOTE | 2024-05-16 10:45 | P.PNNP_ITS ---
Progress Note: A&P Assessment and Plan (1) Hypertensive emergency: Code(s): I16.1 - Hypertensive emergency Status: Acute Assessment and Plan: * as noted on presentation to OSH ER as well as on transfer to [facility] * initated on nicardipine gtt upon transfer to ICU * weaned off overnight/earlier on 05/15 * back on home medications (losartan and metoprolol) * PRN IV labetalol and hydralazine ordered * possible secondary cause to hypertension (?) * 24hr urine collection for metanephrines and catecholamines pending * aldosterone and renin pending * renal duplex results noted -- may need to repeat versus check CTA of abdomen to better assess renal arteries * HOWEVER, BP doing quite well at this time * follow trend of hemodynamics (2) Acute kidney failure: Code(s): N17.9 - Acute kidney failure, unspecified Status: Acute Assessment and Plan: * creatinine mildly elevated on admission * creatinine normal following IVFs and better BP control * follow trend of repeat labs (3) Lactic acidosis: Code(s): E87.20 - Acidosis, unspecified Status: Acute Assessment and Plan: * noted on admission and at OSH ER * no signs of infection by imaging and laboratory testing * lactic acid improving with current therapy * follow trend with IVFs (4) Encephalopathy: Code(s): G93.40 - Encephalopathy, unspecified Status: Acute Assessment and Plan: * resolved at this time * due to HTN/PRES versus possible seizure? * CT of head negative * MRI of brain results noted * Neurology consulted * follow mentation Will continue to follow intermittently -- await pending 24hr urine results. Subjective Date/time seen: 05/16/24 10:45 Interval history: Follow-up for hypertension (and concern for possible secondary cause). Transferred out of ICU yesterday; mentation appears to be slowly improving if not back to baseline; blood pressure under reasonably control at this time with home medications (and does not appear she has require many PRN IV medications for BP control); no apparent distress noted; no issues overnight or earlier this morning. Exam Narrative: General: WD/WN female in NAD Heart: normal S1 and S2; no rub Lungs: clear to auscultation Abdomen: soft, nontender, nondistended, positive bowel sounds Extremities: no cyanosis or clubbing; no edema Skin: warm and dry Objective Data Vital Signs Vital Signs: Vital Signs Temp Pulse Resp BP Pulse Ox O2 Del Method 05/16/24 10:13 64 05/16/24 07:50 98.4 F 61 18 136/78 100 05/16/24 06:07 57 L 05/16/24 04:00 69 05/16/24 04:16 97.7 F 60 16 115/59 L 98 05/16/24 04:00 60 16 98 Room Air 05/16/24 02:00 60 05/16/24 00:11 97.6 F 63 16 120/62 98 05/16/24 00:00 61 05/15/24 23:51 62 14 96 Room Air 05/15/24 22:00 62 05/15/24 20:00 68 05/15/24 20:00 Room Air 05/15/24 20:00 98.5 F 66 14 92/50 L 96 05/15/24 18:00 69 05/15/24 18:00 99.1 F 65 18 109/71 97 05/15/24 16:00 68 116/65 05/15/24 16:00 87 05/15/24 16:00 99.2 F 75 18 102/65 96 05/15/24 14:00 77 112/79 05/15/24 14:00 99.5 F 77 21 H 112/79 96
--- NOTE | 2024-05-16 10:45 | PM.PNNEP ---
Progress Note: A&P Assessment and Plan (1) Hypertensive emergency: Code(s): I16.1 - Hypertensive emergency Status: Acute Assessment and Plan: as noted on presentation to OSH ER as well as on transfer to [facility] initated on nicardipine gtt upon transfer to ICU weaned off overnight/earlier on 05/15 back on home medications (losartan and metoprolol) PRN IV labetalol and hydralazine ordered possible secondary cause to hypertension (?) 24hr urine collection for metanephrines and catecholamines pending aldosterone and renin pending renal duplex results noted -- may need to repeat versus check CTA of abdomen to better assess renal arteries HOWEVER, BP doing quite well at this time follow trend of hemodynamics (2) Acute kidney failure: Code(s): N17.9 - Acute kidney failure, unspecified Status: Acute Assessment and Plan: creatinine mildly elevated on admission creatinine normal following IVFs and better BP control follow trend of repeat labs (3) Lactic acidosis: Code(s): E87.20 - Acidosis, unspecified Status: Acute Assessment and Plan: noted on admission and at OSH ER no signs of infection by imaging and laboratory testing lactic acid improving with current therapy follow trend with IVFs (4) Encephalopathy: Code(s): G93.40 - Encephalopathy, unspecified Status: Acute Assessment and Plan: resolved at this time due to HTN/PRES versus possible seizure? CT of head negative MRI of brain results noted Neurology consulted follow mentation Will continue to follow intermittently -- await pending 24hr urine results. Subjective Date/time seen: 05/16/24 10:45 Interval history: Follow-up for hypertension (and concern for possible secondary cause). Transferred out of ICU yesterday; mentation appears to be slowly improving if not back to baseline; blood pressure under reasonably control at this time with home medications (and does not appear she has require many PRN IV medications for BP control); no apparent distress noted; no issues overnight or earlier this morning. Exam Narrative: General: WD/WN female in NAD Heart: normal S1 and S2; no rub Lungs: clear to auscultation Abdomen: soft, nontender, nondistended, positive bowel sounds Extremities: no cyanosis or clubbing; no edema Skin: warm and dry Objective Data Vital Signs Vital Signs: Vital Signs Temp Pulse Resp BP Pulse Ox O2 Del Method 05/16/24 10:13 64 05/16/24 07:50 98.4 F 61 18 136/78 100 05/16/24 06:07 57 L 05/16/24 04:00 69 05/16/24 04:16 97.7 F 60 16 115/59 L 98 05/16/24 04:00 60 16 98 Room Air 05/16/24 02:00 60 05/16/24 00:11 97.6 F 63 16 120/62 98 05/16/24 00:00 61 05/15/24 23:51 62 14 96 Room Air 05/15/24 22:00 62 05/15/24 20:00 68 05/15/24 20:00 Room Air 05/15/24 20:00 98.5 F 66 14 92/50 L 96 05/15/24 18:00 69 05/15/24 18:00 99.1 F 65 18 109/71 97 05/15/24 16:00 68 116/65 05/15/24 16:00 87 05/15/24 16:00 99.2 F 75 18 102/65 96 05/15/24 14:00 77 112/79 05/15/24 14:00 99.5 F 77 21 H 112/79 96 05/15/24 14:00 73 Intake/Output Intake/Output: Intake & Output 05/13/24 05/14/24 05/15/24 05/16/24 23:59 23:59 23:59 23:59 Intake Total 4768.1 2444.6 Output Total 2700 1625 350 Balance 2068.1 819.6 -350 Meds/Results Medications: Active Medications Generic Name Dose Route Start Last Admin Trade Name Freq PRN Reason Stop Dose Admin Acetaminophen 650 mg 05/14/24 18:28 Acetaminophen 325 Mg Tablet PO Q6H PRN Mild Pain (1-3) or Fever Aspirin 81 mg 05/15/24 09:00 05/16/24 10:13 Aspirin 81 Mg Enteric Tablet PO 81 mg DAILY THANH Administration Atorvastatin Calcium 20 mg 05/15/24 09:00 05/16/24 10:13 Atorvastatin 20 Mg Tablet PO
[2024-05-16 11:59] LABS: Glucose Point of Care 94 mg/dl (65-105)
--- NOTE | 2024-05-16 16:27 | PM.IMPN ---
Progress Note: A&P Assessment and Plan (1) Hypertensive emergency: Code(s): I16.1 - Hypertensive emergency Status: Acute Assessment and Plan: Blood pressures have been as high as the 220s over 130s at the OSH. She had a similar episode back in January of this year for which she was transferred to [facility] in [place]. Records have been requested for review. Blood pressure spikes could simply be due to distress from ongoing dry heaves related to cyclic vomiting in the setting of her not receiving her medications today however she has episodes where her blood pressure spikes and she develops headaches with flushed face and profuse diaphoresis which is concerning for possible pheochromocytoma though that seems less likely. UDS positive for cannabinoids. Marijuana could be laced with some other substances. Nicardipine drip started and BP improved. This was titrated off 05/15. Home medications resumed and her BP has improved and remained stable. Continue to monitor (2) Encephalopathy: Code(s): G93.40 - Encephalopathy, unspecified Status: Acute Assessment and Plan: The patient was reportedly a bit confused at the outside facility but was alert and oriented when she arrived to [place]. Following the episode of unresponsiveness she has become encephalopathic. May very well be hypertensive encephalopathy vs seizure given lactic acidosis. She does not have any significant electrolyte abnormalities on labs and does not seem to have an underlying infection. CTA head/neck showing no acute findings. Head CT showing no acute intracranial abnormalities. mental status returned to baseline Brain MRI shows a single small nonspecific FLAIR hyperintense white matter lesion in the left occipital region. Focal/mild chronic microvascular ischemic change is a consideration. Demyelinating disease, vasculitis would be alternative considerations. EEG ordered. Neurology consulted and appreciate their input. Finishing up her 24hr hour urine today. Continue to monitor. Continue ASA and Lipitor. (3) Hypothermia: Code(s): T68.XXXA - Hypothermia, initial encounter Status: Acute Assessment and Plan: Temperature was 91.7? F on arrival to the outside facility. Etiology unclear. She is now normothermic. TSH normal Unclear why she had temperature dysregulation. Last time she had similar episode in January, temperature was normal. Monitor. (4) Metabolic acidosis with respiratory alkalosis: Code(s): E87.20 - Acidosis, unspecified; E87.3 - Alkalosis Status: Acute Assessment and Plan: Initial ABG showed a pH of 7.5 with mixed respiratory alkalosis and metabolic acidosis. She was given Solu-Medrol and IV Bicarb at the OSH. Salicyclate level was negative. TSH normal. Considered PRODUCTION DIRECTOR infection or sepsis. Consider Carbon Monoxide poisoning. Following her episode of unresponsiveness her pH dropped precipitously. It is possible that she had a hyponeic event when she was unresponsive causing decompensation. Consider seizure. Lactic acid remains elevated despite IV fluids received at the outside facility. She received more IV fluids for the elevated lactic and bicarb. Repeat VBG 7.45//45. She states she has a CO detector at home and recently had her furnace checked. Full ABG ordered but since cancelled. WBC was elevated to 20K possibly related to steroids. WBC better today. Bicarb is better and AG closing. Follow (5) Chest pain: Code(s): R07.9 - Chest pain, unspecified Status: Acute Assessment and Plan: Patient has lower chest/epigastric pain prior to nausea, vomiting, and dry heaves. Chest pain due to significantly elevated blood pressures though would consider a gastritis given cyclic vomiting picture as well. Troponin climbed to 0.36. EKG shows sinus bradycardia (59), delayed transition and possible old inferior infarct but no change from prior Repeat EKG showing simila
--- NOTE | 2024-05-16 17:37 | WPDNEURCNPN ---
Assessment and Plan Assessment and plan (1) Hypertensive emergency: Code(s): I16.1 - Hypertensive emergency Status: Acute Assessment and Plan: This may being addressed by her circular saw operator and a nephrology teams and at this time her blood pressure seems to be controlled. (2) Acute kidney failure: Code(s): N17.9 - Acute kidney failure, unspecified Status: Acute Assessment and Plan: It appears that her renal function is improving. She is followed being followed by a human resources benefits manager. (3) Vertigo: Code(s): R42 - Dizziness and giddiness Status: Acute Assessment and Plan: she has history of occasional vertigo and this could certainly be peripheral vestibular etiology. Her CT angiogram of the brain did not show any vertebrobasilar insufficiency. 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 No lesion identified in the brainstem otherwise. (4) Syncope: Code(s): R55 - Syncope and collapse Status: Acute Assessment and Plan: according to the records she has had a single episode of unresponsiveness witnessed by an nuclear cardiology technologist. She needs to followed up for any cardiac arrhythmias. She has had a fair amount of cerebrovascular workup. An EEG would also be recommended. Plan 1.With regard to the mental status I believe that the since he has had a lot happened recently I shall suggest a repeat mini-mental status examination in 4-6 weeks time and we can follow through. In the meanwhile continue attention to her underlying metabolic problem should help. Feels she have any further spells of unresponsiveness or neurologic problem I shall be glad to re-evaluate her. 2.With regard to the vertigo she is aware of the crystals in the ear making her have this problem. If this is a recurrent problem she may require course of Vestibular rehab. 3.I reviewed the results of MRI of the brain and noted a single lesion in the left occipital area. I suspect this to be ischemic lesion and most likely coincidental finding. The diffusion scanning did not show evidence for recent stroke. We should check her lipid profile and vitamin B12 and folic acid level And methylmalonic acid level with regard to the evaluation for cerebrovascular disease and cognitive issues. Consult date: 05/16/24 HPI: Meron Watson is a 68 year old female presented to the hospital with hypertensive emergency. At 1 time she was found to be unresponsive by an industrial technician around 3:00 p.m.. The possibility of seizure was considered and she was started on Keppra however it did not seem to be convincing and hence it was finally stopped. The patient today is doing better now and denies any significant problem. Or apparently there was also some change in mental status and the possible encephalopathy due to hypertension or any other etiologies have been looked into. There is no evidence for any definite infection. Initially lactic acid level was slightly high. The patient states that she has had dizziness when she has high blood pressure on 1 occasion she was taken to [facility] on account of similar presentation. This time she denies any weakness in upper lower limbs. She states that she stays home to take care of her who is older and has a significant medical problems. The patient did have a CT angiogram of head and neck which did not show any significant abnormalities. MRI of the brain was performed which shows a possible lesion in the left occipital area possible ischemic lesion but could be old since he did not enhance on the diffusion sequence. Patient has used marijuana on and off. There is also history of breast cancer 5 6 years ago however to her knowledge this has been normal. Her white cell count has been elevated and it was noted that she also has renal insufficiency and has been followed by human resources benefits manager. Her hypertension is also being investigat
[2024-05-16 18:02] LABS: Glucose Point of Care 93 mg/dl (65-105)
[2024-05-16 19:18] LABS: Cholesterol 122 mg/dL (0-200); HDL Direct 54 mg/dL; Triglycerides 177 mg/dL (<150)
[2024-05-16 19:29] LABS: LDL Cholesterol Direct 35 mg/dL
[2024-05-16 20:07] LABS: Glucose Point of Care 94 mg/dl (65-105)
[2024-05-16 20:26] LABS: Folic Acid 11.9 ng/mL (2.76->20)
[2024-05-17] VITALS (10 sets, daily range): BP systolic 144–175; BP diastolic 70–89; PULSE 54–68; RESP 16–18; TEMP 36.5–36.9; O2SAT 96–100
[2024-05-17 05:14] LABS: Hematocrit 35.5 % (37.0-47.0); Hemoglobin 11.8 g/dL (12.0-15.0); Mean Corpuscular HGB Conc 33.2 g/dl (32-36); Mean Corpuscular Hemoglobin 28.8 pg (26-34); Mean Corpuscular Volume 86.6 fl (80-100); Mean Platelet Volume 10.7 fl (7.4-10.4); Platelet Count Result 168 k/mm3 (150-375); Red Cell Distribution Width 15.1 % (11.5-14.5); White Blood Count 7.9 K/mm3 (4.5-10.0)
[2024-05-17 05:24] LABS: Alanine Aminotransferase 16 U/L (6-35); Albumin Level 4.1 g/dL (3.5-5.1); Alkaline Phosphatase 77 U/L (38-126); Anion Gap 6 mmol/L (4-12); Aspartate Amino Transferase 23 U/L (14-36); Bilirubin,Total 0.5 mg/dL (0.2-1.3); Blood Urea Nitrogen 15 mg/dL (7-17); Calcium 8.9 mg/dL (8.4-10.2); Carbon Dioxide 27 mmol/L (22-30); Chloride 104 mmol/L (98-107); Estimated CRCL calculation 56 ml/min; Estimated Glomerular Filt Rate > 60; Glucose 86 mg/dL (65-110); Potassium 3.7 mmol/L (3.4-5.0); Sodium 137 mmol/L (137-145)
[2024-05-17 07:54] LABS: Glucose Point of Care 99 mg/dl (65-105)
[2024-05-17] MEDS: ATORVASTATIN 20 MG TABLET PO (08:34)
[2024-05-17] MEDS: MULTIVITAMINS THERAPEUTIC TAB (*BKC) 1 TABLET PO (08:34)
[2024-05-17] MEDS: PANTOPRAZOLE 40 MG TABLET PO (08:34)
[2024-05-17] MEDS: ENOXAPARIN 40 MG/0.4 ML SYRINGE SUB-Q (08:34)
[2024-05-17] MEDS: ASPIRIN 81 MG ENTERIC TABLET PO (08:34)
[2024-05-17] MEDS: LOSARTAN POTASSIUM 50 MG TABLET PO (08:34)
[2024-05-17] MEDS: METOPROLOL SUCCINATE EXT REL 50 MG TABCR PO (08:34)
[2024-05-17 11:34] LABS: Glucose Point of Care 90 mg/dl (65-105)
--- NOTE | 2024-05-17 11:43 | P.NEURO_ITS ---
Neurology EEG Report General Information Date of Study: 06/15/24 TEST eeg DIAGNOSIS encephalopathy CONDITION OF RECORDING awake and alert EEG NUMBER [id number] CLINICAL HISTORY encephalopathy EEG DESCRIPTION basic resting occipital frequency consists of low voltage 8 to 10 hertz per 2nd alpha admixed with low-voltage 15 to 18 hertz per 2nd beta activity. Good rhoda posterior gradient noted. Low-voltage beta activity seen diffusely admix ed with waxing and waning alpha rhythm posteriorly. Bilateral symmetrical sleep activity is noted during sleep. Hyperventilation not done. Photic stimulation not done. IMPRESSION No significant abnormalities noted in this tracing. Clinical correlation recommended.
--- NOTE | 2024-05-17 14:37 | PM.DS ---
DS: Admitting Diagnosis Discharge Date 05/17/24 Admitting Diagnosis Chest pain, hypothermia, nausea, vomiting DS: Discharge Diagnosis Discharge Diagnosis (1) Hypertensive emergency: Code(s): I16.1 - Hypertensive emergency Status: Acute (2) Encephalopathy: Code(s): G93.40 - Encephalopathy, unspecified Status: Acute (3) Hypothermia: Code(s): T68.XXXA - Hypothermia, initial encounter Status: Acute (4) Metabolic acidosis with respiratory alkalosis: Code(s): E87.20 - Acidosis, unspecified; E87.3 - Alkalosis Status: Acute (5) Chest pain: Code(s): R07.9 - Chest pain, unspecified Status: Acute (6) Acute kidney failure: Code(s): N17.9 - Acute kidney failure, unspecified Status: Acute (7) Hypokalemia: Code(s): E87.6 - Hypokalemia Status: Acute (8) Cyclic vomiting syndrome: Code(s): R11.15 - Cyclical vomiting syndrome unrelated to migraine Status: Acute (9) Marijuana abuse: Code(s): F12.10 - Cannabis abuse, uncomplicated Status: Acute (10) Hyperglycemia: Code(s): R73.9 - Hyperglycemia, unspecified Status: Acute (11) Gastroesophageal reflux disease: Code(s): K21.9 - Gastro-esophageal reflux disease without esophagitis Status: Chronic DS: Summary Hospital Course Reason for hospitalization: 68yo female with HTN, marijuana abuse, hx of breast cancer, HTN and cyclic vomiting transferred from [facility] for chest pain, hypothermia, nausea, vomiting and found to have HTN emergency. Please see H&P for details. Hospital Course: The patient was reportedly a bit confused at the outside facility but was alert and oriented when she arrived to [place]. Following the episode of unresponsiveness she became encephalopathic. May very well be hypertensive encephalopathy. lactic acid was elevated so consider seizure as well. She does not have any significant electrolyte abnormalities on labs and does not seem to have an underlying infection. CTA head/neck showing no acute findings. Head CT showing no acute intracranial abnormalities. Mental status returned to baseline. Brain MRI shows a single small nonspecific FLAIR hyperintense white matter lesion in the left occipital region. Focal/mild chronic microvascular ischemic change is a consideration. Demyelinating disease, vasculitis would be alternative considerations. EEG was normal. The MRI findings felt to be old ischemic lesion and most likely coincidental finding. Neurology consulted and appreciate their input. We continued ASA and Lipitor. Blood pressures was high as the 220s over 130s at the OSH. She had a similar episode back in January of this year for which she was transferred to [facility] in [place]. Blood pressure spikes could simply be due to distress from ongoing dry heaves related to cyclic vomiting in the setting of her not receiving her medications today however she has episodes where her blood pressure spikes and she develops headaches with flushed face and profuse diaphoresis which is concerning for possible pheochromocytoma so appropriate testing ordered. UDS positive for cannabinoids. Marijuana could be laced with some other substances. Patient smokes marijuana daily. This is likely the cause of her repeated episodes of cyclic vomiting. Discussed benefits of abstaining from marijuana use. Nicardipine drip started and BP improved. This was titrated off 05/15. Her home medications were resumed and her BP has remained stable. Temperature was 91.7? F on arrival to the outside facility. Reji Hugger started. Etiology was unclear. She was normothermic and able to wean off the Reji Hugger. TSH normal. Last time she had similar episode in January, temperature was normal. Initial ABG showed a pH of 7.5 with mixed respiratory alkalosis and metabolic acidosis. She was given Solu-Medrol and IV Bicarb at the OSH. Salicyclate level was negative. Consider Carbon Monoxi
[2024-05-17 16:51] LABS: Osmolality, Urine 439
[2024-05-18 08:34] LABS: Prolactin 5.1 ng/mL
[2024-05-20 07:31] LABS: Calculated Total (E+NE) 167 mcg/24 h (26-121); Dopamine, 24hr Urine 256 mcg/24 h (52-480); Epinephrine, 24hr Urine 16 mcg/24 h (2-24); Norepinephrine, 24hr Urine 151 mcg/24 h (15-100)
[2024-05-20 12:08] LABS: Methylmalonic Acid 220 nmol/L (69-390)
[2024-05-21 14:18] LABS: Metanephrine, Total Urine 1100 mcg/24 h (224-832); Metanephrine, Urine 217 mcg/24 h (90-315); Normetanephrine, Urine 883 mcg/24 h (122-676)
[2024-05-23 10:18] LABS: PRA 0.58 ng/mL/h (0.25-5.82)
[2024-05-24 23:19] LABS: Renin 0.72 ng/mL/h (0.25-5.82)
--- NOTE | 2024-05-25 09:06 | PC.NURSE ---
All labs are WNL except Catechol 24 H urine- 167. Prolactin aldosterone Ortega/renin Ratio TK Metaneph 24 H urine Methylmalonic acid Renin Urine Cortisol Dr. Frey aware of all labs.
--- NOTE | 2024-05-30 07:06 | PC.NURSE ---
Labs were faxed to Dr. Dc Velarde per Dr. Frey order. Prolactin Aldosterone Ortega/Renin Ratio KT Catechol 24 hr Metaneph 24 hr Methylmalonic acid Renein Urine Cortisol
== END 2024-05-17 17:15 | disposition home or self-care (01) | DRG 305 ==
LOC: ANHICU 05-15 07:22 → ANHIMU 05-15 22:44
PROVIDERS: Internal Medicine; Internal Medicine Nephrology; Physician Assistant; Psychiatry & Neurology Neurology; Admitting Provider Internal Medicine; PCP Internal Medicine; Visit Provider Internal Medicine
DX: I16.1 Hypertensive emergency (principal); I67.4 Hypertensive encephalopathy; N17.9 Acute kidney failure, unspecified; E87.21 Acute metabolic acidosis; E87.3 Alkalosis; R56.9 Unspecified convulsions; E87.6 Hypokalemia; R11.15 Cyclical vomiting syndrome unrelated to migraine; F12.10 Cannabis abuse, uncomplicated; R73.9 Hyperglycemia, unspecified; K21.9 Gastro-esophageal reflux disease without esophagitis; R68.0 Hypothermia, not associated with low environmental temperature; Z96.641 Presence of right artificial hip joint; Z98.1 Arthrodesis status; Z90.49 Acquired absence of other specified parts of digestive tract; Z79.82 Long term (current) use of aspirin; Z86.73 Personal history of transient ischemic attack (TIA), and cerebral infarction without residual deficits
CPT/HCPCS: 36415; 36600; 70450; 70553; 76770; 80048; 80053; 80061; 80307; 82010; 82088; 82140; 82306; 82384; 82530; 82533; 82570; 82607; 82746; 82803; 82805; 82810; 82948; 83036; 83605; 83735; 83835; 83921; 83930; 83935; 84100; 84133; 84145; 84146; 84244; 84300; 84443; 84484; 85018; 85025; 85027; 85652; 86038; 86039; 86140; 86592; 86703; 87641; 93005; 93306; 93976; 95816; A9270; A9577; G0432; J1650; J2060; J2404; J2470; J2765; J3480; J7030; J7040; J7050; J7120

== ENCOUNTER 2024-05-27 07:28 | Outpatient (CLI) | payer MEDICARE, SELFPAY ==
--- NOTE | ~2024-05-27 | CT_ITS ---
EXAMINATION: CTA brain carotid DATE: 05/27/2024 07:54 INDICATION: Posterior cerebrovascular disease. TECHNIQUE: Computed tomographic angiography (CTA) of the head was performed without and with 100 mL O mnipaque-350 intravenous contrast. CTA of the neck was performed with intravenous contrast. Automated exposure control and iterative reconstruction technique were employed. The dose-length product was 1 561.15 mGy-cm. Maximum intensity projection and volume rendered 3D-reconstructions were created by krystla bar technologist on a separate workstation. COMPARISON: Head CT 05/14/2024 FINDINGS: HEAD CTA: There is no intracranial hemorrhage, acute infarction, or abnormal intracranial mass lesion . The ventricles are normal in size. There is an old blowout fracture of medial wall of right orbit. There is mild mucosal thickening in the ethmoid sinuses. The mastoid air cells are normal. The verteb ral arteries are codominant. There is no significant stenosis of basilar artery or the posterior cere bral arteries. There is no significant stenosis of the intracranial internal carotid arteries or ante rior or middle cerebral arteries. Anterior communicating artery is normal. The posterior communicatin g arteries are normal. There is no aneurysm. NECK CTA: There are no pathologically enlarged lymph nodes. There is no significant stenosis of the v ertebral arteries. There is mild plaque in the proximal internal carotid. There is 0% stenosis of the proximal right internal carotid artery relative to normal distal artery lumen diameter (NASCET crite rajinder). There is 0% stenosis of the proximal left internal carotid artery relative to normal distal art jeanine lumen diameter. There is severe cervical spondylosis. IMPRESSION: 1. Normal brain. 2. No aneurysm or significant intracranial arterial stenosis. 3. 0% stenosis of the proximal internal carotid arteries relative to normal distal artery lumen diame ters (NASCET criteria). Reviewed, dictated and finalized at location A. IMPRESSION: 1. Normal brain. 2. No aneurysm or significant intracranial arterial stenosis. 3. 0% stenosis of the proximal internal carotid arteries relative to normal dis karlos artery lumen diameters (NASCET criteria).
== END 2024-05-27 07:29 | disposition home or self-care (01) ==
LOC: CHSIMG 07:30
PROVIDERS: PCP Internal Medicine; Visit Provider Internal Medicine
DX: I67.89 Other cerebrovascular disease (principal)
CPT/HCPCS: 70496; 70498; Q9967

== ENCOUNTER 2024-06-03 08:49 | Outpatient (CLI) | payer MEDICARE, SELFPAY ==
--- NOTE | ~2024-06-03 | MM_ITS ---
EXAMINATION: MM screening cherelle BI w ciera HISTORY: Screening TECHNIQUE: Craniocaudal and mediolateral oblique 3-D tomosynthesis images were obtained and synthetic 2-D images were generated. CAD analysis was submitted and interpreted. COMPARISON: Comparison to multiple prior studies sequentially, with oldest reviewed study dated 09/2017. BREAST PARENCHYMAL COMPOSITION: Not dense: There are scattered areas of fibroglandular density. FINDINGS: Stable architectural distortion of the left breast, consistent with previous lumpectomy sit e. There is no evidence of suspicious mass, calcification, or architectural distortion to suggest mal ignancy in either breast. There has been no suspicious interval change. IMPRESSION: 1. No mammographic evidence of malignancy. 2. Recommend routine screening mammography in one year. BI-RADS Category 2: Benign finding(s). Reviewed, dictated and finalized at location B.
== END 2024-06-03 08:50 | disposition home or self-care (01) ==
LOC: ANHIMG 08:52
PROVIDERS: PCP Internal Medicine; Visit Provider Advanced Practice Midwife
DX: Z12.31 Encounter for screening mammogram for malignant neoplasm of breast (principal)
CPT/HCPCS: 77063; 77067

== ENCOUNTER 2024-09-26 02:57 | Observation (INO) | payer MEDICARE, SELFPAY ==
[2024-09-26] VITALS (15 sets, daily range): BP systolic 102–218; BP diastolic 60–135; PULSE 65–111; RESP 18–24; TEMP 36.3–36.9; O2SAT 97–100; BMI 25.6
--- NOTE | ~2024-09-26 | CT_ITS ---
Non-contrast Head CT History: Altered mental status COMPARISON: 05/27/2024 Technique: Axial non-contrast imaging of the brain was performed. Dose reduction technique was used on this scan by utilizing automated exposure control and iterative reconstruction technique. The dose -length product (DLP) was 605.33 mGy-cm. Findings: There is no evidence of intracranial hemorrhage, mass lesion, or acute infarct. Brain par enchyma appears normal. The ventricles and subarachnoid spaces are normal in size. The calvarium ap pears normal. The visualized paranasal sinuses and mastoid air cells are clear. Impression: No significant abnormality seen. Reviewed, dictated and finalized at location . RY WRAPPER Impression: No significant abnormality seen.
--- OUTSIDE RECORDS SUMMARY | 2024-09-26 02:59 | XMS_ITS | Referral Summary ---
[facility] Address [address] [place] [address] Care Team Providers Care Knitting Inspector Name Role Phone Florencio Larkin MD Primary Care Provider Mark Massey MD Unavailable [phone] Chloe Parson MD Unavailable [phone] Allergies Active Allergy Reactions Criticality Noted Date Comments Prochlorperazine Unknown 03/02/2018 Morphine Itching Medium 11/28/2017 Ondansetron Unknown 11/10/[address] (ACIPHEX) 20 mg EC tablet Take 20 mg by mouth daily. Active escitalopram (LEXAPRO) 20 mg tablet Take 20 mg by mouth daily. Active multivitamin tablet Take 1 tablet by mouth daily. Active meclizine (ANTIVERT) 25 mg tablet Take 25 mg by mouth 3 (three) times a day as needed for dizziness. Active cholecalciferol (VITAMIN D-3) 1,000 unit tablet Take 1,000 Units by mouth daily. Active metoprolol XL (TOPROL-XL) 25 mg 24 hr tablet Take 25 mg by mouth daily. Active aspirin 81 mg tablet Take 1 tablet (81 mg total) by mouth daily. 30 tablet 12/02/2017 Active atorvastatin (LIPITOR) 40 mg tablet Take 1 tablet (40 mg total) by mouth nightly. 30 tablet 12/01/2017 Active Active Problems Problem Noted Date Diagnosed Date Cardiac arrest with successful resuscitation (CM S/HCC) 10/28/2018 Assessment & Plan (11/02/2018 10:36 AM CDT): Patient reportedly became rigid and presumably unresponsive and pulseless in the ambulance after being given IV zofran vs compazine in route. Per ICU H&P, patient was coded for 3-4 minutes before ROSC was achieved. It is unclear if this episode was truly cardiac arrest. Patient remained only briefly intubated. Patient passed PSV and was extubated shortly after arrival to [facility] MICU on same day of admission. -Etiology of this event is unclear as work-up has been negative. -QT prolongation is a consideration given patient reportedly took some anti- nausea medications prior to being given IV zofran/compazine. Although EKG on admission showed QTc was normal 464, making this hypothesis purely speculative. Of note, patient had a 30 day event monitor in November 2017 which was negative for arrhythmias. -Also with prior history of agitation and acute delirium after receiving Compazine back in February 2018 as well -TTE 10/28/18 showed normal EF 70%, grade I diastolic dysfunciton, normal LV/RV size & function, no valvular abnormalities. -Continue with daily electrolyte repletion Assessment & Plan (11/01/2018 2:14 PM CDT): Patient reportedly became rigid and presumably unresponsive and pulseless in the ambulance after being given IV zofran vs compazine in route. Per ICU H&P, patient was coded for 3-4 minutes before ROSC was achieved. It is unclear if this episode was truly cardiac arrest. Patient remained only briefly intubated. Patient passed PSV and was extubated shortly after arrival to [facility] MICU on same day of admission. -Etiology of this event is unclear as work-up has been negative. -QT prolongation is a consideration given patient reportedly took some anti- nausea medications prior to being given IV zofran/compazine. Although EKG on admission showed QTc was normal 464, making this hypothesis purely speculative. Of note, patient had a 30 day event monitor in November 2017 which was negative for arrhythmias. -Also with prior history of agitation and acute delirium after receiving Compazine back in February 2018 as well -TTE 10/28/18 showed normal EF 70%, grade I diastolic dysfunciton, normal LV/RV size & function, no valvular abnormalities. -Potassium was 3.2 and Magnesium was 1.8 on admission -Continue with daily electrolyte repletion Assessment & Plan (10/31/2018 4:23 PM CDT): Patient reportedly became rigid and presumably unresponsive and pulseless in the ambulance after being given IV zofran vs compazine in route. Per ICU H&P, patient was coded for 3-4 minutes before ROSC was achieved. It is unclear if this episode was truly cardiac arrest. Patient remained only briefly intubated. Patient passed PSV and was extubated shortly after arrival to [facility] MICU on same day of admission. -Etiology of this event is unclear as work-up has been negative. -QT prolongation is a consideration given patient reportedly took some anti- nausea medications prior to being given IV zofran/compazine. Although EKG on admission showed QTc was normal 464, making this hypothesis purely speculative. Of note, patient had a 30 day event monitor in November 2017 which was negative for arrhythmias. -TTE 10/28/18 showed normal EF 70%, grade I diastolic dysfunciton, normal LV/RV size & function, no valvular abnormalities. -Potassium was 3.2 and Magnesium was 1.8 on admission. Unlikely related to electrolyte abnormalities. Prior mention of hypokalemia periodic paralysis is highly unlikely and should not be placed in patient's chart as the latter is a genetically acquired neuromuscular disorder that presents in childhood/teenage years w/ an associated family history. Patient has not had any genetic, provocative, biopsy testing to remotely support this diagnosis. HPP also does not result in loss of consciousness. Assessment & Plan (10/30/2018 12:25 PM CDT): Unknown cardiac arrest timeframe in EMS transport from home to OSH. Intubated upon arrival to OSH. ROSC verbally thought to be 3-4 minutes although not team that performed it. Difficult to locate appropriate record of this event. -ctm -troponin trend negative -cxr clear Nausea & vomiting 10/28/2018 Assessment & Plan (11/02/2018 10:37 AM CDT): Patient presented with acute episodes of vomiting leading up to reported cardiac arrest. 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 Lipase 28 on admission, without correlation. -GI consulted while in MICU & are recommending MRCP to assess for underlying malignancy, completed this AM -No evidence of intracranial abnormalities on brain MRI. -Now resolved and is tolerating full diet without nausea/vomiting -Likely discharge home today after MRCP has been read Assessment & Plan (11/01/2018 2:17 PM CDT): Patient presented with acute episodes of vomiting leading up to reported cardiac arrest. 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 Lipase 28 on admission, without correlation. -GI consulted while in MICU & are recommending MRCP to assess for underlying malignancy -No evidence of intracranial abnormalities on brain MRI. -Now resolved and is tolerating full diet without nausea/vomiting Assessment & Plan (10/31/2018 4:49 PM CDT): Patient presented with acute episodes of vomiting leading up to reported cardiac arrest. -Unclear etiology. Considerations include viral gastroenteritis or pancreatitis. 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 Lipase 28 on admission, without correlation. Plan to consult [facility] GI to determine if further evaluation is needed w/ MRI vs EUS. -No evidence of intracranial abnormalities on brain MRI. -Not currently symptomatic Assessment & Plan (10/31/2018 12:59 PM CDT): Reported for about 3 days prior to admission after calling EMS due to continued weakness and progressive altered mental status. 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 Reported abdominal discomfort thought to be constipation with numerous days of laxative without improvement of abdominal discomfort symptoms. Further d/w patient regarding symptoms is that she initiates coughing and then starts gagging and then vomiting. It doesn't seem to be associated with nausea. Allergy to compazine, reporting zofran is not effective, also questionable benadryl use previously causing a reaction of rigidity as well, considering we will hold on using compazine, zofran or benadry. Given 2 doses of ativan without resolve also. 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 -GI consult; appreciate recs see pancreatitis above -RE-CONSULT GI upon arrival to accepting floor today Hyponatremia 03/04/2018 Assessment & Plan (03/05/2018 10:40 AM CDT): Remains mildly hyponatremic. Suspect this is likely from thiazide diuretic + low PO intake and volume depletion from pancreatitis. Uosm 200, Carmella 80, Sosm mildly low (262). TSH mildly elevated but T4 wnl, AM cortisol 10 -CTM BMP -Hold HCTZ/triamterene Assessment & Plan (03/04/2018 10:03 AM CDT): -Na 130 at OSH, repeat Na 132. Suspect 2/2 volume depletion from N/V as well as diuretic. -Repeat BMP after volume resuscitation -Hold HCTZ/triamterene Assessment & Plan (03/04/2018 12:29 AM CDT): -Na 130 at OSH, repeat Na 132. Suspect 2/2 volume depletion from N/V as well as diuretic. -Cont IVF and trend BMP -Hold HCTZ/triamterene Nausea and vomiting 03/04/2018 Assessment & Plan (03/04/2018 10:03 AM CDT): Likely mild pancreatitis vs possible gastroenteritis vs GERD. CT with mild peripancreatic stranding, however lipase normal both here and at OSH -Tolerating diet Assessment & Plan (03/04/2018 12:30 AM CDT): -CT with mild peripancreatic stranding, however lipase normal both here and at OSH -IVF -Advance diet as tolerated -Advise EtOH cessation Essential hypertension 03/04/2018 Assessment & Plan (11/02/2018 10:36 AM CDT): Continue metoprolol 25 mg ER. Assessment & Plan (11/01/2018 2:16 PM CDT): Continue metoprolol 25 mg ER. Assessment & Plan (10/31/2018 4:44 PM CDT): Continue metoprolol 25 mg ER. Assessment & Plan (10/30/2018 12:26 PM CDT): Home meds Maxzide on hold for now -continue metoprolol (home med) Assessment & Plan (03/05/2018 10:40 AM CDT): -Cont metop, hold HCTZ/triamterene 2/2 hyponatremia. Currently normotensive. Assessment & Plan (03/04/2018 10:04 AM CDT): -Cont metop, hold HCTZ/triamterene 2/2 hyponatremia. Currently normotensive. Assessment & Plan (03/04/2018 12:31 AM CDT): -Cont metop, hold HCTZ/triamterene 2/2 hyponatremia. Can add additional agent if needed. 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 Reportedly in remission. -No evidence of malignancy on CT abd/pelvis, CXR, brain MRI Assessment & Plan (11/01/2018 2:16 PM CDT): S/p prior lumpectomy and radiation. Reportedly in remission. -No evidence of malignancy on CT abd/pelvis, CXR, brain MRI Assessment & Plan (10/31/2018 4:46 PM CDT): S/p prior lumpectomy and radiation. Reportedly in remission. -No evidence of malignancy on CT abd/pelvis, CXR, brain MRI Assessment & Plan (10/28/2018 9:02 AM CDT): Remote breast cancer history s/p lumpectomy and XRT without recurrence. Assessment & Plan (03/04/2018 10:02 AM CDT): No longer on tamoxifen per patient Assessment & Plan (03/04/2018 12:28 AM CDT): -No longer on tamoxifen per patient Basal cell carcinoma (BCC) of face 08/05/2010 Stroke Assessment & Plan (11/02/2018 10:37 AM CDT): Patient with admission for suspected stroke 11/2017, presenting with weakness, ataxia, and discoordination. She was given TPA. MRI/MRA 11/2017 showed vascular irregularity (artifact vs vasculopathy) without clear demonstration of stroke. -No focal deficits at baseline -Prior secondary stroke work-up unrevealing, including carotid US and TTE -will continue aspirin 81 mg and atorvastatin for risk reduction Assessment & Plan (11/01/2018 2:17 PM CDT): Patient with admission for suspected stroke 11/2017, presenting with weakness, ataxia, and discoordination. She was given TPA. MRI/MRA 11/2017 showed vascular irregularity (artifact vs vasculopathy) without clear demonstration of stroke. -No focal deficits at baseline -Prior secondary stroke work-up unrevealing, including carotid US and TTE -will continue aspirin 81 mg and atorvastatin for risk reduction Assessment & Plan (10/31/2018 4:43 PM CDT): Patient with admission for suspected stroke 11/2017, presenting with weakness, ataxia, and discoordination. She was given TPA. MRI/MRA 11/2017 showed vascular irregularity (artifact vs vasculopathy) without clear demonstration of stroke. -No focal deficits at baseline -Prior secondary stroke work-up unrevealing, including carotid US and TTE -will continue aspirin 81 mg and atorvastatin for risk reduction Assessment & Plan (10/30/2018 12:25 PM CDT): CVA 01/2018. Remains on blood pressure control medications as well as asa, statin. 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 Likely diagnosis with patients history of chronic pancreatitis and remote drinking history now presenting with vomiting. -GI consult; appreciate recs, holding for patient campus placement per GI to assign team -PPI continues -baclofen prn for antinausea treatment -consider imaging for duodenal stenosis, possible duodenal biopsy Acute hypoxemic respiratory failure 10/28/2018 10/31/2018 Assessment & Plan (10/30/2018 12:24 PM CDT): Required intubation for airway protection post cardiac arrest with unknown time to ROSC. Arrived to OSH with GCS of 4 and intubated at that time. Transferred to [facility] MICU for further management. Awake and alert upon arrival 10/28 and placed on PSV trial, extubated after able to follow commands. Unlikely infectious source. -trach aspirate sent prior to extubation; follow up -resolved Acute hypokalemia 10/28/2018 10/31/2018 Assessment & Plan (10/31/2018 12:58 PM CDT): Thought to be caused by excessive vomiting prior to calling EMS yesterday (10/27). Prior prodrome last year was similar in nature with admitting potassium in the 2 range. K at OSH yesterday evening 2.3. May be result of hypokalemia as well as periodic paralysis is typically an early in life made diagnosis. -GCS 4 at upon arrival to OSH requiring intubation -maintain normal K level -daily bmp TERESA (acute kidney injury) 10/28/2018 Assessment & Plan (10/28/2018 12:29 PM CDT): Likely 2/2 dehydration in the setting of n/v. Cr 1.4 at OSH. -Cr baseline appears to be 1 -repeat Cr here 0.89 -resolved Encephalopathy 03/04/2018 11/02/2018 Assessment & Plan (11/02/2018 10:36 AM CDT): Patient reports an episode of loss of consciousness at home on day of admission in setting of multiple episodes of vomiting. Patient was seen by neuro on day of admission 10/28/18 with concern for encephalopathy, favored to be toxic- metabolic. Unclear what medications patient received en route prior to arrival & intubation (of note UDS was positive for benzos on admission) which may have contributed. - Resolved & no longer encephalopathic. Currently A&Ox3. -Third episode within last 12 months and has been seen by neurology every time, appears linked to nausea/vomiting & anti-emetic medications -Neuro consulted. Seizure is thought to be unlikely. Neuro work-up unremarkable. Brain MRI 10/29/18 with no findings to explain symptoms. Lumbar puncture 10/29/18 w/ 9 nucleated cells, glucose 60, protein 46. Vasculitis work-up negative (KT, BARRY, RF, CCP, ESR). -Spot urine PBG normal at 0.2, obtained to evaluate for acute porphyria per neuro recs. -CSF cytology 10/29 pending, anticipate likely will be negative; however patient does have history of breast cancer. -TTE 10/28/18 without valvular abnormalities -EKG 10/28/18 showed sinus rhythm. Telemetry monitoring in the ICU did not show arrhythmias. Assessment & Plan (11/01/2018 2:15 PM CDT): Patient reports an episode of loss of consciousness at home on day of admission in setting of multiple episodes of vomiting. Patient was seen by neuro on day of admission 10/28/18 with concern for encephalopathy, favored to be toxic- metabolic. Unclear what medications patient received en route prior to arrival & intubation (of note UDS was positive for benzos on admission) which may have contributed. - Resolved & no longer encephalopathic. Currently A&Ox3. -Third episode within last 12 months and has been seen by neurology every time, appears linked to nausea/vomiting & anti-emetic medications -Neuro consulted. Seizure is thought to be unlikely. Neuro work-up unremarkable. Brain MRI 10/29/18 with no findings to explain symptoms. Lumbar puncture 10/29/18 w/ 9 nucleated cells, glucose 60, protein 46. Vasculitis work-up negative (KT, BARRY, RF, CCP, ESR). -Spot urine PBG normal at 0.2, obtained to evaluate for acute porphyria per neuro recs. -CSF cytology 10/29 pending, anticipate likely will be negative; however patient does have history of breast cancer. -TTE 10/28/18 without valvular abnormalities -EKG 10/28/18 showed sinus rhythm. Telemetry monitoring in the ICU did not show arrhythmias. Assessment & Plan (10/31/2018 4:39 PM CDT): Patient reports an episode of loss of consciousness at home on day of admission in setting of multiple episodes of vomiting. Patient was seen by neuro on day of admission 10/28/18 with concern for encephalopathy, favored to be toxic- metabolic. Unclear what medications patient received en route prior to arrival & intubation. -This appears resolved. Patient is no longer encephalopathic. Currently A&Ox3. -Neuro consulted. Seizure is thought to be unlikely. Neuro work-up unremarkable. Brain MRI 10/29/18 with no findings to explain symptoms. Lumbar puncture 10/29/18 w/ 9 nucleated cells, glucose 60, protein 46. Vasculitis work-up negative (KT, BARRY, RF, CCP, ESR). -Will check spot urine PBG to evaluate for acute porphyria per neuro recs. -CSF cytology 10/29 pending, anticipate likely will be negative; however patient does have history of breast cancer. -TTE 10/28/18 without valvular abnormalities -EKG 10/28/18 showed sinus rhythm. Telemetry monitoring in the ICU did not show arrhythmias. Assessment & Plan (10/31/2018 12:54 PM CDT): Likely 2/2 hypokalemic periodic paralysis or just electrolyte derrangement with hypokalemia but cannot exclude additional differential diagnoses of seizure activity, brain tumor, electrolyte imbalance, etc. Report received noting patient became rigid prior to requiring CPR in route from home to OSH. Patient now reporting alcohol history although last drink reporting about 2 weeks ago. She does not report previous seizure activity or tremors with any alcohol withdrawal correlation. Appears fully resolved. -keppra for ppx; d/c today -neurology following; appreciate recs (initiating vasculitis workup, porphyrines as well) -head ct (-) -LP done, non diagnostic thus far; follow up to final -bMRI without new findings to explain symptoms Assessment & Plan (03/05/2018 10:39 AM CDT): Now resolved. Likely 2/2 medication adverse effect from Compazine +/- Benadryl. Neurology consulted in ED and have low suspicion for seizure. CT head without acute intracranial process. -Avoid further BZDs or other sedating meds -Compazine added to allergy list Assessment & Plan (03/04/2018 10:02 AM CDT): Now resolved. Likely 2/2 medication adverse effect from Compazine +/- Benadryl. Neurology consulted in ED and have low suspicion for seizure. CT head without acute intracranial process. -Avoid further BZDs or other sedating meds -Compazine added to allergy list Assessment & Plan (03/04/2018 12:32 AM CDT): -Now resolved. Likely 2/2 medication adverse effect from Compazine +/- Benadryl. Intubated at OSH for airway protection, however extubated soon after arrival to [facility] ED. She also received multiple doses of benzodiazepines which was likely the cause of her continued drowsiness/lethargy documented in the ED. -CT head at OSH read as showing subtle subarachnoid hyperdensities, however this was not seen on repeat head CT and likely artifact from prior IV contrast exposure -Concern for seizure-like activity at OSH. Neurology consulted in ED and have low suspicion for seizure. 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 Gender Identity Not on file Sexual Orientation Not on file Last Filed Vital Signs Vital Sign Reading Time Taken Comments Blood Pressure 145/86 11/10/2018 8:04 AM CDT Pulse 69 11/10/2018 8:04 AM CDT Temperature 36.6 C (97.8 F) 11/10/2018 8:04 AM CDT Respiratory Rate 20 11/10/2018 8:04 AM CDT Oxygen Saturation 99% 11/10/2018 8:04 AM CDT Inhaled Oxygen Concentration - - Weight 81.6 kg (180 lb) 11/10/2018 8:04 AM CDT Height 167.6 cm (5' 6 ) 11/10/2018 8:04 AM CDT Body Mass Index 29.05 11/10/2018 8:04 AM CDT Plan of Treatment Not on file Insurance [facility] H[facility]/PP[facility] Address: [id number] [place] [address] [facility] CHO[employer] [facility] H[facility]/PPO Address: [facility] [address] [id number] Advance Directives For more information, please contact: [phone] * Full Code (Latest Code Status on File) Date Activated Date Inactivated Comments 10/28/2018 8:37 AM 11/02/2018 7:45 PM * Full Code Date Activated Date Inactivated Comments 03/03/2018 11:57 PM 03/05/2018 4:36 PM * Full Code Date Activated Date Inactivated Comments 11/28/2017 5:10 PM 12/01/2017 5:04 PM Care Teams Knitting Inspector Relationship Specialty Start Date End Date Florencio Larkin MD PCP - General 11/28/17 Mark Massey MD Medical Oncologist/Saddle Cutter Hematology and Oncology 09/27/18 Chloe Parson MD [address] [address] Consulting Physician Gynecology 11/10/18
--- OUTSIDE RECORDS SUMMARY | 2024-09-26 02:59 | XMS_ITS | Clinical Summary ---
Author Organization [facility] Address [address] [place] [address] Care Team Providers Care Clinical Education Coordinator Name Role Phone Florencio Larkin MD Primary Care Provider Mark Massey MD Unavailable [phone] Chloe Parson MD Unavailable [phone] Allergies Active Allergy Reactions Criticality Noted Date [...] and was extubated shortly after arrival to [facility] on same day of admission. -Etiology [...] and was extubated shortly after arrival to [facility] on same day of admission. -Etiology [...] and was extubated shortly after arrival to [facility] on same day of admission. -Etiology [...] and intubated at that time. Transferred to [facility]U for further management. Awake and alert [...] protection, however extubated soon after arrival to [facility] ED. 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 Gender Identity Not on file Sexual Orientation Not on file Obstetrics History Last Filed Vital Signs Vital Sign Reading [...] Plan of Treatment Not on file Insurance CHOICE PLUS [facility] CHOICE PLUS Advance Directives For more information, please contact: [phone] * Full Code (Latest Code Status on File) Date Activated Date Inactivated Comments 10/28/2018 8:37 AM 11/02/2018 7:45 PM * Full Code Date Activated Date Inactivated Comments 03/03/2018 11:57 PM 03/05/2018 4:36 PM * Full Code Date Activated Date Inactivated Comments 11/28/2017 5:10 PM 12/01/2017 5:04 PM Care Teams Clinical Education Coordinator Relationship Specialty Start Date End Date Florencio Larkin MD PCP - General 11/28/17 Mark Massey MD Medical Oncologist/Loss Control Consultant Hematology and Oncology 09/27/18 Chloe Parson MD [address] [address] Consulting Physician Gynecology 11/10/18
--- OUTSIDE RECORDS SUMMARY | 2024-09-26 02:59 | XMS_ITS ---
Author Organization [facility] Address [address] [place] [address] Care Team Providers Care Underground Supervisor Name Role Phone Florencio Larkin MD Primary Care Provider Mark Massey MD Unavailable [phone] Chloe Parson MD Unavailable [phone] Active Problems Problem Noted Date Diagnosed Date [...] and was extubated shortly after arrival to [facility] on same day of admission. -Etiology [...] and was extubated shortly after arrival to [facility] on same day of admission. -Etiology [...] and was extubated shortly after arrival to [facility] on same day of admission. -Etiology [...] statin -Cont outpatient neurology follow up Pancreatitis Current Oncology Plans No current plan information found. Past Plans No past plan information found. Radiation Treatments * No radiation treatments are documented for this patient in [facility]. Treatments may have been administered in another system. Lifetime Dose Tracking * Chemical Lifetime Dose Automatic Entry Manual Entr y DLP 4,431 mGycm 4,431 mGycm 0 mGycm Resolved Problems Problem Noted Date Diagnosed Date [...] and intubated at that time. Transferred to [facility] MICU for further management. Awake and alert [...] protection, however extubated soon after arrival to [facility] ED. She also received multiple doses of [...]
--- OUTSIDE RECORDS SUMMARY | 2024-09-26 03:00 | XMS_ITS | Clinical Summary ---
Author Organization [facility] Address [address] [place] [address] Care Team Providers Care Curator Of Collections Name Role Phone Florencio Larkin MD Primary Care Provider Allergies Active Allergy Reactions Criticality Noted Date Comments Morphine Itching Medium 11/28/2017 Ondansetron Unknown 11/10/2018 Prochlorperazine Unknown 03/02/2018 Medications aspirin (ECOTRIN EC) 81 mg Tablet, Delayed Release (E.C.) Take 81 mg by mouth. 12/02/2017 Active escitalopram oxalate (LEXAPRO) 20 mg tablet Take 20 mg by mouth. Active multivitamin (DAILY-JAIDA) tablet Take 1 Tablet by mouth. Active losartan-hydroCH LOROthiazide (HYZAAR) 50-12.5 mg tablet 12/27/2018 Active atorvastatin (LIPITOR) 20 mg tablet 10/23/2018 Active metoprolol succinate (TOPROL XL) 100 mg Extended Release 24 hour tablet Take 100 mg by mouth. Active RABEprazole (ACIPHEX) 20 mg Tablet, Delayed Release (E.C.) Take 20 mg by mouth. 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, estrogen receptor positive 12/30/2017 SERM use (selective estrogen receptor modulator) 12/30/2017 Family History Medical History Relation Name Comments Healthy Brother Healthy Father Healthy Mother Healthy Sister Relation Name Status Comments Brother Alive Father Mother Sister Alive Social History Tobacco Use Types Packs/Day Years Used Date Smoking Tobacco: Former Cigarettes 0.3 15 0 01/14/1984 - 01/13/1999 Smokeless Tobacco: Never Alcohol Use Standard Drinks/Week Comments Yes 0 (1 standard drink = 0.6 oz pur e alcohol) Causal Comments No Sex and Gender Information Value Date Recorded Sex Assigned at Not on file Legal Sex Female 12:53 PM CDT Gender Identity Not on file Sexual Orientation Not on file Last Filed Vital Signs Vital Sign Reading Time Taken Comments Blood Pressure 110/70 01/13/2019 12:58 PM CDT Pulse 65 01/13/2019 12:58 PM CDT Temperature 36.7 C (98.1 F) 01/13/2019 12:58 PM CDT Respiratory Rate - - Oxygen Saturation 97% 01/13/2019 12: 58 PM CDT Inhaled Oxygen Concentration - - Weight 81.5 kg (179 lb 11.2 oz) 019 12:58 PM CDT Height 167.6 cm (5' 6 ) 01/13/2019 12:5 8 PM CDT Body Mass Index 29 01/13/2019 12:58 PM CDT Plan of Treatment Health Maintenance Due Date Last Done Comments DTAP/TDAP/TD VACCINES (1 - Tdap) 1976 COLORECTAL SCREENING 2002 Colorectal Cancer Screening 2002 FIT-DNA Q 3 years 2002 FIT/FOBT Q 1 year 2002 Flex Sig/CT Colonography Q 5 years 2002 PNEUMOCOCCAL VACCINE 65+ YEA RS (1 of 1 - PCV) 2007 ZOSTER VACCINE (1 of 2) 2007 BREAST CANCER SCREENING 11/30/2019 11/30/19 19, 11/16/2017, 01/04/2016, Additional history exists OSTEOPOROSIS SCREENING 2022 INFLUENZA VACCINE (#1) 2024 RSV VACCINE (60+ or ) (1 - 1-dose 75+ series) 2032 Procedures Procedure Name Priority Date/Time Associated Diagnosis Comments MAMMO SCREEN BILAT W OR WO CAD Routine 11/29/2018 from Last 3 Months or Most Recently Relevant to Health Maintenance Results * MAMMO SCREEN BILAT W OR WO CAD (11/29/2018) Anatomical Region Laterality Modality Breast Bilateral Other us Abstract Provider MAMMO ORDERABLES Final Result from Last 3 Months or Most Recently Relevant to Health Maintenance Insurance [facility] [id number] Care Teams Curator Of Collections Relationship Specialty Start Date End Date Florencio Larkin MD [address] [place] [address] PCP - General Family Practice 12/16/17
--- OUTSIDE RECORDS SUMMARY | 2024-09-26 03:00 | XMS_ITS | Clinical Summary ---
Author Organization [facility] Address [address] [address] Phone Care Team Providers Care Dry Kiln Operator Name Role Phone Florencio Larkin MD Primary Care Provider Allergies Active Allergy Reactions Criticality Noted Date Comments Prochlorperazine Unknown 07/19/2018 Morphine Unknown 07/19/2018 Medications atorvastatin (LIPITOR) 20 MG Tablet Take 20 mg by mouth daily. Active escitalopram (LEXAPRO) 20 MG Tablet Take 20 mg by mouth daily. Active metoprolol Succinate (TOPROL-XL) 100 MG TABLET SR 24 HR Take 100 mg by mouth daily. Active Ergocalciferol (VITAMIN D2 PO) Take 50,000 Units by mouth. Active RABEprazole (ACIPHEX) 20 MG Tablet Delayed Response Take 1 Tab by mouth 2 times daily. 60 Tab 3 09/03/2018 Active aspirin EC 81 MG Tablet Delayed Response Take 81 mg by mouth. 12/02/2017 Active Multiple Vitamin (Multi-Vitamin) Tablet Take 1 Tab by mouth. Active losartan-hydroch lorothiazide (HYZAAR) 50-12.5 MG Tablet Take 12.5 Tabs by mouth daily. Active Active Problems Problem Noted Date Diagnosed Date Chronic pancreatitis 06/08/2020 Family History Medical History Relation Name Comments Lung Cancer Father Lung Cancer Mother Lung Cancer Paternal Aunt 1 Stomach Cancer Paternal Aunt 2 Stroke Paternal Aunt 3 Relation Name Status Comments Father Mother Paternal Aunt 1 Paternal Aunt 2 Paternal Aunt 3 Social History Tobacco Use Types Packs/Day Years Used Date Smoking Tobacco: Former Smokeless Tobacco: Never Tobacco Cessation:Counseling Given: No Alcohol Use Standard Drinks/Week Comments Yes 0 (1 standard drink = 0.6 oz pur e alcohol) quit drinking Sexually Active Control Partners Comments Not Currently Comments No Sex and Gender Information Value Date Recorded Sex Assigned at Not on file Legal Sex Female 3:15 PM CDT Gender Identity Not on file Sexual Orientation Not on file Last Filed Vital Signs Vital Sign Reading Time Taken Comments Blood Pressure 116/72 06/08/2020 9:46 AM CDT Pulse 55 06/08/2020 9:46 AM CDT Temperature 36.7 C (98 F) 06/08/2020 9:46 AM CDT Respiratory Rate 18 06/08/2020 9:46 AM CDT Oxygen Saturation 98% 06/08/2020 9:46 AM CDT Inhaled Oxygen Concentration - - Weight 79.8 kg (176 lb) 06/08/2020 9:46 AM CDT Height 167.6 cm (5' 6 ) 06/08/2020 9:46 AM CDT Body Mass Index 28.41 06/08/2020 9:46 AM CDT Plan of Treatment Health Maintenance Due Date Last Done Comments DEXA Bone Density 1957 Hepatitis C Virus (HCV) Screening 1955 TdaP Immunization 1957 Cologuard 2007 Immunochemical Fecal Occult Blood 2007 Mammogram 2007 Pneumococcal Immunization (5 0+ years) (1 of 1 - PCV) 2007 Zoster Immunization (1 of 2) 2007 Influenza Immunization (#1) 2024 SARS-COV-2 Immunization ( season) 2024 08/27/2021, 09/21/2020, 08/24/2020 Colonoscopy 05/12/2028 05/12/2018 Colorectal Cancer Screening 05/12/2028 Respiratory Syncytial Virus (RSV) Immunization (Adult) (1 - 1-dose 75+ series) 2032 05/12/2018 Hepatitis B Immunization Aged Out No longer eligible based on patient's age to complete this topic Meningococcal Immunization (ACWY) Aged Out No longer eligible b ased on patient's age to complete this topic Rotavirus Immunization Aged Out No lo nger eligible based on patient's age to complete this topic Procedures Procedure Name Priority Date/Time Associated Diagnosis Comments COLONOSCOPY Routine 05/12/2018 from Last 3 Months or Most Recently Relevant to Health Maintenance Results * COLONOSCOPY (05/12/2018) Angel Dugan DO PROCEDURE/MINOR SURGICAL ORDERA BLES Final Result from Last 3 Months or Most Recently Relevant to Health Maintenance Care Teams Dry Kiln Operator Relationship Specialty Start Date End Date Florencio Larkin MD PCP - General Family Medicine 05/15/18
--- OUTSIDE RECORDS SUMMARY | 2024-09-26 03:00 | XMS_ITS | Data Portability ---
Author Organization [facility], Main Office Address [address] [place] [address] Care Team Providers Care Customs Brokerage Agent Name Role Phone MANASA JADE Primary Care Provider [phone] Assessment No assessment recorded. Plan of Treatment Reminders Order Date Submit Date Provider Last Modified By Organization Details Last Modified Time Details Appointments None recorded. Lab None recorded. Referral None recorded. Procedures christiano maneuver (PROC) 2023 ELPIDIO [facility], [address] [place] [address], [place], [address], 4 08:39:01 Surgeries None recorded. Imaging None recorded. Medication Orders prednisone 20 mg tablet 2023 [facility], [facility] [address], [address], [place], [address], 4 11:37:33 Patient TargetsNo targets recorded. Patient Instructions Encounter Date Encounter Id Patient Instructions Last Modified By Organization Details Last Modified Time 06/20/2024 [id number] discussed significant middle ear fluid present bilaterally. Discussed prednisone 20 mg twice daily for 5 days for Eustachian tube dysfunction. Discussed associated side effects such as insomnia, increased appetite, increased thirst, etc.. She will have an audiogram and tympanogram for tinnitus. She will be referred back to PT for BPPV. Additionally, ordered a VNG. We will follow-up when results become available. [email or web address] Not available 06/20/2024 11:38:50 Reason for Referral None Reported. Results Created Date Observation Date Name Description Value Unit Range Abnormal Flag Note LastModifiedBy Organization Detail LastModifiedTime 12/11/19 22 XR, shoul elida No observ ation record ed. [id number] Not Available 10/15/2022 14:12:30 10/09/19 23 XR, hip + pelvi s, unila teral No observ ation record ed. [id number] [facility] [place] [address], [place], [address], 10/15/2022 14:12:30 08/03/20 24 08/03/2024 audio gram + tympa nogra m No observ ation record ed. [email or web address] [facility] [address], [place], [address], 08/31/2024 17:05:33 08/16/20 24 08/16/2024 audio gram + tympa nogra m No observ ation record ed. [email or web address] [facility] [address], [place], [address], 08/31/2024 17:05:39 Result Notes None recorded. Problems Name Problem SNOMED Code Status Onset Date Resolution Date Notes Provider Name and Address Organization Details Recorded Time Disorder of shoulder 707610543 Active Not Available [facility] 3 14:10:34 Tendinitis of right rotator cuff 7541155793227 9104 Active 2021 Not Available [facility] 3 14:10:34 Osteoarthr itis of hip 031897090 Active Not Available [facility] 3 14:10:34 Enthesopat hy of hip region 44971054 Active Not Available [facility] 3 14:10:34 Osteoarthr itis of left hip joint 2235012960674 08 Active 2022 Not Available [facility] 3 14:10:34 Osteoarthr itis 587875419 Active Not Available [facility] 3 14:10:35 Shoulder pain 91546429 Active 2021 Not Available [facility] 3 14:10:35 Shoulder pain 34885913 Active 04/27/ 2022 Not Available [facility] 3 14:10:35 Degenerati ve joint disease of shoulder region 39130518 Active 2021 Not Available [facility] 3 14:10:35 Degenerati ve joint disease of shoulder region 86250353 Active 2021 Not Available [facility] 3 14:10:35 Benign paroxysmal positional vertigo 737319476 Active 2023 Lisset House RN null, [facility] 4 11:20:41 Sensorineu ral hearing loss 30685772 Active 2023 Lisset House RN null, [facility] 4 11:29:48 Dysfunctio n of bilateral eustachian tubes 7640763073362 100 Active 2023 TARYN Aranda [address], [address], [place], [address] , [facility] 4 11:35:46 Bilateral tinnitus 2142339216305 Active 2023 TARYN Aranda [address], [address], [place], [address] , [facility] 4 11:36:11 Problem Notes None recorded. Procedures Surgical History Date Name Laterality Status Provider Name and Address Organization Details Recorded Time procedure on appendix completed Not Available [facility] 10/15/2022 14:09:44 Hernia Surgery completed Not Available [facility] 10/15/2022 14:09:44 Hip surgery completed Not Available [facility] 10/15/2022 14:09:44 Imaging Results Imaging Date Name Status LastModified by Organiz [facility] Details LastModified Time 12/10/2021 XR, shoulder completed [id number] Information not available 10/15/2022 14:12:30 10/09/2022 XR, hip + pelvis, unilateral completed [id number] [facility] [place] [address], [place], [address], 10/15/2022 14:12:30 08/03/2024 audiogram + tympanogram completed [email or web address] [facility] [address], [place], [address], 08/31/2024 17:05:33 08/16/2024 audiogram + tympanogram completed [email or web address] [facility] [address], [place], [address], 08/31/2024 17:05:39 Procedure Notes None recorded. Medical Equipment None Reported. Allergies Allergen ID Allergen Name Allergen Category Reaction Reaction Severity Criticality Documentation Date Start Date Code Code System Note Provider Name and Address Organization Details Recorded Time 72593 morphine medicatio n Not available Not available Not available 10/15/2022 7052 RxNorm Not Available [facility] 3 14:12:23 96536 Compazine medicatio n Not available Not available Not available 10/15/2022 37592 6 RxNorm Not Available [facility] 3 14:12:23 39321 Zofran medicatio n Not available Not available Not available 06/20/2024 95410 RxNorm Lisset House RN null, [place] [facility] [place] [employer] 4 11:06:55 Medications Name Sig Start Date Stop Date Status Note LastModified by Organization Details LastModified Time losartan 50 mg tablet active Not Available Not Available No t Available cyclobenzap rine 10 mg tablet 06/20 completed Not Available Not Available Not Available amoxicillin 500 mg capsule 06/20 completed Not Available Not Available Not Available prednisone 10 mg tablet TAKE 1 TAB BY MOUTH, 3 TIMES A DAY FOR 3 DAYS TAKE 1 TAB BY MOUTH 2 TIMES A DAY FOR 2 DAYS TAKE 1 TAB BY MOUTH ONCE A DAY F 06/20 completed Not Available Not Available Not Available rabeprazole 20 mg tablet,adam yed release active Not Available Not Available Not Available atorvastati n 20 mg tablet 06/20 completed Not Available Not Available Not Available atorvastati n 10 mg tablet active Not Available Not Available Not Available tizanidine 4 mg tablet 06/20 completed Not Available Not Available Not Available metoprolol succinate ER 50 mg tablet,exte nded release 24 hr active Not Available Not Available Not Available prednisone 20 mg tablet Take 1 tablet twice a day by oral route for 5 days. active Not Available Not Available No t Available metoprolol succinate ER 100 mg tablet,exte nded release 24 hr 06/20 completed Not Available Not Available Not Available aspirin 81 mg tablet,adam yed release Take 1 tablet every day by oral route. active Not Available Not Available No t Available prednisone 10 mg tablets in a dose pack Take 1 tab by mouth, 3 times a day for 3 daysTake 1 tab by mouth 2 times a day for 2 daysTake 1 tab by mouth once a day for 1 day 06/20 completed Not Available Not Available Not Available oxycodone-a cetaminophe n 5 mg-325 mg tablet 06/20 completed Not Available Not Available Not Available Kenalog 10 mg/mL suspension for injection In office injection administe red by the provider 06/[address] [facility]: 0003- 0494- 20 Not Available Not Available Not Available cephalexin 500 mg capsule 06/20 completed Not Available Not Available Not Available losartan 25 mg tablet 06/20 completed Not Available Not Available Not Available metoprolol tartrate 50 mg tablet 06/20 completed Not Available Not Available Not Available Vitamin D2 1,250 mcg (50,000 unit) capsule active Not Available Not Available Not Available losartan 50 mg-hydrochl orothiazide 12.5 mg tablet 06/20 completed Not Available Not Available Not Available escitalopra m 20 mg tablet active Not Available Not Available Not Available lidocaine (PF) 5 mg/mL (0.5 %) injection solution Take 30 mg by injection route. 06/20 completed Not Available Not Available Not Available ropivacaine (PF) 5 mg/mL (0.5 %) injection solution Take 20 mg by injection route. 06/20 completed Not Available Not Available Not Available Vitals Date Recorded Body mass index (BMI) Body mass index (BMI) Body height Body height Body weight Body weight Provider Name and Address Organization Details Last Updated DateTime 10/15/2022 28.1 kg/m2 27.6 kg/m2 167.64 cm 167.64 cm 79176.0 7 g 03277.3 g Not Available [facility] 14:10:17 Date Recorded Body weight Body mass index (BMI) Body height Body temperature Provider Name and Address Organization Details Last Updated DateTime 06/20/2024 19861.18 g 26.7 kg/m2 167.64 cm 97.8 [degF] Lisset House RN [place] [facility] [place] [employer] 06/20/2024 11:10:51 Social History Question Answer Notes LastModified by Organizat ion Details LastModified Time Tobacco Smoking Status Never Smoker Not Available [facility] 10/15/2022 14:09:42 What Is Your Level Of Alcohol Consumption? None [id number] Information not available 10/15/2022 Sex: Unknown Functional Status None recorded. Mental Status None recorded. Family History Relationship Description Onset Age of this Age Resolved Age Notes LastModified by Organization Details LastModified Time Father Family history of malignant neoplasm [email or web address] Not available 11/2023 11:01:43 Father Family history of stroke [email or web address] Not available 11/2023 11:01:43 Father Ear problem [email or web address] Not availa ble 06/20/2024 11:08:27 Father Hypertensive disorder [id number] Not available 10/15/2022 14:09:46 Father Kidney disease [id number] Not available 10/15/2022 14:09:47 Mother Family history of malignant neoplasm [email or web address] Not available 11/2023 11:01:43 Mother Hypertensive disorder [id number] Not available 10/15/2022 14:09:47 Medical History Condition Response EAR OR HEARING PROBLEMS Y HAVE YOU BEEN HOSPITALIZED OR SEEN IN [facility] ER IN THE PAST YEAR ? Y STROKE/TIA Y ARTHRITIS Y HYPERTENSION Y CANCER: SPECIFY Y Gynecological HistoryNo gynecological history recorded. Obstetrics History GPAL:G 0 P 0 0 0 0 Past Encounters Encounter ID Performer Location Encounter Start Date Encounter Closed Date Diagnosis/Indication Diagnosis SNOMED-CT Code Diagnosis ICD10 Code Diagnosis Note [id number] [facility] [place] [address] [place] [address] 12/11/2021 00:00:00 12/11/2021 11:52:53 [id number] [facility] [place] [address] [place] [address] 10/09/2022 00:00:00 10/09/2022 10:34:[id number] [facility] [place] [address] [place] [address] 06/20/2024 10:59:31 06/20/2024 11:39:31 Benign paroxysmal positional vertigo 947187413 H81.10 Dysfunctio n of bilateral eustachian tubes 0758925847 553987 H69.93 Bilateral tinnitus 59344 69310 102 H93.13 Health Concerns Section Related Observation LastModified by Organization Detai ls LastModified Time None Recorded Concern Status LastModified by Organization Details LastModified Time None Recorded Advance Directives Directive None Recorded Payers Encounter Date Sequence Insurance Name Policy Number Policy Herrera Covered Member ID Herrera Member ID Guarantor Name 06/20/2024 1 [facility] (MEDICARE REPLACEMENT/A DVANTAGE - PPO) [id number] Meron Watson [id number] Meron Watson Notes Date Note Type Note Provider Name and Address Organization Details Recorded Time 06/20/2024 text/html this patient has a past medical history significant for BPPV, osteoarthritis, and degenerative joint disease who presents to the office with a complaint of vertigo and tinnitus that has been persistent for many years. She reports that in early May she had had a vertigo episode and had to be taken to the hospital and was told that she had stressed induced vertigo. She states that her vertigo has worsened within the past year. She reports difficulties with balance. She reports that her vertigo is triggered with leaning her head back, turning her head [id number], and occasionally rolling [id number] in bed. she states that she often does Christiano maneuvers to relieve her vertigo. She has not seen PT in some years. We will refer back to PT. She also reports tinnitus has become more prominent as of late. She notes feelings of fluid in her ear right greater than the left. She denies any hearing loss. States that she has not had an audiogram completed for years. TARYN Aranda [address] [facility] [facility] [address], [place], [address], [facility] [employer] 06/20/2024 11:38:55 OBGyn Episode No OBEpisode recorded.
--- NOTE | 2024-09-26 03:06 | ECG_ITS ---
Test Date: 2024-09-26 03:08:04 Measurements Intervals [place] Rate: 67 P: 18 [place]: 162 QRS: 11 QRSD: 100 T: 19 QT: 453 QTc: 478 Interpretive Statements SINUS RHYTHM WITH OCCASIONAL SUPRAVENTRICULAR PREMATURE COMPLEXES CANNOT R/O SEPTAL INFARCT, AGE INDETERMINATE BORDERLINE ST-T WAVE ABNORMALITY- INFERIOR LEADS BASELINE ARTIFACT- II, III, AVR, AVL, AVF, V1-V6 ABNORMAL ECG Compared to ECG 05/14/2024 15:45:12 HEART RATE HAS DECREASED Electronically Signed On 09-26-2024 06:30:57 ER NURSE by Jose Enrique Davalos D.O.
--- NOTE | 2024-09-26 03:08 | ED.GENADULT ---
HPI - General Adult General Chief complaint: Nausea/Vomiting/Diarrhea Stated complaint: VOMITING Time Seen by Provider: 09/26/24 03:05 History of Present Illness HPI narrative: Meron is a 69F with a PMH of HLD, HTN, cannabis abuse, cyclic vomiting, CVA, and GERD that presented to the ED with 24 hours of nausea and vomiting. She has not been able to keep anything down. Patient is A&Ox3 but is a poor historian. She states she was no longer smoking or drinking but would not give me a strait answer on cannabis use. She denied diarrhea, CP, dyspnea, dysuria, fevers and syncope. Related Data Home Medications ?Medication ?Instructions ?Recorded ?Confirmed ?Last Taken ?Type ergocalciferol (vitamin D2) 1,250 1 unit PO WEEKLY 09/10/19 09/26/24 05/09/24 History mcg (50,000 unit) capsule escitalopram oxalate 20 mg tablet 20 mg PO DAILY 09/10/19 09/26/24 06/17/21 History aspirin 81 mg tablet,delayed 81 mg PO DAILY 09/12/19 09/26/24 06/17/21 History release rabeprazole 20 mg tablet,delayed 20 mg PO DAILY 06/19/22 09/26/24 Unknown History release (AcipHex) losartan 50 mg tablet 50 mg PO DAILY 05/14/24 09/26/24 09/25/24 History metoprolol succinate 50 mg 50 mg PO DAILY 05/14/24 09/26/24 09/25/24 History tablet,extended release 24 hr Allergies Allergy/AdvReac Type Severity Reaction Status Date / Time ondansetron Allergy Severe Anaphylaxis Verified 09/26/24 03:20 prochlorperazine Allergy Severe Seizure Verified 09/26/24 03:20 morphine Allergy Intermediate Nausea and Verified 09/26/24 03:20 Vomiting Review of Systems Review of Systems: All systems reviewed & are unremarkable except as noted in HPI and below PMFSH Past Medical History Medical History Syncope Loss of consciousness Vertigo Marijuana abuse Cyclic vomiting syndrome Seizure (03/01/18) Precipitating etiology unclear, may have been related to Compazine or alcohol withdrawal. 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 Anxiety History of sudden cardiac arrest successfully resuscitated Secondary to allergic reaction to Zofran (01/2018). Recurrent pancreatitis History of alcohol use She has abstained from alcohol since the beginning of 2018. Hyperlipidemia Cancer of left breast Invasive lobular cancer of the left breast, ER/IN positive, diagnosed in 2011, status post lumpectomy, radiation, and tamoxifen therapy. Surgical History Surgical History History of lumbar fusion History of esophagogastroduodenoscopy (~2010) History of inguinal hernia repair (~1962) Status post D&C (~2018) Status post surgical removal of ganglion cyst (~2006) Status post partial mastectomy of left breast (~2012) The patient had a lumpectomy and then reconstructive surgery to another lump that was removed History of total right hip arthroplasty (~2010) History of appendectomy (~1990) Family History Family History Grandparent Family history of lung cancer Family history of liver disease Carcinoma of colon Mother Family history of lung cancer Father Family history of lung cancer Family history of renal failure Other Family history of malignant neoplasm of stomach Son Family history of malignant neoplasm of thyroid Social History Social History Social History: Surrogate decision maker: Donn Watson, spouse. Code status: Full code. Smoking packs per day: 0.5 Smoking cigarettes per day: 10.0 Years smoked: 10 Smoking pack-years: 5.00 Smoking status: Former smoker Tobacco type: cigarettes Second hand tobacco smoke exposure: No Smoking end date: 09/26/91 Alcohol intake: never Alcohol use details: History of alcohol abuse. Sober since early 2018. Substance use: current Substance use type: marijuana Last use: 05/12/24 Do You Feel Safe in your Home?: Yes Lack of Transportation: No Lack of Food: Never True Current Housing: I Have Housing Concerned About Future Housing: No Difficulty Paying Gas/Electric Bills: No Difficulty Paying for Meds: No Currently Unemployed: No Education: Associate Degree Difficulty w/ Childcare or Family Care: No Living arrangements: alone Additional living arrangements comments: Lives with in [place]. 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 Spiritual care concerns: No Exam Const: General: well developed, alert, awake and Physically active Orientation/consciousness: oriented to person, oriented to place and oriented to time Other: was wrenching loudly HENMT: Head: normal to inspection, normocephalic and atraumatic Ears: hearing grossly normal bilaterally and external ears normal Face/Nose/Sinus: Normal external nose present Eyes: General: appearance normal, both eyes and all related structures Periorbital: periorbital findings normal Sclera: sclerae normal Pupils: Equal, round and reactive pupils present Neck: Neck: normal visual inspection Chest: Chest palpation & inspection: normal inspection of the chest Resp: Effort & Inspection: normal respiratory effort, able to speak in complete sentences and no respiratory distress Auscultation: clear to auscultation bilaterally Cardio: Jugular venous distension: no JVD Rate: regular rate Rhythm: regular rhythm GI: Inspection: normal to inspection GI Palp: Yes Soft to palpation Auscultation: normal bowel sounds Skin: General skin exam: normal color and no rashes or lesions noted Neuro: General: oriented to person, oriented to place and oriented to time Cranial nerves: Yes Equal, round and reactive pupils present Extrem: General: normal to inspection Course Course Emergency Course: Ordered fluids, labs, EKG and CT. EKG showed NSR with a rate of 67, normal axis, and no ST elevation/depression, occasional supraventricular premature complex, Qtc of 468 ordered fluids, diphenhydramine, lorazepam and capsaicin as well as metoprolol for elevated BP. CBC unremarkable. Chemistry analyzer is down so labs are delayed. A second dose of metoprolol was ordered as BP remained too high. Chemistries showed low magnesium and potassium. Flu A+. CT showed no significant abnormality. Start Tamiflu and Mg Sulfate. Given her inability to tolerate PO and severely high BP will admit until she can tolerate PO. Vital Signs Vital signs: Vital Signs Temperature 97.3 F L 09/26/24 03:05 Pulse Rate 69 09/26/24 03:05 Respiratory Rate 22 H 09/26/24 03:05 Blood Pressure 212/97 H 09/26/24 03:05 Pulse Oximetry 100 09/26/24 03:05 Temperature 97.8 F 09/26/24 16:00 Pulse Rate 91 09/26/24 16:00 Respiratory Rate 18 09/26/24 16:00 Blood Pressure 102/60 09/26/24 16:00 Pulse Oximetry 97 09/26/24 16:00 Oxygen Delivery Room Air 09/26/24 16:00 Medical Decision Making Vital Signs Vital Signs: Vital Signs Temperature 97.3 F L 09/26/24 03:05 Pulse Rate 69 09/26/24 03:05 Respiratory Rate 22 H 09/26/24 03:05 Blood Pressure 212/97 H 09/26/24 03:05 Pulse Oximetry 100 09/26/24 03:05 Temperature 97.8 F 09/26/24 16:00 Pulse Rate 91 09/26/24 16:00 Respiratory Rate 18 09/26/24 16:00 Blood Pressure 102/60 09/26/24 16:00 Pulse Oximetry 97 09/26/24 16:00 Oxygen Delivery Room Air 09/26/24 16:00 Lab Data 09/26/24 03:06 09/26/24 03:06 Labs: Lab Results 09/26/24 Range/Units 03:06 WBC 7.5 (4.8-10.8) K/mm3 RBC 4.73 (4.20-5.40) M/mm3 Hgb 13.3 (11.7-13.8) g/dL Hct 39.9 (35.0-42.0) % MCV 84.4 (78.0-102.0) fL MCH 28.1 (27.0-31.0) pg MCHC 33.3 (32-36) g/dL RDW 14.7 H (11.6-14.4) % Plt Count 167 (150-420) K/mm3 MPV 10.9 (9.2-11.8) fl Immature Gran % (Auto) Not Reportable Neut % (Auto) Not Reportable Lymph % (Auto) Not Reportable Ponce % (Auto) Not Reportable Eos % (Auto) Not Reportable Baso % (Auto) Not Reportable Lymph # (Auto) Not Reportable Ponce # (Auto) Not Reportable Eos # (Auto) Not Reportable Baso # (Auto) Not Reportable Abs Immat Gran (auto) Not Reportable Absolute Neuts (auto) Not Reportable Absolute Nucleated RBC Not Reportable Total Counted 100 Neutrophils % (Manual) 79 H (46-73) % Band Neutrophils % 0 (0-6) % Lymphocytes % (Manual) 10 L (18-44) % Monocytes % (Manual) 9 (3-9) % Basophils % (Manual) 2 H (0-1) % Nucleated RBC % Not Reportable Abs Neuts (Manual) 5.92 (1.7-7.2) K/mm3 Abs Lymphs (Manual) 0.75 L (1.1-4.5) K/mm3 Abs Monocytes (Manual) 0.67 (0.1-0.90) K/mm3 Abs Basophils (Manual) 0.15 H (0-0.1) K/mm3 Platelet Estimate Adequate (Adequate) Schistocytes None seen Sodium 135 L (136-145) mmol/L Potassium 3.3 L (3.5-5.1) mmol/L Chloride 99 (98-108) mmol/L Carbon Dioxide 22 (21-32) mmol/L Anion Gap 14 H (4-12) mmol/L BUN 16 (7-18) mg/dL Creatinine 1.02 (0.55-1.02) mg/dL Estim Creat Clear Calc Not Reportable Estimated GFR 54 L (59 - ) Glucose 164 H (70-99) mg/dL Hemoglobin A1c 5.5 (<5.7) % Calculated Osmolality 285 (285-295) mOsm/kg Lactic Acid 1.9 (0.4-2.0) mmol/L Calcium 8.9 (8.5-10.1) mg/dL Magnesium 1.6 L (1.8-2.4) mg/dL Total Bilirubin 2.3 H (0.00-1.00) mg/dL AST 14 L (15-37) U/L ALT 21 (14-59) U/L Alkaline Phosphatase 104 (46-116) U/L Troponin I 4.0 (0.00-60.4) ng/L Total Protein 7.3 (6.4-8.2) g/dL Albumin 4.2 (3.4-5.0) g/dL Lipase 26 (16-77) U/L Urine Color Light yellow (Yellow) Urine Appearance Clear (Clear) Urine pH 6.5 (5.0-8.0) Ur Specific Handley 1.020 (1.010-1.020) Urine Protein Trace H (Negative) Urine Glucose (UA) Negative (Negative) Urine Ketones 3+ H (Negative) Ur Blood (Man) Trace-intact H (Negative) Urine Nitrate Negative (Negative) Urine Bilirubin Negative (Negative) Urine Urobilinogen 0.2 (0.2-1.0) mg/dL Leukocyte Esterase Rfl Negative (Negative) IRENE/UL Urine RBC 0-2 (0-2) /hpf Urine Opiates Screen Negative (Negative) Urine Methadone Screen Negative (Negative) Ur Barbiturates Screen Negative (Negative) Ur Phencyclidine Scrn Negative (Negative) Ur Amphetamine Screen Negative (Negative) U Benzodiazepines Scrn Negative (Negative) Urine Cocaine Screen Negative (Negative) U Cannabinoids Screen Positive A (Negative) Ethyl Alcohol < 3 (0-6) mg/dL Influenza A (RT-PCR) Positive A (Negative) Influenza B (RT-PCR) Negative (Negative) RSV (RT-PCR) Negative (Negative) SARS-CoV-2 RNA (RT-PCR) Negative (Negative) Discharge Plan Discharge Clinical Impression: Hypertensive urgency Nausea and vomiting Qualifiers: Vomiting type: unspecified Qualified Code(s): R11.2 - Nausea with vomiting, unspecified Patient Disposition: Acute Care Hospital [facility] Condition: Serious
[2024-09-26] MEDS: LACTATED RINGERS 1,000 ML 999 ML IV CONT (03:15)
--- OUTSIDE RECORDS SUMMARY | 2024-09-26 03:26 | XMS_ITS | Referral Summary ---
Author Organization [facility] Address [address] [place] [address] Care Team Providers Care Planning Rn Name Role Phone Florencio Larkin MD Primary Care Provider Mark Massey MD Unavailable [phone] Chloe Parson MD Unavailable [phone] Allergies Active Allergy Reactions Criticality Noted Date [...] and was extubated shortly after arrival to [facility] MICU on same day of [...] and was extubated shortly after arrival to [facility] MICU on same day of [...] and was extubated shortly after arrival to [facility] MICU on same day of [...] and intubated at that time. Transferred to [facility] MICU for further management. Awake and [...] protection, however extubated soon after arrival to [facility] ED. 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 Gender Identity Not on file Sexual Orientation [...] Plan of Treatment Not on file Insurance [facility] CHOICE PLUS [facility] HMO/PPO Address: [id number] [place] [address] [facility] CHOICE PLUS [facility] HMO/PPO Address: [facility] [id number] [id number] Advance Directives For more information, please contact: [phone] * Full Code (Latest Code Status on File) Date Activated Date Inactivated Comments 10/28/2018 8:37 AM 11/02/2018 7:45 PM * Full Code Date Activated Date Inactivated Comments 03/03/2018 11:57 PM 03/05/2018 4:36 PM * Full Code Date Activated Date Inactivated Comments 11/28/2017 5:10 PM 12/01/2017 5:04 PM Care Teams Planning Rn Relationship Specialty Start Date End Date Florencio Larkin MD PCP - General 11/28/17 Mark Massey MD Medical Oncologist/Punch Box Tender Hematology and Oncology 09/27/18 Chloe Parson MD [address] [address] Consulting Physician Gynecology 11/10/18
--- OUTSIDE RECORDS SUMMARY | 2024-09-26 03:26 | XMS_ITS ---
Author Organization [facility] Address [address] [place] [address] Care Team Providers Care Bunghole Borer Name Role Phone Florencio Larkin MD Primary Care Provider Mark Massey MD Unavailable [phone] Chloe Parson MD Unavailable [phone] Active Problems Problem Noted Date Diagnosed Date [...] and was extubated shortly after arrival to [facility] MICU on same day of admission. -Etiology [...] and was extubated shortly after arrival to [facility] MICU on same day of admission. -Etiology [...] and was extubated shortly after arrival to [facility] MICU on same day of admission. -Etiology [...] treatments are documented for this patient in [facility]. Treatments may have been administered in [...] and intubated at that time. Transferred to [facility] MICU for further management. Awake and [...] protection, however extubated soon after arrival to [facility] ED. She also received multiple doses of [...]
--- OUTSIDE RECORDS SUMMARY | 2024-09-26 03:26 | XMS_ITS | Clinical Summary ---
Author Organization [facility] Address [address] [place] [address] Care Team Providers Care Verifier Operator Name Role Phone Florencio Larkin MD [...] Most Recently Relevant to Health Maintenance Insurance [facility] [id number] Care Teams Verifier Operator Relationship Specialty Start Date End Date Florencio Larkin MD [address] [place] [address] PCP - General Family Practice 12/16/17
--- OUTSIDE RECORDS SUMMARY | 2024-09-26 03:26 | XMS_ITS | Clinical Summary ---
Author Organization [facility] Address [address] [address] Care Team Providers Care Housing Specialist Name Role Phone Florencio Larkin MD Primary Care Provider Mark Massey MD Unavailable [phone] Chloe Parson MD Unavailable [phone] Allergies Active Allergy Reactions Criticality Noted Date [...] and was extubated shortly after arrival to [facility] MICU on same day of admission. [...] and was extubated shortly after arrival to [facility] MICU on same day of admission. [...] and was extubated shortly after arrival to [facility] MICU on same day of admission. [...] and intubated at that time. Transferred to [facility] MICU for further management. Awake and [...] protection, however extubated soon after arrival to [facility] ED. 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 HMO/PPO Address: [facility] [address] [place] [address] [facility] CHOICE [facility] H[facility]/PPO Address: [facility] [id number] [place] [address] Advance Directives For more information, please contact: [phone] * Full Code (Latest Code Status on File) Date Activated Date Inactivated Comments 10/28/2018 8:37 AM 11/02/2018 7:45 PM * Full Code Date Activated Date Inactivated Comments 03/03/2018 11:57 PM 03/05/2018 4:36 PM * Full Code Date Activated Date Inactivated Comments 11/28/2017 5:10 PM 12/01/2017 5:04 PM Care Teams Housing Specialist Relationship Specialty Start Date End Date Florencio Larkin MD PCP - General 11/28/17 Mark Massey MD Medical Oncologist/Director Of Preclinical Research Hematology and Oncology 09/27/18 Chloe Parson MD [address] [address] Consulting Physician Gynecology 11/10/18
--- OUTSIDE RECORDS SUMMARY | 2024-09-26 03:26 | XMS_ITS | Clinical Summary ---
Author Organization [facility] Address [address] [address] Phone Care Team Providers Care Filler Feeder Name Role Phone Florencio Larkin MD Primary [...] Recently Relevant to Health Maintenance Care Teams Filler Feeder Relationship Specialty Start Date End Date Florencio Larkin MD PCP - General Family Medicine 05/15/18
[2024-09-26 03:27] LABS: Hematocrit 39.9 % (35.0-42.0); Hemoglobin 13.3 g/dL (11.7-13.8); Mean Corpuscular HGB Conc 33.3 g/dL (32-36); Mean Corpuscular Hemoglobin 28.1 pg (27.0-31.0); Mean Corpuscular Volume 84.4 fL (78.0-102.0); Mean Platelet Volume 10.9 fl (9.2-11.8); Platelet Count Result 167 K/mm3 (150-420); Red Blood Count 4.73 M/mm3 (4.20-5.40); Red Cell Distribution Width 14.7 % (11.6-14.4); White Blood Count 7.5 K/mm3 (4.8-10.8)
[2024-09-26] MEDS: LORazepam INJ (*CRX) 2 MG/ML VIAL 1 MG IV PUSH (03:30)
[2024-09-26] MEDS: diphenhydrAMINE HCl INJ 50 MG/ML VIAL IV PUSH (03:32)
--- NOTE | 2024-09-26 03:45 | PC.NURSE ---
Addendum entered by Wil Valles RN 09/26/24 03:59: correction: pt medicated not mediated Original Note: Pt accompanied to CT and back. Pt remains hypertensive after antiemetics. Pt mediated with metoprolol as ordered.
[2024-09-26] MEDS: METOPROLOL TARTRATE INJ 5 MG/5 ML VIAL IV PUSH ×2 (03:46→04:24)
[2024-09-26] MEDS: CAPSAICIN 0.025% CREAM 60 GM TUBE 1 APPLIC TOPICAL (03:48)
--- NOTE | 2024-09-26 03:56 | PC.NURSE ---
Called lab for needed lactate. Per Lisset in lab, chemistry analyzer is entirely down and unable to perform. Lisset states is calling her business account manager for permission to call pressure vessel inspector for current needed CMP.
--- NOTE | 2024-09-26 04:16 | PC.NURSE ---
Pt was unable to void for needed specimen. Pt straight cathed for UA at this time by JA Juarez with this RN at bedside to assist. PT tolerates well. 240 mL clear straw-colored urine returned and sent to lab. Survey Coordinator en route to continuous pickling line pickler labs per Lisset from lab.
[2024-09-26 04:35] LABS: Add Urine Microscopic? YES; Appearance Urine Clear (Clear); Bilirubin Urine Negative (Negative); Blood Urine Trace-intact (Negative); Color Urine Light Yellow (Yellow); Glucose Urine UA Negative (Negative); Ketones Urine 3+ (Negative); Leukocyte Esterase Ur Negative LEU/UL (Negative); Nitrate Urine Negative (Negative); Protein Urine Trace (Negative); Urobilinogen Urine 0.2 mg/dL (0.2-1.0); pH Urine 6.5 (5.0-8.0)
--- NOTE | 2024-09-26 05:05 | PC.NURSE ---
Pt resting quietly with rhythmic breathing. Awaiting lab and CT results. BP trending down at this time.
[2024-09-26 05:13] LABS: Influenza A QL RT-PCR Positive (Negative); Influenza B QL RT-PCR Negative (Negative); RSV RNA, RT-PCR Negative (Negative); SARS-CoV-2 RNA PCR Negative (Negative)
[2024-09-26 05:17] LABS: RBC Urine 0-2 /hpf (0-2)
[2024-09-26 05:26] LABS: Lactic Acid Reflex 1.9 mmol/L (0.4-2.0)
[2024-09-26 05:32] LABS: Alanine Aminotransferase 21 U/L (14-59); Albumin Level 4.2 g/dL (3.4-5.0); Alkaline Phosphatase 104 U/L (46-116); Anion Gap 14 mmol/L (4-12); Aspartate Amino Transferase 14 U/L (15-37); Bilirubin,Total 2.3 mg/dL (0.00-1.00); Blood Urea Nitrogen 16 mg/dL (7-18); Calcium 8.9 mg/dL (8.5-10.1); Carbon Dioxide 22 mmol/L (21-32); Chloride 99 mmol/L (98-108); Estimated Glomerular Filt Rate 54; Glucose 164 mg/dL (70-99); Lipase 26 U/L (16-77); Magnesium 1.6 mg/dL (1.8-2.4); Osmolality Calculated 285 mOsm/kg (285-295); Potassium 3.3 mmol/L (3.5-5.1); Sodium 135 mmol/L (136-145); Total Protein 7.3 g/dL (6.4-8.2)
[2024-09-26 05:33] LABS: Amphetamine Screen Urine Negative (Negative); Barbiturate Screen Urine Negative (Negative); Benzodiazepines Screen Urine Negative (Negative); Cannabinoid Screen Urine Positive (Negative); Cocaine Screen Urine Negative (Negative); Ethanol < 3 mg/dL (0-6); Methadone Screen Urine Negative (Negative); Opiate Screen Urine Negative (Negative); Phencyclidine Screen Urine Negative (Negative)
[2024-09-26 05:35] LABS: Band Neutrophils Percent 0 % (0-6); Basophils Absolute Manual 0.15 K/mm3 (0-0.1); Basophils Percent Manual 2 % (0-1); Lymphocytes Absolute Manual 0.75 K/mm3 (1.1-4.5); Lymphocytes Percent Manual 10 % (18-44); Monocytes Absolute Manual 0.67 K/mm3 (0.1-0.90); Monocytes Percent Manual 9 % (3-9); Neutrophils Absolute Manual 5.92 K/mm3 (1.7-7.2); Neutrophils Percent Manual 79 % (46-73); Total Cells Counted 100
[2024-09-26 05:36] LABS: Platelet Estimate Adequate (Adequate); Schistocytes None Seen
--- NOTE | 2024-09-26 06:36 | PC.NURSE ---
Contacted floor for needed admission bed.
[2024-09-26] MEDS: MAGNESIUM SULF 2 GM/WATER 50ML 2 GM/50 ML BAG IVPB (06:45)
[2024-09-26] MEDS: LACTATED RINGERS 1,000 ML 150 ML IV CONT (06:45)
--- NOTE | 2024-09-26 06:48 | PC.NURSE ---
Remain awaiting bed assignment. Pt aware will be admitted. IV fluids and magnesium infusion started.
--- NOTE | 2024-09-26 06:58 | PC.NURSE ---
Report to YAN Huang at this time. Receiving RN assuming care of pt at this time.
--- NOTE | 2024-09-26 07:55 | PC.NURSE ---
Patient arrived to unit from ED on stretcher. Patient admitted to room 226 for observation on droplet precautions with influenza A. Isolation precautions explained to patient and patient voiced understanding. Patient educated on use of call light and bed controls. Patient advised to call for assistance due to weakness. Blue folder placed in patient's room. Patient very sleepy at this time. Further education will be given when patient is able to listen.
--- NOTE | 2024-09-26 08:53 | PC.NURSE ---
Lexie ortiz of patient called inquiring about patient. Informed no information could be given to anyone besides POA. She then put phone on speaker, where Ike/ was able to speak and confirm who he was.. He informs he is disabled and has a hard time getting around and wanted to know what was going on with his . Information given, she was admitted under OBS for Flu A to room 226. She has not been seen by house practitioner as of yet. April informs that they will call back this evening to see how things are going.
[2024-09-26] MEDS: OSELTAMIVIR PHOSPHATE 75 MG CAPSULE PO (09:33)
--- NOTE | 2024-09-26 10:40 | P.HP_ITS ---
H&P: HPI History of Present Illness Date/Time: 09/26/24 10:40 Chief Complaint: Influenza A Narrative: This is a 69 year old female with a significant past medical history of hyperlipidemia, hypertension, cannabis abuse, cyclic vomiting, CVA, GERD who presented to the hospital with nausea and vomiting x 24 hours. Patient states her symptoms started on Thursday. She has not been able to keep anything down and presents for hydration and supportive care. She denies any diarrhea, chest pain, shortness a breath. She endorses fever, chills, nausea, vomiting, abdominal pain. Work up in the hospital includes a head CT which was negative.Initial labs shown a white blood cell count of 7.5, sodium 135, potassium 3.3, anion gap 14, EGFR 54, magnesium 1.6, total bili 2.3, troponin negative. UA was obtained which showed trace urine protein, 3+ urine ketones, trace urine blood. Urine drug screen was positive for cannabinoids. Respiratory panel was positive for influenza A. EKG showed sinus rhythm with oc casional supraventricular premature complexes with a rate of 67, QTC 478. Patient was given IV fluids, metoprolol, Ativan, Benadryl, Tamiflu, 2 g of Mag while in the ED. Review of Systems Review of Systems: All systems reviewed & are unremarkable except as noted in HPI and below PMFSH Past Medical History Medical History Syncope Loss of consciousness Vertigo Marijuana abuse Cyclic vomiting syndrome Seizure (03/01/18) Precipitating etiology unclear, may have been related to Compazine or alcohol withdrawal. 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 Anxiety History of sudden cardiac arrest successfully resuscitated Secondary to allergic reaction to Zofran (01/2018). Recurrent pancreatitis History of alcohol use She has abstained from alcohol since the beginning of 2018. Hyperlipidemia Cancer of left breast Invasive lobular cancer of the left breast, ER/NV positive, diagnosed in 2011, status post lumpectomy, radiation, and tamoxifen therapy. Surgical History Surgical History History of lumbar fusion History of esophagogastroduodenoscopy (~2010) History of inguinal hernia repair (~1962) Status post D&C (~2018) Status post surgical removal of ganglion cyst (~2006) Status post partial mastectomy of left breast (~2012) The patient had a lumpectomy and then reconstructive surgery to another lump that was removed History of total right hip arthroplasty (~2010) History of appendectomy (~1990) Family History Family History Grandparent Family history of lung cancer Family history of liver disease Carcinoma of colon Mother Family history of lung cancer Father Family history of lung cancer Family history of renal failure Other Family history of malignant neoplasm of stomach Son Family history of malignant neoplasm of thyroid Social History Social History Social History: Surrogate decision maker: Donn Shirley, spouse. Code status: Full code. Smoking packs per day: 0.5 Smoking cigarettes per day: 10.0 Years smoked: 10 Smoking pack-years: 5.00 Smoking status: Former smoker Tobacco type: cigarettes Second hand tobacco smoke exposure: No Smoking end date: 09/26/91 Alcohol intake: never Alcohol use details: History of alcohol abuse. Sober since early 2018. Substance use: current Substance use type: marijuana Last use: 05/12/24 Do You Feel Safe in your Home?: Yes Lack of Transportation: No Lack of Food: Never True Current Housing: I Have Housing Concerned About Future Housing: No Difficulty Paying Gas/Electric Bills: No Difficulty Paying for Meds: No Currently Unemployed: No Education: Associate Degree Difficulty w/ Childcare or Family Care: No Living arrangements: alone Additional living arrangements comments: Lives with in [place]. 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 Spiritual care concerns: No Meds Home Medications and Allergies Home Medications ?Medication ?Instructions ?Recorded ?Confirmed ?Type ergocalciferol (vitamin D2) 1,250 1 unit PO WEEKLY 09/10/19 09/26/24 History mcg (50,000 unit) capsule escitalopram oxalate 20 mg tablet 20 mg PO DAILY 09/10/19 09/26/24 History aspirin 81 mg tablet,delayed 81 mg PO DAILY 09/12/19 09/26/24 History release atorvastatin 20 mg tablet 20 mg PO DAILY #90 tabs 03/20/22 09/26/24 Rx rabeprazole 20 mg tablet,delayed 20 mg PO DAILY 06/19/22 09/26/24 History release (AcipHex) losartan 50 mg tablet 50 mg PO DAILY 05/14/24 09/26/24 History metoprolol succinate 50 mg 50 mg PO DAILY 05/14/24 09/26/24 History tablet,extended release 24 hr Allergies Allergy/AdvReac Type Severity Reaction Status Date / Time ondansetron Allergy Severe Anaphylaxis Verified 09/26/24 03:20 prochlorperazine Allergy Severe Seizure Verified 09/26/24 03:20 morphine Allergy Intermediate Nausea and Verified 09/26/24 03:20 Vomiting Vital Signs Vital Signs - 24 hr 09/26/24 03:05 09/26/24 03:05 09/26/24 03:46 Temperature 97.3 F L Pulse Rate 69 68 74 Respiratory Rate 22 H Blood Pressure 212/97 H Pulse Oximetry 100 Oxygen Delivery 09/26/24 04:19 09/26/24 04:24 09/26/24 04:43 Temperature Pulse Rate 67 72 68 Respiratory Rate Blood Pressure 200/94 H 205/111 H Pulse Oximetry Oxygen Delivery 09/26/24 04:46 09/26/24 05:01 09/26/24 06:01 Temperature 97.5 F L Pulse Rate 67 66 65 Respiratory Rate 20 24 H 20 Blood Pressure 171/135 H 188/86 H 185/104 H Pulse Oximetry 99 100 100 Oxygen Delivery Room Air Room Air Room Air 09/26/24 06:13 09/26/24 07:00 09/26/24 07:50 Temperature 98.1 F Pulse Rate 66 68 79 Respiratory Rate 21 H 20 20 Blood Pressure 169/99 H 176/88 H Pulse Oximetry 100 100 99 Oxygen Delivery Room Air Room Air Room Air 09/26/24 07:52 09/26/24 08:00 Temperature 97.9 F Pulse Rate 67 79 Respiratory Rate 20 20 Blood Pressure 196/100 H Pulse Oximetry 100 99 Oxygen Delivery Room Air Room Air Exam Narrative: General: In no acute distress, well nourished Head: atraumatic, no encephalopathy Eyes: PERRLA, sclera clear ENT: moist mucous membranes, nasal passages clear Neck: supple, no JVD, no adenopathy, trachea midline Cardiac: Normal S1 and S2. No murmur, gallops or friction rubs, peripheral pulses intact. Respiratory: Lungs clear to auscultation, no adventitious lung sounds, currently on room air Gastrointestinal: soft, non-distended, non-tender, normoactive bowel sounds. Nausea and vomiting today : voiding without difficulty. Extremities: moves all extremities well, no edema Skin: clean, dry, intact. No wounds or lesions. Neuro: Alert and oriented x4, cranial nerves intact, no neuro deficits. Psych: normal mood, normal affect, interactive H&P: Results Labs Labs: Short CBC 09/26/24 Range/Units 03:06 WBC 7.5 (4.8-10.8) K/mm3 Hgb 13.3 (11.7-13.8) g/dL Hct 39.9 (35.0-42.0) % Plt Count 167 (150-420) K/mm3 BMP 09/26/24 03:06 Sodium 135 L Potassium 3.3 L Chloride 99 Carbon Dioxide 22 BUN 16 Creatinine 1.02 Glucose 164 H Calcium 8.9 Cardiac Enzymes 09/26/24 Range/Units 03:06 Troponin I 4.0 (0.00-60.4) ng/L Liver Function 09/26/24 Range/Units 03:06 Total Bilirubin 2.3 H (0.00-1.00) mg/dL AST 14 L (15-37) U/L ALT 21 (14-59) U/L Alkaline Phosphatase 104 (46-116) U/L Albumin 4.2 (3.4-5.0) g/dL Urine 09/26/24 Range/Units 03:06 Urine Color Light yellow (Yellow) Urine Appearance Clear (Clear) Urine pH 6.5 (5.0-8.0) Ur Specific [place] 1.020 (1.010-1.020) Urine Protein Trace H (Negative) Urine Glucose (UA) Negative (Negative) Imaging CT scan - head: Radiologist's impression: Non-contrast Head CT History: Altered mental status COMPARISON: 05/27/2024 Technique: Axial non-contrast imaging of the brain was performed. Dose reduction technique was used on this scan by utilizing automated exposure control and iterative reconstruction technique. The dose-length product (DLP) was 605.33 mGy-cm. Findings: There is no evidence of intracranial hemorrhage, mass lesion, or acute infarct. Brain parenchyma appears normal. The ventricles and subara chnoid spaces are normal in size. The calvarium appears normal. The visualized paranasal sinuses and mastoid air cells are clear. Impression: No significant abnormality seen. Reviewed, dictated and finalized at [facility]. 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 Assessment and Plan Assessment and plan (1) Influenza A: Code(s): J10.1 - Influenza due to other identified influenza virus with other respiratory manifestations Status: Acute Assessment and Plan: * Respiratory panel positive for Influenza A * Tamiflu ordered * supportive care * Advance diet as tolerated (2) Nausea & vomiting: Qualifiers: Vomiting type: unspecified Qualified Code(s): R11.2 - Nausea with vomiting, unspecified Code(s): R11.2 - Nausea with vomiting, unspecified Status: Acute Assessment and Plan: Secondary to influenza A * Reglan 10 mg ordered q6 hours for nausea/vomiting * Anion Gap 14 * Continue IV fluids (3) Hypokalemia: Code(s): E87.6 - Hypokalemia Status: Acute Assessment and Plan: * potassium 3.3 * She was given 40 meq today * Start NS with 40 KCL at 150ml/hr for hydration * Continue to trend (4) Hypomagnesemia: Code(s): E83.42 - Hypomagnesemia Status: Resolved Assessment and Plan: * Magnesium 1.6 * 2gm of magnesium given today * Continue to trend (5) Hypertension: Qualifiers: Hypertension type: unspecified Qualified Code(s): I10 - Essential (primary) hypertension Code(s): I10 - Essential (primary) hypertension Status: Acute Assessment and Plan: * Blood pressure ranging 205/111-169/99 * Continue Losartan and Metoprolol (6) GERD without esophagitis: Code(s): K21.9 - Gastro-esophageal reflux disease without esophagitis Status: Acute Assessment and Plan: * protonix ordered Quality VTE Prophylaxis VTE prophylaxis: pharmacologic ordered Hospitalist MIPS Advance Care Plan I have confirmed that the patient's Advanced Care Plan is present, code status is documented, or surrogate decision maker is listed in patient medical record.: Yes Medication Reconciliation I have utilized all available resources to obtain, update and review the patients current medications (includes all prescriptions, OTC, herbals, cannabis, and nutritional supplements).: Yes
[2024-09-26] MEDS: KCL 20 MEQ/SW 100 ML 100 ML 50 MEQ IVPB (11:14)
[2024-09-26] MEDS: ENOXAPARIN 40 MG/0.4 ML SYRINGE SUB-Q (11:32)
[2024-09-26] MEDS: hydrALAZINE HCL 20 MG/ML VIAL 10 MG IV PUSH ×2 (11:38→23:50)
[2024-09-26 11:44] LABS: Hemoglobin A1C 5.5 % (<5.7)
--- NOTE | 2024-09-26 12:43 | PC.NURSE ---
Patient BP 194/94. IV hydralazine administered per order. Now, BP 186/96. Will continue to monitor closely.
[2024-09-26] MEDS: KCL 40 MEQ/0.9% SOD CHL 1,000 ML 125 ML IV CONT ×2 (13:49→23:24)
[2024-09-26] MEDS: METOCLOPRAMIDE HCL INJ 10 MG/2 ML VIAL IV PUSH (20:18)
[2024-09-26] MEDS: OSELTAMIVIR PHOSPHATE 30 MG CAPSULE PO (20:18)
[2024-09-26] MEDS: PANTOPRAZOLE SODIUM IV 40 MG VIAL IV PUSH (23:23)
[2024-09-27 00:56] VITALS: BP 146/86
[2024-09-27] MEDS: METOCLOPRAMIDE HCL INJ 10 MG/2 ML VIAL IV PUSH ×2 (03:28→09:49)
[2024-09-27 05:26] LABS: Basophils Absolute Auto 0.02 K/mm3 (0.00-0.10); Basophils Percent Auto 0.1 % (0.0-1.0); Eosinophils Absolute Auto 0.02 K/mm3 (0.02-0.50); Eosinophils Percent Auto 0.1 % (1.0-6.0); Hemoglobin 15.1 g/dL (11.7-13.8); Immature Granulocyte Absolute 0.07 K/mm3 (0.00-0.00); Immature Granulocyte Percent A 0.4 % (0.0-0.0); Lymphocytes Absolute Auto 0.64 K/mm3 (1.10-4.50); Mean Corpuscular HGB Conc 34.3 g/dL (32-36); Mean Corpuscular Hemoglobin 28.5 pg (27.0-31.0); Mean Platelet Volume 10.3 fl (9.2-11.8); Monocytes Absolute Auto 1.27 K/mm3 (0.10-0.90); Neutrophils Absolute Auto 13.81 K/mm3 (1.70-7.20); Neutrophils Percent Auto 87.4 % (50.0-70.0); Platelet Count Result 212 K/mm3 (150-420); Red Cell Distribution Width 14.9 % (11.6-14.4); White Blood Count 15.8 K/mm3 (4.8-10.8)
[2024-09-27 05:45] LABS: Alanine Aminotransferase 21 U/L (14-59); Albumin Level 4.3 g/dL (3.4-5.0); Alkaline Phosphatase 107 U/L (46-116); Anion Gap 17 mmol/L (4-12); Aspartate Amino Transferase 20 U/L (15-37); Bilirubin,Total 0.5 mg/dL (0.00-1.00); Blood Urea Nitrogen 17 mg/dL (7-18); Calcium 9.3 mg/dL (8.5-10.1); Carbon Dioxide 21 mmol/L (21-32); Chloride 100 mmol/L (98-108); Estimated CRCL calculation 44 ml/min; Estimated Glomerular Filt Rate 54; Glucose 140 mg/dL (70-99); Magnesium 1.9 mg/dL (1.8-2.4); Osmolality Calculated 289 mOsm/kg (285-295); Potassium 3.2 mmol/L (3.5-5.1); Sodium 138 mmol/L (136-145); Total Protein 8.3 g/dL (6.4-8.2)
[2024-09-27 08:00] VITALS: BP 194/114; PULSE 105; RESP 16; TEMP 36.8; O2SAT 95
[2024-09-27] MEDS: KCL 40 MEQ/0.9% SOD CHL 1,000 ML 125 ML IV CONT ×2 (08:38→21:39)
[2024-09-27] MEDS: hydrALAZINE HCL 20 MG/ML VIAL 10 MG IV PUSH (08:39)
--- NOTE | 2024-09-27 09:17 | P.PNIM_ITS ---
Progress Note: A&P Assessment and Plan (1) Influenza A: Code(s): J10.1 - Influenza due to other identified influenza virus with other respiratory manifestations Status: Acute Assessment and Plan: * Respiratory panel positive for Influenza A * Tamiflu ordered * supportive care * Advance diet as tolerated 09/27 * no change to current treatment plan (2) Nausea & vomiting: Qualifiers: Vomiting type: unspecified Qualified Code(s): R11.2 - Nausea with vomiting, unspecified Code(s): R11.2 - Nausea with vomiting, unspecified Status: Acute Assessment and Plan: Secondary to influenza A * Reglan 10 mg ordered q6 hours for nausea/vomiting * Anion Gap 14 * Continue IV fluids 09/27 * patient continues with cyclic vomiting * currently on Reglan * anion gap 17, bicarb at 21 * will give Haldol for the cyclic vomiting as we are limited on our choices due to her allergies (3) Hypokalemia: Code(s): E87.6 - Hypokalemia Status: Acute Assessment and Plan: * potassium 3.3 * She was given 40 meq today * Start NS with 40 KCL at 150ml/hr for hydration * Continue to trend 09/27 * potassium 3.2 * will give 40 mEq of potassium now via IV diluted with NS at 30ml/hr for tolerance * After K rider, continue with NS and 40KCL at 150ml/hr * Continue to trend (4) Hypomagnesemia: Code(s): E83.42 - Hypomagnesemia Status: Resolved Assessment and Plan: * Magnesium 1.6 * 2gm of magnesium given today * Continue to trend 09/27 * Magnesium 1.9 * No replacement needed * Continue to trend (5) Hypertension: Qualifiers: Hypertension type: unspecified Qualified Code(s): I10 - Essential (primary) hypertension Code(s): I10 - Essential (primary) hypertension Status: Acute Assessment and Plan: * Blood pressure ranging 205/111-169/99 * Continue Losartan and Metoprolol 09/27 * blood pressures ranging 218/118 to 146/86 * continue hydralazine q8 p.r.n. until she is tolerating p.o. intake and can take her oral losartan and metoprolol * will give additional dose of labetalol 20 mg IV push to see how her blood pressure response (6) GERD without esophagitis: Code(s): K21.9 - Gastro-esophageal reflux disease without esophagitis Status: Acute Assessment and Plan: * Protonix ordered 09/27 * no change to current treatment plan Time Spent With Patient Time with patient: 25 - 35 minutes Subjective Date/time seen: 09/27/24 09:17 Interval history: Interval history: This is a 69 year old female with a significant past medical history of hyperlipidemia, hypertension, cannabis abuse, cyclic vomiting, CVA, GERD who presented to the hospital with nausea and vomiting x 24 hours. Patient states her symptoms started on Thursday. She has not been able to keep anything down and presents for hydration and supportive care. She denies any diarrhea, chest pain, shortness a breath. She endorses fever, chills, nausea, vomiting, abdominal pain. Work up in the hospital includes a head CT which was negative.Initial labs shown a white blood cell count of 7.5, sodium 135, potassium 3.3, anion gap 14, EGFR 54, magnesium 1.6, total bili 2.3, troponin negative. UA was obtained which showed trace urine protein, 3+ urine ketones, trace urine blood. Urine drug screen was positive for cannabinoids. Respiratory panel was positive for influenza A. EKG showed sinus rhythm with occasional supraventricular premature complexes with a rate of 67, QTC 478. Patient was given IV fluids, metoprolol, Ativan, Benadryl, Tamiflu, 2 g of Mag while in the ED. Subjective: patient reports productive cough, nausea, vomiting today. Labs reviewed. Review of Systems Review of Systems: All systems reviewed & are unremarkable except as noted in HPI and below Exam Narrative: General: In no acute distress, well nourished Cardiac: Normal S1 and S2. No murmur, gallops or friction rubs, peripheral pulses intact. Respiratory: Lungs clear to auscultation, no adventitious lung sounds, currently on room air , reporting productive cough Gastrointestinal: soft, non-distended, non-tender, normoactive bowel sounds. Nausea and vomiting today : voiding without difficulty. Neuro: Alert and oriented x4 Objective Data Vital Signs Vital Signs: Vital Signs - 24 hr 09/26/24 16:00 09/26/24 23:18 09/27/24 00:56 Temperature 97.8 F 98.4 F Pulse Rate 91 111 H Respiratory Rate 18 18 Blood Pressure 102/60 218/118 H 146/86 H Pulse Oximetry 97 98 Oxygen Delivery Room Air Room Air Intake/Output Intake/Output: Intake & Output 09/24/24 09/25/24 09/26/24 09/27/24 23:59 23:59 23:59 23:59 Intake Total 3300 1450 Output Total 640 1150 Balance 2660 300 Meds/Results Medications: Active Medications Generic Name Dose Route Start Last Admin Trade Name Freq PRN Reason Stop Dose Admin Acetaminophen 650 mg 09/26/24 06:26 Acetaminophen 325 Mg Tablet PO Q4H PRN Mild Pain (1-3) or Fever Aspirin 81 mg 09/26/24 10:50 09/26/24 11:26 Aspirin 81 Mg Enteric Tablet PO Not Given DAILY [facility] Atorvastatin Calcium 20 mg 09/26/24 10:50 09/26/24 11:26 Atorvastatin 10 Mg Tablet PO Not Given DAILY [facility] Enoxaparin Sodium 40 mg 09/26/24 11:00 09/26/24 11:32 Enoxaparin 40 Mg/0.4 Ml Syringe SUB-Q 40 mg DAILY THANH Administration Escitalopram Oxalate 20 mg 09/26/24 10:50 09/26/24 11:26 Escitalopram Oxalate 10 Mg Tablet PO Not Given DAILY [facility] Hydralazine HCl 10 mg 09/26/24 10:57 09/27/24 08:39 Hydralazine Hcl 20 Mg/Ml Vial IV PUSH 10 mg Q8H PRN Administration Blood Pressure - High Potassium Chloride/Sodium Chloride 1,000 mls @ 125 mls/hr 09/26/24 13:15 09/27/24 08:38 Kcl 40 Meq/Ns IV CONT 125 mls/hr .Q8H THANH Administration Losartan Potassium 50 mg 09/26/24 10:50 09/26/24 11:26 Losartan Potassium 50 Mg Tablet PO Not Given DAILY THANH Metoclopramide HCl 10 mg 09/26/24 19:49 09/27/24 03:28 Metoclopramide Hcl Inj 10 Mg/2 Ml Vial IV PUSH 10 mg Q6HR PRN Administration Nausea Metoprolol Succinate 50 mg 09/26/24 10:50 09/26/24 11:27 Metoprolol Succinate Ext Rel 50 Mg Tabcr PO Not Given DAILY [facility] Naloxone HCl 0.1 mg 09/26/24 06:26 Naloxone Hcl 0.4 Mg/Ml Vial IV PUSH Q2M PRN Opiate Reversal Oseltamivir Phosphate 30 mg 09/26/24 21:00 09/26/24 20:18 Oseltamivir Phosphate 30 Mg Capsule PO 09/30/24 21:01 30 mg Q12HR THANH Administration Pantoprazole Sodium 40 mg 09/26/24 21:00 09/26/24 23:23 Pantoprazole Sodium Iv 40 Mg Vial IV PUSH 40 mg Q12HR THANH Administration Radiology Results: ITS Impressions Head CT 09/26/24 06:05 Impression: No significant abnormality seen. Labs Labs: Laboratory Results - last 24 hr 09/26/24 09/27/24 03:06 05:12 WBC 15.8 H RBC 5.30 Hgb 15.1 H Hct 44.0 H MCV 83.0 MCH 28.5 MCHC 34.3 RDW 14.9 H Plt Count 212 MPV 10.3 Immature Gran % (Auto) 0.4 H Neut % (Auto) 87.4 H Lymph % (Auto) 4.0 L [place] % (Auto) 8.0 Eos % (Auto) 0.1 L Baso % (Auto) 0.1 Lymph # (Auto) 0.64 L [place] # (Auto) 1.27 H Eos # (Auto) 0.02 Baso # (Auto) 0.02 Abs Immat Gran (auto) 0.07 H Absolute Neuts (auto) 13.81 H Absolute Nucleated RBC 0.00 Nucleated RBC % 0.0 Sodium 138 Potassium 3.2 L Chloride 100 Carbon Dioxide 21 Anion Gap 17 H BUN 17 Creatinine 1.02 Estim Creat Clear Calc 44 Estimated GFR 54 L Glucose 140 H Hemoglobin A1c 5.5 Calculated Osmolality 289 Calcium 9.3 Magnesium 1.9 Total Bilirubin 0.5 AST 20 ALT 21 Alkaline Phosphatase 107 Total Protein 8.3 H Albumin 4.3 Quality VTE Prophylaxis VTE prophylaxis: pharmacologic ordered
[2024-09-27 11:32] VITALS: PULSE 116
[2024-09-27] MEDS: LABETALOL HCL INJ 100 MG/20 ML VIAL 20 MG IV PUSH (11:32)
[2024-09-27] MEDS: ENOXAPARIN 40 MG/0.4 ML SYRINGE SUB-Q (11:39)
[2024-09-27] MEDS: HALOPERIDOL LACTATE 5 MG/ML VIAL IV PUSH (11:40)
[2024-09-27] MEDS: SODIUM CHLORIDE 0.9% IV 1,000 ML 30 ML IV CONT (11:43)
[2024-09-27] MEDS: KCL 20 MEQ/SW 100 ML 100 ML 50 MEQ IVPB ×2 (11:45→13:30)
--- NOTE | 2024-09-27 13:21 | PC.NURSE ---
Patient had new order for IV labetalol BP down to 185/99. 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 P is at 91 down from 116.
[2024-09-27 16:00] VITALS: BP 165/109; PULSE 116; RESP 18; TEMP 36.8; O2SAT 96
[2024-09-27 20:00] VITALS: PULSE 111; RESP 18; O2SAT 96
[2024-09-27] MEDS: PANTOPRAZOLE SODIUM IV 40 MG VIAL IV PUSH (21:43)
[2024-09-27] MEDS: OSELTAMIVIR PHOSPHATE 30 MG CAPSULE PO (21:43)
--- NOTE | 2024-09-27 22:27 | PC.NURSE ---
Patient was given Tamiflu dose 2 at 2143. She had not been vomiting for more than 3 hours at that time. Approximately 15 minutes after getting the dose of tamiflu, patient had a small emesis of 50 mL, primarily fluid. The tamiflu capsule was not visible.
[2024-09-28] VITALS: BP 148/78; PULSE 115; RESP 16; TEMP 36.6; O2SAT 95
[2024-09-28 05:53] LABS: Eosinophils Absolute Auto 0.02 K/mm3 (0.02-0.50); Eosinophils Percent Auto 0.2 % (1.0-6.0); Hemoglobin 14.8 g/dL (11.7-13.8); Immature Granulocyte Absolute 0.05 K/mm3 (0.00-0.00); Immature Granulocyte Percent A 0.4 % (0.0-0.0); Lymphocytes Absolute Auto 0.85 K/mm3 (1.10-4.50); Lymphocytes Percent Auto 7.2 % (18.0-42.0); Mean Corpuscular HGB Conc 32.9 g/dL (32-36); Mean Corpuscular Hemoglobin 28.1 pg (27.0-31.0); Mean Corpuscular Volume 85.4 fL (78.0-102.0); Mean Platelet Volume 10.8 fl (9.2-11.8); Monocytes Percent Auto 9.3 % (2.0-11.0); Neutrophils Absolute Auto 9.79 K/mm3 (1.70-7.20); Neutrophils Percent Auto 82.9 % (50.0-70.0); Platelet Count Result 202 K/mm3 (150-420); Red Blood Count 5.27 M/mm3 (4.20-5.40); Red Cell Distribution Width 15.6 % (11.6-14.4); White Blood Count 11.8 K/mm3 (4.8-10.8)
[2024-09-28 06:09] LABS: Alanine Aminotransferase 17 U/L (14-59); Albumin Level 3.8 g/dL (3.4-5.0); Alkaline Phosphatase 95 U/L (46-116); Anion Gap 15 mmol/L (4-12); Aspartate Amino Transferase 26 U/L (15-37); Bilirubin,Total 0.6 mg/dL (0.00-1.00); Blood Urea Nitrogen 15 mg/dL (7-18); Calcium 9.2 mg/dL (8.5-10.1); Carbon Dioxide 20 mmol/L (21-32); Chloride 102 mmol/L (98-108); Estimated CRCL calculation 56 ml/min; Estimated Glomerular Filt Rate > 60; Glucose 98 mg/dL (70-99); Osmolality Calculated 284 mOsm/kg (285-295); Potassium 4.1 mmol/L (3.5-5.1); Sodium 137 mmol/L (136-145); Total Protein 7.6 g/dL (6.4-8.2)
[2024-09-28 06:23] LABS: Magnesium 1.8 mg/dL (1.8-2.4)
[2024-09-28] MEDS: KCL 40 MEQ/0.9% SOD CHL 1,000 ML 125 ML IV CONT (06:26)
[2024-09-28 08:00] VITALS: BP 221/122; PULSE 119; RESP 16; TEMP 36.8; O2SAT 96
[2024-09-28 08:03] VITALS: PULSE 199
[2024-09-28] MEDS: LABETALOL HCL INJ 100 MG/20 ML VIAL 20 MG IV PUSH (08:03)
[2024-09-28] MEDS: OSELTAMIVIR PHOSPHATE 30 MG CAPSULE PO (09:36)
[2024-09-28] MEDS: PANTOPRAZOLE SODIUM IV 40 MG VIAL IV PUSH (09:37)
[2024-09-28] MEDS: SODIUM BICARBONATE TAB 325 MG TABLET PO (09:37)
[2024-09-28] MEDS: ENOXAPARIN 40 MG/0.4 ML SYRINGE SUB-Q (09:37)
--- NOTE | 2024-09-28 12:40 | PC.NURSE ---
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 She informs she will put discharge in.
--- NOTE | 2024-09-28 13:23 | P.DS_ITS ---
DS: Admitting Diagnosis Discharge Date 09/28/2024 Admitting Diagnosis Influenza/N/V DS: Discharge Diagnosis Discharge Diagnosis (1) Influenza A: Code(s): J10.1 - Influenza due to other identified influenza virus with other respiratory manifestations Status: Acute Assessment and Plan: * * Continue Remdesivir * antiemetics * antipyretics (2) Nausea & vomiting: Qualifiers: Vomiting type: unspecified Qualified Code(s): R11.2 - Nausea with vomiting, unspecified Code(s): R11.2 - Nausea with vomiting, unspecified Status: Acute Assessment and Plan: SEE ABOVE advance diet as tolerated (3) Hypokalemia: Code(s): E87.6 - Hypokalemia Status: Resolved Assessment and Plan: Resolved with potassium replacement (4) Hypomagnesemia: Code(s): E83.42 - Hypomagnesemia Status: Resolved Assessment and Plan: RESOLVED with mag replacement (5) Hypertension: Qualifiers: Hypertension type: unspecified Qualified Code(s): I10 - Essential (primary) hypertension Code(s): I10 - Essential (primary) hypertension Status: Acute Assessment and Plan: Resumed home medications (6) GERD without esophagitis: Code(s): K21.9 - Gastro-esophageal reflux disease without esophagitis Status: Acute Assessment and Plan: * Protonix ordered 09/27 * no change to current treatment plan Plan Disposition: Discharged to home DS: Summary Hospital Course Reason for hospitalization: Influenza/N/V Hospital Course: Patient was a 69 year old female with a significant past medical history of hyperlipidemia, hypertension, cannabis abuse, cyclic vomiting, CVA, GERD who presented to the hospital with nausea and vomiting x 24 hours. Patient states her symptoms started on Thursday. She has not been able to keep anything down and presents for hydration and supportive care. She denies any diarrhea, chest pain, shortness a breath. She endorses fever, chills, nausea, vomiting, abdominal pain. Work up in the hospital includes a head CT which was negative.Initial labs shown a white blood cell count of 7.5, sodium 135, potassium 3.3, anion gap 14, EGFR 54, magnesium 1.6, total bili 2.3, troponin negative. UA was obtained which showed trace urine protein, 3+ urine ketones, trace urine blood. Urine drug screen was positive for cannabinoids. Respiratory panel was positive for influenza A. EKG showed sinus rhythm with occasional supraventricular premature complexes with a rate of 67, QTC 478. Patient was given IV fluids, metoprolol, Ativan, Benadryl, Tamiflu, 2 g of Mag while in the ED. Patient was treated with IV fluids, electrolyte replacements, and antiemetics with resolution of symptoms. She was able to advance diet and tolerate oral intake. She also had received Haldol due to cyclic vomiting likely secondary to influenza and marijuana use. Patient labs reviewed an stable at time of discharge. She did have one episode of Hypertension secondary to her inability to take her BP home BP medication for several days which improved with IV labetalol. She was then resumed on home BP medications as prescribed. Patient was discharged to home on oral Reglan and Tamiflu recommended supportive care with antipyretics and hydration. Patient acknowledged and agreed with discharge plan. Status at Discharge Functional status at discharge: independent ambulation Overall status at discharge: patient is progressing back to baseline Time Spent with Patient Time attestation: Total time spent providing and/or coordinating discharge services: Time spent: Greater than 30 minutes Exam Narrative: General: In no acute distress, well nourished Cardiac: Normal S1 and S2. No murmur, gallops or friction rubs, peripheral pulses intact. Respiratory: Lungs clear to auscultation, no adventitious lung sounds, currently on room air , reporting productive cough Gastrointestinal: soft, non-distended, non-tender, normoactive bowel sounds. Nausea and vomiting today : voiding without difficulty. Neuro: Alert and oriented x4 DS: Data Data Completed and Pending Labs on day of discharge: Labs from last 24 hours 09/28/24 09/28/24 05:01 05:00 WBC 11.8 H RBC 5.27 Hgb 14.8 H Hct 45.0 H MCV 85.4 MCH 28.1 MCHC 32.9 RDW 15.6 H Plt Count 202 MPV 10.8 Immature Gran % (Auto) 0.4 H Neut % (Auto) 82.9 H Lymph % (Auto) 7.2 L [place] % (Auto) 9.3 Eos % (Auto) 0.2 L Baso % (Auto) 0.0 Lymph # (Auto) 0.85 L [place] # (Auto) 1.10 H Eos # (Auto) 0.02 Baso # (Auto) 0.00 Abs Immat Gran (auto) 0.05 H Absolute Neuts (auto) 9.79 H Absolute Nucleated RBC 0.00 Nucleated RBC % 0.0 Sodium 137 Potassium 4.1 Chloride 102 Carbon Dioxide 20 L Anion Gap 15 H BUN 15 Creatinine 0.80 Estim Creat Clear Calc 56 Estimated GFR > 60 Glucose 98 Calculated Osmolality 284 L Calcium 9.2 Magnesium 1.8 Total Bilirubin 0.6 AST 26 ALT 17 Alkaline Phosphatase 95 Total Protein 7.6 Albumin 3.8 Discharge Plan Discharge Attending physician on discharge: Tera Suresh Discharging Clinician: Loretta Yan Anticipated Discharge Date/Time: 09/28/24 13:13 Patient Disposition: Home, Self-Care Activity: may shower and as tolerated Diet: heart healthy Discharge Instructions: Influenza: * Continue with Tamiflu as prescribed * Reglan as needed for N/V * Symptom management may use acetaminophen for aches pains and fever * Encourage diet hydration * Activity as tolerated How can you care for yourself at home? ? Keep track of any new symptoms or changes in your symptoms. ? Rest until you feel better. ? Be safe with medicines. Take your medicines exactly as prescribed. Call your doctor if you think you are having a problem with your medicine. ? Do not drive after taking a prescription pain medicine. ? Ensure to follow-up with primary care physician as indicated and provide updated medication list provided to you at discharge. When should you call for help? Call 911 anytime you think you may need emergency care. For example, call if: ? You passed out (lost consciousness). Call your doctor now or seek immediate medical care if: ? You have new symptoms like fever, difficulty breathing, Chest pain, vomiting, or rash. ? You have new or different pain. ? You are confused and are having trouble thinking clearly. ? Your symptoms are getting worse. Watch closely for changes in your health, and be sure to contact your doctor if: ? You do not get better as expected. Patient Instructions: Metoclopramide (By mouth), Oseltamivir (By mouth), Dehydration (DC), Influenza (DC), Fall Prevention for Older Adults (DC), Acute Nausea and Vomiting (DC) Patient Language: South Sudanese Stand Alone Forms: General Discharge Information Follow-up/Referrals: Dc Velarde MD [Primary Care Provider] - 3 Weeks Discharge Medications: New oseltamivir [Tamiflu] 30 mg Capsule 30 mg PO Q12HR Qty: 6 0RF metoclopramide HCl 10 mg tablet 10 mg PO Q6H PRN (Reason: nausea and vomiting) Qty: 20 0RF Continued ergocalciferol (vitamin D2) 1,250 mcg (50,000 unit) capsule 1 unit PO WEEKLY Rx Instructions: Pt takes on thursday escitalopram oxalate 20 mg tablet 20 mg PO DAILY atorvastatin 20 mg tablet 20 mg PO DAILY Qty: 90 1RF aspirin 81 mg Tablet,Delayed Release (Dr/Ec) 81 mg PO DAILY losartan 50 mg tablet 50 mg PO DAILY metoprolol succinate 50 mg tablet extended release 24 hr 50 mg PO DAILY rabeprazole [AcipHex] 20 mg tablet,delayed release (DR/EC) 20 mg PO DAILY Date of admission: 09/26/24 06:27 Primary Care Provider: Dc Velarde Admitting Provider: Reddy Frey Attending physician on admission: Loretta Yan Condition: Stable Quality VTE Prophylaxis VTE prophylaxis: pharmacologic ordered Patient's previous records reviewed on admission -ER notes reviewed in detail on admission -discussed all findings and current treatment plan with patient/Family/POA -Consultations reviewed for recommendations -Patient's disposition for safe discharge discussed with human services case manager Dictation performed by [employer] direct speech recognition software, therefore underground repairer variants and typographical errors may occur. Hospitalist MIPS Heart Failure (Exclusion) Patient has history of Heart Transplant or Left Ventricular Assistive Device?: No IF YES, STOP HERE Heart Failure (Qualifier) Patient has current or prior documentation of LVEF less than or equal to 40%, or mod/servere depressed LVSF?: No IF NO, STOP HERE
--- NOTE | 2024-09-28 14:50 | PC.NURSE ---
Supervisor Gear Repair removed patient's IV site in anticipation of discharge. Discharge instructions given to patient and personal items gathered. Patient expressed understanding of discharge instructions. Prescriptions transmitted to pharmacy. Awaiting patient's ride at this time.
--- NOTE | 2024-09-28 15:05 | PC.NURSE ---
Patient left unit at 1505 in w/c accompanied by investigative writer and patient's family. Personal belongings sent home with patient. Patient left hospital grounds in privately owned vehicle.
--- NOTE | 2024-09-29 14:41 | PC.NURSE ---
Discharge call back attempted, no answer
--- NOTE | 2024-09-30 10:25 | PC.NURSE ---
Discharge call back attempted, no answer
--- NOTE | 2024-10-04 12:25 | PC.NURSE ---
Unable to reach for call back
== END 2024-09-28 15:05 | disposition home or self-care (01) ==
LOC: CHSED 06:35 → CHS2ND 06:53
PROVIDERS: Nurse Practitioner Acute Care; Admitting Provider Internal Medicine; Emergency Provider Family Medicine; PCP Internal Medicine; Visit Provider Nurse Practitioner Family
DX: J10.1 Influenza due to other identified influenza virus with other respiratory manifestations (principal); R11.15 Cyclical vomiting syndrome unrelated to migraine; E87.6 Hypokalemia; E83.42 Hypomagnesemia; I16.0 Hypertensive urgency; I10 Essential (primary) hypertension; K21.9 Gastro-esophageal reflux disease without esophagitis; F41.9 Anxiety disorder, unspecified; E78.5 Hyperlipidemia, unspecified; F12.10 Cannabis abuse, uncomplicated; Z87.891 Personal history of nicotine dependence; Z20.822 Contact with and (suspected) exposure to COVID-19; Z79.82 Long term (current) use of aspirin; Z79.899 Other long term (current) drug therapy; Z86.73 Personal history of transient ischemic attack (TIA), and cerebral infarction without residual deficits; Z86.74 Personal history of sudden cardiac arrest; Z85.3 Personal history of malignant neoplasm of breast; Z96.641 Presence of right artificial hip joint; Z98.1 Arthrodesis status; Z98.890 Other specified postprocedural states
CPT/HCPCS: 36415; 70450; 80053; 80307; 81001; 82077; 83036; 83605; 83690; 83735; 84484; 85025; 87637; 93005; 96361; 96365; 96366; 96367; 96372; 96375; 96376; 99285; A9270; G0378; J0360; J1200; J1630; J1650; J2060; J2470; J2765; J3475; J3480; J7030; J7120

== ENCOUNTER 2024-11-07 19:15 | Observation (INO) | payer MEDICARE, SELFPAY ==
[2024-11-07] VITALS (9 sets, daily range): BP systolic 158–210; BP diastolic 102–128; PULSE 78–90; RESP 14–25; TEMP 35.5–36.6; O2SAT 98–100
--- NOTE | ~2024-11-07 | US_ITS ---
RIGHT UPPER QUADRANT ABDOMINAL ULTRASOUND (Doppler ultrasound interrogation techniques used as needed for this exam.) Ordering provider: Akil Sheffield MD History: . Abnormal gallbladder . Comparison: None. FINDINGS: PANCREAS: Normal echotexture and size. PORTAL VEIN: Hepatopedal flow demonstrated. LIVER: Normal size and echotexture. No focal hepatic lesions or perihepatic fluid collections are kin ntified. BILIARY DUCTS: No intra or extrahepatic biliary dilation. Common bile duct measures 7.1 mm in diamete r which is normal for patient's age. GALLBLADDER: Distended. No stones, sludge, or pericholecystic fluid. edematous wall. Negative sonogr aphic Plummer's sign. FREE FLUID: None visualized within the upper abdomen. IMPRESSION: Distended gallbladder with edematous wall. Cholecystitis cannot be excluded. Clinical correlation adv ised. Otherwise, normal right upper quadrant ultrasound. Reviewed, dictated and finalized at location A. IMPRESSION: Distended gallbladder with edematous wall. Cholecystitis cannot be excluded. Cl inical correlation advised. Otherwise, normal right upper quadrant ultrasound.
--- NOTE | ~2024-11-07 | CT_ITS ---
EXAMINATION: CT abdomen pelvis w con DATE: 11/07/2024 21:45 INDICATION: N/V/D, abdominal pain TECHNIQUE: Computed tomography (CT) of the abdomen and pelvis was performed with 100 mL Omnipaque-350 intravenous contrast. Automated exposure control and iterative reconstruction technique were employe d. The dose-length product was 551.82 mGy-cm. COMPARISON: 05/14/2024. FINDINGS: Lower thorax: Subsegmental area of centrilobular nodular groundglass opacities in the dependent right lower lobe. Liver: Normal. Biliary/Gallbladder: No stones. Mild inflammatory change/fluid surrounding the gallbladder. No bile d uct dilation. Pancreas: Mild fatty atrophy. Spleen: Normal. Adrenals:No mass. Kidneys: No suspicious mass, obstructing stone, or hydronephrosis. Subcentimeter bilateral renal hypo densities, too small to characterize but most likely represent cysts. Mild bilateral ureterectasis, w ithout inflammatory stranding, a chronic finding. GI tract: Small hiatal hernia. Mild distal esophageal and antral wall edema. The colon is mostly flui d-filled. No small or large bowel dilation. Status post appendectomy. Mesentery/Peritoneum: No ascites, mass, or free air. Retroperitoneum: No mass. Pelvis: Pelvic organs are within normal limits, partially obscured by metal artifact. Soft Tissues: Soft tissues and body wall unremarkable. Bones: No acute osseous finding. Uncomplicated appearing L4-5 fusion hardware. Interbody device michelle ins in stable position. Uncomplicated appearing, partially visualized right hip arthritis hardware. IMPRESSION: Subsegmental dependent right lower lobe opacities may represent infection/aspiration. Mild esophagitis and antral gastritis. Mild inflammatory change/fluid surrounding the gallbladder, correlate with biliary labs. Mostly fluid-filled colon as can be seen with diarrheal illness. Reviewed, dictated and finalized at location K. IMPRESSION: Subsegmental dependent right lower lobe opacities may represent infection/aspir ation. Mild esophagitis and antral gastritis. Mild inflammatory change/fluid surrounding the gallbladder, correlate with bili corinne labs. Mostly fluid-filled colon as can be seen with diarrheal illness.
--- NOTE | ~2024-11-07 | XR_ITS ---
EXAMINATION: XR chest 1V portable Exam Date/Time: 11/07/2024 21:05 CDT HISTORY: sepsis Comparison: 01/21/2024. RESULT: Lines, tubes, and devices: None. Lungs and pleura: Clear. Cardiomediastinal silhouette: Stable. Other: No acute osseous or upper abdominal finding. IMPRESSION: No acute cardiopulmonary process. Reviewed, dictated and finalized at location K.
--- OUTSIDE RECORDS SUMMARY | 2024-11-07 19:18 | XMS_ITS | Referral Summary ---
[facility] Organization [facility] Address [address] [place] [address] Care Team Providers Care Sorority Supervisor Name Role Phone Florencio Larkin MD Primary Care Provider Mark Massey MD Unavailable [phone] Chloe Parson MD Unavailable [phone] Allergies Active Allergy Reactions Criticality Noted Date [...] Diagnosed Date Cardiac arrest with successful resuscitation Assessment & Plan (11/02/2018 10:36 AM CDT): [...] and was extubated shortly after arrival to [facility] MICU on same day of [...] and was extubated shortly after arrival to [facility] MICU on same day of [...] and was extubated shortly after arrival to [facility] MICU on same day of [...] Date Diagnosed Date Resolved Date Groove pancreatitis 10/29/2018 11/01/19 19 Assessment & Plan (10/31/2018 12:55 PM CDT): [...] and intubated at that time. Transferred to [facility] MICU for further management. Awake and alert [...] any alcohol withdrawal correlation. Appears fully resolved. -emiliera for ppx; d/c today -neurology following; appreciate [...] protection, however extubated soon after arrival to [facility] ED. 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 Gender Identity Not on file Sexual Orientation [...] Plan of Treatment Not on file Insurance [facility] CHO[facility] PLUS [facility] [employer] PLUS Advance Directives For more information, please contact: [phone] * Full Code (Latest Code Status on File) Date Activated Date Inactivated Comments 10/28/2018 8:37 AM 11/02/2018 7:45 PM * Full Code Date Activated Date Inactivated Comments 03/03/2018 11:57 PM 03/05/2018 4:36 PM * Full Code Date Activated Date Inactivated Comments 11/28/2017 5:10 PM 12/01/2017 5:04 PM Care Teams Sorority Supervisor Relationship Specialty Start Date End Date Florencio Larkin MD PCP - General 11/28/17 Mark Massey MD Medical Oncologist/Stop Attacher Hematology and Oncology 09/27/18 Chloe Parson MD [address] [address] Consulting Physician Gynecology 11/10/18
--- OUTSIDE RECORDS SUMMARY | 2024-11-07 19:18 | XMS_ITS ---
Author Organization [facility] Address [address] [place] [address] Care Team Providers Care Braille Translator Name Role Phone Florencio Larkin MD Primary Care Provider Mark Massey MD Unavailable [phone] Chloe Parson MD Unavailable [phone] Active Problems Problem Noted Date Diagnosed Date [...] and was extubated shortly after arrival to [facility] MICU on same day of admission. [...] and was extubated shortly after arrival to [facility] on same day of admission. [...] and was extubated shortly after arrival to [facility] on same day of admission. [...] -Cont outpatient neurology follow up Pancreatitis Current Treatment and Therapy Plans No current plan information found. Past Treatment and Therapy Plans No past plan information found. Lifetime Dose Tracking * Chemical Lifetime Dose Automatic Entry Manual Entr y DLP 4,431 mGycm 4,431 mGycm 0 mGycm Resolved Problems Problem Noted Date Diagnosed Date Resolved Date Groove pancreatitis 10/29/2018 11/01/19 Assessment & Plan (10/31/2018 12:55 PM CDT): [...] protection, however extubated soon after arrival to [facility] ED. She also received multiple doses [...]
--- OUTSIDE RECORDS SUMMARY | 2024-11-07 19:18 | XMS_ITS | Data Portability ---
Author Organization [place] [facility], Main Office Address [address] [place] [address] Care Team Providers Care Iron Handler Name Role Phone MANASA JADE Primary Care Provider [phone] Assessment No assessment recorded. Plan of Treatment Reminders Order Date Submit Date Provider Last Modified By Organization Details Last Modified Time Details Appointments None recorded. Lab None recorded. Referral None recorded. Procedures christiano maneuver (PROC) 2023 EL[facility] [place], [address] [place] [address], [place], [address], 4 08:39:01 Surgeries None recorded. Imaging None recorded. Medication Orders prednisone 20 mg tablet 2023 [place] [facility], [facility] [address], [address], [place], [address], 4 11:37:33 Patient TargetsNo targets recorded. Patient Instructions Encounter Date Encounter Id Patient Instructions Last Modified By Organization Details Last Modified Time 06/20/2024 [id number] discussed significant middle ear fluid present bilaterally. Discussed prednisone 20 mg twice daily for 5 days for Eustachian tube dysfunction. Discussed associated side effects such as insomnia, increased appetite, increased thirst, etc.. She will have an audiogram and tympanogram for tinnitus. She will be referred back to PT for BPPV. Additionally, ordered a VNG. We will follow-up when results become available. [email or web address] Not available 06/20/2024 11:38:50 Reason for Referral None Reported. Results Created Date Observation Date Name Description Value Unit Range Abnormal Flag Note LastModifiedBy Organization Detail LastModifiedTime 12/11/19 22 XR, shoul elida No observ ation record ed. [id number] Not Available 10/15/2022 14:12:30 10/09/19 23 XR, hip + pelvi s, unila teral No observ ation record ed. [id number] [facility] [place] [address], [place], [address], 10/15/2022 14:12:30 08/03/20 24 08/03/2024 audio gram + tympa nogra m No observ ation record ed. [email or web address] [facility] [address], [place], [address], 08/31/2024 17:05:33 08/16/20 24 08/16/2024 audio gram + tympa nogra m No observ ation record ed. [email or web address] [facility] [address], [place], [address], 08/31/2024 17:05:39 Result Notes None recorded. Problems Name Problem SNOMED Code Status Onset Date Resolution Date Notes Provider Name and Address Organization Details Recorded Time Disorder of shoulder 716595960 Active Not Available [facility] 3 14:10:34 Tendinitis of right rotator cuff 7258316740590 9104 Active 2021 Not Available [facility] 3 14:10:34 Osteoarthr itis of hip 627262711 Active Not Available [facility] 3 14:10:34 Enthesopat hy of hip region 72639068 Active Not Available [facility] 3 14:10:34 Osteoarthr itis of left hip joint 0032778564885 08 Active 2022 Not Available [facility] 3 14:10:34 Osteoarthr itis 380339564 Active Not Available [facility] 3 14:10:35 Shoulder pain 31098607 Active 2021 Not Available [facility] 3 14:10:35 Shoulder pain 84058803 Active 04/27/ 2022 Not Available [facility] 3 14:10:35 Degenerati ve joint disease of shoulder region 31848342 Active 2021 Not Available [facility] 3 14:10:35 Degenerati ve joint disease of shoulder region 54573351 Active 2021 Not Available [facility] 3 14:10:35 Benign paroxysmal positional vertigo 044328162 Active 2023 Lisset House RN null, [facility] 4 11:20:41 Sensorineu ral hearing loss 50492325 Active 2023 Lisset House RN null, [facility] 4 11:29:48 Dysfunctio n of bilateral eustachian tubes 3196973597259 100 Active 2023 TARYN Aranda [address], [place], [address] , [facility] 4 11:35:46 Bilateral tinnitus 3928519168558 Active 2023 TARYN Aranda [address], [address], [place], [address] , [facility] 4 11:36:11 Problem Notes None recorded. Procedures Surgical History Date Name Laterality Status Provider Name and Address Organization Details Recorded Time procedure on appendix completed Not Available [facility] 10/15/2022 14:09:44 Hernia Surgery completed Not Available [facility] 10/15/2022 14:09:44 Hip surgery completed Not Available [facility] 10/15/2022 14:09:44 Imaging Results Imaging Date Name Status LastModified by Organiz [facility] Details LastModified Time 12/10/2021 XR, shoulder completed [id number] Information not available 10/15/2022 14:12:30 10/09/2022 XR, hip + pelvis, unilateral completed [id number] [facility] [place] [address], [place], [address], 10/15/2022 14:12:30 08/03/2024 audiogram + tympanogram completed [email or web address] [facility] [address], [place], [address], 08/31/2024 17:05:33 08/16/2024 audiogram + tympanogram completed [email or web address] [facility] [address], [place], [address], 08/31/2024 17:05:39 Procedure Notes None recorded. Medical Equipment None Reported. Allergies Allergen ID Allergen Name Allergen Category Reaction Reaction Severity Criticality Documentation Date Start Date Code Code System Note Provider Name and Address Organization Details Recorded Time 68470 morphine medicatio n Not available Not available Not available 10/15/2022 7052 RxNorm Not Available [facility] 3 14:12:23 71132 Compazine medicatio n Not available Not available Not available 10/15/2022 12784 6 RxNorm Not Available [facility] 3 14:12:23 83767 Zofran medicatio n Not available Not available Not available 06/20/2024 44813 RxNorm Lisset House RN null, [place] [facility] [place] [employer] [employer] 4 11:06:55 Medications Name Sig Start Date [...] administe red by the provider 06/20 completed [facility]: 0003- 0494- 20 Not Available Not Available [...] Date Recorded Body mass index (BMI) Body height Body weight Provider Name and Address Organization Details Last Updated DateTime 12/11/2021 28.1 kg/m2 167.64 cm 02761.07 g Not [facility] 10/15/2022 14:10:16 Date Recorded Body mass index (BMI) Body height Body weight Provider Name and Address Organization Details Last Updated DateTime 10/09/2022 27.6 kg/m2 167.64 cm 38884.3 g Not Available [facility] 10/15/2022 14:10:17 Date Recorded Body weight Body mass index (BMI) Body height Body temperature Provider Name and Address Organization Details Last Updated DateTime 06/20/2024 84715.18 g 26.7 kg/m2 167.64 cm 97.8 [degF] Lisset House RN [place] [employer] [facility] 06/20/2024 11:10:51 Social History Question Answer Notes LastModified by Organizat ion Details LastModified Time Tobacco Smoking Status Never Smoker Not Available [facility] 10/15/2022 14:09:42 What Is Your Level Of Alcohol Consumption? None [id number] Information not available 10/15/2022 Sex: Unknown Functional Status None recorded. Mental Status None recorded. Family History Relationship Description Onset Age of this Age Resolved Age Notes LastModified by Organization Details LastModified Time Father Family history of malignant neoplasm Not available 11/2023 11:01:43 Father Family history of stroke [email or web address] Not available 11/2023 11:01:43 Father Ear problem [email or web address] Not availa ble 06/20/2024 11:08:27 Father Hypertensive disorder [id number] Not available 10/15/2022 14:09:46 Father Kidney disease [id number] Not available 10/15/2022 14:09:47 Mother Family history of malignant neoplasm [email or web address] Not available 11/2023 11:01:43 Mother Hypertensive disorder [id number] Not available 10/15/2022 14:09:47 Medical History Condition Response CANCER: SPECIFY Y ARTHRITIS Y HAVE YOU BEEN HOSPITALIZED OR SEEN IN [facility] IN THE PAST YEAR ? Y HYPERTENSION Y EAR OR HEARING PROBLEMS Y STROKE/TIA Y Gynecological HistoryNo gynecological history recorded. Obstetrics History GPAL:G 0 P 0 0 0 0 Past Encounters Encounter ID Performer Location Encounter Start Date Encounter Closed Date Diagnosis/Indication Diagnosis SNOMED-CT Code Diagnosis ICD10 Code Diagnosis Note [id number] [facility] [place] [address] [place] [address] 12/11/2021 00:00:00 12/11/2021 11:52:53 [id number] [facility] [place] [address] [place] [address] 10/09/2022 00:00:00 10/09/2022 10:34:52 [id number] TARYN Aranda [facility] [place] [address] [place] [address] 06/20/2024 10:59:31 06/20/2024 11:39:31 Benign paroxysmal positional vertigo 622160985 H81.10 Dysfunctio n of bilateral eustachian tubes 8572582112 468436 H69.93 Bilateral tinnitus 49412 52327 102 H93.13 Health Concerns Section Related Observation LastModified by Organization Detai ls LastModified Time None Recorded Concern Status LastModified by Organization Details LastModified Time None Recorded Advance Directives Directive None Recorded Payers Encounter Date Sequence Insurance Name Policy Number Policy Herrera Covered Member ID Herrera Member ID Guarantor Name 06/20/2024 1 [facility] (MEDICARE REPLACEMENT/A DVANTAGE - PPO) [id number] Meron Watson [id number] Meron Watson Notes Date Note Type Note [...] leaning her head back, turning her head [id number], and occasionally rolling [id number] in bed. she states that she often [...] audiogram completed for years. TARYN Aranda [address], [place], [address], [place] [facility] 06/20/2024 11:38:55 OBGyn Episode No OBEpisode recorded.
--- OUTSIDE RECORDS SUMMARY | 2024-11-07 19:18 | XMS_ITS | Clinical Summary ---
Author Organization [facility] Address [address] [address] Phone Care Team Providers Care Match Up Person Name Role Phone Florencio Larkin MD Primary [...] Health Maintenance Due Date Last Done Comments Hepatitis C Virus (HCV) Screening 1955 TdaP Immunization 1955 Cologuard 2007 Immunochemical Fecal Occult Blood 2007 Pneumococcal Immunization (5 0+ years) (1 [...] Recently Relevant to Health Maintenance Care Teams Match Up Person Relationship Specialty Start Date End Date Florencio Larkin MD PCP - General Family Medicine 05/15/18
--- OUTSIDE RECORDS SUMMARY | 2024-11-07 19:18 | XMS_ITS | Clinical Summary ---
Author Organization [facility] Address [address] [place] [address] Care Team Providers Care Open Tenter Operator Name Role Phone Florencio Larkin MD Primary Care Provider Mark Massey MD Unavailable [phone] Chloe Parson MD Unavailable [phone] Allergies Active Allergy Reactions Criticality Noted Date [...] and was extubated shortly after arrival to [facility] MICU on same day of [...] and was extubated shortly after arrival to [facility] MICU on same day of [...] and was extubated shortly after arrival to [facility] MICU on same day of [...] intubated at that time. Transferred to [facility] MICU for further management. Awake and alert [...] protection, however extubated soon after arrival to [facility] ED. 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 CHOICE PLUS [facility] CHOICE PLUS Advance Directives For more information, please contact: [phone] * Full Code (Latest Code Status on File) Date Activated Date Inactivated Comments 10/28/2018 8:37 AM 11/02/2018 7:45 PM * Full Code Date Activated Date Inactivated Comments 03/03/2018 11:57 PM 03/05/2018 4:36 PM * Full Code Date Activated Date Inactivated Comments 11/28/2017 5:10 PM 12/01/2017 5:04 PM Care Teams Open Tenter Operator Relationship Specialty Start Date End Date Florencio Larkin MD PCP - General 11/28/17 Mark Massey MD Medical Oncologist/Reworker Hematology and Oncology 09/27/18 Chloe Parson MD [address] [address] Consulting Physician Gynecology 11/10/18
--- OUTSIDE RECORDS SUMMARY | 2024-11-07 19:18 | XMS_ITS | Clinical Summary ---
Author Organization [facility] Address [address] [place] [address] Care Team Providers Care Asic Engineer Name Role Phone Florencio Larkin MD Primary [...] Colonography Q 5 years 2002 PNEUMOCOCCAL VACCINE 50+ YEA RS (1 of 1 - PCV) [...] (11/29/2018) Anatomical Region Laterality Modality Breast Bilateral Mammography us Abstract Provider MAMMO ORDERABLES Final Result from Last 3 Months or Most Recently Relevant to Health Maintenance Insurance [facility] [id number] Care Teams Asic Engineer Relationship Specialty Start Date End Date Florencio Larkin MD [address] [place] [address] PCP - General Family Practice 12/16/17
[2024-11-07] MEDS: SODIUM CHLORIDE 0.9% IV 1,000 ML 999 ML IV CONT ×2 (19:49→20:49)
[2024-11-07] MEDS: METOCLOPRAMIDE HCL INJ 10 MG/2 ML VIAL IV PUSH (19:49)
--- NOTE | 2024-11-07 19:54 | ED_ITS ---
HPI - Nausea/Vomiting/Diarrhea General Chief complaint: Nausea/Vomiting/Diarrhea <Albin Vieiar PA-C - Last Filed: 11/08/24 01:59> Stated complaint: N/V/D <Albin Vieira PA-C - Last Filed: 11/08/24 01:59> Time Seen by Provider: 11/07/24 19:38 <Albin Vieira PA-C - Last Filed: 11/08/24 01:59> Source: patient <Albin Vieira PA-C - Last Filed: 11/08/24 01:59> Mode of arrival: ambulatory <HARLEY Butcher Last Filed: 11/08/24 01:59> Limitations: no limitations <Albin Vieira PA-C - Last Filed: 11/08/24 01:59> History of Present Illness HPI Narrative: This is a 69-year-old female who presents to the ED via EMS for chief complaint of N/V/D beginning around 1630. Patient reports supple episodes of vomiting today as shortly after going to the doctor's office for routine check. She does state that she was watching her grandson yesterday who was sick with nausea, vomiting. Endorses chills and feels very cold. Denies urinary symptoms, abdominal pain, chest pain, shortness of breath, headache, confusion, syncope. <Albin Vieira PA-C - Last Filed: 11/08/24 01:59> Related Data Home medications: Home Medications ?Medication ?Instructions ?Recorded ?Confirmed ?Last Taken ?Type ergocalciferol (vitamin D2) 1,250 1 unit PO WEEKLY 09/10/19 09/26/24 05/09/24 History mcg (50,000 unit) capsule escitalopram oxalate 20 mg tablet 20 mg PO DAILY 09/10/19 09/26/24 06/17/21 History aspirin 81 mg tablet,delayed 81 mg PO DAILY 09/12/19 09/26/24 06/17/21 History release rabeprazole 20 mg tablet,delayed 20 mg PO DAILY 06/19/22 09/26/24 Unknown History release (AcipHex) losartan 50 mg tablet 50 mg PO DAILY 05/14/24 09/26/24 09/25/24 History metoprolol succinate 50 mg 50 mg PO DAILY 05/14/24 09/26/24 09/25/24 History tablet,extended release 24 hr <Albin Vieira PA-C - Last Filed: 11/08/24 01:59> Allergies/Adverse reactions: Allergies Allergy/AdvReac Type Severity Reaction Status Date / Time ondansetron Allergy Severe Anaphylaxis Verified 09/26/24 03:20 prochlorperazine Allergy Severe Seizure Verified 09/26/24 03:20 morphine Allergy Intermediate Nausea and Verified 09/26/24 03:20 Vomiting <Albin Vieira PA-C - Last Filed: 11/08/24 01:59> Review of Systems 2 Review of Systems: All systems as dictated in HPI <Albin Vieira PA-C - Last Filed: 11/08/24 01:59> [facility] Past Medical History Medical History: Medical History Syncope Loss of consciousness Vertigo Marijuana abuse Cyclic vomiting syndrome Seizure (03/01/18) Precipitating etiology unclear, may have been related to Compazine or alcohol withdrawal. 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 Anxiety History of sudden cardiac arrest successfully resuscitated Secondary to allergic reaction to Zofran (01/2018). Recurrent pancreatitis History of alcohol use She has abstained from alcohol since the beginning of 2018. Hyperlipidemia Cancer of left breast Invasive lobular cancer of the left breast, ER/HI positive, diagnosed in 2011, status post lumpectomy, radiation, and tamoxifen therapy. <Albin Vieira PA-C - Last Filed: 11/08/24 01:59> Surgical History Surgical History: Surgical History History of lumbar fusion History of esophagogastroduodenoscopy (~2010) History of inguinal hernia repair (~1962) Status post D&C (~2018) Status post surgical removal of ganglion cyst (~2006) Status post partial mastectomy of left breast (~2012) The patient had a lumpectomy and then reconstructive surgery to another lump that was removed History of total right hip arthroplasty (~2010) History of appendectomy (~1990) <Albin Vieira PA-C - Last Filed: 11/08/24 01:59> Family History Family History: Family History Grandparent Family history of lung cancer Family history of liver disease Carcinoma of colon Mother Family history of lung cancer Father Family history of lung cancer Family history of renal failure Other Family history of malignant neoplasm of stomach Son Family history of malignant neoplasm of thyroid <Albin Vieira PA-C - Last Filed: 11/08/24 01:59> Social History Social History: Social History Social History: Surrogate decision maker: Donn Watson, spouse. Code status: Full code. Smoking packs per day: 0.5 Smoking cigarettes per day: 10.0 Years smoked: 10 Smoking pack-years: 5.00 Smoking status: Former smoker Tobacco type: cigarettes Second hand tobacco smoke exposure: No Smoking end date: 09/26/91 Alcohol intake: never Alcohol use details: History of alcohol abuse. Sober since early 2018. Substance use: current Substance use type: marijuana Last use: 11/07/24 Do You Feel Safe in your Home?: Yes Lack of Transportation: No Lack of Food: Never True Current Housing: I Have Housing Concerned About Future Housing: No Difficulty Paying Gas/Electric Bills: No Difficulty Paying for Meds: No Currently Unemployed: No Education: Associate Degree Difficulty w/ Childcare or Family Care: No Living arrangements: alone Additional living arrangements comments: Lives with in [place]. 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 Spiritual care concerns: No <Albin Vieira PA-C - Last Filed: 11/08/24 01:59> Exam 2 Narrative: GENERAL: Well-appearing, well-nourished, and in no acute distress. HEAD: Normocephalic, atraumatic. EYES: PERRLA and EOMI. ENT: Nares clear, no rhinorrhea or epistaxis. Mucous membranes moist. Oropharynx without tonsillar hypertrophy exudate or other lesions. NECK: Supple. No adenopathy or masses. CHEST: No respiratory distress. Clear to auscultation. No wheezes rales or rhonchi HEART: Regular rate and rhythm. No murmur heard. Normal peripheral pulses. ABDOMEN: Soft, grossly nontender, nondistended, normal active bowel sounds. MSK: Normal range of motion. No edema. SKIN: Warm, dry, no rash. NEURO: Alert and oriented x4. No focal deficits. PSYCH: Normal mood and affect. <Albin Vieira PA-C - Last Filed: 11/08/24 01:59> Course MEDIA THEORIST AND AUTHOR OF/PA Physician Supervision This visit was performed by both a physician and an APC. I performed all aspects of the MDM as documented. <Maxwell Rubio MD - Last Filed: 11/08/24 02:26> Vital Signs Vital signs: Vital Signs Pulse Rate 80 11/07/24 19:17 Respiratory Rate 20 11/07/24 19:17 Blood Pressure 158/126 H 11/07/24 19:17 Pulse Oximetry 100 11/07/24 19:17 Oxygen Delivery Room Air 11/07/24 19:17 Temperature 97.9 F 11/07/24 20:50 Pulse Rate 94 11/08/24 00:33 Respiratory Rate 21 H 11/08/24 00:31 Blood Pressure 175/104 H 11/08/24 00:31 Pulse Oximetry 97 11/08/24 00:31 Oxygen Delivery Room Air 11/07/24 19:17 <Albin Vieira PA-C - Last Filed: 11/08/24 01:59> Vital Signs Pulse Rate 80 11/07/24 19:17 Respiratory Rate 20 11/07/24 19:17 Blood Pressure 158/126 H 11/07/24 19:17 Pulse Oximetry 100 11/07/24 19:17 Oxygen Delivery Room Air 11/07/24 19:17 Temperature 97.9 F 11/07/24 20:50 Pulse Rate 94 11/08/24 00:33 Respiratory Rate 21 H 11/08/24 00:31 Blood Pressure 175/104 H 11/08/24 00:31 Pulse Oximetry 97 11/08/24 00:31 Oxygen Delivery Room Air 11/07/24 19:17 <Maxwell Rubio MD - Last Filed: 11/08/24 02:26> MDM - Nausea/Vomiting/Diarrhea MDM Narrative Medical decision making narrative: This is a 69-year-old female who presents to the ED for chief complaint of N/V/D. On arrival vitals are showing abnormal temperature of 95.9? F. She is hypertensive. Placed in Bear Hugger Exam remarkable for patient having vomiting and diarrhea. She does not have focal abdominal tenderness, nor complaints of abdominal pain. Lab work coming back remarkable for elevated white count [id number]. Her initial lactic acid is 3.4. She is meeting sepsis criteria with likely GI section. She was given Reglan on arrival which did have some she does. She was continuing to dry heave so Haldol was given. QTC slightly prolonged on EKG but does not show ischemic findings. CMP remarkable for bicarb of 17 with an elevated anion gap. BUN of 30. Urinalysis shows evidence of dehydration but no infection. CT abdomen pelvis with IV contrast: IMPRESSION: Subsegmental dependent right lower lobe opacities may represent infection/aspiration. Mild esophagitis and antral gastritis. Mild inflammatory change/fluid surrounding the gallbladder, correlate with biliary labs. Mostly fluid-filled colon as can be seen with diarrheal illness. Who overall exam is concerning for infectious colitis. There is a read out of possible aspiration pneumonia. Patient will be given Zosyn after blood cultures were drawn. Patient was given sepsis bolus of fluids as well. Re-evaluation of the abdominal exam still reveals no abdominal tenderness. She does appear much improved compared to initial arrival. Her blood pressure remains elevated so she was given dose of labetalol and subsequently metoprolol which brought her back down into the 170s. Discussed admission with the hospitalist for treatment of sepsis and hypertension. Plan on obtaining stool cultures at some point. Patient will be admitted in stable condition and vitals have improved. <Albin Vieira PA-C - Last Filed: 11/08/24 01:59> Lab Data Result diagrams: 11/07/24 19:58 11/07/24 19:58 <Albin Vieira PA-C - Last Filed: 11/08/24 01:59> Labs: Lab Results 11/07/24 11/07/24 11/07/24 Range/Units 19:57 19:58 20:53 WBC 22.0 H (4.5-10.0) K/mm3 RBC 5.14 (4.2-5.4) M/mm3 Hgb 15.0 D (12.0-15.0) g/dL Hct 45.0 (37.0-47.0) % MCV 87.5 (80-100) fl MCH 29.2 (26-34) pg MCHC 33.3 (32-36) g/dl RDW 14.8 H (11.5-14.5) % Plt Count 240 (150-375) k/mm3 MPV 10.8 H (7.4-10.4) fl Immature Gran % (Auto) Not Reportable Neut % (Auto) Not Reportable Lymph % (Auto) Not Reportable [place] % (Auto) Not Reportable Eos % (Auto) Not Reportable Baso % (Auto) Not Reportable Lymph # (Auto) Not Reportable [place] # (Auto) Not Reportable Eos # (Auto) Not Reportable Baso # (Auto) Not Reportable Abs Immat Gran (auto) Not Reportable Absolute Neuts (auto) Not Reportable Absolute Nucleated RBC Not Reportable Total Counted 100 Neutrophils % (Manual) 79 H (46-73) % Band Neutrophils % 7 H (0-6) % Lymphocytes % (Manual) 5.0 L (18-44) % Monocytes % (Manual) 9 (3-9) % Nucleated RBC % Not Reportable Abs Neuts (Manual) 18.92 H (1.7-7.2) K/mm3 Abs Lymphs (Manual) 1.10 (1.1-4.5) K/mm3 Abs Monocytes (Manual) 1.98 H (0.1-0.90) K/mm3 Platelet Estimate Adequate (Adequate) Schistocytes None seen PT 12.7 (11.1-14.7) Seconds INR 0.9 APTT 25.2 (22.3-36.8) Seconds Sodium 139 (137-145) mmol/L Potassium 4.1 (3.4-5.0) mmol/L Chloride 103 (98-107) mmol/L Carbon Dioxide 17 L (22-30) mmol/L Anion Gap 19 H (4-12) mmol/L BUN 30 H D (7-17) mg/dL Creatinine 1.22 H (0.7-1.0) mg/dL Estim Creat Clear Calc Not Reportable Estimated GFR 44 L (59 - ) Glucose 180 H (65-110) mg/dL Lactic Acid 3.4 H (0.7-2.0) mmol/L Calcium 10.1 (8.4-10.2) mg/dL Magnesium 1.8 (1.6-2.3) mg/dL Total Bilirubin 0.7 (0.2-1.3) mg/dL AST 23 (14-36) U/L ALT 19 (6-35) U/L Alkaline Phosphatase 134 H (38-126) U/L C-Reactive Protein < 0.5 (<1.0) mg/dL Total Protein 8.0 (6.3-8.2) g/dL Albumin 5.2 H (3.5-5.1) g/dL Lipase 115 (23-300) U/L Urine Color Dark yellow (Yellow) Urine Appearance Clear (Clear) Urine pH 5.5 (5.0-9.0) Ur Specific [place] 1.024 (1.001-1.035) Urine Protein 2+ H (Negative) mg/dL Urine Glucose (UA) Negative (Negative) mg/dL Urine Ketones 2+ H (Negative) mg/dL Ur Blood (Man) Negative (Negative) Urine Nitrate Negative (Negative) Urine Bilirubin Negative (Negative) Urine Urobilinogen 1.0 (<2.0) mg/dL Leukocyte Esterase Rfl Negative (Negative) IRENE/UL Urine RBC 11-20 H (0-2) /hpf Urine WBC 0-5 (0-3) /hpf Ur Squamous Epith Cells None seen (Few) /hpf Urine Bacteria None seen /hpf Urine Casts 11-20 Hyaline Casts Present (None) /lpf <Albin Vieira PA-C - Last Filed: 11/08/24 01:59> Lab Results 11/07/24 11/07/24 11/07/24 Range/Units 19:57 19:58 20:53 WBC 22.0 H (4.5-10.0) K/mm3 RBC 5.14 (4.2-5.4) M/mm3 Hgb 15.0 D (12.0-15.0) g/dL Hct 45.0 (37.0-47.0) % MCV 87.5 (80-100) fl MCH 29.2 (26-34) pg MCHC 33.3 (32-36) g/dl RDW 14.8 H (11.5-14.5) % Plt Count 240 (150-375) k/mm3 MPV 10.8 H (7.4-10.4) fl Immature Gran % (Auto) Not Reportable Neut % (Auto) Not Reportable Lymph % (Auto) Not Reportable [place] % (Auto) Not Reportable Eos % (Auto) Not Reportable Baso % (Auto) Not Reportable Lymph # (Auto) Not Reportable [place] # (Auto) Not Reportable Eos # (Auto) Not Reportable Baso # (Auto) Not Reportable Abs Immat Gran (auto) Not Reportable Absolute Neuts (auto) Not Reportable Absolute Nucleated RBC Not Reportable Total Counted 100 Neutrophils % (Manual) 79 H (46-73) % Band Neutrophils % 7 H (0-6) % Lymphocytes % (Manual) 5.0 L (18-44) % Monocytes % (Manual) 9 (3-9) % Nucleated RBC % Not Reportable Abs Neuts (Manual) 18.92 H (1.7-7.2) K/mm3 Abs Lymphs (Manual) 1.10 (1.1-4.5) K/mm3 Abs Monocytes (Manual) 1.98 H (0.1-0.90) K/mm3 Platelet Estimate Adequate (Adequate) Schistocytes None seen PT 12.7 (11.1-14.7) Seconds INR 0.9 APTT 25.2 (22.3-36.8) Seconds Sodium 139 (137-145) mmol/L Potassium 4.1 (3.4-5.0) mmol/L Chloride 103 (98-107) mmol/L Carbon Dioxide 17 L (22-30) mmol/L Anion Gap 19 H (4-12) mmol/L BUN 30 H D (7-17) mg/dL Creatinine 1.22 H (0.7-1.0) mg/dL Estim Creat Clear Calc Not Reportable Estimated GFR 44 L (59 - ) Glucose 180 H (65-110) mg/dL Lactic Acid 3.4 H (0.7-2.0) mmol/L Calcium 10.1 (8.4-10.2) mg/dL Magnesium 1.8 (1.6-2.3) mg/dL Total Bilirubin 0.7 (0.2-1.3) mg/dL AST 23 (14-36) U/L ALT 19 (6-35) U/L Alkaline Phosphatase 134 H (38-126) U/L C-Reactive Protein < 0.5 (<1.0) mg/dL Total Protein 8.0 (6.3-8.2) g/dL Albumin 5.2 H (3.5-5.1) g/dL Lipase 115 (23-300) U/L Urine Color Dark yellow (Yellow) Urine Appearance Clear (Clear) Urine pH 5.5 (5.0-9.0) Ur Specific [place] 1.024 (1.001-1.035) Urine Protein 2+ H (Negative) mg/dL Urine Glucose (UA) Negative (Negative) mg/dL Urine Ketones 2+ H (Negative) mg/dL Ur Blood (Man) Negative (Negative) Urine Nitrate Negative (Negative) Urine Bilirubin Negative (Negative) Urine Urobilinogen 1.0 (<2.0) mg/dL Leukocyte Esterase Rfl Negative (Negative) IRENE/UL Urine RBC 11-20 H (0-2) /hpf Urine WBC 0-5 (0-3) /hpf Ur Squamous Epith Cells None seen (Few) /hpf Urine Bacteria None seen /hpf Urine Casts 11-20 Hyaline Casts Present (None) /lpf <Maxwell Rubio MD - Last Filed: 11/08/24 02:26> ABG Data ABG results: 11/07/24 20:56 Puncture Site Right brachial ABG pH 7.452 H ABG pCO2 24.4 L ABG pO2 104.0 H ABG PO2/FiO2 Ratio 4.95 ABG HCO3 16.7 L ABG O2 Saturation 98.1 ABG O2 Content 19.1 ABG Base Excess -5.4 A-a Gradient 16.5 Oxyhemoglobin 97.2 Total Hemoglobin 13.9 O2 Delivery Device Room air O2 Liters/Min 0.0 FiO2 21 <Albin Vieira PA-C - Last Filed: 11/08/24 01:59> 11/07/24 20:56 Puncture Site Right brachial ABG pH 7.452 H ABG pCO2 24.4 L ABG pO2 104.0 H ABG PO2/FiO2 Ratio 4.95 ABG HCO3 16.7 L ABG O2 Saturation 98.1 ABG O2 Content 19.1 ABG Base Excess -5.4 A-a Gradient 16.5 Oxyhemoglobin 97.2 Total Hemoglobin 13.9 O2 Delivery Device Room air O2 Liters/Min 0.0 FiO2 21 <Maxwell Rubio MD - Last Filed: 11/08/24 02:26> Discharge Plan Discharge Clinical Impression: Colitis, Sepsis <Albin Vieira PA-C - Last Filed: 11/08/24 01:59> Patient Disposition: Still a Patient <Albin Vieira PA-C - Last Filed: 11/08/24 01:59> Condition: Stable <Albin Vieira PA-C - Last Filed: 11/08/24 01:59>
--- OUTSIDE RECORDS SUMMARY | 2024-11-07 20:01 | XMS_ITS ---
Author Organization [facility] Address [address] [place] [address] Care Team Providers Care Pilot Plant Research Technician Name Role Phone Florencio Larkin MD Primary Care Provider Mark Massey MD Unavailable [phone] Chloe Parson MD Unavailable [phone] Active Problems Problem Noted Date Diagnosed Date [...] was extubated shortly after arrival to [facility] MICU on same day of admission. [...] was extubated shortly after arrival to [facility] MICU on same day of admission. [...] was extubated shortly after arrival to [facility] MICU on same day of admission. [...] and intubated at that time. Transferred to [facility] MICU for further management. Awake and [...] however extubated soon after arrival to [facility] ED. She also received multiple doses [...]
--- OUTSIDE RECORDS SUMMARY | 2024-11-07 20:01 | XMS_ITS | Clinical Summary ---
Author Organization [facility] Address [address] [place] [address] Care Team Providers Care Inspector Outside Steam Distribution Name Role Phone Florencio Larkin MD Primary [...] Relevant to Health Maintenance Insurance [facility] [id number] Care Teams Inspector Outside Steam Distribution Relationship Specialty Start Date End Date Florencio Larkin MD [address] [place] [address] PCP - General Family Practice 12/16/17
--- OUTSIDE RECORDS SUMMARY | 2024-11-07 20:01 | XMS_ITS | Clinical Summary ---
Author Organization [facility] Address [address] [address] Phone Care Team Providers Care Medical Reimbursement Manager Name Role Phone Florencio Larkin MD Primary [...] Recently Relevant to Health Maintenance Care Teams Medical Reimbursement Manager Relationship Specialty Start Date End Date Florencio Larkin MD PCP - General Family Medicine 05/15/18
--- OUTSIDE RECORDS SUMMARY | 2024-11-07 20:01 | XMS_ITS | Clinical Summary ---
Author Organization [facility] Address [address] [place] [address] Care Team Providers Care Dot Compliance Specialist Name Role Phone Florencio Larkin MD Primary Care Provider Mark Massey MD Unavailable [phone] Chloe Parson MD Unavailable [phone] Allergies Active Allergy Reactions Criticality Noted Date [...] and was extubated shortly after arrival to [facility] MICU on same day of [...] and was extubated shortly after arrival to [facility] MICU on same day of [...] and was extubated shortly after arrival to [facility] MICU on same day of [...] and intubated at that time. Transferred to [facility] MICU for further management. Awake and [...] protection, however extubated soon after arrival to [facility] ED. 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 Gender Identity Not on file Sexual Orientation [...] Plan of Treatment Not on file Insurance [facility] CHOICE PLUS [facility] HMO/PPO Address: [facility] [address] [place] [address] [facility] CHOICE PLUS [facility] HMO/PPO Address: [facility] [id number] [place] [id number] Advance Directives For more information, please contact: [phone] * Full Code (Latest Code Status on File) Date Activated Date Inactivated Comments 10/28/2018 8:37 AM 11/02/2018 7:45 PM * Full Code Date Activated Date Inactivated Comments 03/03/2018 11:57 PM 03/05/2018 4:36 PM * Full Code Date Activated Date Inactivated Comments 11/28/2017 5:10 PM 12/01/2017 5:04 PM Care Teams Dot Compliance Specialist Relationship Specialty Start Date End Date Florencio Larkin MD PCP - General 11/28/17 Mark Massey MD Medical Oncologist/Football Pad Repairer Hematology and Oncology 09/27/18 Chloe Parson MD [address] [address] Consulting Physician Gynecology 11/10/18
--- OUTSIDE RECORDS SUMMARY | 2024-11-07 20:01 | XMS_ITS | Referral Summary ---
Author Organization [facility] Address [address] [place] [address] Care Team Providers Care Burr Machine Operator Name Role Phone Florencio Larkin MD Primary Care Provider Mark Massey MD Unavailable [phone] Chloe Parson MD Unavailable [phone] Allergies Active Allergy Reactions Criticality Noted Date [...] and was extubated shortly after arrival to [facility] MICU on same day of admission. [...] and was extubated shortly after arrival to [facility] MICU on same day of admission. [...] and was extubated shortly after arrival to [facility] MICU on same day of admission. [...] and intubated at that time. Transferred to [facility] MICU for further management. [...] protection, however extubated soon after arrival to [facility] ED. 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 Gender Identity Not on file Sexual Orientation [...] Plan of Treatment Not on file Insurance [facility] CHOICE PLUS [facility] CHOICE PLUS Advance Directives For more information, please contact: [phone] * Full Code (Latest Code Status on File) Date Activated Date Inactivated Comments 10/28/2018 8:37 AM 11/02/2018 7:45 PM * Full Code Date Activated Date Inactivated Comments 03/03/2018 11:57 PM 03/05/2018 4:36 PM * Full Code Date Activated Date Inactivated Comments 11/28/2017 5:10 PM 12/01/2017 5:04 PM Care Teams Burr Machine Operator Relationship Specialty Start Date End Date Florencio Larkin MD PCP - General 11/28/17 Mark Massey MD Medical Oncologist/Gang Rider Hematology and Oncology 09/27/18 Chloe Parson MD [address] [address] Consulting Physician Gynecology 11/10/18
[2024-11-07 20:21] LABS: Mean Corpuscular HGB Conc 33.3 g/dl (32-36); Mean Corpuscular Hemoglobin 29.2 pg (26-34); Mean Corpuscular Volume 87.5 fl (80-100); Mean Platelet Volume 10.8 fl (7.4-10.4); Platelet Count Result 240 k/mm3 (150-375); Red Blood Count 5.14 M/mm3 (4.2-5.4); Red Cell Distribution Width 14.8 % (11.5-14.5)
[2024-11-07 20:33] LABS: Magnesium 1.8 mg/dL (1.6-2.3)
[2024-11-07 20:35] LABS: Alanine Aminotransferase 19 U/L (6-35); Albumin Level 5.2 g/dL (3.5-5.1); Alkaline Phosphatase 134 U/L (38-126); Anion Gap 19 mmol/L (4-12); Aspartate Amino Transferase 23 U/L (14-36); Bilirubin,Total 0.7 mg/dL (0.2-1.3); Blood Urea Nitrogen 30 mg/dL (7-17); Calcium 10.1 mg/dL (8.4-10.2); Carbon Dioxide 17 mmol/L (22-30); Chloride 103 mmol/L (98-107); Estimated Glomerular Filt Rate 44; Glucose 180 mg/dL (65-110); Lipase 115 U/L (23-300); Potassium 4.1 mmol/L (3.4-5.0); Sodium 139 mmol/L (137-145)
[2024-11-07 20:43] LABS: Band Neutrophils Percent 7 % (0-6); Monocytes Absolute Manual 1.98 K/mm3 (0.1-0.90); Monocytes Percent Manual 9 % (3-9); Neutrophils Absolute Manual 18.92 K/mm3 (1.7-7.2); Neutrophils Percent Manual 79 % (46-73); Total Cells Counted 100
[2024-11-07 20:44] LABS: Platelet Estimate Adequate (Adequate); Schistocytes None Seen
[2024-11-07 20:51] LABS: Add Urine Microscopic? YES; Appearance Urine Clear (Clear); Bacteria Urine None Seen /hpf; Bilirubin Urine Negative (Negative); Blood Urine Negative (Negative); Color Urine Dark Yellow (Yellow); Glucose Urine UA Negative (Negative); Hyaline Casts Urine Present /lpf; Ketones Urine 2+ mg/dL (Negative); Leukocyte Esterase Ur Negative LEU/UL (Negative); Nitrate Urine Negative (Negative); Protein Urine 2+ mg/dL (Negative); Specific Grav Ur 1.024 (1.001-1.035); Squamous Epithelial Cell Urine None Seen /hpf (Few); WBC Urine 0-5 /hpf (0-3); pH Urine 5.5 (5.0-9.0)
[2024-11-07] MEDS: PIPERACILLIN/TAZ 4.5G/NS 100ML 4.5 GM/100 ML BAG IVPB (21:07)
[2024-11-07 21:09] LABS: Alveolar/Arterial O2 Gradient 16.5 mmHg; Base Excess ABG -5.4 mEq/l (+/-2.0); Fractional Inspired Oxygen 21 %; HCO3 ABG 16.7 mEq/l (22.0-26.0); Oxygen Content ABG 19.1 %vol (16.0-22.0); Oxygen Saturation ABG 98.1 % (95.0-100.0); Oxyhemoglobin 97.2 % THb (90.0-100.0); PCO2 ABG 24.4 mmHg (35.0-45.0); PO2 FiO2 Ratio Arterial Blood 4.95 %; Total Hemoglobin 13.9 g/dL (12.0-18.0); pH ABG 7.452 (7.350-7.450)
[2024-11-07 21:10] LABS: Device ROOM AIR; Site Drawn RIGHT BRACHIAL
[2024-11-07 21:14] LABS: Lactic Acid Reflex 3.4 mmol/L (0.7-2.0)
[2024-11-07 21:17] LABS: CRP < 0.5 mg/dL (<1.0)
[2024-11-07 21:21] LABS: INR 0.9; Prothrombin Time 12.7 Seconds (11.1-14.7)
[2024-11-07 21:22] LABS: Partial Thromboplastin Time 25.2 Seconds (22.3-36.8)
--- NOTE | 2024-11-07 21:59 | ECG_ITS ---
Test Date: 2024-11-07 23:21:31 Measurements Intervals [place] Rate: 90 P: 58 [place]: 216 QRS: -14 QRSD: 116 T: 43 QT: 417 QTc: 511 Interpretive Statements SINUS RHYTHM WITH FIRST DEGREE AV BLOCK POSSIBLE LEFT ATRIAL ENLARGEMENT [-0.1mV P WAVE IN V1/V2] MODERATE INTRAVENTRICULAR CONDUCTION DELAY [110+ ms QRS DURATION] CANNOT RULE OUT SEPTAL INFARCT Compared to ECG 09/26/2024 03:08:04 NO SIGNIFICANT CHANGES Electronically Signed On 11-08-2024 16:05:18 CDT by Linda Saez M.D.
[2024-11-07] MEDS: HALOPERIDOL LACTATE 5 MG/ML VIAL IM (22:08)
--- NOTE | 2024-11-07 22:38 | PC.NURSE ---
RN went to go give pt IM haldol. RN stuck needle in haldol bottle when t punctured throw the whole cap and medication spilled out of bottle. RN override new bottle due to original bottle breaking. Pharmacy notified at this time. Pt received ordered dose of haldol IM through new bottle.
[2024-11-07 23:00] LABS: Reflex Lactic Acid Yes or No Add Lactic
[2024-11-07] MEDS: LABETALOL HCL INJ 100 MG/20 ML VIAL 20 MG IV PUSH (23:17)
[2024-11-08] VITALS (22 sets, daily range): BP systolic 92–223; BP diastolic 42–125; PULSE 90–123; RESP 18–22; TEMP 36.3–37.1; O2SAT 91–98; BMI 25.0
--- NOTE | 2024-11-08 00:15 | ECG_ITS ---
Test Date: 2024-11-08 00:38:54 Measurements Intervals [place] Rate: 89 P: 57 [place]: 192 QRS: -20 QRSD: 109 T: 49 QT: 420 QTc: 512 Interpretive Statements SINUS RHYTHM POSSIBLE LEFT ATRIAL ENLARGEMENT [-0.1mV P-WAVE IN V1/V2] MODERATE INTRAVENTRICULAR CONDUCTION DELAY [110+ ms QRS DURATION] CANNOT RULE OUT SEPTAL INFARCT Compared to ECG 11/07/2024 23:21:31 NO SIGNIFICANT CHANGES Electronically Signed On 11-08-2024 16:07:22 CDT by Linda Saez M.D.
[2024-11-08] MEDS: METOPROLOL TARTRATE INJ 5 MG/5 ML VIAL IV PUSH (00:33)
[2024-11-08 01:47] LABS: Lactic Acid 2.5 mmol/L (0.7-2.0)
[2024-11-08] MEDS: PROMETHAZINE HCL 25 MG/ML AMPUL 12.5 MG IV PUSH (02:20)
[2024-11-08] MEDS: SODIUM CHLORIDE 0.9% IV 1,000 ML 150 ML IV CONT (02:25)
--- NOTE | 2024-11-08 02:29 | ADMGEN ---
This patient, Meron Watson, was admitted to IMU Room 209-01. Patient/family oriented to hospital policies and general routines including ID bracelet, bed and alarms, visiting hours, pain management, procedures, bathroom and other care routines, personal items, smoking policy, room service/diet, and visiting hours. Information on how to activate the Rapid Response Team has been discussed. Patient/Family are encouraged to report perceived risks to care and to ask questions if they do not understand what they are told or what they should do.
[2024-11-08] MEDS: hydrALAZINE HCL 20 MG/ML VIAL 10 MG IV PUSH ×2 (02:46→09:33)
[2024-11-08] MEDS: PIPERACILLIN/TAZ 2.25G/NS 50ML 2.25 GM/50 ML BAG IVPB ×4 (03:41→20:50)
[2024-11-08 05:00] LABS: Basophils Percent Auto 0.2 % (0.2-1.2); Hemoglobin 14.6 g/dL (12.0-15.0); Immature Granulocyte Absolute 0.13 K/mm3 (0.00-0.031); Immature Granulocyte Percent A 0.7 % (0-0.5); Lymphocytes Absolute Auto 0.31 K/mm3 (0.9-3.2); Lymphocytes Percent Auto 1.6 % (18.3-44.2); Mean Corpuscular Hemoglobin 29.7 pg (26-34); Mean Corpuscular Volume 87.4 fl (80-100); Mean Platelet Volume 10.9 fl (7.4-10.4); Monocytes Absolute Auto 0.4 K/mm3 (0.1-0.6); Neutrophils Absolute Auto 18.8 K/mm3 (1.3-6.7); Neutrophils Percent Auto 95.5 % (45.5-73.1); Platelet Count Result 196 k/mm3 (150-375); Red Blood Count 4.92 M/mm3 (4.2-5.4); Red Cell Distribution Width 15.3 % (11.5-14.5); White Blood Count 19.6 K/mm3 (4.5-10.0)
--- NOTE | 2024-11-08 05:02 | P.HP_ITS ---
H&P: HPI History of Present Illness Date/Time: 11/08/24 02:15 Chief Complaint: Nausea vomiting and diarrhea starting around 16:30 Narrative: 69-year-old female with a past medical history of prior pancreatitis, Sow's esophagitis, GERD, cyclic vomiting syndrome, essential hypertension, vitamin-D deficiency and depression presented to the ER with nausea vomiting and diarrhea that started around 16:30. She had multiple episodes of vomiting prior to going to her doctor's office for routine evaluation. She had been baby-sitting her grandson yesterday who was sick with GI symptoms. She endorsed chills on arrival to the ER. Her core temperature was noted to be 95? and she placed under Reji Hugger. She denied any urinary symptoms or abdominal pain. She did have a few episodes of loose stools. She did not tell me any details about her stools and fell asleep multiple times during my evaluation. The patient was irritated with history taking process. She had denied having any syncope confusion headaches or lightheadedness according to ER report. CT of the abdomen pelvis demonstrated mild esophagitis antral gastritis, mild inflammatory changes in fluid surrounding the gallbladder but no right upper quadrant pain or elevated liver enzymes. An mostly fluid-filled colon seen with diarrheal illness. Incidental finding also of segmental it dependent right lower lobe opacities consistent with infection or aspiration. However patient is not having any respiratory symptoms. In the ER she was started on Zosyn. Stool studies and C diff were ordered in the ER but she has not had any further diarrheal symptoms since she came to the ER. In the ER patient was noted to be markedly hypertensive. Patient had prior hospitalizations for hypertensive urgency. The patient told me that her blood pressures had been low at home. When I asked her to discuss what her actual blood pressure values were at home she would not answer. Patient's blood pressures in the ER ranged from 2 10/120 to 180/115. The patient reported ER staff that she had taken her home antihypertensives. Patient received IV labetalol and IV Lopressor in the ER with improvement in her blood pressures down to the 170 systolic prior to being transferred to the intermediate unit. Review of Systems 2 Review of Systems: Review of systems limited due to the patient's lethargy/somnolence. Patient fell asleep multiple times during history taking process. 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 Hypertension Gastroesophageal reflux disease Cerebrovascular accident Without residual deficit. Anxiety History of sudden cardiac arrest successfully resuscitated Secondary to allergic reaction to Zofran (01/2018). History of alcohol use She has abstained from alcohol since the beginning of 2018. Hyperlipidemia Cancer of left breast Invasive lobular cancer of the left breast, ER/PA positive, diagnosed in 2011, status post lumpectomy, radiation, and tamoxifen therapy. Surgical History Surgical History (Updated 11/08/24 @ 05:17 by Gail Kim DO) History of tonsillectomy and adenoidectomy History of lumbar fusion History of esophagogastroduodenoscopy (~2010) History of inguinal hernia repair (~1962) Status post D&C (~2018) Status post surgical removal of ganglion cyst (~2006) Status post partial mastectomy of left breast (~2012) The patient had a lumpectomy and then reconstructive surgery to another lump that was removed History of total right hip arthroplasty (~2010) History of appendectomy (~1990) Family History Family History Grandparent Family history of lung cancer Family history of liver disease Carcinoma of colon Mother Family history of lung cancer Father Family history of lung cancer Family history of renal failure Other Family history of malignant neoplasm of stomach Son Family history of malignant neoplasm of thyroid Social History Social History Social History: Surrogate decision maker: Donn Watson, spouse. Code status: Full code. Smoking packs per day: 0.5 Smoking cigarettes per day: 10.0 Years smoked: 10 Smoking pack-years: 5.00 Smoking status: Never smoker Tobacco type: cigarettes Second hand tobacco smoke exposure: No Smoking end date: 09/26/91 Alcohol intake: never Alcohol use details: History of alcohol abuse. Sober since early 2018. Substance use: current Substance use type: marijuana Last use: 11/07/24 Do You Feel Safe in your Home?: Yes Lack of Transportation: No Lack of Food: Never True Current Housing: I Have Housing Concerned About Future Housing: No Difficulty Paying Gas/Electric Bills: No Difficulty Paying for Meds: No Currently Unemployed: No Education: Associate Degree Difficulty w/ Childcare or Family Care: No Living arrangements: alone Additional living arrangements comments: Lives with in [place]. 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 Spiritual care concerns: No Meds Home Medications and Allergies Home Medications ?Medication ?Instructions ?Recorded ?Confirmed ?Type ergocalciferol (vitamin D2) 1,250 1 unit PO WEEKLY 09/10/19 11/08/24 History mcg (50,000 unit) capsule escitalopram oxalate 20 mg tablet 20 mg PO DAILY 09/10/19 11/08/24 History aspirin 81 mg tablet,delayed 81 mg PO DAILY 09/12/19 11/08/24 History release atorvastatin 20 mg tablet 20 mg PO DAILY #90 tabs 03/20/22 11/08/24 Rx losartan 50 mg tablet 50 mg PO DAILY 05/14/24 11/08/24 History metoprolol succinate 50 mg 50 mg PO DAILY 05/14/24 11/08/24 History tablet,extended release 24 hr metoclopramide HCl 10 mg tablet 10 mg PO Q6H PRN nausea and 09/28/24 11/08/24 Rx vomiting #20 tabs Allergies Allergy/AdvReac Type Severity Reaction Status Date / Time ondansetron Allergy Severe Anaphylaxis Verified 09/26/24 03:20 prochlorperazine Allergy Severe Seizure Verified 09/26/24 03:20 morphine Allergy Intermediate Nausea and Verified 09/26/24 03:20 Vomiting Vital Signs Vital Signs - 24 hr 11/07/24 19:17 11/07/24 20:16 11/07/24 20:20 Temperature 95.9 F L 95.9 F L Pulse Rate 80 78 Respiratory Rate 20 21 H Blood Pressure 158/126 H 210/109 H Pulse Oximetry 100 Oxygen Delivery Room Air 11/07/24 20:35 11/07/24 20:50 11/07/24 21:15 Temperature 97.4 F L 97.9 F Pulse Rate 83 Respiratory Rate 25 H Blood Pressure 190/102 H Pulse Oximetry 100 Oxygen Delivery 11/07/24 21:44 11/07/24 22:52 11/07/24 23:33 Temperature Pulse Rate 90 88 88 Respiratory Rate 14 21 H 23 H Blood Pressure 192/128 H 204/117 H 193/113 H Pulse Oximetry 99 98 98 Oxygen Delivery 11/08/24 00:31 11/08/24 00:33 11/08/24 02:00 Temperature 98.3 F Pulse Rate 90 94 95 Respiratory Rate 21 H 18 Blood Pressure 175/104 H 205/115 H Pulse Oximetry 97 97 Oxygen Delivery 11/08/24 02:31 11/08/24 04:00 11/08/24 04:00 Temperature 98.5 F Pulse Rate 99 99 Respiratory Rate 20 Blood Pressure 173/95 H Pulse Oximetry 98 Oxygen Delivery Room Air 11/08/24 04:00 Temperature Pulse Rate Respiratory Rate Blood Pressure Pulse Oximetry Oxygen Delivery Room Air Exam 2 Narrative: Weight 70.9 kg BMI 25.2 Const: Other: No acute distress contact, lying flat in bed, appears stated age, well-developed well-nourished HENMT: Other: Fair dentition, mucous membranes are tacky, no oral pharyngeal erythema Eyes: Other: Pupils are equal and reactive, no scleral icterus, no conjunctival pallor Neck: Other: No lymphadenopathy, JVD Resp: Other: Clear to auscultation bilaterally, no increased work of breathing Cardio: Other: Mildly tachycardic, occasionally irregular, 2+ bilateral radial pedal pulses, no murmur GI: Other: Soft, nontender, nondistended, normoactive bowel sounds Skin: Other: No jaundice, no pallor Neuro: Other: Lethargic, otherwise alert oriented x3, speech is clear but slow, no facial asymmetry but exam limited due to lack of cooperation, moves all extremities equally, no gross motor deficits noted during conversation Extrem: Other: Is moves all extremities equally, no clubbing, cyanosis or edema, however irregularity and pallor to the right thumb nail bed, 3-4 second cap refill Psych: Other: Flat affect, uncooperative H&P: Results Labs Labs: Short CBC 11/07/24 Range/Units 19:58 WBC 22.0 H (4.5-10.0) K/mm3 Hgb 15.0 D (12.0-15.0) g/dL Hct 45.0 (37.0-47.0) % Plt Count 240 (150-375) k/mm3 [facility] 11/07/24 19:58 Sodium 139 Potassium 4.1 Chloride 103 Carbon Dioxide 17 L BUN 30 H D Creatinine 1.22 H Glucose 180 H Calcium 10.1 Liver Function 11/07/24 Range/Units 19:58 Total Bilirubin 0.7 (0.2-1.3) mg/dL AST 23 (14-36) U/L ALT 19 (6-35) U/L Alkaline Phosphatase 134 H (38-126) U/L Albumin 5.2 H (3.5-5.1) g/dL Urine 11/07/24 Range/Units 19:57 Urine Color Dark yellow (Yellow) Urine Appearance Clear (Clear) Urine pH 5.5 (5.0-9.0) Ur Specific Elsie 1.024 (1.001-1.035) Urine Protein 2+ H (Negative) mg/dL Urine Glucose (UA) Negative (Negative) mg/dL Laboratory Tests 11/08/24 04:27 11/07/24 11/07/24 11/07/24 19:57 19:58 20:53 WBC 22.0 H RBC 5.14 Hgb 15.0 D Hct 45.0 MCV 87.5 MCH 29.2 MCHC 33.3 RDW 14.8 H Plt Count 240 MPV 10.8 H Immature Gran % (Auto) Not Reportable Neut % (Auto) Not Reportable Lymph % (Auto) Not Reportable [place] % (Auto) Not Reportable Eos % (Auto) Not Reportable Baso % (Auto) Not Reportable Lymph # (Auto) Not Reportable [place] # (Auto) Not Reportable Eos # (Auto) Not Reportable Baso # (Auto) Not Reportable Abs Immat Gran (auto) Not Reportable Absolute Neuts (auto) Not Reportable Absolute Nucleated RBC Not Reportable Total Counted 100 Neutrophils % (Manual) 79 H Band Neutrophils % 7 H Lymphocytes % (Manual) 5.0 L Monocytes % (Manual) 9 Nucleated RBC % Not Reportable Abs Neuts (Manual) 18.92 H Abs Lymphs (Manual) 1.10 Abs Monocytes (Manual) 1.98 H Platelet Estimate Adequate Schistocytes None seen PT 12.7 INR 0.9 APTT 25.2 Puncture Site ABG pH ABG pCO2 ABG pO2 ABG PO2/FiO2 Ratio ABG HCO3 ABG O2 Saturation ABG O2 Content ABG Base Excess A-a Gradient Oxyhemoglobin Total Hemoglobin O2 Delivery Device O2 Liters/Min FiO2 Sodium 139 Potassium 4.1 Chloride 103 Carbon Dioxide 17 L Anion Gap 19 H BUN 30 H D Creatinine 1.22 H Estim Creat Clear Calc Not Reportable Estimated GFR 44 L Glucose 180 H Lactic Acid 3.4 H Calcium 10.1 Magnesium 1.8 Total Bilirubin 0.7 AST 23 ALT 19 Alkaline Phosphatase 134 H C-Reactive Protein < 0.5 Total Protein 8.0 Albumin 5.2 H Lipase 115 Urine Color Dark yellow Urine Appearance Clear Urine pH 5.5 Ur Specific Elsie 1.024 Urine Protein 2+ H Urine Glucose (UA) Negative Urine Ketones 2+ H Ur Blood (Man) Negative Urine Nitrate Negative Urine Bilirubin Negative Urine Urobilinogen 1.0 Leukocyte Esterase Rfl Negative Urine RBC 11-20 H Urine WBC 0-5 Ur Squamous Epith Cells None seen Urine Bacteria None seen Urine Casts 11-20 Hyaline Casts Present 11/07/24 11/08/24 11/08/24 20:56 01:29 04:27 WBC Pending RBC Pending Hgb Pending Hct Pending MCV Pending MCH Pending MCHC Pending RDW Pending Plt Count Pending MPV Pending Immature Gran % (Auto) Pending Neut % (Auto) Pending Lymph % (Auto) Pending [place] % (Auto) Pending Eos % (Auto) Pending Baso % (Auto) Pending Lymph # (Auto) Pending [place] # (Auto) Pending Eos # (Auto) Pending Baso # (Auto) Pending Abs Immat Gran (auto) Pending Absolute Neuts (auto) Pending Absolute Nucleated RBC Pending Total Counted Neutrophils % (Manual) Band Neutrophils % Lymphocytes % (Manual) Monocytes % (Manual) Nucleated RBC % Pending Abs Neuts (Manual) Abs Lymphs (Manual) Abs Monocytes (Manual) Platelet Estimate Schistocytes PT INR APTT Puncture Site Right brachial ABG pH 7.452 H ABG pCO2 24.4 L ABG pO2 104.0 H ABG PO2/FiO2 Ratio 4.95 ABG HCO3 16.7 L ABG O2 Saturation 98.1 ABG O2 Content 19.1 ABG Base Excess -5.4 A-a Gradient 16.5 Oxyhemoglobin 97.2 Total Hemoglobin 13.9 O2 Delivery Device Room air O2 Liters/Min 0.0 FiO2 21 Sodium 140 Potassium 3.4 Chloride 107 Carbon Dioxide 14 L Anion Gap 19 H BUN 21 H Creatinine 0.92 Estim Creat Clear Calc 49 Estimated GFR > 60 Glucose 224 H Lactic Acid 2.5 H Calcium 9.2 Magnesium Total Bilirubin 1.2 AST 27 ALT 31 Alkaline Phosphatase 108 C-Reactive Protein Total Protein 8.0 Albumin 4.9 Lipase Urine Color Urine Appearance Urine pH Ur Specific Elsie Urine Protein Urine Glucose (UA) Urine Ketones Ur Blood (Man) Urine Nitrate Urine Bilirubin Urine Urobilinogen Leukocyte Esterase Rfl Urine RBC Urine WBC Ur Squamous Epith Cells Urine Bacteria Urine Casts Hyaline Casts Impressions Chest X-Ray 11/07/24 21:33 IMPRESSION: No acute cardiopulmonary process. Abdomen/Pelvis CT 11/07/24 22:09 IMPRESSION: Subsegmental dependent right lower lobe opacities may represent infection/aspiration. Mild esophagitis and antral gastritis. Mild inflammatory change/fluid surrounding the gallbladder, correlate with biliary labs. Mostly fluid-filled colon as can be seen with diarrheal illness. EKG: Normal sinus rhythm rate 89 QTC 512 possible left atrial enlargement cardiology interpretation pending All imaging and EKGs personally reviewed and interpreted. And unless stated otherwise agree with radiologic and cardiology interpretation. Assessment and Plan Assessment and plan (1) Sepsis: Qualifiers: Sepsis type: sepsis due to unspecified organism Sepsis acute organ dysfunction status: with acute organ dysfunction Severe sepsis acute organ dysfunction type: acute renal failure Acute renal failure type: unspecified S evere sepsis shock status: without septic shock Qualified Code(s): A41.9 - Sepsis, unspecified organism; R65.20 - Severe sepsis without septic shock; N17.9 - Acute kidney failure, unspecified Code(s): A41.9 - Sepsis, unspecified organism Status: Acute (2) Nausea & vomiting: Qualifiers: Vomiting type: unspecified Qualified Code(s): R11.2 - Nausea with vomiting, unspecified Code(s): R11.2 - Nausea with vomiting, unspecified Status: Acute (3) Gastroesophageal reflux disease: Qualifiers: Esophagitis presence: with esophagitis Esophagitis bleeding: without hemorrhage Qualified Code(s): K21.00 - Gastro-esophageal reflux disease with esophagitis, without bleeding Code(s): K21.9 - Gastro-esophageal reflux disease without esophagitis Status: Chronic (4) Gastroenteritis: Code(s): K52.9 - Noninfective gastroenteritis and colitis, unspecified Status: Acute (5) Asymptomatic hypertensive urgency: Code(s): I16.0 - Hypertensive urgency Status: Acute (6) QT prolongation: Code(s): R94.31 - Abnormal electrocardiogram [ECG] [EKG] Status: Acute Plan Patient presented with nausea vomiting and diarrhea. CT does demonstrate esophagitis and gastritis as well as fluid filled bowel suggestive diarrheal illness. Differential includes gastroenteritis versus colitis. Patient was started on empiric antibiotic therapy with Zosyn given her markedly elevated white count, lactic acidosis and bandemia in the setting of tachycardia and hypothermia meeting sepsis criteria. Blood cultures were obtained and are pending. Stool cultures and C diff have been ordered but patient is not yet had a bowel movement to send for stool testing. Lactic acidosis has improved with adequate IV fluid hydration. However, the patient still has a metabolic acidosis with respiratory compensation. With serum bicarb down to 14. Will change IV fluid hydration to bicarb drip. Patient does have associated hyperglycemia without known history of diabetes. Will check A1c. The patient denied any headache or neuro symptoms but had markedly elevated blood pressures. I suspect patient has chronically uncontrolled hypertension. Patient's blood pressures did improve after IV Lopressor, labetalol and hydralazine. Will continue p.r.n. IV hydralazine Q 4 hours as needed for systolic blood pressures greater than 180. Will resume the patient's home antihypertensives. Patient did have QT prolongation on EKG. Will hold patient's home Lexapro. I am wondering if the patient's prior allergies to anti emetics that resulted in cardiac arrest may have been due to QT prolongation instead of anaphylaxis and seizure as listed. Patient does still have Phenergan ordered which should be theoretically a little bit less likely to cause QT prolongation. However will repeat EKG and hold other QT prolonging medications. The patient being monitored in IMU. Hospitalist [facility] Advance Care Plan I have confirmed that the patient's Advanced Care Plan is present, code status is documented, or surrogate decision maker is listed in patient medical record.: Yes Medication Reconciliation I have utilized all available resources to obtain, update and review the patients current medications (includes all prescriptions, OTC, herbals, cannabis, and nutritional supplements).: Yes
[2024-11-08 05:15] LABS: Albumin Level 4.9 g/dL (3.5-5.1); Alkaline Phosphatase 108 U/L (38-126); Anion Gap 19 mmol/L (4-12); Aspartate Amino Transferase 27 U/L (14-36); Bilirubin,Total 1.2 mg/dL (0.2-1.3); Blood Urea Nitrogen 21 mg/dL (7-17); Calcium 9.2 mg/dL (8.4-10.2); Carbon Dioxide 14 mmol/L (22-30); Chloride 107 mmol/L (98-107); Estimated CRCL calculation 49 ml/min; Estimated Glomerular Filt Rate > 60; Glucose 224 mg/dL (65-110); Potassium 3.4 mmol/L (3.4-5.0); Sodium 140 mmol/L (137-145)
[2024-11-08 05:20] LABS: Alanine Aminotransferase 31 U/L (6-35)
--- NOTE | 2024-11-08 05:31 | ECG_ITS ---
Test Date: 2024-11-08 05:59:50 Measurements Intervals [place] Rate: 102 P: 69 [place]: 196 QRS: -14 QRSD: 97 T: 48 QT: 377 QTc: 493 Interpretive Statements SINUS TACHYCARDIA POSSIBLE LEFT ATRIAL ENLARGEMENT [-0.1mV P WAVE IN V1/V2] INFERIOR MYOCARDIAL INFARCTION [40+ ms Q WAVE AND/OR ST/T ABNORMALITY IN II/aVF], PROBABLY OLD MILD ST DEPRESSION CANNOT RULE OUT SEPTAL INFARCT Compared to ECG 11/08/2024 00:38:54 NO SIGNIFICANT CHANGES Electronically Signed On 11-08-2024 16:11:31 CDT by Linda Saez M.D.
[2024-11-08 05:54] LABS: Hemoglobin A1C 5.3 % (<5.7)
[2024-11-08] MEDS: SODIUM BICARBONATE 8.4% 150 MEQ in WATER, STERILE FOR INJECTION 950 ML IV CONT ×3 (06:44→23:37)
[2024-11-08] MEDS: LOSARTAN POTASSIUM 50 MG TABLET PO (09:32)
[2024-11-08] MEDS: METOPROLOL SUCCINATE EXT REL 50 MG TABCR PO (09:32)
[2024-11-08] MEDS: PANTOPRAZOLE SODIUM IV 40 MG VIAL IV PUSH ×2 (09:32→20:50)
[2024-11-08] MEDS: ASPIRIN 81 MG ENTERIC TABLET PO (09:33)
--- NOTE | 2024-11-08 11:27 | PM.IMPN ---
Progress Note: A&P Assessment and Plan (1) Sepsis: Qualifiers: Acute renal failure type: unspecified Sepsis acute organ dysfunction status: with acute organ dysfunction Sepsis type: sepsis due to unspecified organism Severe sepsis acute organ dysfunction type: acute renal failure Severe sepsis shock status: without septic shock Qualified Code(s): A41.9 - Sepsis, unspecified organism; R65.20 - Severe sepsis without septic shock; N17.9 - Acute kidney failure, unspecified Code(s): A41.9 - Sepsis, unspecified organism Status: Acute (2) Nausea & vomiting: Qualifiers: Vomiting type: unspecified Qualified Code(s): R11.2 - Nausea with vomiting, unspecified Code(s): R11.2 - Nausea with vomiting, unspecified Status: Acute (3) Gastroesophageal reflux disease: Qualifiers: Esophagitis presence: with esophagitis Esophagitis bleeding: without hemorrhage Qualified Code(s): K21.00 - Gastro-esophageal reflux disease with esophagitis, without bleeding Code(s): K21.9 - Gastro-esophageal reflux disease without esophagitis Status: Chronic (4) Gastroenteritis: Code(s): K52.9 - Noninfective gastroenteritis and colitis, unspecified Status: Acute (5) Asymptomatic hypertensive urgency: Code(s): I16.0 - Hypertensive urgency Status: Acute (6) QT prolongation: Code(s): R94.31 - Abnormal electrocardiogram [ECG] [EKG] Status: Acute Plan 69-year-old female with a past medical history of prior pancreatitis, Sow's esophagitis, GERD, cyclic vomiting syndrome, essential hypertension, vitamin-D deficiency and depression presented to the ER with nausea vomiting and diarrhea that started around 16:30. She had multiple episodes of vomiting prior to going to her doctor's office for routine evaluation. She had been baby-sitting her grandson yesterday who was sick with GI symptoms. She endorsed chills on arrival to the ER. Her core temperature was noted to be 95? and she placed under Reji Hugger. She denied any urinary symptoms or abdominal pain. She did have a few episodes of loose stools. She had denied having any syncope confusion headaches or lightheadedness. In the ED patient was markedly hypertensive. Ranging in 210/120 to 180/115. Laboratory data revealed WBC of 22 K hemoglobin 15 platelet 240 electrolytes unremarkable creatinine 1.2 carbon dioxide 17 suggesting metabolic acidosis. Calcium was 10.1 glucose 180. LFTs showed mildly elevated alkaline phosphatase 134. CRP less than 0.5 lipase 2 normal at 115. Urinalysis showed 11-20 rbc's and casts with positive ketones leukocyte esterase and nitrate negative 0-5 WBC ABG 7.45/24/104/16. Lactate was elevated at 3.4 with hydration had come down to 2.5. Chest x-ray showed no acute cardiopulmonary process. Abdomen pelvis CT scan showed subsegmental dependent right lower lobe opacities may represent infection/aspiration. Mild esophagitis and antral gastritis. Mild inflammatory change/fluid around gallbladder. Mostly fluid filled colon As seen with diarrheal illnesses. Patient received Zosyn in the ER and admitted for further treatment Sepsis with hypothermia tachycardia lactic acidosis bandemia leukocytosis. Pancultured. Likely source GI evidence of enteritis per CT and/or possible cholecystitis however does not report any right upper quadrant pain will get ultrasound right upper quadrant. Leukocytosis improving on current therapy Possible cholecystitis will evaluate with right upper quadrant ultrasound continue Zosyn as ordered Right lower lobe opacities possible pneumonia however no respiratory symptoms reported. Continue with Zosyn for now Diarrhea stool studies and C diff ordered Hypertension IV hydralazine p.r.n. resume home medications losartan and metoprolol Esophagitis/gastritis ppi Hyperglycemia with no history of diabetes she came back normal at 5.3. Hyperglycemia likely sepsis related Metabolic acidosis started on bicarb drip. Continue to monitor BMP Prolonged QT Lexapro on hold DVT prophylaxis Code status full code Subjective Date/time seen: 11/08/24 11:27 Interval history: No overnight events. Feels a little better. No further diarrhea. Some nausea no vomiting. Blood pressure is still quite elevated. Review of Systems Review of Systems: All systems reviewed & are unremarkable except as noted in HPI and below Exam Narrative: GENERAL: Well-appearing, well-nourished, and in no acute distress. HEAD: Normocephalic, atraumatic. EYES: PERRLA and EOMI. ENT: Nares clear, no rhinorrhea or epistaxis. Mucous membranes moist. NECK: Supple. No adenopathy or masses. CHEST: No respiratory distress. Clear to auscultation. No wheezes rales or rhonchi HEART: Regular rate and rhythm. No murmur heard. Normal peripheral pulses. ABDOMEN: Soft, grossly nontender, nondistended, normal active bowel sounds. MSK: Normal range of motion. No edema. SKIN: Warm, dry, no rash. NEURO: Alert and oriented x4. No focal deficits. PSYCH: Normal mood and affect. Objective Data Vital Signs Vital Signs: Vital Signs - 24 hr 11/07/24 19:17 11/07/24 20:16 11/07/24 20:20 Temperature 95.9 F L 95.9 F L Pulse Rate 80 78 Respiratory Rate 20 21 H Blood Pressure 158/126 H 210/109 H Pulse Oximetry 100 Oxygen Delivery Room Air 11/07/24 20:35 11/07/24 20:50 11/07/24 21:15 Temperature 97.4 F L 97.9 F Pulse Rate 83 Respiratory Rate 25 H Blood Pressure 190/102 H Pulse Oximetry 100 Oxygen Delivery 11/07/24 21:44 11/07/24 22:52 11/07/24 23:33 Temperature Pulse Rate 90 88 88 Respiratory Rate 14 21 H 23 H Blood Pressure 192/128 H 204/117 H 193/113 H Pulse Oximetry 99 98 98 Oxygen Delivery 11/08/24 00:31 11/08/24 00:33 11/08/24 02:00 Temperature 98.3 F Pulse Rate 90 94 95 Respiratory Rate 21 H 18 Blood Pressure 175/104 H 205/115 H Pulse Oximetry 97 97 Oxygen Delivery 11/08/24 02:31 11/08/24 04:00 11/08/24 04:00 Temperature 98.5 F Pulse Rate 99 99 Respiratory Rate 20 Blood Pressure 173/95 H Pulse Oximetry 98 Oxygen Delivery Room Air 11/08/24 04:00 11/08/24 06:00 11/08/24 06:05 Temperature Pulse Rate 104 H 104 H Respiratory Rate Blood Pressure 179/102 H Pulse Oximetry Oxygen Delivery Room Air 11/08/24 06:05 11/08/24 06:06 11/08/24 07:42 Temperature 97.4 F L Pulse Rate 107 H 111 H 116 H Respiratory Rate 21 H Blood Pressure 142/101 H 127/84 223/125 H Pulse Oximetry 96 Oxygen Delivery 11/08/24 09:32 11/08/24 10:28 Temperature Pulse Rate 105 H Respiratory Rate Blood Pressure 157/85 H Pulse Oximetry Oxygen Delivery Intake/Output Intake/Output: Intake & Output 0311/06/24 11/07/24 11/08/24 23:59 23:59 23:59 23:59 Intake Total 2100 992.2 Output Total 800 Balance 2100 192.2 Meds/Results Medications: Active Medications Generic Name Dose Route Start Last Admin Trade Name Freq PRN Reason Stop Dose Admin Acetaminophen 650 mg 11/08/24 00:15 Acetaminophen 325 Mg Tablet PO Q4H PRN Mild Pain (1-3) or Fever Aspirin 81 mg 11/08/24 09:00 11/08/24 09:33 Aspirin 81 Mg Enteric Tablet PO 81 mg DAILY THANH Administration Hydralazine HCl 10 mg 11/08/24 00:27 11/08/24 09:33 Hydralazine Hcl 20 Mg/Ml Vial IV PUSH 10 mg Q4H PRN Administration SBP greater than 180 Piperacillin Sod/Tazobactam Sod 2.25 gm in 50 mls @ 100 mls/hr 11/08/24 03:00 11/08/24 09:31 Zosyn 2.25 Gm/Ns 50 Ml IVPB 100 mls/hr Q6H THANH Administration Sodium Bicarbonate 150 meq/ 1,100 mls @ 150 mls/hr 11/08/24 06:00 11/08/24 06:44 Sterile Water IV CONT 150 mls/hr .Q7H20M THANH Administration Losartan Potassium 50 mg 11/08/24 09:00 11/08/24 09:32 Losartan Potassium 50 Mg Tablet PO 50 mg DAILY THANH Administration Metoprolol Succinate 50 mg 11/08/24 09:00 11/08/24 09:32 Metoprolol Succinate Ext Rel 50 Mg Tabcr PO 50 mg DAILY THANH Administration Pantoprazole Sodium 40 mg 11/08/24 09:00 11/08/24 09:32 Pantoprazole Sodium Iv 40 Mg Vial IV PUSH 40 mg Q12HR THANH Administration Promethazine HCl 12.5 mg 11/08/24 00:15 11/08/24 02:20 Promethazine Hcl 25 Mg/Ml Ampul IV PUSH 12.5 mg Q6H PRN Administration Nausea Radiology Results: ITS Impressions Chest X-Ray 11/07/24 21:33 IMPRESSION: No acute cardiopulmonary process. Abdomen/Pelvis CT 11/07/24 22:09 IMPRESSION: Subsegmental dependent right lower lobe opacities may represent infection/aspiration. Mild esophagitis and antral gastritis. Mild inflammatory change/fluid surrounding the gallbladder, correlate with biliary labs. Mostly fluid-filled colon as can be seen with diarrheal illness. Labs Labs: Laboratory Results - last 24 hr 11/07/24 11/07/24 11/07/24 19:57 19:58 20:53 WBC 22.0 H RBC 5.14 Hgb 15.0 D Hct 45.0 MCV 87.5 MCH 29.2 MCHC 33.3 RDW 14.8 H Plt Count 240 MPV 10.8 H Immature Gran % (Auto) Not Reportable Neut % (Auto) Not Reportable Lymph % (Auto) Not Reportable [place] % (Auto) Not Reportable Eos % (Auto) Not Reportable Baso % (Auto) Not Reportable Lymph # (Auto) Not Reportable [place] # (Auto) Not Reportable Eos # (Auto) Not Reportable Baso # (Auto) Not Reportable Abs Immat Gran (auto) Not Reportable Absolute Neuts (auto) Not Reportable Absolute Nucleated RBC Not Reportable Total Counted 100 Neutrophils % (Manual) 79 H Band Neutrophils % 7 H Lymphocytes % (Manual) 5.0 L Monocytes % (Manual) 9 Nucleated RBC % Not Reportable Abs Neuts (Manual) 18.92 H Abs Lymphs (Manual) 1.10 Abs Monocytes (Manual) 1.98 H Platelet Estimate Adequate Schistocytes None seen PT 12.7 INR 0.9 APTT 25.2 Puncture Site ABG pH ABG pCO2 ABG pO2 ABG PO2/FiO2 Ratio ABG HCO3 ABG O2 Saturation ABG O2 Content ABG Base Excess A-a Gradient Oxyhemoglobin Total Hemoglobin O2 Delivery Device O2 Liters/Min FiO2 Sodium 139 Potassium 4.1 Chloride 103 Carbon Dioxide 17 L Anion Gap 19 H BUN 30 H D Creatinine 1.22 H Estim Creat Clear Calc Not Reportable Estimated GFR 44 L Glucose 180 H Hemoglobin A1c Lactic Acid 3.4 H Calcium 10.1 Magnesium 1.8 Total Bilirubin 0.7 AST 23 ALT 19 Alkaline Phosphatase 134 H C-Reactive Protein < 0.5 Total Protein 8.0 Albumin 5.2 H Lipase 115 Urine Color Dark yellow Urine Appearance Clear Urine pH 5.5 Ur Specific [place] 1.024 Urine Protein 2+ H Urine Glucose (UA) Negative Urine Ketones 2+ H Ur Blood (Man) Negative Urine Nitrate Negative Urine Bilirubin Negative Urine Urobilinogen 1.0 Leukocyte Esterase Rfl Negative Urine RBC 11-20 H Urine WBC 0-5 Ur Squamous Epith Cells None seen Urine Bacteria None seen Urine Casts 11-20 Hyaline Casts Present 11/07/24 11/08/24 11/08/24 20:56 01:29 04:21 WBC RBC Hgb Hct MCV MCH MCHC RDW Plt Count MPV Immature Gran % (Auto) Neut % (Auto) Lymph % (Auto) [place] % (Auto) Eos % (Auto) Baso % (Auto) Lymph # (Auto) [place] # (Auto) Eos # (Auto) Baso # (Auto) Abs Immat Gran (auto) Absolute Neuts (auto) Absolute Nucleated RBC Total Counted Neutrophils % (Manual) Band Neutrophils % Lymphocytes % (Manual) Monocytes % (Manual) Nucleated RBC % Abs Neuts (Manual) Abs Lymphs (Manual) Abs Monocytes (Manual) Platelet Estimate Schistocytes PT INR APTT Puncture Site Right brachial ABG pH 7.452 H ABG pCO2 24.4 L ABG pO2 104.0 H ABG PO2/FiO2 Ratio 4.95 ABG HCO3 16.7 L ABG O2 Saturation 98.1 ABG O2 Content 19.1 ABG Base Excess -5.4 A-a Gradient 16.5 Oxyhemoglobin 97.2 Total Hemoglobin 13.9 O2 Delivery Device Room air O2 Liters/Min 0.0 FiO2 21 Sodium Potassium Chloride Carbon Dioxide Anion Gap BUN Creatinine Estim Creat Clear Calc Estimated GFR Glucose Hemoglobin A1c 5.3 Lactic Acid 2.5 H Calcium Magnesium Total Bilirubin AST ALT Alkaline Phosphatase C-Reactive Protein Total Protein Albumin Lipase Urine Color Urine Appearance Urine pH Ur Specific [place] Urine Protein Urine Glucose (UA) Urine Ketones Ur Blood (Man) Urine Nitrate Urine Bilirubin Urine Urobilinogen Leukocyte Esterase Rfl Urine RBC Urine WBC Ur Squamous Epith Cells Urine Bacteria Urine Casts Hyaline Casts 11/08/24 04:27 WBC 19.6 H RBC 4.92 Hgb 14.6 Hct 43.0 MCV 87.4 MCH 29.7 MCHC 34.0 RDW 15.3 H Plt Count 196 MPV 10.9 H Immature Gran % (Auto) 0.7 H Neut % (Auto) 95.5 H Lymph % (Auto) 1.6 L [place] % (Auto) 2.0 L Eos % (Auto) 0.0 Baso % (Auto) 0.2 Lymph # (Auto) 0.31 L [place] # (Auto) 0.4 Eos # (Auto) 0.0 Baso # (Auto) 0.0 Abs Immat Gran (auto) 0.13 H Absolute Neuts (auto) 18.8 H Absolute Nucleated RBC 0.000 Total Counted Neutrophils % (Manual) Band Neutrophils % Lymphocytes % (Manual) Monocytes % (Manual) Nucleated RBC % 0.0 Abs Neuts (Manual) Abs Lymphs (Manual) Abs Monocytes (Manual) Platelet Estimate Schistocytes PT INR APTT Puncture Site ABG pH ABG pCO2 ABG pO2 ABG PO2/FiO2 Ratio ABG HCO3 ABG O2 Saturation ABG O2 Content ABG Base Excess A-a Gradient Oxyhemoglobin Total Hemoglobin O2 Delivery Device O2 Liters/Min FiO2 Sodium 140 Potassium 3.4 Chloride 107 Carbon Dioxide 14 L Anion Gap 19 H BUN 21 H Creatinine 0.92 Estim Creat Clear Calc 49 Estimated GFR > 60 Glucose 224 H Hemoglobin A1c Lactic Acid Calcium 9.2 Magnesium Total Bilirubin 1.2 AST 27 ALT 31 Alkaline Phosphatase 108 C-Reactive Protein Total Protein 8.0 Albumin 4.9 Lipase Urine Color Urine Appearance Urine pH Ur Specific [place] Urine Protein Urine Glucose (UA) Urine Ketones Ur Blood (Man) Urine Nitrate Urine Bilirubin Urine Urobilinogen Leukocyte Esterase Rfl Urine RBC Urine WBC Ur Squamous Epith Cells Urine Bacteria Urine Casts Hyaline Casts
--- NOTE | 2024-11-08 16:34 | P.CONGS_ITS ---
Assessment and Plan Assessment and plan (1) Nausea & vomiting: Qualifiers: Vomiting type: unspecified Qualified Code(s): R11.2 - Nausea with vomiting, unspecified Code(s): R11.2 - Nausea with vomiting, unspecified Status: Acute Assessment and Plan: * I review the CT and discussed the findings with the patient. She has gallbladder wall thickening noted on the CT but does not have any focal abdominal tenderness. Her symptoms of nausea, vomiting, and diarrhea her more likely consistent with gastroenteritis and the imaging findings could be secondary edema or induration. I agree with starting a low-fat diet and seeing how patient symptoms are progressing. If she is having any worsening nausea/vomiting or developing abdominal pain, could consider HIDA scan. Will continue to follow along with patient for any change in symptoms. (2) Abnormal findings on diagnostic imaging of gallbladder: Code(s): R93.2 - Abnormal findings on diagnostic imaging of liver and biliary tract Status: Acute (3) Hypertensive urgency: Code(s): I16.0 - Hypertensive urgency Status: Acute History of Present Illness Consult details Consult date: 11/08/24 Reason for consult: other (cholecystitis) Requesting physician: Akil Sheffield MD Narrative: This is a 69-year-old woman who I am asked to see for possible cholecystitis. She presented to the emergency department yesterday with nausea, vomiting, and diarrhea. She denies ever experiencing any abdominal pain along with the symptoms. She states that she had gone to the doctor yesterday for a regular visit and her blood pressure was normal and she was symptom free. She had eaten pizza during the day prior to the symptoms starting. The patient does have prior history of pancreatitis and has a history of heavy alcohol use but has not drank heavily for several years. In the emergency department she was noted to be significantly hypertensive. CT of her abdomen and pelvis was performed which showed evidence of mild gallbladder wall thickening. A gallbladder ultrasound was also performed which showed no evidence of gallstones but mild gallbladder distention and gallbladder wall thickening. The patient did not have a sonographic Plummer sign. The patient's nausea and vomiting has since resolved. She still is not having any abdominal pain. Review of Systems 2 Review of Systems: All systems reviewed & are unremarkable except as noted in HPI and below Eyes: Eyes: Denies change in vision ENT: Denies hearing loss, Denies neck pain and Denies sore throat Cardiovascular: Cardiovascular: Denies chest pain and Denies dyspnea Respiratory: Respiratory: Denies cough, Denies dyspnea and Denies wheezing Gastrointestinal: Gastrointestinal: Reports as per HPI Genitourinary: Genitourinary: Denies hematuria and Denies dysuria Musculoskeletal: Musculoskeletal: Denies arthralgias, Denies joint swelling and Denies neck pain Allergic/Immunologic: Allergic/Immunologic: Denies wheezing [facility] Past Medical History Medical History 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 Hypertension Gastroesophageal reflux disease Cerebrovascular accident Without residual deficit. Anxiety History of sudden cardiac arrest successfully resuscitated Secondary to allergic reaction to Zofran (01/2018). History of alcohol use She has abstained from alcohol since the beginning of 2018. Hyperlipidemia Cancer of left breast Invasive lobular cancer of the left breast, ER/[place] positive, diagnosed in 2011, status post lumpectomy, radiation, and tamoxifen therapy. Surgical History Surgical History History of tonsillectomy and adenoidectomy History of lumbar fusion History of esophagogastroduodenoscopy (~2010) History of inguinal hernia repair (~1962) Status post D&C (~2018) Status post surgical removal of ganglion cyst (~2006) Status post partial mastectomy of left breast (~2012) The patient had a lumpectomy and then reconstructive surgery to another lump that was removed History of total right hip arthroplasty (~2010) History of appendectomy (~1990) Family History Family History Grandparent Family history of lung cancer Family history of liver disease Carcinoma of colon Mother Family history of lung cancer Father Family history of lung cancer Family history of renal failure Other Family history of malignant neoplasm of stomach Son Family history of malignant neoplasm of thyroid Social History Social History Social History: Surrogate decision maker: Donn Watson, spouse. Code status: Full code. Smoking packs per day: 0.5 Smoking cigarettes per day: 10.0 Years smoked: 10 Smoking pack-years: 5.00 Smoking status: Never smoker Tobacco type: cigarettes Second hand tobacco smoke exposure: No Smoking end date: 09/26/91 Alcohol intake: never Alcohol use details: History of alcohol abuse. Sober since early 2018. Substance use: current Substance use type: marijuana Last use: 11/07/24 Do You Feel Safe in your Home?: Yes Lack of Transportation: No Lack of Food: Never True Current Housing: I Have Housing Concerned About Future Housing: No Difficulty Paying Gas/Electric Bills: No Difficulty Paying for Meds: No Currently Unemployed: No Education: Associate Degree Difficulty w/ Childcare or Family Care: No Living arrangements: alone Additional living arrangements comments: Lives with in [place]. 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 Spiritual care concerns: No Meds Home Medications and Allergies Home Medications ?Medication ?Instructions ?Recorded ?Confirmed ?Type ergocalciferol (vitamin D2) 1,250 1 unit PO WEEKLY 09/10/19 11/08/24 History mcg (50,000 unit) capsule escitalopram oxalate 20 mg tablet 20 mg PO DAILY 09/10/19 11/08/24 History aspirin 81 mg tablet,delayed 81 mg PO DAILY 09/12/19 11/08/24 History release atorvastatin 20 mg tablet 20 mg PO DAILY #90 tabs 03/20/22 11/08/24 Rx losartan 50 mg tablet 50 mg PO DAILY 05/14/24 11/08/24 History metoprolol succinate 50 mg 50 mg PO DAILY 05/14/24 11/08/24 History tablet,extended release 24 hr metoclopramide HCl 10 mg tablet 10 mg PO Q6H PRN nausea and 09/28/24 11/08/24 Rx vomiting #20 tabs Allergies Allergy/AdvReac Type Severity Reaction Status Date / Time ondansetron Allergy Severe Anaphylaxis Verified 09/26/24 03:20 prochlorperazine Allergy Severe Seizure Verified 09/26/24 03:20 morphine Allergy Intermediate Nausea and Verified 09/26/24 03:20 Vomiting Vital Signs Vital Signs - 24 hr 11/07/24 19:17 11/07/24 20:16 11/07/24 20:20 Temperature 95.9 F L 95.9 F L Pulse Rate 80 78 Respiratory Rate 20 21 H Blood Pressure 158/126 H 210/109 H Pulse Oximetry 100 Oxygen Delivery Room Air 11/07/24 20:35 11/07/24 20:50 11/07/24 21:15 Temperature 97.4 F L 97.9 F Pulse Rate 83 Respiratory Rate 25 H Blood Pressure 190/102 H Pulse Oximetry 100 Oxygen Delivery 11/07/24 21:44 11/07/24 22:52 11/07/24 23:33 Temperature Pulse Rate 90 88 88 Respiratory Rate 14 21 H 23 H Blood Pressure 192/128 H 204/117 H 193/113 H Pulse Oximetry 99 98 98 Oxygen Delivery 11/08/24 00:31 11/08/24 00:33 11/08/24 02:00 Temperature 98.3 F Pulse Rate 90 94 95 Respiratory Rate 21 H 18 Blood Pressure 175/104 H 205/115 H Pulse Oximetry 97 97 Oxygen Delivery 11/08/24 02:31 11/08/24 04:00 11/08/24 04:00 Temperature 98.5 F Pulse Rate 99 99 Respiratory Rate 20 Blood Pressure 173/95 H Pulse Oximetry 98 Oxygen Delivery Room Air 11/08/24 04:00 11/08/24 06:00 11/08/24 06:05 Temperature Pulse Rate 104 H 104 H Respiratory Rate Blood Pressure 179/102 H Pulse Oximetry Oxygen Delivery Room Air 11/08/24 06:05 11/08/24 06:06 11/08/24 07:42 Temperature 97.4 F L Pulse Rate 107 H 111 H 116 H Respiratory Rate 21 H Blood Pressure 142/101 H 127/84 223/125 H Pulse Oximetry 96 Oxygen Delivery 11/08/24 08:00 11/08/24 09:32 11/08/24 10:00 Temperature Pulse Rate 108 H 105 H 113 H Respiratory Rate Blood Pressure Pulse Oximetry Oxygen Delivery 11/08/24 10:28 11/08/24 11:47 11/08/24 12:10 Temperature 97.5 F L Pulse Rate 123 H 120 H Respiratory Rate 22 H Blood Pressure 157/85 H 179/92 H Pulse Oximetry 96 Oxygen Delivery 11/08/24 16:00 11/08/24 16:32 Temperature 98.3 F Pulse Rate 101 H Respiratory Rate 20 Blood Pressure 92/50 L 93/54 L Pulse Oximetry 95 Oxygen Delivery Exam 2 Const: General: alert; No acute distress Orientation/consciousness: patient oriented x3 Limitations: no limitations HENMT: Head: normocephalic and atraumatic Ears: hearing grossly normal bilaterally Face/Nose/Sinus: Normal external nose present and Normal nares present Mouth: Yes Normal oral and palatal mucosa present and Yes moist mucous membranes Eyes: General: appearance normal, both eyes and all related structures C onjunctivae: conjunctivae normal Sclera: sclerae normal Pupils: Equal, round and reactive pupils present EOM: EOMs intact bilaterally Neck: Neck: normal visual inspection, full ROM, no lymphadenopathy, supple and no JVD Lymphatic: no lymphadenopathy noted Chest: Chest palpation & inspection: normal inspection of the chest Resp: Effort & Inspection: normal respiratory effort and able to speak in complete sentences Auscultation: clear to auscultation bilaterally P ercussion: percussion normal Cardio: Jugular venous distension: no JVD Rate: regular rate Rhythm: r egular rhythm Heart sounds: S1 normal heart sound present and S2 normal heart sound present Peripheral pulses: Peripheral pulses 2+ throughout GI: Inspection: normal to inspection GI Palp: Yes Soft to palpation, No Tenderness to palpation present (GI), No Guarding due to palpation present (GI), No Hepatomegaly present and No Rebound tenderness present Percussion: Yes normal to percussion Auscultation: normal bowel sounds : General: Yes no CVA tenderness Back/Spine/Pelvis: Back: no CVA tenderness Skin: General skin exam: normal color and dry skin Neuro: General: patient oriented x3, gait normal, moves all extremities, no focal motor deficits and CN's II-XI intact bilaterally Cranial nerves: Yes Equal, round and reactive pupils present Speech: normal speech Extrem: General: normal to inspection and capillary refill normal Results Labs 11/08/24 04:27 11/08/24 04:27 Labs: Abnormal lab results 11/07/24 11/07/24 11/07/24 Range/Units 19:57 19:58 20:53 WBC 22.0 H (4.5-10.0) K/mm3 RDW 14.8 H (11.5-14.5) % MPV 10.8 H (7.4-10.4) fl Immature Gran % (Auto) (0-0.5) % Neut % (Auto) (45.5-73.1) % Lymph % (Auto) (18.3-44.2) % [place] % (Auto) (2.6-8.5) % Lymph # (Auto) (0.9-3.2) K/mm3 Abs Immat Gran (auto) (0.00-0.031) K/mm3 Absolute Neuts (auto) (1.3-6.7) K/mm3 Neutrophils % (Manual) 79 H (46-73) % Band Neutrophils % 7 H (0-6) % Lymphocytes % (Manual) 5.0 L (18-44) % Abs Neuts (Manual) 18.92 H (1.7-7.2) K/mm3 Abs Monocytes (Manual) 1.98 H (0.1-0.90) K/mm3 ABG pH (7.350-7.450) ABG pCO2 (35.0-45.0) mmHg ABG pO2 (80.0-100.0) mmHg ABG HCO3 (22.0-26.0) mEq/l Carbon Dioxide 17 L (22-30) mmol/L Anion Gap 19 H (4-12) mmol/L BUN 30 H D (7-17) mg/dL Creatinine 1.22 H (0.7-1.0) mg/dL Estimated GFR 44 L (59 - ) Glucose 180 H (65-110) mg/dL Lactic Acid 3.4 H (0.7-2.0) mmol/L Alkaline Phosphatase 134 H (38-126) U/L Albumin 5.2 H (3.5-5.1) g/dL Urine Protein 2+ H (Negative) mg/dL Urine Ketones 2+ H (Negative) mg/dL Urine RBC 11-20 H (0-2) /hpf 11/07/24 11/08/24 11/08/24 Range/Units 20:56 01:29 04:27 WBC 19.6 H (4.5-10.0) K/mm3 RDW 15.3 H (11.5-14.5) % MPV 10.9 H (7.4-10.4) fl Immature Gran % (Auto) 0.7 H (0-0.5) % Neut % (Auto) 95.5 H (45.5-73.1) % Lymph % (Auto) 1.6 L (18.3-44.2) % [place] % (Auto) 2.0 L (2.6-8.5) % Lymph # (Auto) 0.31 L (0.9-3.2) K/mm3 Abs Immat Gran (auto) 0.13 H (0.00-0.031) K/mm3 Absolute Neuts (auto) 18.8 H (1.3-6.7) K/mm3 Neutrophils % (Manual) (46-73) % Band Neutrophils % (0-6) % Lymphocytes % (Manual) (18-44) % Abs Neuts (Manual) (1.7-7.2) K/mm3 Abs Monocytes (Manual) (0.1-0.90) K/mm3 ABG pH 7.452 H (7.350-7.450) ABG pCO2 24.4 L (35.0-45.0) mmHg ABG pO2 104.0 H (80.0-100.0) mmHg ABG HCO3 16.7 L (22.0-26.0) mEq/l Carbon Dioxide 14 L (22-30) mmol/L Anion Gap 19 H (4-12) mmol/L BUN 21 H (7-17) mg/dL Creatinine (0.7-1.0) mg/dL Estimated GFR (59 - ) Glucose 224 H (65-110) mg/dL Lactic Acid 2.5 H (0.7-2.0) mmol/L Alkaline Phosphatase (38-126) U/L Albumin (3.5-5.1) g/dL Urine Protein (Negative) mg/dL Urine Ketones (Negative) mg/dL Urine RBC (0-2) /hpf Diabetes panel 11/07/24 11/08/24 11/08/24 Range/Units 19:58 04:21 04:27 Sodium 139 140 (137-145) mmol/L Potassium 4.1 3.4 (3.4-5.0) mmol/L Chloride 103 107 (98-107) mmol/L Carbon Dioxide 17 L 14 L (22-30) mmol/L BUN 30 H D 21 H (7-17) mg/dL Creatinine 1.22 H 0.92 (0.7-1.0) mg/dL Glucose 180 H 224 H (65-110) mg/dL Hemoglobin A1c 5.3 (<5.7) % Calcium 10.1 9.2 (8.4-10.2) mg/dL AST 23 27 (14-36) U/L ALT 19 31 (6-35) U/L Alkaline Phosphatase 134 H 108 (38-126) U/L Total Protein 8.0 8.0 (6.3-8.2) g/dL Albumin 5.2 H 4.9 (3.5-5.1) g/dL Calcium panel 11/07/24 11/08/24 Range/Units 19:58 04:27 Calcium 10.1 9.2 (8.4-10.2) mg/dL Albumin 5.2 H 4.9 (3.5-5.1) g/dL Pituitary panel 11/07/24 11/08/24 Range/Units 19:58 04:27 Sodium 139 140 (137-145) mmol/L Potassium 4.1 3.4 (3.4-5.0) mmol/L Chloride 103 107 (98-107) mmol/L Carbon Dioxide 17 L 14 L (22-30) mmol/L BUN 30 H D 21 H (7-17) mg/dL Creatinine 1.22 H 0.92 (0.7-1.0) mg/dL Glucose 180 H 224 H (65-110) mg/dL Calcium 10.1 9.2 (8.4-10.2) mg/dL Adrenal panel 11/07/24 11/08/24 Range/Units 19:58 04:27 Sodium 139 140 (137-145) mmol/L Potassium 4.1 3.4 (3.4-5.0) mmol/L Chloride 103 107 (98-107) mmol/L Carbon Dioxide 17 L 14 L (22-30) mmol/L BUN 30 H D 21 H (7-17) mg/dL Creatinine 1.22 H 0.92 (0.7-1.0) mg/dL Glucose 180 H 224 H (65-110) mg/dL Calcium 10.1 9.2 (8.4-10.2) mg/dL Total Bilirubin 0.7 1.2 (0.2-1.3) mg/dL AST 23 27 (14-36) U/L ALT 19 31 (6-35) U/L Alkaline Phosphatase 134 H 108 (38-126) U/L Total Protein 8.0 8.0 (6.3-8.2) g/dL Albumin 5.2 H 4.9 (3.5-5.1) g/dL All other labs normal. Imaging Additional studies: ITS Impressions Chest X-Ray 11/07/24 21:33 IMPRESSION: No acute cardiopulmonary process. Abdomen/Pelvis CT 11/07/24 22:09 IMPRESSION: Subsegmental dependent right lower lobe opacities may represent infection/aspiration. Mild esophagitis and antral gastritis. Mild inflammatory change/fluid surrounding the gallbladder, correlate with biliary labs. Mostly fluid-filled colon as can be seen with diarrheal illness. Upper Quadrant Ultrasound 11/08/24 14:11 IMPRESSION: Distended gallbladder with edematous wall. Cholecystitis cannot be excluded. Clinical correlation advised. Otherwise, normal right upper quadrant ultrasound.
[2024-11-09] VITALS (11 sets, daily range): BP systolic 114–123; BP diastolic 59–69; PULSE 74–104; RESP 16–20; TEMP 36.5–37.5; O2SAT 95–98
[2024-11-09] MEDS: PIPERACILLIN/TAZ 2.25G/NS 50ML 2.25 GM/50 ML BAG IVPB ×3 (04:30→14:03)
[2024-11-09 04:53] LABS: Alanine Aminotransferase 16 U/L (6-35); Albumin Level 3.5 g/dL (3.5-5.1); Alkaline Phosphatase 65 U/L (38-126); Anion Gap 6 mmol/L (4-12); Aspartate Amino Transferase 19 U/L (14-36); Bilirubin,Total 0.5 mg/dL (0.2-1.3); Blood Urea Nitrogen 19 mg/dL (7-17); Calcium 8.2 mg/dL (8.4-10.2); Carbon Dioxide 36 mmol/L (22-30); Chloride 95 mmol/L (98-107); Estimated CRCL calculation 51 ml/min; Estimated Glomerular Filt Rate > 60; Glucose 96 mg/dL (65-110); Magnesium 1.7 mg/dL (1.6-2.3); Potassium 2.5 mmol/L (3.4-5.0); Sodium 137 mmol/L (137-145)
[2024-11-09 06:04] LABS: Basophils Percent Auto 0.2 % (0.2-1.2); Eosinophils Percent Auto 0.3 % (0-4.4); Hematocrit 34.4 % (37.0-47.0); Hemoglobin 11.6 g/dL (12.0-15.0); Immature Granulocyte Absolute 0.02 K/mm3 (0.00-0.031); Immature Granulocyte Percent A 0.2 % (0-0.5); Lymphocytes Percent Auto 14.4 % (18.3-44.2); Mean Corpuscular HGB Conc 33.7 g/dl (32-36); Mean Corpuscular Hemoglobin 29.6 pg (26-34); Mean Corpuscular Volume 87.8 fl (80-100); Mean Platelet Volume 9.9 fl (7.4-10.4); Monocytes Percent Auto 8.7 % (2.6-8.5); Neutrophils Absolute Auto 8.5 K/mm3 (1.3-6.7); Neutrophils Percent Auto 76.2 % (45.5-73.1); Platelet Count Result 147 k/mm3 (150-375); Red Blood Count 3.92 M/mm3 (4.2-5.4); Red Cell Distribution Width 15.6 % (11.5-14.5); White Blood Count 11.1 K/mm3 (4.5-10.0)
[2024-11-09] MEDS: POTASSIUM CHLORIDE 20 MEQ PACKET (FOR LIQUID) 40 MEQ PO (06:42)
[2024-11-09] MEDS: POTASSIUM CHLORIDE INJ 40 MEQ in SODIUM CHLORIDE 0.9% IV 500 ML 130 MEQ IVPB (06:42)
[2024-11-09] MEDS: MAGNESIUM SULFATE 3GM/D5W100ML 3 GM/100 ML BAG IVPB (06:43)
[2024-11-09] MEDS: SODIUM BICARBONATE 8.4% 150 MEQ in WATER, STERILE FOR INJECTION 950 ML IV CONT (06:59)
[2024-11-09] MEDS: METOPROLOL SUCCINATE EXT REL 50 MG TABCR PO (08:37)
[2024-11-09] MEDS: ASPIRIN 81 MG ENTERIC TABLET PO (08:37)
[2024-11-09] MEDS: PANTOPRAZOLE SODIUM IV 40 MG VIAL IV PUSH (08:37)
--- NOTE | 2024-11-09 10:10 | P.PNGS_ITS ---
Progress Note: A&P Assessment and Plan (1) Nausea & vomiting: Qualifiers: Vomiting type: unspecified Qualified Code(s): R11.2 - Nausea with vomiting, unspecified Code(s): R11.2 - Nausea with vomiting, unspecified Status: Acute Assessment and Plan: * Nausea, vomiting, and diarrhea improving. She was able to tolerate a diet. Still not having any abdominal pain or tenderness on exam. * Symptoms more likely related to gastroenteritis. No plans for further imaging of the gallbladder at this time. We will continue to follow along for any changes. (2) Abnormal findings on diagnostic imaging of gallbladder: Code(s): R93.2 - Abnormal findings on diagnostic imaging of liver and biliary tract Status: Acute (3) Hypertensive urgency: Code(s): I16.0 - Hypertensive urgency Status: Acute Subjective Subjective Date/Time Seen: 11/09/24 10:10 Patient reports: no new complaints and feels better Interval history: Patient feeling better this morning. No nausea or vomiting. She was able to tolerate breakfast. Still not having any abdominal pain. Exam Const: General: comfortable and no acute distress GI: Inspection: non-distended GI Palp: Yes Soft to palpation, No Tenderness to palpation present (GI), No Guarding due to palpation present (GI) and No Rebound tenderness present Auscultation: normal bowel sounds Objective Data Vital Signs Vital Signs: Vital Signs - 24 hr 11/08/24 10:28 11/08/24 11:47 11/08/24 12:10 Temperature 97.5 F L Pulse Rate 123 H 120 H Respiratory Rate 22 H Blood Pressure 157/85 H 179/92 H Pulse Oximetry 96 Oxygen Delivery 11/08/24 14:00 11/08/24 16:00 11/08/24 16:32 Temperature 98.3 F Pulse Rate 104 H 101 H Respiratory Rate 20 Blood Pressure 92/50 L 93/54 L Pulse Oximetry 95 Oxygen Delivery 11/08/24 18:00 11/08/24 19:56 11/08/24 20:00 Temperature Pulse Rate 104 H 98 Respiratory Rate 20 Blood Pressure 98/58 L Pulse Oximetry Oxygen Delivery Room Air 11/08/24 20:00 11/08/24 20:12 11/08/24 23:53 Temperature 97.6 F 98.8 F Pulse Rate 96 98 94 Respiratory Rate 20 20 Blood Pressure 100/42 L 114/55 L Pulse Oximetry 96 91 Oxygen Delivery 11/09/24 00:00 11/09/24 00:00 11/09/24 03:39 Temperature Pulse Rate 83 Respiratory Rate Blood Pressure Pulse Oximetry Oxygen Delivery Room Air Room Air 11/09/24 04:00 11/09/24 04:22 11/09/24 07:59 Temperature 98.5 F 99.5 F Pulse Rate 75 80 87 Respiratory Rate 20 16 Blood Pressure 119/69 117/67 Pulse Oximetry 96 97 Oxygen Delivery 11/09/24 08:37 Temperature Pulse Rate 86 Respiratory Rate Blood Pressure Pulse Oximetry Oxygen Delivery Intake/Output Intake/Output: Intake & Output 11/06/24 11/07/24 11/08/24 11/09/24 23:59 23:59 23:59 23:59 Intake Total 2100 3942.2 1700 Output Total 800 Balance 2100 3142.2 1700 Meds/Results Medications: Active Medications Generic Name Dose Route Start Last Admin Trade Name Freq PRN Reason Stop Dose Admin Acetaminophen 650 mg 11/08/24 00:15 Acetaminophen 325 Mg Tablet PO Q4H PRN Mild Pain (1-3) or Fever Aspirin 81 mg 11/08/24 09:00 11/09/24 08:37 Aspirin 81 Mg Enteric Tablet PO 81 mg DAILY THANH Administration Hydralazine HCl 10 mg 11/08/24 00:27 11/08/24 09:33 Hydralazine Hcl 20 Mg/Ml Vial IV PUSH 10 mg Q4H PRN Administration SBP greater than 180 Piperacillin Sod/Tazobactam Sod 2.25 gm in 50 mls @ 100 mls/hr 11/08/24 03:00 11/09/24 08:36 Zosyn 2.25 Gm/Ns 50 Ml IVPB 100 mls/hr Q6H THANH Administration Losartan Potassium 50 mg 11/08/24 09:00 11/08/24 09:32 Losartan Potassium 50 Mg Tablet PO 50 mg DAILY THANH Administration Metoprolol Succinate 50 mg 11/08/24 09:00 11/09/24 08:37 Metoprolol Succinate Ext Rel 50 Mg Tabcr PO 50 mg DAILY THANH Administration Pantoprazole Sodium 40 mg 11/08/24 09:00 11/09/24 08:37 Pantoprazole Sodium Iv 40 Mg Vial IV PUSH 40 mg Q12HR THANH Administration Promethazine HCl 12.5 mg 11/08/24 00:15 11/08/24 02:20 Promethazine Hcl 25 Mg/Ml Ampul IV PUSH 12.5 mg Q6H PRN Administration Nausea Radiology Results: ITS Impressions Chest X-Ray 11/07/24 21:33 IMPRESSION: No acute cardiopulmonary process. Abdomen/Pelvis CT 11/07/24 22:09 IMPRESSION: Subsegmental dependent right lower lobe opacities may represent infection/aspiration. Mild esophagitis and antral gastritis. Mild inflammatory change/fluid surrounding the gallbladder, correlate with biliary labs. Mostly fluid-filled colon as can be seen with diarrheal illness. Upper Quadrant Ultrasound 11/08/24 14:11 IMPRESSION: Distended gallbladder with edematous wall. Cholecystitis cannot be excluded. Clinical correlation advised. Otherwise, normal right upper quadrant ultrasound. Labs Labs: Laboratory Results - last 24 hr 11/09/24 11/09/24 04:11 05:48 WBC 11.1 H RBC 3.92 L Hgb 11.6 L D Hct 34.4 L MCV 87.8 MCH 29.6 MCHC 33.7 RDW 15.6 H Plt Count 147 L MPV 9.9 Immature Gran % (Auto) 0.2 Neut % (Auto) 76.2 H Lymph % (Auto) 14.4 L [place] % (Auto) 8.7 H Eos % (Auto) 0.3 Baso % (Auto) 0.2 Lymph # (Auto) 1.60 [place] # (Auto) 1.0 H Eos # (Auto) 0.0 Baso # (Auto) 0.0 Abs Immat Gran (auto) 0.02 Absolute Neuts (auto) 8.5 H Absolute Nucleated RBC 0.000 Nucleated RBC % 0.0 Sodium 137 Potassium 2.5 L* Chloride 95 L Carbon Dioxide 36 H Anion Gap 6 BUN 19 H Creatinine 0.87 Estim Creat Clear Calc 51 Estimated GFR > 60 Glucose 96 Calcium 8.2 L Magnesium 1.7 Total Bilirubin 0.5 AST 19 ALT 16 Alkaline Phosphatase 65 Total Protein 6.0 L Albumin 3.5
[2024-11-09 13:19] LABS: Magnesium 2.6 mg/dL (1.6-2.3); Phosphorus 2.1 mg/dL (2.5-4.5); Potassium 3.5 mmol/L (3.4-5.0)
--- NOTE | 2024-11-09 16:51 | P.DS_ITS ---
DS: Admitting Diagnosis Discharge Date 11/09/24 Admitting Diagnosis Nausea, vomiting and diarrhea DS: Discharge Diagnosis Discharge Diagnosis (1) Sepsis: Qualifiers: Acute renal failure type: unspecified Sepsis acute organ dysfunction status: with acute organ dysfunction Sepsis type: sepsis due to unspecified organism Severe sepsis acute organ dysfunction type: acute renal failure Severe sepsis shock status: without septic shock Qualified Code(s): A41.9 - Sepsis, unspecified organism; R65.20 - Severe sepsis without septic shock; N17.9 - Acute kidney failure, unspecified Code(s): A41.9 - Sepsis, unspecified organism Status: Acute (2) Gastroenteritis: Code(s): K52.9 - Noninfective gastroenteritis and colitis, unspecified Status: Acute (3) Nausea & vomiting: Qualifiers: Vomiting type: unspecified Qualified Code(s): R11.2 - Nausea with vomiting, unspecified Code(s): R11.2 - Nausea with vomiting, unspecified Status: Acute (4) Gastroesophageal reflux disease: Qualifiers: Esophagitis bleeding: without hemorrhage Esophagitis presence: with esophagitis Qualified Code(s): K21.00 - Gastro-esophageal reflux disease with esophagitis, without bleeding Code(s): K21.9 - Gastro-esophageal reflux disease without esophagitis Status: Chronic (5) Asymptomatic hypertensive urgency: Code(s): I16.0 - Hypertensive urgency Status: Acute (6) QT prolongation: Code(s): R94.31 - Abnormal electrocardiogram [ECG] [EKG] Status: Acute DS: Summary Hospital Course Reason for hospitalization: 69yo female with pancreatitis, Sow's esophagitis, GERD, cyclic vomiting syndrome, essential hypertension, vitamin-D deficiency and depression presented to the ER with nausea vomiting and diarrhea. Please see H&P for details. Hospital Course: She presented with nausea vomiting and diarrhea. She had been baby-sitting her grandson yesterday who was sick with GI symptoms. She also had chills and her core temperature was noted to be 95? requiring a Reji Hugger. No cough, urinary symptoms or abdominal pain. She was markedly hypertensive up to 210/120. Normally, blood pressure is well controlled. WBC 22K, Hgb 15 and platelet 240K. Electrolytes unremarkable. Creatinine 1.2 with carbon dioxide of 17 suggesting metabolic acidosis. LFTs showed mildly elevated alkaline phosphatase 134. CRP <0.5. Lipase normal. EKG showing normal sinus rhythm with first-degree AV block, possible LAD, moderate IVCD with a QTc of 511. Repeat EKG showed similar findings but the QTc did improve. UA noted but did not reflex to UCx. BCx NGTD. ABG 7.45/24/104/16 on RA. Lactate was 3.4 that improved with fluid resuscitation. Chest x-ray showed no acute cardiopulmonary process. CT Abdomen and pelvis showed subsegmental dependent right lower lobe opacities may represent infection/aspiration, mild esophagitis and antral gastritis. mild inflammatory change/fluid around gallbladder and a mostly fluid filled colon as seen with diarrheal illnesses. Patient started on Zosyn. General surgery was consulted. No respiratory symptoms so not felt to have PNA. Hyperglycemia with no history of diabetes; A1c 5.3 so likely hyperglycemia related to infectious process. Started on bicarb drip for the metabolic acidosis. Her acidosis resolved. Her diarrhea resolved. RUQ ultrasound showing distended gallbladder with edematous wall otherwise, normal right upper quadrant ultrasound. [place] her symptoms were more likely related to gastroenteritis and not acute cholecystitis. Blood pressure improved and actually became soft so Cozaar held. Stool studies ordered but unable to be collected. Her diet was started and advanced. She tolerated this well. She overall did well and was able to be discharged home on 11/09/24. Status at Discharge Cognitive/behavioral status at discharge: Stable Time Spent with Patient Time attestation: Total time spent providing and/or coordinating discharge services: 34 minutes Time spent: Greater than 30 minutes Exam Narrative: AF 98.5 114/59 75 18 98% ra Gen - NARD Chest - CTA bilaterally, nml RR CV - RRR S1/S2. Telemetry showing no significant dysrhythmias Abd - Soft, NT/ND, Positive BS Ext - No pedal edema Psych - Nml mood and affect Skin - Warm and dry DS: Data Data Completed and Pending Labs on day of discharge: Labs from last 24 hours 11/09/24 11/09/24 11/09/24 12:59 05:48 04:11 WBC 11.1 H RBC 3.92 L Hgb 11.6 L D Hct 34.4 L MCV 87.8 MCH 29.6 MCHC 33.7 RDW 15.6 H Plt Count 147 L MPV 9.9 Immature Gran % (Auto) 0.2 Neut % (Auto) 76.2 H Lymph % (Auto) 14.4 L Wood % (Auto) 8.7 H Eos % (Auto) 0.3 Baso % (Auto) 0.2 Lymph # (Auto) 1.60 Wood # (Auto) 1.0 H Eos # (Auto) 0.0 Baso # (Auto) 0.0 Abs Immat Gran (auto) 0.02 Absolute Neuts (auto) 8.5 H Absolute Nucleated RBC 0.000 Nucleated RBC % 0.0 Sodium 137 Potassium 3.5 2.5 L* Chloride 95 L Carbon Dioxide 36 H Anion Gap 6 BUN 19 H Creatinine 0.87 Estim Creat Clear Calc 51 Estimated GFR > 60 Glucose 96 Calcium 8.2 L Phosphorus 2.1 L Magnesium 2.6 H 1.7 Total Bilirubin 0.5 AST 19 ALT 16 Alkaline Phosphatase 65 Total Protein 6.0 L Albumin 3.5 Preliminary micro results at discharge 11/07/24 20:44 Blood Culture - Preliminary Blood 11/07/24 21:03 Blood Culture - Preliminary Blood Discharge Plan Discharge Attending physician on discharge: Reddy Frey Consulting providers: Myles Dugan Discharging Clinician: Reddy Frey Anticipated Discharge Date/Time: 11/09/24 17:06 Patient Disposition: Home, Self-Care Activity: as tolerated Diet: heart healthy Discharge Instructions: Check blood pressure 1 to 2 times a day. Record and bring into your doctor for review. Call your doctor if your blood pressure is greater than 180/110. Take precautions to avoid falls. Rise slowly from a lying or sitting position. Pause before standing or walking. Contact your doctor or call 911 and come to the Emergency Room if you have fevers, recurrent nausea/vomiting/diarrhea or other worrisome symptoms. Avoid NSAIDs (ibuprofen, naproxen, Aleve). Tylenol is safe to take. Follow-up with your primary care provider in 1-2 weeks. Please call for appointment. Thank you for using [facility] for your health care needs. Patient Instructions: Antibiotic Form Patient Language: Ukrainian Stand Alone Forms: General Discharge Information Follow-up/Referrals: Dc Velarde MD [Primary Care Provider] - Call for Appointment Discharge Medications: Continued ergocalciferol (vitamin D2) 1,250 mcg (50,000 unit) capsule 1 unit PO WEEKLY Rx Instructions: Pt takes on thursday escitalopram oxalate 20 mg tablet 20 mg PO DAILY metoclopramide HCl 10 mg tablet 10 mg PO Q6H PRN (Reason: nausea and vomiting) Qty: 20 0RF atorvastatin 20 mg tablet 20 mg PO DAILY Qty: 90 1RF aspirin 81 mg Tablet,Delayed Release (Dr/Ec) 81 mg PO DAILY metoprolol succinate 50 mg tablet extended release 24 hr 50 mg PO DAILY Held losartan 50 mg tablet 50 mg PO DAILY Hold Instructions: HOLD - Resume when okay with your doctor Date of admission: 11/08/24 00:15 Primary Care Provider: Dc Velarde Admitting Provider: Gail Kim Attending physician on admission: Gail Kim Condition: Stable Hospitalist MIPS Heart Failure (Exclusion) Patient has history of Heart Transplant or Left Ventricular Assistive Device?: No IF YES, STOP HERE Heart Failure (Qualifier) Patient has current or prior documentation of LVEF less than or equal to 40%, or mod/servere depressed LVSF?: No IF NO, STOP HERE
[2024-11-09] MEDS: POTASSIUM/PHOSPHORUS/SODIUM 1.5 GM PACKET 1 PACKET PO (17:05)
== END 2024-11-09 18:55 | disposition home or self-care (01) ==
LOC: ANHED 19:59 → ANHIMU 11-08 01:59
PROVIDERS: Emergency Medicine; Internal Medicine; Admitting Provider Internal Medicine; Emergency Provider Physician Assistant; PCP Internal Medicine; Visit Provider Internal Medicine
DX: A41.9 Sepsis, unspecified organism (principal); R65.20 Severe sepsis without septic shock; N17.9 Acute kidney failure, unspecified; K52.9 Noninfective gastroenteritis and colitis, unspecified; R93.2 Abnormal findings on diagnostic imaging of liver and biliary tract; K21.00 Gastro-esophageal reflux disease with esophagitis, without bleeding; K22.70 Barrett's esophagus without dysplasia; K29.70 Gastritis, unspecified, without bleeding; I16.0 Hypertensive urgency; I10 Essential (primary) hypertension; R94.31 Abnormal electrocardiogram [ECG] [EKG]; R11.15 Cyclical vomiting syndrome unrelated to migraine; R73.9 Hyperglycemia, unspecified; K86.1 Other chronic pancreatitis; E55.9 Vitamin D deficiency, unspecified; F32.A Depression, unspecified; E78.5 Hyperlipidemia, unspecified; Z79.82 Long term (current) use of aspirin; Z79.899 Other long term (current) drug therapy; Z86.73 Personal history of transient ischemic attack (TIA), and cerebral infarction without residual deficits; Z87.891 Personal history of nicotine dependence; Z85.3 Personal history of malignant neoplasm of breast; Z96.641 Presence of right artificial hip joint; Z98.1 Arthrodesis status
CPT/HCPCS: 36415; 36600; 71045; 74177; 76705; 80053; 81001; 82805; 83036; 83605; 83690; 83735; 84100; 84132; 85018; 85025; 85610; 85730; 86140; 87040; 93005; 96361; 96365; 96366; 96368; 96372; 96375; 96376; 99285; A9270; G0378; J0360; J1630; J2470; J2543; J2550; J2765; J3475; J3480; J7030; J7040; Q9967

== ENCOUNTER 2025-02-15 07:09 | Outpatient (CLI) | payer MEDICARE, SELFPAY ==
--- OUTSIDE RECORDS SUMMARY | 2025-02-15 07:13 | XMS_ITS | Data Portability ---
Author Organization [place] - [facility], Main Office Address [address] [place] [address] Care Team Providers Care Rent Collector Name Role Phone MANASA JADE Primary Care Provider [phone] Assessment No assessment recorded. Plan of Treatment Reminders Order Date Submit Date Provider Last Modified By Organization Details Last Modified Time Details Appointments None recorded. Lab None recorded. Referral None recorded. Procedures christiano maneuver (PROC) [address], [place], [address], 5 11:11:09 christiano maneuver (PROC) [address], [place], [address], 4 08:39:01 Surgeries None recorded. Imaging None recorded. Medication Orders prednisone 20 mg tablet 2024 025 [facility], [address] [place] [address], [place], [address], 5 11:00:24 prednisone 20 mg tablet 2023 024 [facility], [facility], [place], [address], 4 11:37:33 Patient TargetsNo targets recorded. Patient Instructions Encounter Date Encounter Id Patient Instructions Last Modified By Organization Details Last Modified Time 06/20/2024 [id number] discussed significant middle ear fluid present bilaterally. Discussed prednisone 20 mg twice daily for 5 days for Eustachian tube dysfunction. Discussed associated side effects such as insomnia, increased appetite, increased thirst, etc.. She will have an audiogram and tympanogram for tinnitus. She will be referred back to PT for BPPV. Additionally, ordered a VNG. We will follow-up when results become available. [email or web address] Not available 06/20/2024 11:38:50 12/29/2024 [id number] She will be referred back to PT for reoccurrence of BPPV. Prescribed prednisone daily x 5 days for eustachian tube dysfunction. If symptoms continue to persist, advised to contact office to follow up for a reevaluation. [email or web address] Not available 12/29/2024 11:01:29 Reason for Referral None Reported. Results Created Date Observation Date Name Description Value Unit Range Abnormal Flag Note LastModifiedBy Organization Detail LastModifiedTime 12/11/19 22 XR, shoul elida No observ ation record ed. [id number] Not Available 10/15/2022 14:12:30 10/09/19 23 XR, hip + pelvi s, unila teral No observ ation record ed. [id number] [email or web address] [place] [address], [place], [address], 10/15/2022 14:12:30 08/03/20 24 08/03/2024 audio gram + tympa nogra m No observ ation record ed. [email or web address] [facility] [address] [place], [address], 08/31/2024 17:05:33 08/16/20 24 08/16/2024 audio gram + tympa nogra m No observ ation record ed. [email or web address] [facility] [address] [place], [address], 08/31/2024 17:05:39 Result Notes None recorded. Problems Name Problem SNOMED Code Status Onset Date Resolution Date Notes Provider Name and Address Organization Details Recorded Time Disorder of shoulder 575813199 Active Not Available [facility] 3 14:10:34 Tendinitis of right rotator cuff 6894175648905 9104 Active 2021 Not Available [facility] 3 14:10:34 Osteoarthr itis of hip 613458465 Active Not Available [facility] 3 14:10:34 Enthesopat hy of hip region 04491679 Active Not Available [facility] 3 14:10:34 Osteoarthr itis of left hip joint 7692564059677 08 Active 2022 Not Available [facility] 3 14:10:34 Osteoarthr itis 141371118 Active Not Available [facility] 3 14:10:35 Pain of shoulder region 18470987 Active 2021 Not Available [facility] 3 14:10:35 Pain of shoulder region 59408585 Active 2021 Not Available [facility] 3 14:10:35 Osteoarthr itis of shoulder region 67555268 Active 2021 Not Available [facility] 3 14:10:35 Osteoarthr itis of shoulder region 16928011 Active 2021 Not Available [facility] 3 14:10:35 Benign paroxysmal positional vertigo 884544091 Active 2023 Lisset House RN null, [facility] 4 11:20:41 Sensorineu ral hearing loss 33407584 Active 2023 Lisset House RN null, [facility] 4 11:29:48 Dysfunctio n of bilateral eustachian tubes 8094237815008 100 Active 2023 TARYN Aranda [address], [place], [address] , [facility] 5 10:58:56 Bilateral tinnitus 1949584188875 Active 2023 TARYN Aranda [address], [address], [place], [address] , [facility] 4 11:36:11 Problem Notes None recorded. Procedures Surgical History Date Name Laterality Status Provider Name and Address Organization Details Recorded Time procedure on appendix completed Not Available [facility] 10/15/2022 14:09:44 Hernia Surgery completed Not Available [facility] 10/15/2022 14:09:44 Hip surgery completed Not Available [facility] 10/15/2022 14:09:44 Imaging Results None recorded. Procedure Notes None recorded. Medical Equipment None Reported. Allergies Allergen ID Allergen Name Allergen Category Reaction Reaction Severity Criticality Documentation Date Start Date Code Code System Note Provider Name and Address Organization Details Recorded Time 33912 morphine medicatio n Not available Not available Not available 10/15/2022 7052 RxNorm Not Available [facility] 3 14:12:23 02275 Compazine medicatio n Not available Not available Not available 10/15/2022 78092 6 RxNorm Not Available [facility] 3 14:12:23 92860 Zofran medicatio n Not available Not available Not available 06/20/2024 55548 RxNorm Lisset House RN null, [place] [facility] 4 11:06:55 Medications Name Sig Start Date [...] prednisone 20 mg tablet Take 1 tablet every day by oral route for 5 days. 2024 active Not Available Not Available Not Avai lable metoprolol succinate ER 100 mg tablet,exte nded [...] administe red by the provider 06/20 completed [facility]: 0003- 0494- 20 Not Available Not [...] Updated DateTime 10/09/2022 27.6 kg/m2 167.64 cm 66383.3 g Not Available [facility] 10/15/2022 14:10:17 Date Recorded Body mass index (BMI) Body height Body weight Provider Name and Address Organization Details Last Updated DateTime 12/11/2021 28.1 kg/m2 167.64 cm 37654.07 g Not Available [facility] 10/15/2022 14:10:16 Date Recorded Body height Body mass index (BMI) Body weight Body temperature Provider Name and Address Organization Details Last Updated DateTime 12/29/2024 167.64 cm 25.8 kg/m2 84993.78 g 97.6 [degF] Lisset House RN [facility] [employer] [facility] 12/29/2024 10:35:08 Date Recorded Body weight Body mass index (BMI) Body height Body temperature Provider Name and Address Organization Details Last Updated DateTime 06/20/2024 88099.18 g 26.7 kg/m2 167.64 cm 97.8 [degF] Lisset House RN [facility] 06/20/2024 11:10:51 Social History None recorded. Functional Status Question Answer Note LastModified by Organizat ion Details LastModified Time What is your level of alcohol consumption? None [id number] Information not available 10/15/2022 Mental Status None recorded. Family History Relationship Description Onset Age of this Age Resolved Age Notes LastModified by Organization Details LastModified Time Father Family history of malignant neoplasm [email or web address] Not available 11/2023 11:01:43 Father Family history of stroke [email or web address] Not available 11/2023 11:01:43 Father Ear problem [email or web address] Not availa ble 06/20/2024 11:08:27 Father Hypertensive disorder [email or web address] [id number] Not available 10/15/2022 14:09:46 Father Kidney disease [email or web address] [id number] Not available 10/15/2022 14:09:47 Mother Family history of malignant neoplasm [email or web address] Not available 11/2023 11:01:43 Mother Hypertensive disorder [email or web address] [id number] Not available 10/15/2022 14:09:47 Medical History Condition Response CANCER: SPECIFY Y ARTHRITIS Y HAVE YOU BEEN HOSPITALIZED OR SEEN IN [facility] IN THE PAST YEAR ? Y HYPERTENSION Y EAR OR HEARING PROBLEMS Y STROKE/TIA Y Gynecological HistoryNo gynecological history recorded. Obstetrics History GPAL:G 0 P 0 0 0 0 Past Encounters Encounter ID Performer Location Encounter Start Date Encounter Closed Date Diagnosis/Indication Diagnosis SNOMED-CT Code Diagnosis ICD10 Code Diagnosis Note [id number] Chan Jaeger MD [facility] [place] [address] [place] [address] 12/11/2021 00:00:00 12/11/2021 11:52:53 [id number] MD [facility] [place] [address] [place] [address] 10/09/2022 00:00:00 10/09/2022 10:34:52 [id number] MD ASH[facility] [place] [address] [place] [address] 06/20/2024 10:59:31 06/20/2024 11:39:31 Benign paroxysmal positional vertigo 183692173 H81.10 Dysfunctio n of bilateral eustachian tubes 3726724971 242938 H69.93 Bilateral tinnitus 26813 13991 102 H93.13 [id number] [facility] [place] [address] [place] [address] 12/29/2024 10:24:34 12/29/2024 11:01:59 Benign paroxysmal positional vertigo 040231597 H81.10 Dysfunctio n of bilateral eustachian tubes 4933277469 149734 H69.93 Health Concerns Section Related Observation LastModified by Organization Detai ls LastModified Time None Recorded Concern Status LastModified by Organization Details LastModified Time None Recorded Advance Directives Directive None Recorded Payers Insurance Date Sequence Insurance Name Policy Number Policy Herrera Covered Member ID Herrera Member ID Guarantor Name 12/28/2024 1 [facility] (MEDICARE REPLACEMENT/A DVANTAGE - PPO) [id number] Meron Watson [id number] Meron Watson Notes Date Note Type Note [...] leaning her head back, turning her head lqxp-sb-emew, and occasionally rolling [id number]-[id number] in bed. she states that she often [...] audiogram completed for years. TARYN Aranda [address] [facility], [place], [address], [email or web address] 06/20/2024 11:38:55 12/29/2024 text/html This patient presents to the office for a follow regarding vertigo. She reports that on 12/26/24, while doing yoga, she had developed significant vertigo when she had rolled over to her right side. At her last visit, she was sent to PT for sherwin hallpike and christiano maneuvers which resolved her symptoms. She had attempted christiano maneuvers at home but due to persistent nausea symptoms, she was unable to continue to do these herself. Additionally, she reports right ear muffled hearing and ear congestion. She was prescribed prednisone for eustachian tube dysfunction with relief of her symptoms. Her last audiogram was unremarkable. TARYN Aranda [address], [place], [address], [email or web address] 12/29/2024 11:01:32 OBGyn Episode No OBEpisode recorded.
--- OUTSIDE RECORDS SUMMARY | 2025-02-15 07:13 | XMS_ITS ---
Author Organization [facility] Address [address] [place] [address] Care Team Providers Care Pediatric Neurologist Name Role Phone Florencio Larkin MD Primary Care Provider Mark Massey MD Unavailable [phone] Chloe Parson MD Unavailable [phone] Active Problems Problem Noted Date Diagnosed Date [...] and was extubated shortly after arrival to [facility] MICU on same day of [...] and was extubated shortly after arrival to [facility] on same day of [...] and was extubated shortly after arrival to [facility] on same day of [...] and intubated at that time. Transferred to [facility] MICU for further management. Awake and [...] protection, however extubated soon after arrival to [facility] ED. She also received multiple [...]
--- OUTSIDE RECORDS SUMMARY | 2025-02-15 07:13 | XMS_ITS | Referral Summary ---
[facility] [address] [place] [address] Care Team Providers Care Attendant Coin Operated Laundry Name Role Phone Florencio Larkin MD Primary Care Provider Mark Massey MD Unavailable [phone] Chloe Parson MD Unavailable [phone] Allergies Active Allergy Reactions Criticality Noted Date [...] and was extubated shortly after arrival to [facility]U on same day of admission. [...] and was extubated shortly after arrival to [facility] on same day of admission. [...] and was extubated shortly after arrival to [facility] on same day of admission. [...] and intubated at that time. Transferred to [facility] MICU for further management. Awake [...] glucose 60, protein 46. Vasculitis work-up negative (TK, BARRY, RF, CCP, ESR). -Spot urine PBG [...] protection, however extubated soon after arrival to [facility] ED. 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 Gender Identity Not on file Sexual Orientation [...] 8:04 AM CDT Height 167.6 cm (5' 6) 11/10/2018 8:04 AM CDT Body Mass Index 29.05 11/10/2018 8:04 AM CDT Plan of Treatment Not on file Insurance [facility] CHOICE PLUS [facility] CHO[facility] PLUS Advance Directives For more information, please contact: [phone] * Full Code (Latest Code Status on File) Date Activated Date Inactivated Comments 10/28/2018 8:37 AM 11/02/2018 7:45 PM * Full Code Date Activated Date Inactivated Comments 03/03/2018 11:57 PM 03/05/2018 4:36 PM * Full Code Date Activated Date Inactivated Comments 11/28/2017 5:10 PM 12/01/2017 5:04 PM Care Teams Attendant Coin Operated Laundry Relationship Specialty Start Date End Date Florencio Larkin MD PCP - General 11/28/17 Mark Massey MD Medical Oncologist/Service Unit Operator Hematology and Oncology 09/27/18 Chloe Parson MD [address] [address] Consulting Physician Gynecology 11/10/18
--- OUTSIDE RECORDS SUMMARY | 2025-02-15 07:13 | XMS_ITS | Clinical Summary ---
Author Organization [facility] Address [address] [address] Phone Care Team Providers Care Ammonia Still Operator Name Role Phone Florencio Larkin MD [...] 9:46 AM CDT Height 167.6 cm (5' 6) 06/08/2020 9:46 AM CDT Body Mass Index 28.41 06/08/2020 9:46 AM CDT Plan of Treatment Health Maintenance Due Date Last Done Comments Hepatitis C Virus (HCV) Screening 1955 TdaP Immunization 1955 Cologuard 2002 Immunochemical Fecal Occult Blood 2002 Pneumococcal Immunization (5 0+ years) (1 of 1 - PCV) 2007 Zoster Immunization (1 of 2) 2007 SARS-COV-2 Immunization (4 - 2023- season) 2024 08/27/2021, 09/21/2020, 08/24/2020 Influenza Immunization (Seas on Ended) 2025 Colonoscopy 05/12/2028 05/12/2018 Colorectal Cancer Screening 05/12/2028 Respiratory Syncytial Virus (RSV) Immunization (Adult) (1 - 1-dose 75+ series) 2032 Hepatitis B Immunization Aged Out No longer eligible based on patient's age to complete this topic Human Papillomavirus (HPV) Immunization Aged Out No longer eligible b ased [...] Recently Relevant to Health Maintenance Care Teams Ammonia Still Operator Relationship Specialty Start Date End Date Florencio Larkin MD PCP - General Family Medicine 05/15/18
--- OUTSIDE RECORDS SUMMARY | 2025-02-15 07:13 | XMS_ITS | Clinical Summary ---
[facility] Organization [facility] Address [address] [facility] [place] [address] Care Team Providers Care Collections Manager Name Role Phone Florencio Larkin MD Primary Care Provider Mark Massey MD Unavailable [phone] Chloe Parson MD Unavailable [phone] Allergies Active Allergy Reactions Criticality Noted Date [...] and was extubated shortly after arrival to [facility] MICU on same day of admission. [...] and was extubated shortly after arrival to [facility] MIC[facility] on same day of admission. [...] and was extubated shortly after arrival to [facility] MICU on same day of admission. [...] and intubated at that time. Transferred to [facility] MICU for further management. Awake and alert [...] protection, however extubated soon after arrival to [facility] ED. 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 [address] [place] [address] [facility] CHOICE [facility] H[facility]/PPO Address: [facility] [id number] [place] [id number] Advance Directives For more information, please contact: [phone] * Full Code (Latest Code Status on File) Date Activated Date Inactivated Comments 10/28/2018 8:37 AM 11/02/2018 7:45 PM * Full Code Date Activated Date Inactivated Comments 03/03/2018 11:57 PM 03/05/2018 4:36 PM * Full Code Date Activated Date Inactivated Comments 11/28/2017 5:10 PM 12/01/2017 5:04 PM Care Teams Collections Manager Relationship Specialty Start Date End Date Florencio Larkin MD PCP - General 11/28/17 Mark Massey MD Medical Oncologist/Vibration Engineer Hematology and Oncology 09/27/18 Chloe Parson MD [address] [address] Consulting Physician Gynecology 11/10/18
--- OUTSIDE RECORDS SUMMARY | 2025-02-15 07:14 | XMS_ITS | Clinical Summary ---
Author Organization [facility] Address [address] [place] [address] Care Team Providers Care Professor Of Legal Studies Name Role Phone Florencio Larkin MD Primary [...] 12:58 PM CDT Height 167.6 cm (5' 6) 01/13/2019 12:5 8 PM CDT Body Mass [...] exists OSTEOPOROSIS SCREENING 2022 INFLUENZA VACCINE (#1) 2025 RSV VACCINE (60+ or ) (1 - [...] Most Recently Relevant to Health Maintenance Insurance [facility] [id number] Care Teams Professor Of Legal Studies Relationship Specialty Start Date End Date Florencio Larkin MD [address] [place] [address] PCP - General Family Practice 12/16/17
[2025-02-15 07:25] LABS: Add Urine Microscopic? YES; Appearance Urine Clear (Clear); Glucose Urine UA Negative (Negative); Hematocrit 39.7 % (35.0-42.0); Hemoglobin 13.0 g/dL (11.7-13.8); Immature Granulocyte Percent A 0.2 % (0.0-0.0); Leukocyte Esterase Ur Trace (Negative); Lymphocytes Absolute Auto 1.11 K/mm3 (1.10-4.50); Mean Corpuscular HGB Conc 32.7 g/dL (32-36); Mean Corpuscular Hemoglobin 29.0 pg (27.0-31.0); Mean Corpuscular Volume 88.4 fL (78.0-102.0); Nitrate Urine Negative (Negative); Nucleated Red Blood Cells Absolute Auto 0.00 K/mm3 (0.00-0.00); Nucleated Red Blood Cells Perc 0.0 % (0-0.0); Platelet Count Result 169 K/mm3 (150-420); Red Blood Count 4.49 M/mm3 (4.20-5.40); Specific Grav Ur 1.010 (1.010-1.020); White Blood Count 4.6 K/mm3 (4.8-10.8)
[2025-02-15 07:57] LABS: Alanine Aminotransferase 13 U/L (6-35); Albumin Level 4.4 g/dL (3.5-5.1); Alkaline Phosphatase 98 U/L (38-126); Anion Gap 5 mmol/L (4-12); Aspartate Amino Transferase 23 U/L (14-36); Bilirubin,Total 0.4 mg/dL (0.2-1.3); Blood Urea Nitrogen 20 mg/dL (7-17); Calcium 9.4 mg/dL (8.4-10.2); Carbon Dioxide 27 mmol/L (22-30); Chloride 107 mmol/L (98-107); Cholesterol 184 mg/dL (0-200); Estimated Glomerular Filt Rate 55; Glucose 86 mg/dL (65-110); HDL Direct 71 mg/dL; Osmolality Calculated 289 mOsm/kg (285-295); Potassium 4.5 mmol/L (3.4-5.0); Sodium 139 mmol/L (137-145); Total Protein 6.9 g/dL (6.3-8.2); Triglycerides 90 mg/dL (<150)
== END 2025-02-15 07:10 | disposition home or self-care (01) ==
LOC: CHSLAB 07:12
PROVIDERS: PCP Internal Medicine; Visit Provider Obstetrics & Gynecology Gynecology
DX: E55.9 Vitamin D deficiency, unspecified (principal); I10 Essential (primary) hypertension; E78.5 Hyperlipidemia, unspecified
CPT/HCPCS: 36415; 80053; 80061; 81001; 82306; 85025

== ENCOUNTER 2025-05-23 10:02 | Outpatient (CLI) | payer MEDICARE, SELFPAY ==
--- NOTE | ~2025-05-23 | CT_ITS ---
EXAMINATION: CT sinus wo con COMPARISON: None HISTORY: CHRONIC SINUSITIS TECHNIQUE: Axial images were obtained without IV contrast. Sagittal, coronal reconstruction images were obtained from the axial views. CT scan performed using dose optimization techniques including the following automated exposure control; adjustment of mA and/or kV; use of iterative reconstruction technique. Automatic exposure control was used to reduce radiation dose. Permanent radiation dose record is archived to PACS. FINDINGS: The frontal sinuses are unremarkable. Minimal mucosal thickening within the ethmoidal air cells. The maxillary sinuses are unremarkable. The ostiomeatal complexes are patent. Nasal septum slightly deviated to the left. No significant thickening of the turbinates on either the nasal cavities. The sphenoid sinuses appear unremarkable. No osseous destruction or wall thickening is identified. The visualized brain parenchyma and optic globes and soft tissues appear unremarkable. IMPRESSION: Minimal sinusitis Reviewed, dictated and finalized at location P. IMPRESSION: Minimal sinusitis
--- OUTSIDE RECORDS SUMMARY | 2025-05-23 10:52 | XMS_ITS ---
Author Organization [facility] B Address [address] [place] [address] Care Team Providers Care Secretarial Stenographer Name Role Phone Mark Massey MD Unavailable [phone] Chloe Parson MD Unavailable [phone] Dc Velarde MD Primary Care Provider [phone] Active Problems Problem Noted Date Diagnosed Date [...] was extubated shortly after arrival to [facility] MIC[facility] on same day of admission. [...] was extubated shortly after arrival to [facility] MIC[facility] on same day of admission. [...] was extubated shortly after arrival to [facility] MICU on same day of admission. [...] and intubated at that time. Transferred to [facility] MICU for further management. Awake and alert [...] however extubated soon after arrival to [facility] ED. She also received multiple doses [...]
--- OUTSIDE RECORDS SUMMARY | 2025-05-23 10:52 | XMS_ITS | Encounter Summary ---
Author Organization [facility] Address [address] [place] [address] Care Team Providers Care Fish And Game Club Manager Name Role Phone Mark Massey MD Unavailable [phone] Chloe Parson MD Unavailable [phone] Dc Velarde MD Primary Care Provider [phone] Encounter Details Date Type Department Care Team (Late st Contact Info) Description 05/01/2025 Results Follow-Up Radiology [address] [place] [address] Orlando Hutchinson MD [address] [address] Apolipoprotein B, serum, Pro B-type natriuretic peptide Social History Tobacco Use Types Packs/Day Years Used Date Smoking Tobacco: Former Cigarettes Q uit: 08/17/1997 Smokeless Tobacco: Never Alcohol Use Standard Drinks/Week Comments Yes 0 (1 standard drink = 0.6 oz pur e alcohol) 2 days per week Comments Unknown Sex and Gender Information Value Date Recorded Sex Assigned at Not on file 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 A1c 5.4% (Goal<5.7%)) NT Pro BNP = 138 (<lower risk <300) documented in this encounter Plan of Treatment Not on file documented as of this encounter Visit Diagnoses Not on filedocumented in this encounter Care Teams Fish And Game Club Manager Relationship Specialty Start Date End Date Dc Velarde MD [address] [place] [address] PCP - General Internal Medicine 04/18/25 Mark Massey MD Medical Oncologist/Hematologis t Hematology and Oncology 09/27/18 Chloe Parson MD [address] [address] Consulting Physician Gynecology 11/10/18 documented as of this encounter
--- OUTSIDE RECORDS SUMMARY | 2025-05-23 10:52 | XMS_ITS | Clinical Summary ---
Author Organization [facility] Address [address] [place] [address] Care Team Providers Care Virginia Line Attendant Name Role Phone Florencio Larkin MD Primary [...] Most Recently Relevant to Health Maintenance Insurance [facility] OPTIONS PPO [id number] Care Teams Virginia Line Attendant Relationship Specialty Start Date End Date Florencio Larkin MD [address] [place] [address] PCP - General Family Practice 12/16/17
--- OUTSIDE RECORDS SUMMARY | 2025-05-23 10:52 | XMS_ITS | Clinical Summary ---
Author Organization [facility] Address [address] [address] Phone Care Team Providers Care [employer] Teacher Name Role Phone Florencio Larkin MD Primary [...] (1 of 2) 2007 Influenza Immunization (#1) 2025 SARS-COV-2 Immunization ( season) 2025 08/27/2021, 09/21/2020, 08/24/2020 Colonoscopy 05/12/2028 05/12/2018 Colorectal [...] Recently Relevant to Health Maintenance Care Teams [employer] Teacher Relationship Specialty Start Date End Date Florencio Larkin MD PCP - General Family Medicine 05/15/18
--- OUTSIDE RECORDS SUMMARY | 2025-05-23 10:52 | XMS_ITS | Clinical Summary ---
Author Organization [facility] Address [address] [facility] [place] [address] Care Team Providers Care President/Gm Production & Live Experiences Name Role Phone Mark Massey MD Unavailable [phone] Chloe Parson MD Unavailable [phone] Dc Velarde MD Primary Care Provider Allergies Active Allergy [...] (TOPROL-XL) 25 mg 24 hr tablet Take 2 tablets (50 mg total) by mouth daily Active aspirin 81 mg tablet Take 1 tablet (81 mg total) by mouth daily. 30 tablet 12/02/2017 Active atorvastatin (LIPITOR) 40 mg tablet Take 1 tablet (40 mg total) by mouth nightly. 30 tablet 12/01/2017 Active losartan (COZAAR) 50 mg tablet Take 1 tablet (50 mg total) by mouth daily Active Active Problems Problem Noted Date Diagnosed [...] and intubated at that time. Transferred to [facility] MICU for further management. Awake and [...] BZDs (after being given BZDs at OSH) Encounters Date Type Department Care Team Description 05/01/2025 Results Follow-Up Radiology [address] [place] [address] Orlando Hutchinson MD Apolipoprotein B, serum, Pro B-type natriuretic peptide 04/26/2025 1:53 PM CDT - 04/26/2025 11:59 PM CDT Hospital Encounter [address] [address] Hx of completed stroke; Essential hypertension Discharge Disposition: Discharge to home or self care 04/26/2025 12:30 PM CDT Ancillary Procedure [facility] Medicine Cardiology [address] [facility] 8th [place] [address] [place] [address] 04/26/2025 11:40 AM CDT Lab [facility] Endocrinology Metabolism and Lipid [address] [place] [address] Hx of completed stroke; Essential hypertension; Screening for diabetes mellitus (DM) 04/26/2025 10:00 AM CDT Office Visit [facility] Cardiology [address] [place] [address] [place] [address] [place] [address] Orlando Hutchinson MD Hx of completed stroke (Primary Dx); Essential hypertension; Screening for diabetes mellitus (DM) 04/25/2025 Documentation [facility] Medicine Scheduling [address] [place] [address] Shanel Pearl IM DOC 04/18/2025 Telephone [facility] Cardiology [address] [place] [address] [place] [address] Breanne Jc from Last 3 Months Surgical History Surgery Date Site/Laterality Comments HIP [...] on file 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 Gender Identity Not on file Sexual Orientation Not on file Obstetrics History Last Filed Vital Signs Vital Sign Reading Time Taken Comments Blood Pressure 161/92 04/26/2025 10:08 AM CDT Pulse 60 04/26/2025 10:08 AM CDT Temperature 36.6 C (97.8 F) 11/10/2018 8:04 AM CDT Respiratory Rate 20 11/10/2018 8:04 AM CDT Oxygen Saturation 94% 04/26/2025 10:08 AM CDT Inhaled Oxygen Concentration - - Weight 73.9 kg (163 lb) 04/26/2025 10:08 AM CDT Height 167.6 cm (5' 6) 04/26/2025 10:08 AM CDT Body Mass Index 26.31 04/26/2025 10:08 AM CDT Plan of Treatment Health Maintenance Due Date Last Done Comments Breast Cancer Screening-Mammogram 1957 Colon Cancer Screening-Colonoscopy 1957 Fall Risk Assessment 1957 Hepatitis C Screening 1957 Osteoporosis Screening-Bone Density Scan 1957 Hepatitis B Screening 1975 Pneumococcal vaccine 65+ (1 of 1 - PCV) 2007 Zoster Vaccine (1 of 2) 2007 Depression Screening 03/02/2019 03/02/2018 Well Visit 65+ 2022 Covid-19 Vaccine (4 - 2024-2 6 season) 2025 08/27/2021, 09/21/2020, 08/24/2020 Influenza Vaccine (#1) 2025 4, 04/28/2023, 06/22/2021, Additional history exists DTaP/Tdap/Td Vaccine (2 - Td or Tdap) 08/28/2025 08/28/2015 Procedures Procedure Name Priority Date/Time Associated Diagnosis Comments PRO B-TYPE NATRIURETIC PEPTIDE Routine 04/26/2025 11:46 AM CDT Hx of completed stroke Essential hypertension APOLIPOPROTEIN B Routine 04/26/2025 11:4 6 AM CDT Hx of completed stroke Essential hypertension LIPID PANEL Routine 04/26/2025 11:46 AM CDT Hx of completed stroke Essential hypertension LIPOPROTEIN A (LPA) Routine 04/26/2025 1 1:46 AM CDT Hx of completed stroke Essential hypertension CRP, HIGH SENSITIVITY Routine 04/26/2025 11:46 AM CDT Hx of completed stroke Essential hypertension HEMOGLOBIN A1C Routine 04/26/2025 11:46 AM CDT Hx of completed stroke Essential hypertension Screening for diabetes mellitus (DM) from Last 3 Months Results * Pro B-type natriuretic peptide (04/26/2025 11:46 AM CDT) NT-proBNP 138 <=300 pg/mL Comment: Interpretive Comments: A. Dyspnea in Acute Care Setting All Ages: < 300 pg/ml, acute heart failure unlikely. < 50 yrs: 300 - 450 pg/ml, further investigation warranted. > 450 pg/ml, acute heart failure likely. 50 - 74 yrs: 300 - 900 pg/ml, further investigation warranted. > 900 pg/ml, acute heart failure likely . > or = 75 yrs: 450 - 1800 pg/ml, further investigation warranted. > 1800 pg/ml, acute heart failure likely. B. Non-acute Setting < 75 yrs < 125 pg/ml, rules out heart failure. > or = 125 pg/ml, further investigation warranted. > or = 75 yrs < 450 pg/ml, rules out heart failure. > or = 450 pg/ml, further investigation warranted. - Knowledge of each individual patient's NT-proBNP range may be more useful than using similar cut-points for every patient. Please note that marked elevations in NT-proBNP levels may be observed in state other than Left Ventricular Congestive Failure, including: acute coronary syndromes, right heart strain/failure (including pulmonary embolism and cor pulmonale), critical illness, renal failure, as well as advanced age. - References: 1. Billy ROB et.al. Eur Heart J. 2006:27:330-337. 2. Keila RW, Gale AM. J. AM Carson Cardiol: Cardiovasc Imag. 2009;2: 216- 225. Interpretive Data Last Revised Date: 2018. Blood 04/26/2025 11:4 6 AM CDT 04/26/2025 4:01 PM CDT us Orlando Hutchinson MD LAB BLOOD ORDERABLES Final R esult [facility] [place] [address] * Apolipoprotein B, serum (04/26/2025 11:46 AM CDT) Pathologist [facility] Apolipoprotein B 88 mg/dL [place] [facility] Comment: REFERENCE VALUE Desirable: <90 Above Desirable: 90-99 Borderline high: 100-119 High: 120-139 Very high: > or = 140 Test Performed by: [address] [address] Entertainment Manager: Melinda Peters Ph.D.; CLIA# [id number] Blood 04/26/2025 11:4 6 AM CDT 04/26/2025 4:12 PM CDT us Orlando Hutchinson MD LAB BLOOD ORDERABLES Final R esult [facility] [place] [address] [place] [facility] * Lipoprotein a (LPa) (04/26/2025 11:46 AM CDT) Pathologist [facility] Lipoprotein (A) 13.9 <=75.0 nmol/L [facility] Comment: An LP(a) level >100 nmol/L is considered an atherosclerotic cardiovascular disease (ASCVD) risk-enhancing factor by the National Lipid Association and corresponds to the 80th population percentile in Caucasians. The corresponding 80th population percentile in -Americans is 150 nmol/L, but it is currently unclear whether a different risk threshold should be applied (J Clin Lipidololgy 2019; 13:374-392). This test was developed using a commercially available kit and its performance characteristics have been determined by [facility]. This assay in units of nmol/L has not been cleared or approved by the FDA, although they are provided by the ring making machine operator and widely accepted as the preferred units for reporting. [facility] is regulated under CLIA as qualified to perform high-complexity testing. Blood 04/26/2025 11:4 6 AM CDT 04/26/2025 12:57 PM CDT Orlando Hutchinson MD LAB BLOOD ORDERABLES Final R esult Performing Organization Address [facility] Co de Phone Number [facility] * (ABNORMAL) CRP (cardiac risk) (04/26/2025 11:46 AM CDT) CRP, High Sensitivity 4.20(H) 0.00 - 3.00 mg/L [facility] Comment: hsCRP Cardiovascular Risk Assessment Less than 1.0 mg/L = Low Risk 1.0 - 3.0 mg/L = Average Risk More than 3.0 mg/L = High Risk Blood 04/26/2025 11:4 6 AM CDT 04/26/2025 12:57 PM CDT Orlando Hutchinson MD LAB BLOOD ORDERABLES Final R esult Performing Organization Address [facility] de Phone Number [facility] * Hemoglobin A1c (04/26/2025 11:46 AM CDT) HbA1c 5.4 5.1 - 5.6 % [facility] Comment: HBA1C 5.1 - 5.6 = NORMAL HBA1C 5.7 - 6.4 = PREDIABETES HBA1C >=6.5 = PROVISIONAL DIAGNOSIS OF DIABETES Estimated Average Glucose 108 mg/dL [facility] Blood 04/26/2025 11:4 6 AM CDT 04/26/2025 12:57 PM CDT Orlando Hutchinson MD LAB BLOOD ORDERABLES Final R esult Performing Organization Address [facility] Co de Phone Number [facility] * (ABNORMAL) Lipid panel (04/26/2025 11:46 AM CDT) Triglycerides 239(H) <150 mg/dL [facility] Comment: Persistently elevated triglycerides may enhance atherosclerotic cardiovascular disease. Desirable: <150 mg/dL, fasting <175 mg/dL, non-fasting Total Cholesterol 208(H) <200 mg/dL [facility] Total HDL-C Direct 65 >50 mg/dL [facility] Non-HDL cholesterol 143 <220 mg/dL [facility] Calculated LDL Chol 102 <190 mg/dL [facility] Comment: Consider the use of non-HDL-C or Apo B to help estimate atherosclerotic cardiovascular diesase risk if triglycerides are elevated. Blood 04/26/2025 11:4 6 AM CDT 04/26/2025 12:57 PM CDT Narrative [facility] - 04/26/2025 1:51 PM CDT Beginning December 14, 2024, LDL are now calculated by the Lyn-NIH equation (CRISTIANO Cardiol 2020;5:540-8) which is more accuarate than the older Friedewald equation in patients with low LDL cholesterol or high triglycerides. For adults ages 40-79, the ACC/AHA recommends discussing your 10-year atherosclerotic cardiovascular disease risk with your health care provider. https://www.acc.org/ASCVDApp us Orlando Hutchinson MD LAB BLOOD ORDERABLES Final R esult [facility] from Last 3 Months Insurance [facility] CHOICE PLUS [facility] MEDICARE ADVANTAGE [facility] MEDICARE ADVANTAGE Advance Directives For more information, please contact: [phone] * Full Code (Latest Code Status on File) Date Activated Date Inactivated Comments 10/28/2018 8:37 AM 11/02/2018 7:45 PM * Full Code Date Activated Date Inactivated Comments 03/03/2018 11:57 PM 03/05/2018 4:36 PM * Full Code Date Activated Date Inactivated Comments 11/28/2017 5:10 PM 12/01/2017 5:04 PM Care Teams President/Gm Production & Live Experiences Relationship Specialty Start Date End Date Dc Velarde MD [address] [place] [address] PCP - General Internal Medicine 04/18/25 Mark Massey MD Medical Oncologist/Hematologis t Hematology and Oncology 09/27/18 Chloe Parson MD [address] [address] Consulting Physician Gynecology 11/10/18
== END 2025-05-23 10:03 | disposition home or self-care (01) ==
LOC: CHSIMG 10:06
PROVIDERS: PCP Internal Medicine; Visit Provider Otolaryngology
DX: J32.9 Chronic sinusitis, unspecified (principal)
CPT/HCPCS: 70486

== ENCOUNTER 2025-06-05 09:56 | Outpatient (CLI) | payer MEDICARE, SELFPAY ==
--- NOTE | ~2025-06-05 | MM_ITS ---
EXAMINATION: MM screening [facility] BI w ciera HISTORY: Screening TECHNIQUE: Craniocaudal and mediolateral oblique 3-D tomosynthesis images were obtained and synthetic 2-D images were generated. CAD analysis was submitted and interpreted. COMPARISON: Comparison to multiple prior studies sequentially, with oldest reviewed study dated 11/29/2018. BREAST PARENCHYMAL COMPOSITION: Not dense: There are scattered areas of fibroglandular density. FINDINGS: Stable lumpectomy site of the left breast in the upper outer quadrant. There is no evidence of suspicious mass, calcification, or architectural distortion to suggest malignancy in either breast. There has been no suspicious interval change. IMPRESSION: 1. No mammographic evidence of malignancy. 2. Recommend routine screening mammography in one year. BI-RADS Category 2: Benign finding(s). Reviewed, dictated and finalized at location O.
== END 2025-06-05 09:57 | disposition home or self-care (01) ==
LOC: ANHFOHIMG 09:57
PROVIDERS: PCP Internal Medicine; Visit Provider Obstetrics & Gynecology Gynecology
DX: Z12.31 Encounter for screening mammogram for malignant neoplasm of breast (principal)
CPT/HCPCS: 77063; 77067

== ENCOUNTER 2025-06-14 17:19 | Inpatient (IN) | payer MEDICARE, SELFPAY ==
--- OUTSIDE RECORDS SUMMARY | 2025-06-12 07:30 | XMS_ITS | Encounter Summary ---
Author Organization [facility] Address [address] [place] [address] Care Team Providers Care Assistant Offset Press Operator Name Role Phone Mark Massey MD Unavailable [phone] Chloe Parson MD Unavailable [phone] Dc Velarde MD Primary Care Provider [phone] Reason for Referral * Cardiology (Routine) - Closed Specialty Diagnoses / Procedures Referred By Contac t Referred To Contact Diagnoses Hx of completed stroke Essential hypertension Procedures Transthoracic Echo (TTE) Complete W Doppler/CF Orlando Rees MD [address] [address] Phone: tel: fax: [facility] (All Locations) Referral ID Status Reason Start Date Expiration Date Visits Re quested Visits Authorized [id number] Closed 04/26/2025 05/26/2026 1 1 Reason for Visit * Cardiology (Routine) - Closed Specialty Diagnoses / Procedures Referred By Contac t Referred To Contact Diagnoses Hx of completed stroke Essential hypertension Procedures Transthoracic Echo (TTE) Complete W Doppler/CF Orlando Rees MD [address] [address] Phone: tel: fax: [facility] (All Locations) Referral ID Status Reason Start Date Expiration Date Visits Re quested Visits Authorized [id number] Closed 04/26/2025 05/26/2026 1 1 Encounter Details Date Type Department Care Team (Latest Contact Info) Description 06/12/2025 7:30 AM CDT - 06/12/2025 11:59 PM CDT Hospital Encounter [facility] Cardiac Diagnostic Lab [address] [facility] [address]th [place] [address] Hx of completed stroke; Essential hypertension Discharge Disposition: Discharge to home or self care Social History Tobacco Use Types Packs/Day Years Used Date Smoking Tobacco: Former Cigarettes Q uit: 08/17/1997 Smokeless Tobacco: Never Alcohol Use Standard Drinks/Week Comments Yes 0 (1 standard drink = 0.6 oz pur e alcohol) 2 days per week Comments Unknown Sex and Gender Information Value Date Recorded Sex Assigned at Not on file Legal Sex 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 30 tablet 12/02/2017 atorvastatin (LIPITOR) 40 mg tablet Take 1 tablet (40 mg total) by mouth nightly. 30 tablet 12/01/2017 cholecalciferol (VITAMIN D-3) 1,000 unit tablet Take 1,000 Units by mouth daily. escitalopram (LEXAPRO) 20 mg tablet Take 20 mg by mouth daily. losartan (COZAAR) 50 mg tablet Take 1 tablet (50 mg total) by mouth daily meclizine (ANTIVERT) 25 mg tablet Take 25 mg by mouth 3 (three) times a day as needed for dizziness. metoprolol XL (TOPROL-XL) 25 mg 24 hr tablet Take 2 tablets (50 mg total) by mouth daily multivitamin tablet Take 1 tablet by mouth daily. RABEprazole DR (ACIPHEX) 20 mg EC tablet Take 20 mg by mouth daily. documented as of this encounter Discharge Disposition Disposition Code Departure Means Destination Discharge to home or self care documented in this encounter Plan of Treatment Not on file documented as of this encounter Procedures Procedure Name Priority Date/Time Associated Diagnosis Comments TRANSTHORACIC ECHO (TTE) COMPLETE W DOPPLER/CF W CONTRAST Routine 06/12/2025 9:24 AM CDT Hx of completed stroke Essential hypertension documented in this encounter Results * TRANSTHORACIC ECHO (TTE) COMPLETE W DOPPLER/CF W CONTRAST (06/12/2025 9:24 AM CDT) EF Mod BP 65 % CONS SCIMAGE Anatomical Region Laterality Modality Ultrasound 06/12/2025 8:19 AM CDT Narrative 06/12/2025 10:04 AM CDT [facility] Cardiac [place] [address] Transthoracic Echocardiographic Report Patient Name: YAIR WATSON L : 1955 (69y 11m) Sex: F Study Date: 06/12/2025 08:19:00 AM Ht(Inch): 66 Wt(Lb): 162.92 BSA: 1.83 Shrimp Peeling Machine Tender: CATALINA Olsen,[facility] Location: [facility] Order Provider: ORLANDO REES Heart Rate: 55 BMI: 26.29 BP: 146 / 76 Ref Provider: ORLANDO REES PROCEDURES: Echocardiographic Report: Transthoracic complete echo with strain imaging and contrast, 2D, spectral and tissue Doppler, color flow Doppler, M-mode. Contrast: Contrast Enhancement was Employed: After initial imaging due to sub- optimal quality related to co-morbidity defined by patient's body habitus, due to suboptimal image quality with inadequate visualization of at least 2 of 16 LV wall segments in any view after initial imaging. Perflutren contrast was administered using the volume necessary to obtain adequate images and. 0.4 ml Optison Administered, (2.6 ml wasted). INDICATIONS: Cerebrovascular accident and Hypertension. CONCLUSIONS: 1. Mildly dilated left ventricle based on volume index. Concentric LV hypertrophy. Normal left ventricular systolic function. The Ejection Fraction (Lin's) is measured at 65 %. Grade I diastolic dysfunction (normal LA pressure). The average global longitudinal strain is normal. 2. Normal right ventricular size. Normal right ventricular systolic function. TV S'= 0.13 m/s (normal function). 3. The estimated pulmonary artery systolic pressure is 24.0 mmHg. No pulm HTN. ATTESTATION: I have personally reviewed and interpreted this study without fellow or resident. DISCLAIMER: The study images and the final report will be retained in the patient chart by the Echo Laboratory for the legally required time period. This chart constitutes the legal record of any testing performed. FINDINGS: Left Ventricle: Mildly dilated left ventricle based on volume index. Concentric LV hypertrophy. Normal left ventricular systolic function. The Ejection Fraction (Lin's) is measured at 65 %. Grade I diastolic dysfunction (normal LA pressure). The average global longitudinal strain is normal. The LV global strain is: -19.2 %. Right Ventricle: Normal right ventricular size. Normal right ventricular systolic function. TV S'= 0.13 m/s (normal function). Left Atrium: The left atrium is normal in size. Right Atrium: The right atrium is normal in size. Mitral Valve: Normal mitral valve structure. Mild mitral valve regurgitation. Aortic Valve: Normal trileaflet aortic valve. No aortic regurgitation. Tricuspid Valve: Normal tricuspid valve structure. Mild tricuspid regurgitation. The estimated pulmonary artery systolic pressure is 24.0 mmHg. No pulm HTN. Pulmonic Valve: Normal pulmonic valve structure. No pulmonic regurgitation. Pericardium: Normal pericardium without pericardial effusion. Aorta: Mild aortic root dilation at sinuses of Valsalva. The ascending aorta is normal in size when indexed. IVC: IVC is normal in size. MEASUREMENTS: 2D/MM Value Range Doppler Value Range LVIDd 2D 4.4 cm [ 3.8 - 5.2 ] LVOT Peak Lucas 1.0 m/s [ 0.7 - 1.1 ] LVIDs 2D 2.9 cm [ 2.2 - 3.5 ] LVOT Peak PG 4 mmHg IVSd 2D 1.3 cm [ 0.6 - 0.9 ] LVOT Mean PG 2 mmHg LVPWd 2D 1.3 cm [ 0.6 - 0.9 ] LVOT VTI 25 cm LV Thickness Ratio 1.0 LVOT Diam 2.0 cm LV FS 2D 34.70 % [ 27.00 - 45.00 ] MV E Peak Lucas 0.65 m/s [ 0.60 - 1.30 ] LV Mass 2D 217.83 g MV A Peak Lucas 0.70 m/s [ 1.00 - 1.20 ] LV Mass Index 2D 118.83 g/m2 MV E/A 0.9 ratio [ 0.8 - 1.5 ] RWT 0.59 MV Decel Bolivar 282 EDV Mod BP 114 ml [ 46 - 106 ] MV Decel Time 231 msec [ 104 - 258 ] LV EDV Index 62 ml/m2 Med E` Lucas 4.8 cm/sec [ 8.0 - 25.0 ] ESV Mod BP 40 ml [ 14 - 42 ] Lat E` Lucas 7.5 cm/sec [ 10.0 - 25.0 ] EF Mod BP 65 % [ 54 - 74 ] Average E/E` 11 LV GLS -19.2 % [ -25.0 - -18.0 ] RV S` 12.5 cm/sec LA Length 4C 5.3 cm TR Peak Lucas 2.2 m/s [ 1.0 - 2.8 ] LA Length 2C 4.9 cm TR Peak PG 19 mmHg LA Volume BP 51 ml LA Volume Index 28 ml/m2 [ 16 - 34 ] RV Base Dimen 2D 4.0 cm [ 2.5 - 4.2 ] RV Mid Dimen 2D 2.5 cm TAPSE 2.5 cm [ 1.7 - 5.0 ] RA Volume 23 ml RA Volume Index 13 ml/m2 IVC Diam 1.4 cm IVC Collapse 83.2 % AoR Diam 2D 3.4 cm [ 2.7 - 3.3 ] Ao Root Index 1.9 cm/m2 [ 1.0 - 2.0 ] Asc Ao Diam 2D 3.3 cm Asc Ao Index 1.8 cm/m2 Electronically Signed By: Zhao Galo M.D. 06/12/2025 10:03:21 AM CDT Procedure Note Zhao Galo MD PhD - 06/12/2025 [facility] Cardiac [place] [address] Transthoracic Echocardiographic Report Patient Name: YAIR WATSON L : 1955 (69y 11m) Sex: F Study Date: 06/12/2025 08:19:00 AM Ht(Inch): 66 Wt(Lb): 162.92 BSA: 1.83 Shrimp Peeling Machine Tender: CATALINA [facility] Location: [facility] Order Provider:ORLANDO REES Heart Rate: 55 BMI: 26.29 BP: 146 / 76 Ref Provider: ORLANDO REES PROCEDURES: Echocardiographic Report: Transthoracic complete echo with strain imagingand contrast, 2D, spectral and tissue Doppler, color flow Doppler, M-mode. Contrast: Contrast Enhancement was Employed: After initial imaging due tosub- optimal quality related to co-morbidity defined by patient's body habitus, due tosuboptimal image quality with inadequate visualization of at least 2 of 16 LV wallsegments in any view after initial imaging. Perflutren contrast was administered using thevolume necessary to obtain adequate images and. 0.4 ml Optison Administered, (2.6ml wasted). INDICATIONS: Cerebrovascular accident and Hypertension. CONCLUSIONS: 1. Mildly dilated left ventricle based on volume index. Concentric LVhypertrophy. Normal left ventricular systolic function. The Ejection Fraction (Lin's) ismeasured at 65 %. Grade I diastolic dysfunction (normal LA pressure). The average globallongitudinal strain is normal. 2. Normal right ventricular size. Normal right ventricular systolicfunction. TV S'= 0.13 m/s (normal function). 3. The estimated pulmonary artery systolic pressure is 24.0 mmHg. No pulmHTN. ATTESTATION: I have personally reviewed and interpreted this study without fellow orresident. DISCLAIMER: The study images and the final report will be retained in the patientchart by the Echo Laboratory for the legally required time period. This chart constitutesthe legal record of any testing performed. FINDINGS: Left Ventricle: Mildly dilated left ventricle based on volume index.Concentric LV hypertrophy. Normal left ventricular systolic function. The EjectionFraction (Lin's) is measured at 65 %. Grade I diastolic dysfunction (normal LA pressure).The average global longitudinal strain is normal. The LV global strain is: -19.2 %. Right Ventricle: Normal right ventricular size. Normal right ventricularsystolic function. TV S'= 0.13 m/s (normal function). Left Atrium: The left atrium is normal in size. Right Atrium: The right atrium is normal in size. Mitral Valve: Normal mitral valve structure. Mild mitral valveregurgitation. Aortic Valve: Normal trileaflet aortic valve. No aortic regurgitation. Tricuspid Valve: Normal tricuspid valve structure. Mild tricuspidregurgitation. The estimated pulmonary artery systolic pressure is 24.0 mmHg. No pulm HTN. Pulmonic Valve: Normal pulmonic valve structure. No pulmonicregurgitation. Pericardium: Normal pericardium without pericardial effusion. Aorta: Mild aortic root dilation at sinuses of Valsalva. The ascendingaorta is normal in size when indexed. IVC: IVC is normal in size. MEASUREMENTS: 2D/MM Value Range DopplerValue Range LVIDd 2D 4.4 cm [ 3.8 - 5.2 ] LVOT Peak Vel1.0 m/s [ 0.7 - 1.1 ] LVIDs 2D 2.9 cm [ 2.2 - 3.5 ] LVOT Peak PG4 mmHg IVSd 2D 1.3 cm [ 0.6 - 0.9 ] LVOT Mean PG2 mmHg LVPWd 2D 1.3 cm [ 0.6 - 0.9 ] LVOT VTI25 cm LV Thickness Ratio 1.0 LVOT Diam2.0 cm LV FS 2D 34.70 % [ 27.00 - 45.00 ] MV E Peak Vel0.65 m/s [ 0.60 - 1.30 ] LV Mass 2D 217.83 g MV A Peak Vel0.70 m/s [ 1.00 - 1.20 ] LV Mass Index 2D 118.83 g/m2 MV E/A0.9 ratio [ 0.8 - 1.5 ] RWT 0.59 MV Decel [id number] EDV Mod BP 114 ml [ 46 - 106 ] MV Decel Clzj733 msec [ 104 - 258 ] LV EDV Index 62 ml/m2 Med E` Vel4.8 cm/sec [ 8.0 - 25.0 ] ESV Mod BP 40 ml [ 14 - 42 ] Lat E` Vel7.5 cm/sec [ 10.0 - 25.0 ] EF Mod BP 65 % [ 54 - 74 ] Average E/E`11 LV GLS -19.2 % [ -25.0 - -18.0 ] RV S`12.5 cm/sec LA Length 4C 5.3 cm TR Peak Vel2.2 m/s [ 1.0 - 2.8 ] LA Length 2C 4.9 cm TR Peak PG19 mmHg LA Volume BP51 ml LA Volume Index 28 ml/m2 [ 16 - 34 ] RV Base Dimen 2D 4.0 cm [ 2.5 - 4.2 ] RV Mid Dimen 2D2.5 cm TAPSE 2.5 cm [ 1.7 - 5.0 ] RA Wczyqb06 ml RA Volume Index13 ml/m2 IVC Diam1.4 cm IVC Collapse 83.2 % AoR Diam 2D 3.4 cm [ 2.7 - 3.3 ] Ao Root Index 1.9 cm/m2 [ 1.0 - 2.0 ] Asc Ao Diam 2D3.3 cm Asc Ao Index1.8 cm/m2 Electronically Signed By: Zhao Galo M.D. 06/12/2025 10:03:21 AM CDT us Orlando Rees MD CV ECHO PROCEDURES Final Res ult documented in this encounter Visit Diagnoses Diagnosis Hx of completed stroke Essential hypertension Unspecified essential hypertension documented in this encounter Administered Medications Inactive Administered Medications - up to 3 most recent administrations Medication Order MAR Action Action Date Dose Rate Site perflutren protein-a (OPTISON) 3 mL in sodium chloride 0.9% 8 mL syringe 1-8 mL, intravenous, Once in imaging, contrast, Starting on 06/12/25 at 0818, For 1 dose, Intra-Procedure (CV) Contrast Given 06/12/2025 9:15 AM CDT 1 mL documented in this encounter Orders Medications Ordered That Ji ht Not Have Been Administered Count Last Ordered Date First Ordered Date perflutren protein-a (OPTISO N) 3 mL in sodium chloride 0.9% 8 mL syringe 1 06/12/2025 documented in this encounter Care Teams Assistant Offset Press Operator Relationship Specialty Start Date End Date Dc Velarde MD [address] [place] [address] PCP - General Internal Medicine 04/18/25 Mark Massey MD Medical Oncologist/Hematologis t Hematology and Oncology 09/27/18 Chloe Parson MD [address] [address] Consulting Physician Gynecology 11/10/18 documented as of this encounter
--- OUTSIDE RECORDS SUMMARY | 2025-06-12 07:30 | XMS_ITS | Encounter Summary ---
Author Organization [facility] Address [address] [place] [address] Care Team Providers Care Papeterie Table Assembler Name Role Phone Mark Massey MD Unavailable [phone] Chloe Parson MD Unavailable [phone] Dc Velarde MD Primary Care Provider [phone] Reason for Referral * Cardiology (Routine) - Closed Specialty Diagnoses / Procedures Referred By Contac t Referred To Contact Diagnoses Hx of completed stroke Essential hypertension Procedures Transthoracic Echo (TTE) Complete W Doppler/CF Orlando Rees MD [address] [address] Phone: tel: fax: [facility] (All Locations) Referral ID Status Reason Start Date Expiration Date Visits Re quested Visits Authorized [id number] Closed 04/26/2025 05/26/2026 1 1 Reason for Visit * Cardiology (Routine) - Closed Specialty Diagnoses / Procedures Referred By Contac t Referred To Contact Diagnoses Hx of completed stroke Essential hypertension Procedures Transthoracic Echo (TTE) Complete W Doppler/CF Orlando Rees MD [address] [address] Phone: tel: fax: [facility] (All Locations) Referral ID Status Reason Start Date Expiration Date Visits Re quested Visits Authorized [id number] Closed 04/26/2025 05/26/2026 1 1 Encounter Details Date Type Department Care Team (Latest Contact Info) Description 06/12/2025 7:30 AM CDT - 06/12/2025 11:59 PM CDT Hospital Encounter [facility] Cardiac Diagnostic Lab [address] [facility] 8th [place] [address] Hx of completed stroke; Essential hypertension Discharge [...] on file 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 Gender Identity Not on file Sexual Orientation [...] AM CDT Narrative 06/12/2025 10:04 AM CDT [facility] [place] [address] [place] [address] Transthoracic Echocardiographic Report Patient Name: YAIR WATSON L : 1955 (69y 11m) Sex: F Study Date: 06/12/2025 08:19:00 AM Ht(Inch): 66 Wt(Lb): 162.92 BSA: 1.83 Surgery Tech: CATALINA Olsen,[facility] Location: [facility] Order Provider: ORLANDO REES Heart Rate: 55 [...] - 1.5 ] RWT 0.59 MV Decel Cannon 282 EDV Mod BP 114 ml [ [...] Note Zhao Galo MD PhD - 06/12/2025 [facility] Cardiac [place] [address] [place] [address] Transthoracic Echocardiographic Report Patient Name: YAIR WATSON L : 1955 (69y 11m) Sex: F Study Date: 06/12/2025 08:19:00 AM Ht(Inch): 66 Wt(Lb): 162.92 BSA: 1.83 Surgery Tech: CATALINA [facility] Location: [facility] Order Provider:ORLANDO REES Heart Rate: 55 BMI: [...] - 1.5 ] RWT 0.59 MV Decel [id number] EDV Mod BP 114 ml [ 46 - 106 ] MV Decel Yovj706 msec [ 104 - 258 ] LV [...] cm [ 1.7 - 5.0 ] RA Jxkfnm54 ml RA Volume Index13 ml/m2 IVC Diam1.4 [...] 06/12/2025 documented in this encounter Care Teams Papeterie Table Assembler Relationship Specialty Start Date End Date Dc Velarde MD [address] [place] [address] PCP - General Internal Medicine 04/18/25 Mark Massey MD Medical Oncologist/Hematologis t Hematology and Oncology 09/27/18 Chloe Parson MD [address] [address] Consulting Physician Gynecology 11/10/18 documented as of this encounter
--- OUTSIDE RECORDS SUMMARY | 2025-06-12 09:25 | XMS_ITS | Encounter Summary ---
Author Organization [facility] Healthcare Address [address] [place] [address] Care Team Providers Care Heavy Duty Truck Mechanic Name Role Phone Mark Massey MD Unavailable [phone] Chloe Parson MD Unavailable [phone] Dc Velarde MD Primary Care Provider [phone] Reason for Referral * Diagnostic Imaging (Routine) - Pending Review Specialty Diagnoses / Procedures Referred By Contac t Referred To Contact Diagnoses Hx of completed stroke Essential hypertension Screening for diabetes mellitus (DM) Procedures US Renal Limited W Complete Renal Doppler (C) US Renal Doppler Orlando Hutchinson MD [facility] [address] Phone: tel: fax: [facility] (All Locations) Referral ID Status Reason Start Date Expiration Date V isits Requested Visits Authorized [id number] Pending Review 04/26/2025 05/26/2026 1 1 Reason for Visit * Diagnostic Imaging (Routine) - Pending Review Specialty Diagnoses / Procedures Referred By Contac t Referred To Contact Diagnoses Hx of completed stroke Essential hypertension Screening for diabetes mellitus (DM) Procedures US Renal Limited W Complete Renal Doppler (C) US Renal Doppler Orlando Hutchinson MD [address] [facility] [address] [place] [address] Phone: tel: fax: [facility] (All Locations) Referral ID Status Reason Start Date Expiration Date V isits Requested Visits Authorized [id number] Pending Review 04/26/2025 05/26/2026 1 1 Encounter Details Date Type Department Care Team (Latest Contact Info) Description 06/12/2025 9:25 AM CDT - 06/12/2025 11:59 PM CDT Hospital Encounter [facility] [address] [place] [address] Hx of completed stroke; Essential hypertension; Screening for diabetes mellitus (DM) Discharge Disposition: Discharge to home or self [...] on file 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 No Doppler evidence of renal artery stenosis on the right or left. 2. Normal kidneys. No hydronephrosis. Electronically signed by: Lucia Dumont M.D. Narrative 06/12/2025 11:00 AM CDT EXAMINATION: 1. LIMITED RENAL SONOGRAM 2. RENAL DOPPLER (JOHN) HISTORY: Resistant hypertension. COMPARISON: MRI dated 11/02/[address] dated 10/28/2018 FINDINGS: LIMITED RENAL SONOGRAM: The echogenicity of both kidneys is normal. The kidneys are normal in size. The right kidney measures 10.3 cm in length, and the left, 10.2 cm in length. There is no hydronephrosis in either kidney. RENAL ARTERY DOPPLER: Color Doppler and spectral analysis were used to evaluate the renal vasculature. No focal flow abnormalities were seen in the renal arteries on color Doppler. The peak systolic velocities at the origins of the right and left renal arteries and aorta were 68 cm/sec, 74 cm/sec, and 48 cm/sec, respectively. These velocities and the renal to aortic ratios are within normal limits. The visualized portions of the right and left renal veins are patent. Procedure Note Lucia Dumont MD - 06/12/2025 EXAMINATION: 1. LIMITED RENAL SONOGRAM 2. RENAL DOPPLER (JOHN) HISTORY: Resistant hypertension. COMPARISON: MRI dated 11/02/[address] dated 10/28/2018 FINDINGS: LIMITED RENAL SONOGRAM: The echogenicity of both kidneys is normal. The kidneys are normal in size. The right kidney measures 10.3 cm in length, and the left, 10.2 cm in length. There is no hydronephrosis in either kidney. RENAL ARTERY DOPPLER: Color Doppler and spectral analysis were used to evaluate the renal vasculature. No focal flow abnormalities were seen in the renal arteries on color Doppler. The peak systolic velocities at the origins of the right and left renal arteries and aorta were 68 cm/sec, 74 cm/sec, and 48 cm/sec, respectively. These velocities and the renal to aortic ratios are within normal limits. The visualized portions of the right and left renal veins are patent. IMPRESSION: 1. No Doppler evidence of renal artery stenosis on the right or left. 2. Normal kidneys. No hydronephrosis. Electronically signed by: Lucia Dumont M.D. us Orlando Hutchinson MD IMG US PROCEDURES Final Resu lt documented in this encounter Visit Diagnoses Diagnosis Hx of completed stroke Essential hypertension Unspecified essential hypertension Screening for diabetes mellitus (DM) Screening for diabetes mellitus documented in this encounter Care Teams Heavy Duty Truck Mechanic Relationship Specialty Start Date End Date Dc Velarde MD [address] [place] [address] PCP - General Internal Medicine 04/18/25 Mark Massey MD Medical Oncologist/Hematologis t Hematology and Oncology 09/27/18 Chloe Parson MD [address] [address] Consulting Physician Gynecology 11/10/18 documented as of this encounter
--- OUTSIDE RECORDS SUMMARY | 2025-06-12 09:25 | XMS_ITS | Encounter Summary ---
Author Organization [facility] Healthcare Address [address] [place] [address] Care Team Providers Care Merry Go Round Attendant Name Role Phone Mark Massey MD Unavailable [phone] Chloe Parson MD Unavailable [phone] Dc Velarde MD Primary Care Provider [phone] Reason for Referral * Diagnostic Imaging (Routine) - Pending Review Specialty Diagnoses / Procedures Referred By Contac t Referred To Contact Diagnoses Hx of completed stroke Essential hypertension Screening for diabetes mellitus (DM) Procedures US Renal Limited W Complete Renal Doppler (C) US Renal Doppler Orlando Hutchinson MD [facility] [address] Phone: tel: fax: [facility] (All Locations) Referral ID Status Reason Start Date Expiration Date V isits Requested Visits Authorized [id number] Pending Review 04/26/2025 05/26/2026 1 1 Reason for Visit * Diagnostic Imaging (Routine) - Pending Review Specialty Diagnoses / Procedures Referred By Contac t Referred To Contact Diagnoses Hx of completed stroke Essential hypertension Screening for diabetes mellitus (DM) Procedures US Renal Limited W Complete Renal Doppler (C) US Renal Doppler Orlando Hutchinson MD [address] 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
[2025-06-14] VITALS (19 sets, daily range): BP systolic 194–227; BP diastolic 99–133; PULSE 75–106; RESP 16–33; TEMP 36.1–36.5; O2SAT 94–100; BMI 25.7
--- NOTE | ~2025-06-14 | CT_ITS ---
CT brain wo con HISTORY:ams COMPARISON: None. TECHNIQUE: Axial images were obtained of the head without intravenous contrast. FINDINGS: No acute intracranial hemorrhage, mass effect or midline shift. No extra-axial fluid collections. The calvarium is intact. Visualized paranasal sinuses and mastoid air cells are clear. IMPRESSION: No acute intracranial hemorrhage or extra axial fluid collections. All CT scans at this facility are performed using low dose modulation techniques as appropriate to perform exam including the following: automated exposure control; use of iterative reconstruction technique; adjustment of the mA and/or kV according to patient size (this includes techniques or standardized protocols for targeted exams where dose is matched to indication/reason for exam). Reviewed, dictated and finalized at location S. IMPRESSION: No acute intracranial hemorrhage or extra axial fluid collections. All CT scans at this facility are performed using low dose modulation techniqu es as appropriate to perform exam including the following: automated exposure c ontrol; use of iterative reconstruction technique; adjustment of the mA and/or kV according to patient size (this includes techniques or standardized protocol s for targeted exams where dose is matched to indication/reason for exam).
--- NOTE | ~2025-06-14 | CT_ITS ---
CT abdomen pelvis w con INDICATION:colitis . COMPARISON: None. TECHNIQUE: Axial images of the abdomen and pelvis were obtained following infusion of 100 mL Isovue 300. Dose optimization technique was utilized. FINDINGS: The lung bases are clear. Small hiatal hernia is noted. The liver parenchyma is unremarkable. No intrahepatic mass or ductal dilatation is evident. The gallbladder is unremarkable. The pancreas and spleen are normal in appearance. The adrenal glands are symmetric in size. The kidneys demonstrate symmetric uptake and excretion of contrast. No cystic mass is evident. There is no solid mass. There is no hydronephrosis. Evaluation of the stomach and bowel loops are limited due to lack of oral contrast. Moderate stool retention consistent with constipation. The bladder and rectum are normal. No free intraperitoneal fluid or air is evident. There is no significant retroperitoneal lymphadenopathy. The aorta, visceral vessels and renal arteries demonstrate normal caliber and patency. The lower thoracic and lumbar vertebrae are in normal alignment. IMPRESSION: No acute abnormality is noted in the abdomen and pelvis. Constipation. Small hiatal hernia. All CT scans at this facility are performed using low dose modulation techniques as appropriate to perform exam including the following: automated exposure control; use of iterative reconstruction technique; adjustment of the mA and/or kV according to patient size (this includes techniques or standardized protocols for targeted exams where dose is matched to indication/reason for exam). Reviewed, dictated and finalized at location S. IMPRESSION: No acute abnormality is noted in the abdomen and pelvis. Constipation. Small hiatal hernia. All CT scans at this facility are performed using low dose modulation techniqu es as appropriate to perform exam including the following: automated exposure c ontrol; use of iterative reconstruction technique; adjustment of the mA and/or kV according to patient size (this includes techniques or standardized protocol s for targeted exams where dose is matched to indication/reason for exam).
--- NOTE | ~2025-06-14 | XR_ITS ---
EXAMINATION: XR chest 1V portable 06/16/2025 12:24 INDICATION: Leukocytosis TECHNIQUE:A single AP semiupright portable frontal image of the chest was obtained. COMPARISON: 11/07/2024 FINDINGS: Heart is mildly enlarged. Lung volumes are low. No pneumothorax. No pleural effusion. No free air the diaphragm. No focal pulmonary consolidation. IMPRESSION: 1: NO ACUTE CARDIOPULMONARY DISEASE. Reviewed, dictated and finalized at location Q.
--- NOTE | 2025-06-14 17:45 | ECG_ITS ---
Test Date: 2025-06-14 17:45:56 Measurements Intervals [place] Rate: 87 P: 59 FL: 218 QRS: -9 QRSD: 105 T: 48 QT: 399 QTc: 481 Interpretive Statements SINUS RHYTHM WITH FIRST DEGREE AV BLOCK POSSIBLE LEFT ATRIAL ENLARGEMENT INCOMPLETE RIGHT BUNDLE BRANCH BLOCK CONSIDER INFERIOR INFARCT, AGE INDETERMINATE BORDERLINE ST-T WAVE ABNORMALITY- ANTEROLAT/HIGH LAT LEADS BASELINE ARTIFACT- I, II, III, AVR, AVL, AVF ABNORMAL ECG Compared to ECG 11/08/2024 05:59:50 HEART RATE HAS DECREASED First degree AV block now present Electronically Signed On 06-15-2025 08:46:34 CDT by Jose Enrique Davalos D.O.
--- NOTE | 2025-06-14 17:59 | ED.NAVMDI ---
HPI - Nausea/Vomiting/Diarrhea General Chief complaint: Nausea/Vomiting/Diarrhea <Ramón Short MD - Last Filed: 06/14/25 18:18> Stated complaint: n/v <Ramón Short MD - Last Filed: 06/14/25 18:18> Time Seen by Provider: 06/14/25 17:42 <Ramón Short MD - Last Filed: 06/14/25 18:18> Source: patient <Ramón Short MD - Last Filed: 06/14/25 18:18> Mode of arrival: EMS <Ramón Short MD - Last Filed: 06/14/25 18:18> Limitations: clinical condition <Ramón Short MD - Last Filed: 06/14/25 18:18> History of Present Illness HPI Narrative: 69-year-old with a history of cyclical vomiting syndrome , colitis, hypertension was brought in by EMS from home with the complaints of nausea, vomiting, diarrhea which started this morning. She states she feels extremely weak she was also found to have high blood pressure patient claims that she has taken a blood pressure medicine this morning. She denies any fever. Patient states that she finished a course of antibiotics for sinus infection last week. she denies any blood in stool . <Ramón Short MD - Last Filed: 06/14/25 18:18> MD elicited complaint: nausea, vomiting and diarrhea <Ramón Short MD - Last Filed: 06/14/25 18:18> Pertinent past history: cyclical vomiting <Ramón Short MD - Last Filed: 06/14/25 18:18> Onset (ago): day(s) (1) <Ramón Short MD - Last Filed: 06/14/25 18:18> Description of vomiting: watery <Ramón Short MD - Last Filed: 06/14/25 18:18> Description of diarrhea: watery <Ramón Short MD - Last Filed: 06/14/25 18:18> Associated nausea: Yes <Ramón Short MD - Last Filed: 06/14/25 18:18> Associated abdominal pain: No <Ramón Short MD - Last Filed: 06/14/25 18:18> Location of pain: none <Ramón Short MD - Last Filed: 06/14/25 18:18> Pain consistency: constant <Ramón Short MD - Last Filed: 06/14/25 18:18> Severity: severe <Ramón Short MD - Last Filed: 06/14/25 18:18> Exacerbating factors: none <Ramón Short MD - Last Filed: 06/14/25 18:18> Relieving factors: none <Ramón Short MD - Last Filed: 06/14/25 18:18> Context: recent antibiotic use <Ramón Short MD - Last Filed: 06/14/25 18:18> Related Data Home medications: Home Medications ?Medication ?Instructions ?Recorded ?Confirmed ?Last Taken ?Type ergocalciferol (vitamin D2) 1,250 1 unit PO WEEKLY 09/10/19 11/08/24 05/09/24 History mcg (50,000 unit) capsule escitalopram oxalate 20 mg tablet 20 mg PO DAILY 09/10/19 11/08/24 06/17/21 History aspirin 81 mg tablet,delayed 81 mg PO DAILY 09/12/19 11/08/24 06/17/21 History release losartan 50 mg tablet 50 mg PO DAILY 05/14/24 11/08/24 09/25/24 History Held on 11/09/24. Instructions: HOLD - Resume when okay with your doctor metoprolol succinate 50 mg 50 mg PO DAILY 05/14/24 11/08/24 09/25/24 History tablet,extended release 24 hr <Ramón Short MD - Last Filed: 06/14/25 18:18> Allergies/Adverse reactions: Allergies Allergy/AdvReac Type Severity Reaction Status Date / Time ondansetron Allergy Severe Anaphylaxis Verified 06/14/25 17:51 prochlorperazine Allergy Severe Seizure Verified 06/14/25 17:51 morphine Allergy Intermediate Nausea and Verified 06/14/25 17:51 Vomiting <Ramón Short MD - Last Filed: 06/14/25 18:18> Review of Systems Review of Systems: All systems reviewed & are unremarkable except as noted in HPI and below <Ramón Short MD - Last Filed: 06/14/25 18:18> Constitutional: Constitutional: Reports no additional constitutional complaints <Ramón Short MD - Last Filed: 06/14/25 18:18> Eyes: Eyes: Reports no additional eye complaints <Ramón Short MD - Last Filed: 06/14/25 18:18> ENT: Reports system reviewed and no additional complaints, except as documented <Ramón Short MD - Last Filed: 06/14/25 18:18> Cardiovascular: Cardiovascular: Reports no additional cardiovascular complaints <Ramón Short MD - Last Filed: 06/14/25 18:18> Respiratory: Respiratory: Reports no additional respiratory complaints <Ramón Short MD - Last Filed: 06/14/25 18:18> Gastrointestinal: Gastrointestinal: Reports as per HPI <Ramón Short MD - Last Filed: 06/14/25 18:18> Neurologic: Reports system reviewed and no additional complaints, except as documented <Ramón Short MD - Last Filed: 06/14/25 18:18> Endocrine: Endocrine: Reports no additional endocrine complaints <Ramón Short MD - Last Filed: 06/14/25 18:18> PMFSH Past Medical History Medical History: Medical History 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 Hypertension Gastroesophageal reflux disease Cerebrovascular accident Without residual deficit. Anxiety History of sudden cardiac arrest successfully resuscitated Secondary to allergic reaction to Zofran (01/2018). History of alcohol use She has abstained from alcohol since the beginning of 2018. Hyperlipidemia Cancer of left breast Invasive lobular cancer of the left breast, ER/UT positive, diagnosed in 2011, status post lumpectomy, radiation, and tamoxifen therapy. <Ramón Short MD - Last Filed: 06/14/25 18:18> Surgical History Surgical History: Surgical History History of tonsillectomy and adenoidectomy History of lumbar fusion History of esophagogastroduodenoscopy (~2010) History of inguinal hernia repair (~1962) Status post D&C (~2018) Status post surgical removal of ganglion cyst (~2006) Status post partial mastectomy of left breast (~2012) The patient had a lumpectomy and then reconstructive surgery to another lump that was removed History of total right hip arthroplasty (~2010) History of appendectomy (~1990) <Ramón Short MD - Last Filed: 06/14/25 18:18> Family History Family History: Family History Grandparent Family history of lung cancer Family history of liver disease Carcinoma of colon Mother Family history of lung cancer Father Family history of lung cancer Family history of renal failure Other Family history of malignant neoplasm of stomach Son Family history of malignant neoplasm of thyroid <Ramón Short MD - Last Filed: 06/14/25 18:18> Social History Social History: Social History Social History: Surrogate decision maker: Donn Watson, spouse. Code status: Full code. Smoking packs per day: 0.5 Smoking cigarettes per day: 10.0 Years smoked: 10 Smoking pack-years: 5.00 Smoking status: Never smoker Tobacco type: cigarettes Second hand tobacco smoke exposure: No Smoking end date: 09/26/91 Alcohol intake: never Alcohol use details: History of alcohol abuse. Sober since early 2018. Substance use: current Substance use type: marijuana Last use: 11/07/24 Do You Feel Safe in your Home?: Yes Lack of Transportation: No Lack of Food: Never True Current Housing: I Have Housing Concerned About Future Housing: No Difficulty Paying Gas/Electric Bills: No Difficulty Paying for Meds: No Currently Unemployed: No Education: Associate Degree Difficulty w/ Childcare or Family Care: No Living arrangements: alone Additional living arrangements comments: Lives with in [place]. 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 Spiritual care concerns: No <Ramón Short MD - Last Filed: 06/14/25 18:18> Exam Narrative: GENERAL:Ill -appearing, well-nourished, and in moderate distress sec to nausea HEAD: Normocephalic, atraumatic. EYES: PERRLA and EOMI. ENT: Nares clear, no rhinorrhea or epistaxis. Mucous membranes moist. NECK: Supple. CHEST: Clear to auscultation. No respiratory distress. HEART: Regular rate and rhythm. No murmur heard. Normal peripheral pulses. ABDOMEN: Soft, nontender, nondistended, normal active bowel sounds. EXTREMITIES: Normal range of motion. No edema. SKIN: Warm, dry, no rash. NEURO: No focal deficits. Alert and oriented x3. PSYCH: Normal mood and affect. <Ramón Short MD - Last Filed: 06/14/25 18:18> Course Course Emergency Course: Patient care signed over by previous provider pending re-evaluation and CT scan. Patient has a history of cyclic vomiting and daily marijuana abuse. Patient has presented previously for nausea vomiting and GI upset. She is retching and dry heaving in the examination room. Received low-dose Reglan prior to my initial assessment. No improvement. She is hypertensive and did not take her blood pressure medicines tonight. Not able to tolerate oral intake at this time. Laboratory studies show a leukocytosis, no systemic infection symptoms or fever, CT scan shows no acute abdominal process. Chest x-ray unremarkable. EKG unremarkable. Urinalysis unremarkable. She does have an anion gap acidosis likely from starvation ketosis with her profound nausea vomiting. No abdominal pain and a soft nontender nondistended abdomen examination. Given a dose of droperidol as well as fluids and labetalol for blood pressure and repeat labs for assessment. Patient had minimal to any response from the droperidol. No response in her blood pressure to the labetalol either. Patient started on Valium given her slightly prolonged QTC of 480 did not want to give any additional agents that can prolong this further. Patient no longer vomiting still having some retching sensations. CT scan reviewed shows no acute process aside from some constipation. Hiatal hernia noted. At this time given patient's uncontrolled symptoms and laboratory studies that are only marginally improved she will be admitted to the hospital for further care and titration. Spoke to Dr. Kim the hospitalist who recommended higher doses of Valium for symptom control as well as more fluids and patient was accepted to the IMU at this time. Also got recommendations to try nitroglycerin paste to see if that helps her blood pressure that is currently resistant. <Tevin Flores MD - Last Filed: 06/14/25 23:10> Vital Signs Vital signs: Vital Signs Temperature 36.1 C L 06/14/25 17:30 Pulse Rate 85 06/14/25 17:30 Respiratory Rate 16 06/14/25 17:30 Blood Pressure 197/99 H 06/14/25 17:30 Pulse Oximetry 98 06/14/25 17:30 Oxygen Delivery Room Air 06/14/25 17:30 Temperature 36.3 C L 06/14/25 17:48 Pulse Rate 100 06/14/25 22:46 Respiratory Rate 29 H 06/14/25 22:46 Blood Pressure 208/121 H 06/14/25 22:46 Pulse Oximetry 98 06/14/25 22:46 Oxygen Delivery Room Air 06/14/25 17:48 <Ramón Short MD - Last Filed: 06/14/25 18:18> Vital Signs Temperature 36.1 C L 06/14/25 17:30 Pulse Rate 85 06/14/25 17:30 Respiratory Rate 16 06/14/25 17:30 Blood Pressure 197/99 H 06/14/25 17:30 Pulse Oximetry 98 06/14/25 17:30 Oxygen Delivery Room Air 06/14/25 17:30 Temperature 36.3 C L 06/14/25 17:48 Pulse Rate 100 06/14/25 22:46 Respiratory Rate 29 H 06/14/25 22:46 Blood Pressure 208/121 H 06/14/25 22:46 Pulse Oximetry 98 06/14/25 22:46 Oxygen Delivery Room Air 06/14/25 17:48 <Tevin Flores MD - Last Filed: 06/14/25 23:10> MDM - Nausea/Vomiting/Diarrhea Differential Diagnosis Differential diagnosis: Likely gastroenteritis, clostridium difficile infection, dehydration and other (antibiotic induced diarrhea ,colitis ) <Ramón Short MD - Last Filed: 06/14/25 18:18> Medical Records Attestation: I reviewed the patient's medical records. <Ramón Short MD - Last Filed: 06/14/25 18:18> Lab Data Attestation: I reviewed the patient's lab results. <Ramón Short MD - Last Filed: 06/14/25 18:18> Result diagrams: 06/14/25 18:05 06/14/25 21:34 <Ramón Short MD - Last Filed: 06/14/25 18:18> Labs: Lab Results 06/14/25 06/14/25 06/14/25 Range/Units 18:05 19:23 21:34 WBC 16.6 H (4.5-10.0) K/mm3 RBC 4.83 (4.2-5.4) M/mm3 Hgb 14.1 (12.0-15.0) g/dL Hct 40.7 (37.0-47.0) % MCV 84.3 (80-100) fl MCH 29.2 (26-34) pg MCHC 34.6 (32-36) g/dl RDW 14.2 (11.5-14.5) % Plt Count 173 (150-375) k/mm3 MPV 9.8 (7.4-10.4) fl Immature Gran % (Auto) 0.5 (0-0.5) % Neut % (Auto) 87.7 H (45.5-73.1) % Lymph % (Auto) 6.2 L (18.3-44.2) % Henderson % (Auto) 5.2 (2.6-8.5) % Eos % (Auto) 0.1 (0-4.4) % Baso % (Auto) 0.3 (0.2-1.2) % Lymph # (Auto) 1.03 (0.9-3.2) K/mm3 Henderson # (Auto) 0.9 H (0.1-0.6) K/mm3 Eos # (Auto) 0.0 (0-0.3) K/mm3 Baso # (Auto) 0.1 (0.0-0.1) K/mm3 Abs Immat Gran (auto) 0.09 H (0.00-0.031) K/mm3 Absolute Neuts (auto) 14.6 H (1.3-6.7) K/mm3 Absolute Nucleated RBC 0.000 (0.0-0.012) K/mm3 Nucleated RBC % 0.0 (0.0-0.2) % Sodium 133 L 135 L (137-145) mmol/L Potassium 3.2 L 3.5 (3.4-5.0) mmol/L Chloride 104 102 (98-107) mmol/L Carbon Dioxide 12 L 17 L (22-30) mmol/L Anion Gap 17 H 16 H (4-12) mmol/L BUN 16 14 (7-17) mg/dL Creatinine 0.92 0.78 (0.7-1.0) mg/dL Estim Creat Clear Calc 49 57 ml/min Estimated GFR > 60 > 60 (59 - ) Glucose 178 H 221 H (65-110) mg/dL Lactic Acid 3.5 H 2.7 H (0.7-2.0) mmol/L Calcium 9.8 8.9 (8.4-10.2) mg/dL Total Bilirubin 1.2 (0.2-1.3) mg/dL AST 25 (14-36) U/L ALT 25 (6-35) U/L Alkaline Phosphatase 136 H (38-126) U/L Total Protein 8.1 (6.3-8.2) g/dL Albumin 4.8 (3.5-5.1) g/dL Lipase 55 (23-300) U/L Urine Color Yellow (Yellow) Urine Appearance Clear (Clear) Urine pH 7.5 (5.0-9.0) Ur Specific Napoleon 1.018 (1.001-1.035) Urine Protein Negative (Negative) mg/dL Urine Glucose (UA) 1+ H (Negative) mg/dL Urine Ketones 2+ H (Negative) mg/dL Ur Blood (Man) Trace (Negative) Urine Nitrate Negative (Negative) Urine Bilirubin Negative (Negative) Urine Urobilinogen 0.2 (<2.0) mg/dL Leukocyte Esterase Rfl Negative (Negative) IRENE/UL Urine RBC 3-5 H (0-2) /hpf Urine WBC 0-5 (0-3) /hpf Ur Squamous Epith Cells None seen (Few) /hpf Urine Bacteria None seen /hpf Urine Casts 0-2 <Ramón Short MD - Last Filed: 06/14/25 18:18> Lab Results 06/14/25 06/14/25 06/14/25 Range/Units 18:05 19:23 21:34 WBC 16.6 H (4.5-10.0) K/mm3 RBC 4.83 (4.2-5.4) M/mm3 Hgb 14.1 (12.0-15.0) g/dL Hct 40.7 (37.0-47.0) % MCV 84.3 (80-100) fl MCH 29.2 (26-34) pg MCHC 34.6 (32-36) g/dl RDW 14.2 (11.5-14.5) % Plt Count 173 (150-375) k/mm3 MPV 9.8 (7.4-10.4) fl Immature Gran % (Auto) 0.5 (0-0.5) % Neut % (Auto) 87.7 H (45.5-73.1) % Lymph % (Auto) 6.2 L (18.3-44.2) % Henderson % (Auto) 5.2 (2.6-8.5) % Eos % (Auto) 0.1 (0-4.4) % Baso % (Auto) 0.3 (0.2-1.2) % Lymph # (Auto) 1.03 (0.9-3.2) K/mm3 Henderson # (Auto) 0.9 H (0.1-0.6) K/mm3 Eos # (Auto) 0.0 (0-0.3) K/mm3 Baso # (Auto) 0.1 (0.0-0.1) K/mm3 Abs Immat Gran (auto) 0.09 H (0.00-0.031) K/mm3 Absolute Neuts (auto) 14.6 H (1.3-6.7) K/mm3 Absolute Nucleated RBC 0.000 (0.0-0.012) K/mm3 Nucleated RBC % 0.0 (0.0-0.2) % Sodium 133 L 135 L (137-145) mmol/L Potassium 3.2 L 3.5 (3.4-5.0) mmol/L Chloride 104 102 (98-107) mmol/L Carbon Dioxide 12 L 17 L (22-30) mmol/L Anion Gap 17 H 16 H (4-12) mmol/L BUN 16 14 (7-17) mg/dL Creatinine 0.92 0.78 (0.7-1.0) mg/dL Estim Creat Clear Calc 49 57 ml/min Estimated GFR > 60 > 60 (59 - ) Glucose 178 H 221 H (65-110) mg/dL Lactic Acid 3.5 H 2.7 H (0.7-2.0) mmol/L Calcium 9.8 8.9 (8.4-10.2) mg/dL Total Bilirubin 1.2 (0.2-1.3) mg/dL AST 25 (14-36) U/L ALT 25 (6-35) U/L Alkaline Phosphatase 136 H (38-126) U/L Total Protein 8.1 (6.3-8.2) g/dL Albumin 4.8 (3.5-5.1) g/dL Lipase 55 (23-300) U/L Urine Color Yellow (Yellow) Urine Appearance Clear (Clear) Urine pH 7.5 (5.0-9.0) Ur Specific Napoleon 1.018 (1.001-1.035) Urine Protein Negative (Negative) mg/dL Urine Glucose (UA) 1+ H (Negative) mg/dL Urine Ketones 2+ H (Negative) mg/dL Ur Blood (Man) Trace (Negative) Urine Nitrate Negative (Negative) Urine Bilirubin Negative (Negative) Urine Urobilinogen 0.2 (<2.0) mg/dL Leukocyte Esterase Rfl Negative (Negative) IRENE/UL Urine RBC 3-5 H (0-2) /hpf Urine WBC 0-5 (0-3) /hpf Ur Squamous Epith Cells None seen (Few) /hpf Urine Bacteria None seen /hpf Urine Casts 0-2 <Tevin Flores MD - Last Filed: 06/14/25 23:10> ECG Data EKG #1: ECG completion date: 06/14/25 <Ramón Short MD - Last Filed: 06/14/25 18:18> ECG completion time: 17:45 <Ramón Short MD - Last Filed: 06/14/25 18:18> EKG Interpretation: sinus rhythm (87), no ectopy, no ST changes, normal QRS, RBBB and no acute changes <Ramón Short MD - Last Filed: 06/14/25 18:18> Discharge Plan Discharge Clinical Impression: Intractable nausea and vomiting, QT prolongation, Asymptomatic hypertensive urgency, Cannabis hyperemesis syndrome concurrent with and due to cannabis abuse <Ramón Short MD - Last Filed: 06/14/25 18:18> Patient Disposition: Still a Patient <Ramón Short MD - Last Filed: 06/14/25 18:18> Condition: Stable <Ramón Short MD - Last Filed: 06/14/25 18:18> Patient Language: Citizen Of [place] <Ramón Short MD - Last Filed: 06/14/25 18:18> Prescriptions: No Action ergocalciferol (vitamin D2) 1,250 mcg (50,000 unit) capsule 1 unit PO WEEKLY Rx Instructions: Pt takes on thursday escitalopram oxalate 20 mg tablet 20 mg PO DAILY metoclopramide HCl 10 mg tablet 10 mg PO Q6H PRN (Reason: nausea and vomiting) Qty: 20 0RF atorvastatin 20 mg tablet 20 mg PO DAILY Qty: 90 1RF aspirin 81 mg Tablet,Delayed Release (Dr/Ec) 81 mg PO DAILY losartan 50 mg tablet 50 mg PO DAILY metoprolol succinate 50 mg tablet extended release 24 hr 50 mg PO DAILY <Ramón Short MD - Last Filed: 06/14/25 18:18> Follow-up/Referrals: Dc Velarde MD [Primary Care Provider, Internal Medicine] <Ramón Short MD - Last Filed: 06/14/25 18:18> Time of Disposition: 22:45 <Ramón Short MD - Last Filed: 06/14/25 18:18> 22:45 <Tevin Flores MD - Last Filed: 06/14/25 23:10>
--- OUTSIDE RECORDS SUMMARY | 2025-06-14 18:06 | XMS_ITS | Clinical Summary ---
Author Organization [facility] Address [address] [place] [address] Care Team Providers Care Butane Compressor Operator Name Role Phone Mark Massey MD Unavailable [phone] Chloe Parson MD Unavailable [phone] Dc Velarde MD Primary Care Provider [phone] Allergies Active Allergy Reactions Criticality Noted Date [...] and was extubated shortly after arrival to [facility] MICU on same day of admission. [...] and was extubated shortly after arrival to [facility] MICU on same day of admission. [...] and was extubated shortly after arrival to [facility] MICU on same day of admission. [...] and intubated at that time. Transferred to [facility] MICU for further management. Awake [...] protection, however extubated soon after arrival to [facility] ED. She also received multiple doses [...] Encounters Date Type Department Care Team Description 06/12/2025 9:25 AM CDT - 06/12/2025 11:59 PM CDT Hospital Encounter [facility] [address] [place] [address] Hx of completed stroke; Essential hypertension; Screening for diabetes mellitus (DM) Discharge Disposition: Discharge to home or self care 06/12/2025 7:30 AM CDT - 06/12/2025 11:59 PM CDT Hospital Encounter [facility] Cardiac Diagnostic Lab [address] [facility] 8th [place] [id number] Hx of completed stroke; Essential hypertension Discharge Disposition: Discharge to home or self care 05/01/2025 Results Follow-Up Radiology [address] [place] [address] Orlando Rees MD Apolipoprotein B, serum, Pro B-type natriuretic peptide, Transthoracic Echo (TTE) Complete W Doppler/CF 04/26/2025 1:53 PM CDT - 04/26/2025 11:59 PM CDT Hospital Encounter [facility] [address] [place] [address] Hx of completed stroke; Essential hypertension Discharge Disposition: Discharge to home or self care 04/26/2025 12:30 PM CDT Ancillary Procedure [facility] Medicine Cardiology [address] [place] [phone] 04/26/2025 11:40 AM CDT Lab [facility] Medicine Endocrinology Metabolism and Lipid [address] [place] [phone] Hx of completed stroke; Essential hypertension; Screening for diabetes mellitus (DM) 04/26/2025 10:00 AM CDT Office Visit [facility] Medicine Cardiology [address] [place] [phone] Orlando Rees MD Hx of completed stroke (Primary Dx); Essential hypertension; Screening for diabetes mellitus (DM) 04/25/2025 Documentation [facility] Medicine Scheduling [address] [place] [address] Shanel Pearl IM DOC 04/18/2025 Telephone [facility] Cardiology [address] [place] [address] [place] [address] Breanne Jc from Last 3 Months Surgical [...] on file 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 Gender Identity Not on file Sexual [...] Essential hypertension Screening for diabetes mellitus (DM) TRANSTHORACIC ECHO (TTE) COMPLETE W DOPPLER/CF W CONTRAST Routine 06/12/2025 9:24 AM CDT Hx of completed stroke Essential hypertension MCT - MOBILE CARDIAC TELEMETRY EVENT MONITOR Routine 04/26/2025 12:26 PM CDT Hx of completed stroke Essential hypertension Screening for diabetes mellitus (DM) PRO B-TYPE NATRIURETIC PEPTIDE Routine 04/26/2025 11:46 AM CDT Hx of completed stroke Essential hypertension APOLIPOPROTEIN B Routine 04/26/2025 11:46 AM CDT Hx of completed stroke Essential hypertension LIPID PANEL Routine 04/26/2025 11:46 AM CDT Hx of completed stroke Essential hypertension LIPOPROTEIN A (LPA) Routine 04/26/2025 11:46 AM CDT Hx of completed stroke Essential hypertension CRP, HIGH SENSITIVITY Routine 04/26/2025 11:46 AM CDT Hx of completed stroke Essential hypertension HEMOGLOBIN A1C Routine 04/26/2025 11:46 AM CDT Hx of completed stroke Essential hypertension Screening for diabetes mellitus (DM) from Last 3 Months Results * US Renal Limited W Complete Renal Doppler (C) (06/12/2025 10:50 AM CDT) Anatomical Region Laterality Modality Kidney N/A Ultrasound 06/12/2025 11:0 0 AM CDT Impressions 06/12/2025 11:00 AM CDT 1. No Doppler evidence of renal artery stenosis on the right or left. 2. Normal kidneys. No hydronephrosis. Electronically signed by: Salvador Bourgeois 06/12/2025 11:00 AM CDT EXAMINATION: 1. LIMITED [...] signed by: Lucia Dumont M.D. us Orlando Rees MD IMG US PROCEDURES Final Resu lt * TRANSTHORACIC ECHO (TTE) COMPLETE W DOPPLER/CF W CONTRAST (06/12/2025 9:24 AM CDT) EF Mod BP 65 % CONS SCIMAGE Anatomical Region Laterality Modality Ultrasound 06/12/2025 8:19 AM CDT Narrative 06/12/2025 10:04 AM CDT [facility] [place]iac [place] [address] Transthoracic Echocardiographic Report Patient Name: MERON WATSON L : 1955 (69y 11m) Sex: F Study Date: 06/12/2025 08:19:00 AM Ht(Inch): 66 Wt(Lb): 162.92 BSA: 1.83 Clinical Documentation Improvement Specialist: CATALINA Olsen,[facility] Location: [facility] Order Provider: ORLANDO REES Heart Rate: 55 [...] - 1.5 ] RWT 0.59 MV Decel [place] 282 EDV Mod BP 114 ml [ [...] Note Zhao Galo MD PhD - 06/12/2025 [facility] [place] [address] Transthoracic Echocardiographic Report Patient Name: BELKISBARTMAYAMERON L : 1955 (69y 11m) Sex: F Study Date: 06/12/2025 08:19:00 AM Ht(Inch): 66 Wt(Lb): 162.92 BSA: 1.83 Clinical Documentation Improvement Specialist[facility] Order Provider:ORLANDO REES Heart Rate: 55 BMI: [...] - 1.5 ] RWT 0.59 MV Decel [id number] EDV Mod BP 114 ml [ 46 - 106 ] MV Decel Rwpo598 msec [ 104 - 258 ] LV [...] cm [ 1.7 - 5.0 ] RA Drsowo59 ml RA Volume Index13 ml/m2 IVC Diam1.4 cm IVC Collapse 83.2 % AoR Diam 2D 3.4 cm [ 2.7 - 3.3 ] Ao Root Index 1.9 cm/m2 [ 1.0 - 2.0 ] Asc Ao Diam 2D3.3 cm Asc Ao Index1.8 cm/m2 Electronically Signed By: Zhao Galo M.D. 06/12/2025 10:03:21 AM CDT us Orlando Rees MD CV ECHO PROCEDURES Final Res ult * MCT Mobile Cardiac Telemetry Event Monitor (04/26/2025 12:26 PM CDT) Anatomical Region Laterality Modality Electrocardiogra phy 04/26/2025 12:2 7 PM CDT Narrative 06/05/2025 12:17 PM CDT [facility] [place] [address] [place] [address] CARDIAC EVENT MONITOR REPORT Patient Name: MERON WATSON : 1955 (69y 10m) Sex: F Study Date: 04/26/2025 12:27:21 PM Ht(Inch): Wt(Lb): BSA: Tech: Location: [facility] Order Provider: ORLANDO REES BMI: Ref Provider: ORLANDO REES PROCEDURES: Event Report: [facility] MOBILE CARDIAC TELEMETRY EVENT MONITOR [[id number]]. Enrollment Period: 2025-05-03 00:00:00 through 2025-06-01 00:00:00. Location: [facility]. INDICATIONS: Z86.73 Personal history of transient ischemic attack (TIA), and cerebral infarction without residual deficits, I10 Essential (primary) hypertension, and Z13.1 Encounter for screening for diabetes mellitus. FINDINGS: Event Data: Min Rate: 40 BPM Min Rate Timestamp: 2025-05-30 03:59:00 Max Rate: 118 BPM Max Rate Timestamp: 2025-05-31 08:57:00 Mean Rate: 63 BPM SIGNIFICANT PAUSES: 0 >3 sec Protocol: Automatically Detected Events: 1 Stable: Sinus Rhythm 1 Stable: Sinus Bradycardia w/Run of V-Tach (5 beats)/PACs SUMMARY: The patient's monitoring period was 05/03/2025 - 06/01/2025. Baseline sample showed Sinus Rhythm with a heart rate of 62.8 bpm. There were 0 critical, 0 serious, and 2 stable events that occurred. Preliminary Findings: *The predominant rhythm was Sinus Rhythm. *The Maximum Heart Rate recorded was 118 BPM, 08:57 AM 05/31, the Minimum Heart Rate recorded was 40 BPM, 03:59 AM 05/30 and the Average Heart Rate was 63 BPM. *There were 91 VE beats with a burden of <1 %. There was 1 occurrence of Ventricular Tachycardia with the longest episode 3s, 03:57 AM 05/29 and fastest episode 106 BPM, 03:57 AM 05/29. *There were 5,200 SVE beats with a burden of <1 %. *There were 0 manually detected events. CONCLUSIONS: 1. I have reviewed the PDF and all the ECG strips. I agree with the interpretations as detailed in the report. 2. The PDF can be found in the Epic Patient chart. Please go to the Cardiology tab, click on the holter or event exam. Scroll to bottom where the ORDER-LEVEL Documents reside and click the blue link to the pdf. Electronically Signed By: Erin Hill MD 06/05/2025 12:15:37 PM CDT Procedure Note Erin Hill MD - 06/05/2025 [facility] [place] [address] CARDIAC EVENT MONITOR REPORT Patient Name: MERON WATSON : 1955 (69y 10m) Sex: F Study Date: 04/26/2025 12:27:21 PM Ht(Inch): Wt(Lb): BSA: Tech: Location: [facility] Order Provider: ORLANDO REES BMI: Ref Provider: ORLANDO REES PROCEDURES: Event Report: [facility] MOBILE CARDIAC TELEMETRY EVENT MONITOR [[id number]]. Enrollment Period: 2025-05-03 00:00:00 through 2025-06-01 00:00:00. Location: [facility]. INDICATIONS: Z86.73 Personal history of transient ischemic attack (TIA), and cerebralinfarction without residual deficits, I10 Essential (primary) hypertension, and Z13.1Encounter for screening for diabetes mellitus. FINDINGS: Event Data: Min Rate: 40 BPM Min Rate Timestamp: 2025-05-30 03:59:00 Max Rate: 118 BPM Max Rate Timestamp: 2025-05-31 08:57:00 Mean Rate: 63 BPM SIGNIFICANT PAUSES: 0 >3 sec Protocol: Automatically Detected Events: 1 Stable: Sinus Rhythm 1 Stable: Sinus Bradycardia w/Run of V-Tach (5 beats)/PACs SUMMARY: The patient's monitoring period was 05/03/2025 - 06/01/2025.Baseline sample showed Sinus Rhythm with a heart rate of 62.8 bpm. There were 0 critical,0 serious, and 2 stable events that occurred. Preliminary Findings: *The predominant rhythm was Sinus Rhythm. *The Maximum Heart Rate recorded was 118 BPM, 08:57 AM 05/31, the MinimumHeart Rate recorded was 40 BPM, 03:59 AM 05/30 and the Average Heart Rate was 63BPM. *There were 91 VE beats with a burden of <1 %. There was 1 occurrence ofVentricular Tachycardia with the longest episode 3s, 03:57 AM 05/29 and fastestepisode 106 BPM, 03:57 AM 05/29. *There were 5,200 SVE beats with a burden of <1 %. *There were 0 manually detected events. CONCLUSIONS: 1. I have reviewed the PDF and all the ECG strips. I agree with theinterpretations as detailed in the report. 2. The PDF can be found in the [facility] Patient chart. Please go to theCardiology tab, click on the holter or event exam. Scroll to bottom where the ORDER-LEVELDocuments reside and click the blue link to the pdf. Electronically Signed By: Erin Hill MD 06/05/2025 12:15:37 PM CDT us Orlando Rees MD CV CARDIAC SERVICES PROCEDUR ES Final Result * Pro B-type natriuretic peptide (04/26/2025 11:46 [...] Heart J. 2006:27:330-337. 2. Keila RW, Gale ATKINSON. J. AM Carson Cardiol: Cardiovasc Imag. 2009;2: 216- 225. Interpretive Data Last Revised Date: 2018. Blood 04/26/2025 11:4 6 AM CDT 04/26/2025 4:01 PM CDT Orlando Rees MD LAB BLOOD ORDERABLES Final R esult [facility] Department [place] [address] * Apolipoprotein B, serum (04/26/2025 11:46 AM CDT) Pathologist [facility] Apolipoprotein B 88 mg/dL [facility] Comment: REFERENCE VALUE Desirable: <90 Above Desirable: 90-99 Borderline high: 100-119 High: 120-139 Very high: > or = 140 Test Performed by: [address] [address] Proofer Prepress: Melinda Peters Ph.D.; CLIA# [id number] Blood 04/26/2025 11:4 6 AM CDT 04/26/2025 4:12 PM CDT Orlando Rees MD LAB BLOOD ORDERABLES Final R esult Performing Organization Address City/[facility] Co de Phone Number BRII LAWTON [facility] Department [place] [address] [place] * Lipoprotein a (LPa) (04/26/2025 11:46 AM CDT) Lipoprotein (A) 13.9 <=75.0 nmol/L [facility] Comment: An LP(a) level >100 nmol/L is [...] its performance characteristics have been determined by [facility]. This assay in units of nmol/L has not been cleared or approved by the FDA, although they are provided by the salt manager and widely accepted as the preferred units for reporting. [facility] is regulated under CLIA as qualified to perform high-complexity testing. Blood 04/26/2025 11:4 6 AM CDT 04/26/2025 12:57 PM CDT Orlando Rees MD LAB BLOOD ORDERABLES Final R esult [facility] * (ABNORMAL) CRP (cardiac risk) (04/26/2025 11:46 AM CDT) CRP, High Sensitivity 4.20(H) 0.00 - 3.00 mg/L [facility] Comment: hsCRP Cardiovascular Risk Assessment Less than 1.0 mg/L = Low Risk 1.0 - 3.0 mg/L = Average Risk More than 3.0 mg/L = High Risk Blood 04/26/2025 11:4 6 AM CDT 04/26/2025 12:57 PM CDT Orlando Rees MD LAB BLOOD ORDERABLES Final R esult Performing Organization Address City/[facility] Co de Phone Number [facility] * Hemoglobin A1c (04/26/2025 11:46 AM CDT) HbA1c 5.4 5.1 - 5.6 % [facility] Comment: HBA1C 5.1 - 5.6 = NORMAL HBA1C 5.7 - 6.4 = PREDIABETES HBA1C >=6.5 = PROVISIONAL DIAGNOSIS OF DIABETES Estimated Average Glucose 108 mg/dL [facility] Blood 04/26/2025 11:4 6 AM CDT 04/26/2025 12:57 PM CDT Orlando Rees MD LAB BLOOD ORDERABLES Final R esult Performing Organization Address [facility] de Phone Number [facility] * [...] CDT 04/26/2025 12:57 PM CDT Narrative [facility] - 04/26/2025 1:51 PM CDT Beginning December 14, 2024, LDL are now calculated by the Lyn-NIH equation (CRISTIANO Cardiol 2020;5:540-8) which is more accuarate than the older Friedewald equation in patients with low LDL cholesterol or high triglycerides. For adults ages 40-79, the ACC/AHA recommends discussing your 10-year atherosclerotic cardiovascular disease risk with your health care provider. https://www.acc.org/ASCVDApp us Orlando Rees MD LAB BLOOD ORDERABLES Final R esult [facility] from Last 3 Months Insurance [facility] CHOICE PLUS [facility] MEDICARE ADVANTAGE [facility] MEDICARE ADVANTAGE Advance Directives For more information, please contact: [phone] * Full Code (Latest Code Status on File) Date Activated Date Inactivated Comments 10/28/2018 8:37 AM 11/02/2018 7:45 PM * Full Code Date Activated Date Inactivated Comments 03/03/2018 11:57 PM 03/05/2018 4:36 PM * Full Code Date Activated Date Inactivated Comments 11/28/2017 5:10 PM 12/01/2017 5:04 PM Care Teams Butane Compressor Operator Relationship Specialty Start Date End Date Dc Velarde MD [address] [place] [address] PCP - General Internal Medicine 04/18/25 Mark Massey MD Medical Oncologist/Hematologis t Hematology and Oncology 09/27/18 Chloe Parson MD [address] [address] Consulting Physician Gynecology 11/10/18
--- OUTSIDE RECORDS SUMMARY | 2025-06-14 18:06 | XMS_ITS | Clinical Summary ---
Author Organization [facility] Address [address] [place] [address] Care Team Providers Care Metal Weigher Name Role Phone Florencio Larkin MD Primary [...] Most Recently Relevant to Health Maintenance Insurance [facility] OPTIONS PPO [id number] Care Teams Metal Weigher Relationship Specialty Start Date End Date Florencio Larkin MD [address] [place] [address] PCP - General Family Practice 12/16/17
--- OUTSIDE RECORDS SUMMARY | 2025-06-14 18:06 | XMS_ITS ---
Author Organization [facility] B Address [address] [place] [address] Care Team Providers Care Bat Carrier Name Role Phone Mark Massey MD Unavailable [phone] Chloe Parson MD Unavailable [phone] Dc Velarde MD Primary Care Provider [phone] Active Problems Problem Noted Date Diagnosed Date [...] was extubated shortly after arrival to [facility] MICU on same day of [...] was extubated shortly after arrival to [facility] MICU on same day of [...] was extubated shortly after arrival to [facility] MICU on same day of [...] and intubated at that time. Transferred to [facility] MICU for further management. Awake and alert [...] acute porphyria per neuro recs. -CSF cytology 3/15 pending, anticipate likely will be negative; however [...] however extubated soon after arrival to [facility] ED. She also received multiple [...]
--- OUTSIDE RECORDS SUMMARY | 2025-06-14 18:06 | XMS_ITS | Clinical Summary ---
Author Organization [facility] Address [address] [address] Phone Care Team Providers Care Clipper And Turner Name Role Phone Florencio Larkin MD Primary [...] Recently Relevant to Health Maintenance Care Teams Clipper And Turner Relationship Specialty Start Date End Date Florencio Larkin MD PCP - General Family Medicine 05/15/18
--- OUTSIDE RECORDS SUMMARY | 2025-06-14 18:06 | XMS_ITS | Encounter Summary ---
Author Organization [facility] Healthcare Address [address] [place] [address] Care Team Providers Care Wrapper Cashier Name Role Phone Mark Massey MD Unavailable [phone] Chloe Parson MD Unavailable [phone] Dc Velarde MD Primary Care Provider Encounter Details Date Type Department Care Team (Late st Contact Info) Description 05/01/2025 Results Follow-Up Radiology [address] [place] [address] Orlando Hutchinson MD [address] [id number] Apolipoprotein B, serum, Pro B-type natriuretic peptide, Transthoracic Echo (TTE) Complete W Doppler/CF Social History Tobacco Use Types Packs/Day Years Used Date Smoking Tobacco: Former Cigarettes Q uit: 08/17/1997 Smokeless Tobacco: Never Alcohol Use Standard Drinks/Week Comments Yes 0 (1 standard drink = 0.6 oz pur e alcohol) 2 days per week Comments Unknown Sex and Gender Information Value Date Recorded Sex Assigned at Not on file 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 Normal LV size. Concentric LV hypertrophy. Normal left ventricular systolic function. The Ejection Fraction (Lin's) is measured at 65 %. Grade I diastolic dysfunction (normal LA pressure). Theaverage global longitudinal strain is normal. 2. Normal right ventricular size. Normal right ventricular systolic function. TV S'= 0.13 m/s (normal function). 3. The estimated pulmonary artery systolic pressure is 24.0 mmHg. No pulm HTN 4. Mild MR, Mild TR * Result Encounter Note - Orlando Hutchinson [...] on filedocumented in this encounter Care Teams Wrapper Cashier Relationship Specialty Start Date End Date Dc Velarde MD [address] [place] [address] PCP - General Internal Medicine 04/18/25 Mark Massey MD Medical Oncologist/Hematologis t Hematology and Oncology 09/27/18 Chloe Parson MD [address] [facility] [address] [place] [address] Consulting Physician Gynecology 11/10/18 documented as of this encounter
[2025-06-14] MEDS: SODIUM CHLORIDE 0.9% IV 1,000 ML 999 ML IV CONT ×3 (18:07→22:25)
[2025-06-14] MEDS: METOCLOPRAMIDE HCL INJ 10 MG/2 ML VIAL 5 MG IV PUSH (18:09)
[2025-06-14 18:10] LABS: Hematocrit 40.7 % (37.0-47.0); Hemoglobin 14.1 g/dL (12.0-15.0); Immature Granulocyte Percent A 0.5 % (0-0.5); Lymphocytes Absolute Auto 1.03 K/mm3 (0.9-3.2); Mean Corpuscular HGB Conc 34.6 g/dl (32-36); Mean Corpuscular Hemoglobin 29.2 pg (26-34); Mean Corpuscular Volume 84.3 fl (80-100); Nucleated Red Blood Cells Absolute Auto 0.000 K/mm3 (0.0-0.012); Nucleated Red Blood Cells Perc 0.0 % (0.0-0.2); Platelet Count Result 173 k/mm3 (150-375); Red Blood Count 4.83 M/mm3 (4.2-5.4); White Blood Count 16.6 K/mm3 (4.5-10.0)
[2025-06-14 18:21] LABS: Alanine Aminotransferase 25 U/L (6-35); Albumin Level 4.8 g/dL (3.5-5.1); Alkaline Phosphatase 136 U/L (38-126); Anion Gap 17 mmol/L (4-12); Aspartate Amino Transferase 25 U/L (14-36); Bilirubin,Total 1.2 mg/dL (0.2-1.3); Blood Urea Nitrogen 16 mg/dL (7-17); Calcium 9.8 mg/dL (8.4-10.2); Carbon Dioxide 12 mmol/L (22-30); Chloride 104 mmol/L (98-107); Estimated CRCL calculation 49 ml/min; Estimated Glomerular Filt Rate > 60; Glucose 178 mg/dL (65-110); Lipase 55 U/L (23-300); Potassium 3.2 mmol/L (3.4-5.0); Sodium 133 mmol/L (137-145); Total Protein 8.1 g/dL (6.3-8.2)
--- OUTSIDE RECORDS SUMMARY | 2025-06-14 18:46 | XMS_ITS | Clinical Summary ---
Author Organization [facility] Address [address] [place] [address] Care Team Providers Care Stretcher And Drier Name Role Phone Florencio Larkin MD Primary [...] Most Recently Relevant to Health Maintenance Insurance [facility] OPTIONS PPO [id number] Care Teams Stretcher And Drier Relationship Specialty Start Date End Date Florencio Larkin MD [address] [place] [address] PCP - General Family Practice 12/16/17
--- OUTSIDE RECORDS SUMMARY | 2025-06-14 18:46 | XMS_ITS ---
Author Organization [facility] B Address [address] [facility] [place] [address] Care Team Providers Care Cage Cashier Name Role Phone Mark Massey MD Unavailable [phone] Chloe Parson MD Unavailable [phone] Dc Velarde MD Primary Care Provider [phone] Active Problems Problem Noted Date Diagnosed Date [...] and intubated at that time. Transferred to [facility] MICU for further management. Awake [...]
--- OUTSIDE RECORDS SUMMARY | 2025-06-14 18:46 | XMS_ITS | Clinical Summary ---
Author Organization [facility] Address [address] [address] Phone Care Team Providers Care Regulatory Affairs Portfolio Leader Name Role Phone Florencio Larkin MD Primary [...] Recently Relevant to Health Maintenance Care Teams Regulatory Affairs Portfolio Leader Relationship Specialty Start Date End Date Florencio Lrakin MD PCP - General Family Medicine 05/15/18
--- OUTSIDE RECORDS SUMMARY | 2025-06-14 18:46 | XMS_ITS | Encounter Summary ---
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
[2025-06-14 19:55] LABS: Add Urine Microscopic? YES; Appearance Urine Clear (Clear); Glucose Urine UA 1+ mg/dL (Negative); Leukocyte Esterase Ur Negative LEU/UL (Negative); Nitrate Urine Negative (Negative); Non Pathogenic Casts 0-2; Specific Grav Ur 1.018 (1.001-1.035)
[2025-06-14] MEDS: POTASSIUM CHLORIDE 20 MEQ PACKET (FOR LIQUID) 40 MEQ PO (20:24)
[2025-06-14 21:58] LABS: Anion Gap 16 mmol/L (4-12); Blood Urea Nitrogen 14 mg/dL (7-17); Calcium 8.9 mg/dL (8.4-10.2); Carbon Dioxide 17 mmol/L (22-30); Chloride 102 mmol/L (98-107); Estimated CRCL calculation 57 ml/min; Estimated Glomerular Filt Rate > 60; Glucose 221 mg/dL (65-110); Potassium 3.5 mmol/L (3.4-5.0); Sodium 135 mmol/L (137-145)
[2025-06-14] MEDS: diazePAM INJ (*CRX) 10 MG/2 ML SYRINGE 2.5 MG IV PUSH (22:26)
[2025-06-14] MEDS: NITROGLYCERIN OINTMENT 1 INCH DOSE TRANSDERM (22:26)
--- NOTE | 2025-06-14 23:57 | ADMGEN ---
This patient, Meron [place], was admitted to IMU Room 214-01. Patient/family oriented to hospital policies and general routines including ID bracelet, bed and alarms, visiting hours, pain management, procedures, bathroom and other care routines, personal items, smoking policy, room service/diet, and visiting hours. Information on how to activate the Rapid Response Team has been discussed. Patient/Family are encouraged to report perceived risks to care and to ask questions if they do not understand what they are told or what they should do.
[2025-06-15] VITALS (21 sets, daily range): BP systolic 125–218; BP diastolic 86–119; PULSE 91–125; RESP 16–18; TEMP 36.5–36.8; O2SAT 96–100
--- NOTE | 2025-06-15 00:02 | ECG_ITS ---
Test Date: 2025-06-15 00:17:23 Measurements Intervals [place] Rate: 100 P: 51 NE: 203 QRS: -27 QRSD: 96 T: 45 QT: 385 QTc: 497 Interpretive Statements SINUS TACHYCARDIA LEFT ATRIAL ENLARGEMENT BORDERLINE AV CONDUCTION DELAY INCOMPLETE RIGHT BUNDLE BRANCH BLOCK DELAYED PRECORDIAL R/S TRANSITION LEFT VENTRICULAR HYPERTROPHY WITH ST-T CHANGE INFERIOR INFARCT, AGE INDETERMINATE BASELINE ARTIFACT- I, II, AVR ABNORMAL ECG Compared to ECG 06/14/2025 17:45:56 HEART RATE HAS INCREASED Electronically Signed On 06-15-2025 06:14:42 CDT by Jose Enrique Davalos D.O.
[2025-06-15] MEDS: METOPROLOL TARTRATE INJ 5 MG/5 ML VIAL IV PUSH ×5 (00:20→23:06)
[2025-06-15] MEDS: SODIUM CHLORIDE 0.9% IV 1,000 ML 125 ML IV CONT (02:07)
--- NOTE | 2025-06-15 04:56 | PM.IMHP ---
H&P: HPI History of Present Illness Date/Time: 06/15/25 04:56 Chief Complaint: Nausea vomiting abdominal pain Narrative: 69-year-old female with a past medical history of cyclic vomiting syndrome, cannabis hyperemesis syndrome, Sow's esophagus, GERD, pancreatitis, depression, QT prolonging and essential hypertension as well as multiple episodes of accelerated hypertension presented to the ER with nausea vomiting and abdominal pain. The patient reported that she started having nausea vomiting on the morning of the . It was accompanied by some generalized abdominal pain. She was not actually having any diarrhea she had not had a bowel movement in a couple of days. She did not have a bowel movement till after she actually arrived to the IMU. At which time she had multiple formed large bowel movements. She reports that her nausea and vomiting was more of dry heaves than of actual emesis. She denied any hematemesis or coffee-ground emesis. She has been feeling extremely weak. She did take her home antihypertensives in the morning but her blood pressures were still elevated. She has not been having any fever or chills. She denies any recent ill contacts. She did completed course of antibiotics for a sinus infection last week. She had received Reglan in the ER without improvement in her symptoms. The patient unfortunately does have a history of prior episodes of QT prolongation. And she reportedly had cardiac arrest due to ?allergic reaction? from Reglan but I am wondering if the cardiac arrest was not due to cardiac arrhythmia from Reglan. She has pretty persistent QT prolongation on multiple EKGs. She received 2 L of IV fluids and IV labetalol for her uncontrolled blood pressures. Her blood pressures were ranging in the 220-200 systolic in the ER. She received a dose of droperidol as well with minimal response. The patient was started on diazepam for nausea given her QT prolongation. The patient did have improvement in her nausea after diazepam administration. CT of the abdomen pelvis was obtained which demonstrated no acute process besides constipation. But again patient had multiple formed large volume bowel movements after arriving to the IMU. The patient was tried on nitroglycerin paste as well for blood pressures but this did not seem to improve blood pressures. Subsequently I ordered IV Lopressor as 5 mg q.6 hours scheduled until patient can tolerate oral medications and hydralazine 10 mg IV q.4 hours p.r.n. for systolic blood pressures greater than 180. Review of Systems Review of Systems: 12 systems were reviewed with pertinent positives and negatives per HPI. Except as documented in the HPI, all other systems were reviewed and are negative. [facility] Past Medical History Medical History (Updated 06/15/25 @ 08:12 by Gail Kim DO) History of alcohol use She has abstained from alcohol since the beginning of 2018. Dehydration 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 Hypertension Gastroesophageal reflux disease Cerebrovascular accident Without residual deficit. Anxiety History of sudden cardiac arrest successfully resuscitated Secondary to allergic reaction to Zofran (01/2018). Hyperlipidemia Cancer of left breast Invasive lobular cancer of the left breast, ER/IL positive, diagnosed in 2011, status post lumpectomy, radiation, and tamoxifen therapy. Surgical History Surgical History History of tonsillectomy and adenoidectomy History of lumbar fusion History of esophagogastroduodenoscopy (~2010) History of inguinal hernia repair (~1962) Status post D&C (~2018) Status post surgical removal of ganglion cyst (~2006) Status post partial mastectomy of left breast (~2012) The patient had a lumpectomy and then reconstructive surgery to another lump that was removed History of total right hip arthroplasty (~2010) History of appendectomy (~1990) Family History Family History Grandparent Family history of lung cancer Family history of liver disease Carcinoma of colon Mother Family history of lung cancer Father Family history of lung cancer Family history of renal failure Other Family history of malignant neoplasm of stomach Son Family history of malignant neoplasm of thyroid Social History Social History (Updated 06/15/25 @ 08:00 by Gail Kim DO) Social History: Surrogate decision maker: Donn Watson, spouse. Code status: Full code. Smoking packs per day: 0.5 Smoking cigarettes per day: 10.0 Years smoked: 10 Smoking pack-years: 5.00 Smoking status: Never smoker Tobacco type: cigarettes Second hand tobacco smoke exposure: No Smoking end date: 09/26/91 Alcohol intake: former Alcohol use details: History of alcohol abuse. Sober since early 2018. Substance use: current Substance use type: marijuana Last use: 11/07/24 Do You Feel Safe in your Home?: Yes Lack of Transportation: No Lack of Food: Never True Current Housing: I Have Housing Concerned About Future Housing: No Difficulty Paying Gas/Electric Bills: No Difficulty Paying for Meds: No Currently Unemployed: No Education: Associate Degree Difficulty w/ Childcare or Family Care: No Living arrangements: alone Additional living arrangements comments: Lives with in [place]. 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 Spiritual care concerns: No Meds Home Medications and Allergies Home Medications ?Medication ?Instructions ?Recorded ?Confirmed ?Type ergocalciferol (vitamin D2) 1,250 1 unit PO WEEKLY 09/10/19 06/14/25 History mcg (50,000 unit) capsule escitalopram oxalate 20 mg tablet 20 mg PO DAILY 09/10/19 06/14/25 History aspirin 81 mg tablet,delayed 81 mg PO DAILY 09/12/19 06/14/25 History release atorvastatin 20 mg tablet 20 mg PO DAILY #90 tabs 03/20/22 06/14/25 Rx losartan 50 mg tablet 50 mg PO DAILY 05/14/24 06/14/25 History Held on 11/09/24. Instructions: HOLD - Resume when okay with your doctor metoprolol succinate 50 mg 50 mg PO DAILY 05/14/24 06/14/25 History tablet,extended release 24 hr metoclopramide HCl 10 mg tablet 10 mg PO Q6H PRN nausea and 09/28/24 06/14/25 Rx vomiting #20 tabs Allergies Allergy/AdvReac Type Severity Reaction Status Date / Time ondansetron Allergy Severe Anaphylaxis Verified 06/15/25 00:03 prochlorperazine Allergy Severe Seizure Verified 06/15/25 00:03 morphine Allergy Intermediate Nausea and Verified 06/15/25 00:03 Vomiting Vital Signs Vital Signs - 24 hr 06/14/25 17:30 06/14/25 17:48 06/14/25 18:12 Temperature 97.0 F L 97.4 F L Pulse Rate 85 75 80 Respiratory Rate 16 18 24 H Blood Pressure 197/99 H 226/124 H 227/115 H Pulse Oximetry 98 100 100 Oxygen Delivery Room Air Room Air 06/14/25 18:37 06/14/25 20:45 06/14/25 20:46 Temperature Pulse Rate 97 95 96 Respiratory Rate 25 H 25 H 21 H Blood Pressure 194/109 H 208/133 H Pulse Oximetry 100 100 100 Oxygen Delivery 06/14/25 22:02 06/14/25 22:18 06/14/25 22:30 Temperature Pulse Rate 98 99 105 H Respiratory Rate 19 27 H 26 H Blood Pressure Pulse Oximetry 98 95 94 Oxygen Delivery 06/14/25 22:31 06/14/25 22:45 06/14/25 22:46 Temperature Pulse Rate 106 H 99 100 Respiratory Rate 33 H 30 H 29 H Blood Pressure 206/118 H 208/121 H Pulse Oximetry 95 98 98 Oxygen Delivery 06/14/25 22:47 06/14/25 23:00 06/14/25 23:01 Temperature Pulse Rate 101 H 98 99 Respiratory Rate 24 H 26 H 30 H Blood Pressure 201/116 H Pulse Oximetry 98 98 98 Oxygen Delivery 06/14/25 23:02 06/14/25 23:15 06/14/25 23:16 Temperature Pulse Rate 103 H 100 99 Respiratory Rate 24 H 27 H 25 H Blood Pressure 200/114 H Pulse Oximetry 98 99 98 Oxygen Delivery 06/14/25 23:23 06/15/25 00:00 06/15/25 00:00 Temperature 97.7 F Pulse Rate 106 H 100 Respiratory Rate 18 Blood Pressure 207/119 H Pulse Oximetry 100 Oxygen Delivery Room Air 06/15/25 00:20 06/15/25 01:47 06/15/25 02:00 Temperature Pulse Rate 100 98 Respiratory Rate Blood Pressure 177/96 H Pulse Oximetry Oxygen Delivery 06/15/25 04:00 06/15/25 04:00 06/15/25 04:00 Temperature 98.2 F Pulse Rate 101 H 105 H Respiratory Rate 16 Blood Pressure 186/94 H Pulse Oximetry 98 Oxygen Delivery Room Air Exam Narrative: Weight 72.5 kg BMI 25.8 Const: Other: No acute distress, well-developed well-nourished HENMT: Other: Mucous membranes are dry, no oral pharyngeal erythema, mentioned place Eyes: Other: Pupils are equal and reactive, no scleral icterus, no gum Neck: Other: The supple, nontender Resp: Other: Clear to auscultation bilaterally, no increased work of breathing Cardio: Other: Mild sinus tachycardia, 2+ bilateral radial and pedal pulses, no murmur GI: Other: Soft, nontender, nondistended, positive bowel sounds Skin: Other: No jaundice, no pallor Neuro: Other: Alert oriented x4, speech is clear, no facial asymmetry, no localizing neurologic deficits noted during the course of conversation Extrem: Other: No clubbing, cyanosis or edema Psych: Other: Appropriate mood and affect, cooperative, judgment and insight intact H&P: Results Labs Labs: Laboratory Tests 06/14/25 18:05 06/14/25 21:34 06/14/25 06/14/25 06/14/25 18:05 19:23 21:34 WBC 16.6 H RBC 4.83 Hgb 14.1 Hct 40.7 MCV 84.3 MCH 29.2 MCHC 34.6 RDW 14.2 Plt Count 173 MPV 9.8 Immature Gran % (Auto) 0.5 Neut % (Auto) 87.7 H Lymph % (Auto) 6.2 L [place] % (Auto) 5.2 Eos % (Auto) 0.1 Baso % (Auto) 0.3 Lymph # (Auto) 1.03 [place] # (Auto) 0.9 H Eos # (Auto) 0.0 Baso # (Auto) 0.1 Abs Immat Gran (auto) 0.09 H Absolute Neuts (auto) 14.6 H Absolute Nucleated RBC 0.000 Nucleated RBC % 0.0 Sodium 133 L 135 L Potassium 3.2 L 3.5 Chloride 104 102 Carbon Dioxide 12 L 17 L Anion Gap 17 H 16 H BUN 16 14 Creatinine 0.92 0.78 Estim Creat Clear Calc 49 57 Estimated GFR > 60 > 60 Glucose 178 H 221 H Lactic Acid 3.5 H 2.7 H Calcium 9.8 8.9 Total Bilirubin 1.2 AST 25 ALT 25 Alkaline Phosphatase 136 H Total Protein 8.1 Albumin 4.8 Lipase 55 Urine Color Yellow Urine Appearance Clear Urine pH 7.5 Ur Specific [place] 1.018 Urine Protein Negative Urine Glucose (UA) 1+ H Urine Ketones 2+ H Ur Blood (Man) Trace Urine Nitrate Negative Urine Bilirubin Negative Urine Urobilinogen 0.2 Leukocyte Esterase Rfl Negative Urine RBC 3-5 H Urine WBC 0-5 Ur Squamous Epith Cells None seen Urine Bacteria None seen Urine Casts 0-[address] 06/14/25 19:26 IMPRESSION: No acute intracranial hemorrhage or extra axial fluid collections. All CT scans at this facility are performed using low dose modulation techniques as appropriate to perform exam including the following: automated exposure control; use of iterative reconstruction technique; adjustment of the mA and/or kV according to patient size (this includes techniques or standardized protocols for targeted exams where dose is matched to indication/reason for exam). Abdomen/Pelvis CT 06/14/25 19:28 IMPRESSION: No acute abnormality is noted in the abdomen and pelvis. Constipation. Small hiatal hernia. Assessment and Plan Assessment and plan (1) Intractable nausea and vomiting: Code(s): R11.2 - Nausea with vomiting, unspecified Status: Acute (2) Cannabinoid hyperemesis syndrome: Code(s): R11.16 - Cannabis hyperemesis syndrome Status: Acute (3) Cyclic vomiting syndrome: Code(s): R11.15 - Cyclical vomiting syndrome unrelated to migraine Status: Acute (4) Asymptomatic hypertensive urgency: Code(s): I16.0 - Hypertensive urgency Status: Acute (5) Lactic acidosis: Code(s): E87.20 - Acidosis, unspecified Status: Acute (6) QT prolongation: Code(s): R94.31 - Abnormal electrocardiogram [ECG] [EKG] Status: Acute (7) Gastroesophageal reflux disease: Qualifiers: Esophagitis presence: with esophagitis Esophagitis bleeding: without hemorrhage Qualified Code(s): K21.00 - Gastro-esophageal reflux disease with esophagitis, without bleeding Code(s): K21.9 - Gastro-esophageal reflux disease without esophagitis Status: Chronic (8) Hypokalemia: Code(s): E87.6 - Hypokalemia Status: Resolved Plan Patient presents with recurrent intractable nausea vomiting likely due to combination of cannabis hyperemesis and cyclic vomiting. Will continue patient on diazepam q.6 hours as needed for nausea vomiting. Will start the patient on Protonix IV b.i.d. to reduce some gastric secretions. Will avoid Reglan and Benadryl as well as Haldol due to patient's chronic QT prolongation. Despite the QT prolongation I will continue patient's Lexapro because the feel that stopping the patient's SSRI would only worsen her chronic abdominal pain and anxiety. Patient is having uncontrolled blood pressures I suspect the patient probably did not keep her antihypertensive medications down yesterday. Will resume the patient's home metoprolol and losartan. Will also add scheduled IV Lopressor q.6 hours and p.r.n. hydralazine as needed for systolic blood pressures greater than 180. There are parameters on the IV Lopressor to hold for low blood pressures and low heart rate. The importance of avoiding marijuana use has been discussed with the patient in the past she has resistant to considering stopping THC use. She came is that it does not cause nausea vomiting. She did have some mild hypokalemia and received 40 mEq of oral potassium supplementation in the ER. The patient reports improvement in her nausea will advance diet to clears and monitor. Will continue maintenance IV fluids. Will repeat CBC and electrolyte panel in a.m.. MEDICAL DECISION MAKING NARRATIVE -Spoke with the ED provider in detail regarding patient's evaluation, workup and management -Patient seen and examined at bedside -Collaborated with patient's nurse at the bedside in detail and addressed all concerns -Labs, electrolytes, radiology, investigations and test results personally reviewed and interpreted unless otherwise specified -ED/Consult/Nursing/Ancilliary notes on the chart reviewed and appreciated -Spoke with patient at bedside and diagnosis and plan of care was discussed. All questions answered. Quality VTE Prophylaxis VTE prophylaxis: pharmacologic ordered (Lovenox 40 mg subQ daily.) Hospitalist [facility] Advance Care Plan I have confirmed that the patient's Advanced Care Plan is present, code status is documented, or surrogate decision maker is listed in patient medical record.: Yes Medication Reconciliation I have utilized all available resources to obtain, update and review the patients current medications (includes all prescriptions, OTC, herbals, cannabis, and nutritional supplements).: Yes
--- NOTE | 2025-06-15 08:23 | P.PNIM_ITS ---
Progress Note: A&P Assessment and Plan (1) Intractable nausea and vomiting: Code(s): R11.2 - Nausea with vomiting, unspecified Status: Acute Assessment and Plan: - CT A/P with no acute abnormality, constipation, small hiatal hernia - WBC 16. Metabolic acidosis as below. 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 Patient has been instructed to abstain from marijuana and is agreeable. - continue PRN Valium, capsaicin cream, IV fluids - advance to regular diet as tolerated (2) Asymptomatic hypertensive urgency: Code(s): I16.0 - Hypertensive urgency Status: Acute Assessment and Plan: - in setting of above - continue scheduled IV metoprolol, PRN hydralazine and home losartan (3) Lactic acidosis: Code(s): E87.20 - Acidosis, unspecified Status: Acute Assessment and Plan: - initial LA 3.5, trended down to 2.7 - likely due to dehydration - continue to trend to normalization (4) QT prolongation: Code(s): R94.31 - Abnormal electrocardiogram [ECG] [EKG] Status: Acute Assessment and Plan: - initial EKG QTc 497 - check mag - monitor on tele - repeat EKG in AM (5) Gastroesophageal reflux disease: Qualifiers: Esophagitis bleeding: without hemorrhage Esophagitis presence: with esophagitis Qualified Code(s): K21.00 - Gastro-esophageal reflux disease with esophagitis, without bleeding Code(s): K21.9 - Gastro-esophageal reflux disease without esophagitis Status: Chronic Assessment and Plan: - continue Protonix (6) Hypokalemia: Code(s): E87.6 - Hypokalemia Status: Resolved Assessment and Plan: - improved with potassium replacement (7) Leukocytosis: Code(s): D72.829 - Elevated white blood cell count, unspecified Status: Acute Assessment and Plan: - WBC 16 likely due to dehydration - afebrile, no signs or symptoms infection otherwise - recheck CBC in AM (8) Metabolic acidosis: Code(s): E87.20 - Acidosis, unspecified Status: Inactive Assessment and Plan: - with bicarb 18, anion gap 17 - likely due to lactic acidosis and starvation ketosis - continue IV fluids, advance to regular diet as tolerated - recheck BMP in AM Subjective Date/time seen: 06/15/25 08:23 Interval history: Patient seen and examined at bedside. Still very nauseous this morning. Denies abdominal pain. Patient is agreeable to abstaining from marijuana to see if this helps her symptoms. Review of Systems Review of Systems: 12 systems were reviewed with pertinent positives and negatives per HPI. Except as documented in the HPI, all other systems were reviewed and are negative. Exam Narrative: General: ill-appearing Eyes: EOMI ENT: neck supple Cardiovascular: Regular rate and rhythm Respiratory: Clear to auscultation, respirations even and unlabored on RA Gastrointestinal: Soft, non tender Genitourinary: no suprapubic tenderness Musculoskeletal: No edema Skin: warm, dry Neuro: Alert. Psych: Mood appropriate Objective Data Vital Signs Vital Signs: Vital Signs - 24 hr 06/14/25 17:30 06/14/25 17:48 06/14/25 18:12 Temperature 97.0 F L 97.4 F L Pulse Rate 85 75 80 Respiratory Rate 16 18 24 H Blood Pressure 197/99 H 226/124 H 227/115 H Pulse Oximetry 98 100 100 Oxygen Delivery Room Air Room Air 06/14/25 18:37 06/14/25 20:45 06/14/25 20:46 Temperature Pulse Rate 97 95 96 Respiratory Rate 25 H 25 H 21 H Blood Pressure 194/109 H 208/133 H Pulse Oximetry 100 100 100 Oxygen Delivery 06/14/25 22:02 06/14/25 22:18 06/14/25 22:30 Temperature Pulse Rate 98 99 105 H Respiratory Rate 19 27 H 26 H Blood Pressure Pulse Oximetry 98 95 94 Oxygen Delivery 06/14/25 22:31 06/14/25 22:45 06/14/25 22:46 Temperature Pulse Rate 106 H 99 100 Respiratory Rate 33 H 30 H 29 H Blood Pressure 206/118 H 208/121 H Pulse Oximetry 95 98 98 Oxygen Delivery 06/14/25 22:47 06/14/25 23:00 06/14/25 23:01 Temperature Pulse Rate 101 H 98 99 Respiratory Rate 24 H 26 H 30 H Blood Pressure 201/116 H Pulse Oximetry 98 98 98 Oxygen Delivery 06/14/25 23:02 06/14/25 23:15 06/14/25 23:16 Temperature Pulse Rate 103 H 100 99 Respiratory Rate 24 H 27 H 25 H Blood Pressure 200/114 H Pulse Oximetry 98 99 98 Oxygen Delivery 06/14/25 23:23 06/15/25 00:00 06/15/25 00:00 Temperature 97.7 F Pulse Rate 106 H 100 Respiratory Rate 18 Blood Pressure 207/119 H Pulse Oximetry 100 Oxygen Delivery Room Air 06/15/25 00:20 06/15/25 01:47 06/15/25 02:00 Temperature Pulse Rate 100 98 Respiratory Rate Blood Pressure 177/96 H Pulse Oximetry Oxygen Delivery 06/15/25 04:00 06/15/25 04:00 06/15/25 04:00 Temperature 98.2 F Pulse Rate 101 H 105 H Respiratory Rate 16 Blood Pressure 186/94 H Pulse Oximetry 98 Oxygen Delivery Room Air 06/15/25 05:35 06/15/25 06:00 Temperature Pulse Rate 91 98 Respiratory Rate Blood Pressure Pulse Oximetry Oxygen Delivery Intake/Output Intake/Output: Intake & Output 06/12/25 06/13/25 06/14/25 06/15/25 23:59 23:59 23:59 23:59 Intake Total 1999 1000 Output Total 100 Balance 1999 900 Meds/Results Medications: Active Medications Generic Name Dose Route Start Last Admin Trade Name Freq PRN Reason Stop Dose Admin Acetaminophen 650 mg 06/14/25 22:23 Acetaminophen 325 Mg Tablet PO Q4H PRN Mild Pain (1-3) or Fever Aspirin 81 mg 06/15/25 09:00 Aspirin 81 Mg Enteric Tablet PO DAILY [facility] Diazepam 5 mg 06/15/25 00:02 Diazepam Inj (*Crx) 10 Mg/2 Ml Syringe IV PUSH Q6H PRN Nausea And Vomiting Escitalopram Oxalate 20 mg 06/15/25 09:00 Escitalopram Oxalate 10 Mg Tablet PO DAILY [facility] Hydralazine HCl 10 mg 06/14/25 23:59 06/15/25 00:19 Hydralazine Hcl 20 Mg/Ml Vial IV PUSH 10 mg Q4H PRN Administration SBP greater than 180 Sodium Chloride 1,000 mls @ 125 mls/hr 06/14/25 22:30 06/15/25 02:07 Normal Saline Iv IV CONT 125 mls/hr .Q8H THANH Administration Losartan Potassium 50 mg 06/15/25 09:00 Losartan Potassium 50 Mg Tablet PO DAILY THANH Metoprolol Tartrate 5 mg 06/15/25 00:00 06/15/25 05:35 Metoprolol Tartrate Inj 5 Mg/5 Ml Vial IV PUSH 5 mg Q6H THANH Administration Pantoprazole Sodium 40 mg 06/15/25 09:00 Pantoprazole Sodium Iv 40 Mg Vial IV PUSH Q12HR THANH Radiology Results: ITS Impressions Head CT 06/14/25 19:26 IMPRESSION: No acute intracranial hemorrhage or extra axial fluid collections. All CT scans at this facility are performed using low dose modulation techniques as appropriate to perform exam including the following: automated exposure control; use of iterative reconstruction technique; adjustment of the mA and/or kV according to patient size (this includes techniques or standardized protocols for targeted exams where dose is matched to indication/reason for exam). Abdomen/Pelvis CT 06/14/25 19:28 IMPRESSION: No acute abnormality is noted in the abdomen and pelvis. Constipation. Small hiatal hernia. All CT scans at this facility are performed using low dose modulation techniques as appropriate to perform exam including the following: automated exposure control; use of iterative reconstruction technique; adjustment of the mA and/or kV according to patient size (this includes techniques or standardized protocols for targeted exams where dose is matched to indication/reason for exam). Labs Labs: Laboratory Results - last 24 hr 06/14/25 06/14/25 06/14/25 18:05 19:23 21:34 WBC 16.6 H RBC 4.83 Hgb 14.1 Hct 40.7 MCV 84.3 MCH 29.2 MCHC 34.6 RDW 14.2 Plt Count 173 MPV 9.8 Immature Gran % (Auto) 0.5 Neut % (Auto) 87.7 H Lymph % (Auto) 6.2 L Colbert % (Auto) 5.2 Eos % (Auto) 0.1 Baso % (Auto) 0.3 Lymph # (Auto) 1.03 Colbert # (Auto) 0.9 H Eos # (Auto) 0.0 Baso # (Auto) 0.1 Abs Immat Gran (auto) 0.09 H Absolute Neuts (auto) 14.6 H Absolute Nucleated RBC 0.000 Nucleated RBC % 0.0 Sodium 133 L 135 L Potassium 3.2 L 3.5 Chloride 104 102 Carbon Dioxide 12 L 17 L Anion Gap 17 H 16 H BUN 16 14 Creatinine 0.92 0.78 Estim Creat Clear Calc 49 57 Estimated GFR > 60 > 60 Glucose 178 H 221 H Lactic Acid 3.5 H 2.7 H Calcium 9.8 8.9 Total Bilirubin 1.2 AST 25 ALT 25 Alkaline Phosphatase 136 H Total Protein 8.1 Albumin 4.8 Lipase 55 Urine Color Yellow Urine Appearance Clear Urine pH 7.5 Ur Specific Armour 1.018 Urine Protein Negative Urine Glucose (UA) 1+ H Urine Ketones 2+ H Ur Blood (Man) Trace Urine Nitrate Negative Urine Bilirubin Negative Urine Urobilinogen 0.2 Leukocyte Esterase Rfl Negative Urine RBC 3-5 H Urine WBC 0-5 Ur Squamous Epith Cells None seen Urine Bacteria None seen Urine Casts 0-2 Quality VTE Prophylaxis VTE prophylaxis: pharmacologic ordered (Lovenox 40 mg subQ daily.)
[2025-06-15] MEDS: PANTOPRAZOLE SODIUM IV 40 MG VIAL IV PUSH ×2 (08:34→20:29)
[2025-06-15] MEDS: ENOXAPARIN 40 MG/0.4 ML SYRINGE SUB-Q (08:54)
[2025-06-15 09:00] LABS: Hematocrit 46.7 % (37.0-47.0); Hemoglobin 16.1 g/dL (12.0-15.0); Immature Granulocyte Percent A 0.3 % (0-0.5); Lymphocytes Absolute Auto 0.74 K/mm3 (0.9-3.2); Mean Corpuscular HGB Conc 34.5 g/dl (32-36); Mean Corpuscular Hemoglobin 29.3 pg (26-34); Mean Corpuscular Volume 84.9 fl (80-100); Nucleated Red Blood Cells Absolute Auto 0.000 K/mm3 (0.0-0.012); Nucleated Red Blood Cells Perc 0.0 % (0.0-0.2); Platelet Count Result 217 k/mm3 (150-375); Red Blood Count 5.50 M/mm3 (4.2-5.4); White Blood Count 16.0 K/mm3 (4.5-10.0)
[2025-06-15] MEDS: LOSARTAN POTASSIUM 50 MG TABLET PO (09:00)
[2025-06-15] MEDS: ASPIRIN 81 MG ENTERIC TABLET PO (09:00)
[2025-06-15 09:18] LABS: Alanine Aminotransferase 27 U/L (6-35); Albumin Level 4.8 g/dL (3.5-5.1); Alkaline Phosphatase 122 U/L (38-126); Anion Gap 17 mmol/L (4-12); Aspartate Amino Transferase 29 U/L (14-36); Bilirubin,Total 1.0 mg/dL (0.2-1.3); Blood Urea Nitrogen 13 mg/dL (7-17); Calcium 9.3 mg/dL (8.4-10.2); Carbon Dioxide 18 mmol/L (22-30); Chloride 101 mmol/L (98-107); Estimated CRCL calculation 55 ml/min; Estimated Glomerular Filt Rate > 60; Glucose 184 mg/dL (65-110); Magnesium 1.8 mg/dL (1.6-2.3); Potassium 3.1 mmol/L (3.4-5.0); Sodium 136 mmol/L (137-145); Total Protein 8.5 g/dL (6.3-8.2)
[2025-06-15] MEDS: diazePAM INJ (*CRX) 10 MG/2 ML SYRINGE 5 MG IV PUSH ×3 (10:01→20:36)
[2025-06-15] MEDS: SODIUM CHLORIDE 0.9% IV 1,000 ML 100 ML IV CONT (10:04)
[2025-06-15] MEDS: ESCITALOPRAM OXALATE 10 MG TABLET 20 MG PO (10:25)
[2025-06-15] MEDS: CAPSAICIN 0.025% CREAM 60 GM TUBE 1 APPLIC TOPICAL ×3 (12:14→23:05)
[2025-06-15] MEDS: DEXTROSE 5%/LACTATED RINGERS 1,000 ML 100 ML IV CONT (15:13)
[2025-06-15] MEDS: KCL 20 MEQ/SW 100 ML 100 ML 50 MEQ IVPB (15:13)
--- NOTE | 2025-06-15 21:11 | ECG_ITS ---
Test Date: 2025-06-15 21:23:28 Measurements Intervals [place] Rate: 118 P: 70 ME: 176 QRS: -20 QRSD: 101 T: 56 QT: 372 QTc: 523 Interpretive Statements SINUS TACHYCARDIA WITH OCCASIONAL SUPRAVENTRICULAR PREMATURE COMPLEXES POSSIBLE LEFT ATRIAL ENLARGEMENT ST-T WAVE ABNORMALITY IN ANTEROLAT/INF LEADS- CONSIDER ISCHEMIA ABNORMAL ECG Compared to ECG 06/15/2025 00:17:23 HEART RATE HAS INCREASED Incomplete right bundle-branch block no longer present POSSIBLE ISCHEMIA NOW PRESENT Electronically Signed On 06-16-2025 06:11:08 CDT by Jose Enrique Davalos D.O.
[2025-06-16] VITALS (21 sets, daily range): BP systolic 90–203; BP diastolic 54–116; PULSE 84–126; RESP 15–23; TEMP 36.5–36.8; O2SAT 97–100
[2025-06-16] MEDS: DEXTROSE 5%/LACTATED RINGERS 1,000 ML 100 ML IV CONT ×2 (01:30→22:15)
[2025-06-16 04:37] LABS: Hematocrit 41.7 % (37.0-47.0); Hemoglobin 14.3 g/dL (12.0-15.0); Immature Granulocyte Percent A 0.6 % (0-0.5); Lymphocytes Absolute Auto 1.10 K/mm3 (0.9-3.2); Mean Corpuscular HGB Conc 34.3 g/dl (32-36); Mean Corpuscular Hemoglobin 29.2 pg (26-34); Mean Corpuscular Volume 85.3 fl (80-100); Nucleated Red Blood Cells Absolute Auto 0.000 K/mm3 (0.0-0.012); Nucleated Red Blood Cells Perc 0.0 % (0.0-0.2); Platelet Count Result 215 k/mm3 (150-375); Red Blood Count 4.89 M/mm3 (4.2-5.4); White Blood Count 16.5 K/mm3 (4.5-10.0)
[2025-06-16 04:56] LABS: Alanine Aminotransferase 18 U/L (6-35); Albumin Level 4.3 g/dL (3.5-5.1); Alkaline Phosphatase 112 U/L (38-126); Anion Gap 11 mmol/L (4-12); Aspartate Amino Transferase 24 U/L (14-36); Bilirubin,Total 0.7 mg/dL (0.2-1.3); Blood Urea Nitrogen 21 mg/dL (7-17); Calcium 9.5 mg/dL (8.4-10.2); Carbon Dioxide 21 mmol/L (22-30); Chloride 104 mmol/L (98-107); Estimated CRCL calculation 45 ml/min; Estimated Glomerular Filt Rate 56; Glucose 145 mg/dL (65-110); Potassium 2.9 mmol/L (3.4-5.0); Sodium 136 mmol/L (137-145); Total Protein 7.6 g/dL (6.3-8.2)
[2025-06-16] MEDS: METOPROLOL TARTRATE INJ 5 MG/5 ML VIAL IV PUSH ×3 (05:22→18:02)
[2025-06-16] MEDS: CAPSAICIN 0.025% CREAM 60 GM TUBE 1 APPLIC TOPICAL ×3 (05:23→18:04)
--- NOTE | 2025-06-16 07:00 | ECG_ITS ---
Test Date: 2025-06-16 11:13:29 Measurements Intervals [place] Rate: 119 P: 48 LA: 160 QRS: -17 QRSD: 90 T: 32 QT: 354 QTc: 499 Interpretive Statements SINUS TACHYCARDIA POSSIBLE LEFT ATRIAL ENLARGEMENT DELAYED PRECORDIAL R/S TRANSITION BORDERLINE ST-T WAVE ABNORMALITY- DIFFUSE LEADS BORDERLINE ECG Compared to ECG 06/15/2025 21:23:28 Possible ischemia no longer present Electronically Signed On 06-16-2025 11:24:19 CDT by Jose Enrique Davalos D.O.
--- NOTE | 2025-06-16 07:13 | P.PNIM_ITS ---
Progress Note: A&P Assessment and Plan (1) Intractable nausea and vomiting: Code(s): R11.2 - Nausea with vomiting, unspecified Status: Acute Assessment and Plan: - CT A/P with no acute abnormality, constipation, small hiatal hernia - WBC persistently elevated. Metabolic acidosis as below. 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 Patient has been instructed to abstain from marijuana and is agreeable. - continue PRN Valium, capsaicin cream, IV fluids - QTC still mildly elevated, but patient has had no relief with alternative medications. Will trial Reglan 5mg IV q6H PRN. - monitor and replace electrolytes - monitor on telemetry - advance to regular diet as tolerated (2) Asymptomatic hypertensive urgency: Code(s): I16.0 - Hypertensive urgency Status: Acute Assessment and Plan: - in setting of above. - continue scheduled IV metoprolol - PRN IV hydralazine - resume PO losartan when able to take PO (3) Lactic acidosis: Code(s): E87.20 - Acidosis, unspecified Status: Acute Assessment and Plan: - initial LA 3.5, normalized with IV fluids - likely due to dehydration (4) QT prolongation: Code(s): R94.31 - Abnormal electrocardiogram [ECG] [EKG] Status: Acute Assessment and Plan: - EKG QTc 499 - Keep K>4, mag >2 - hold Lexapro - avoiding QT prolonging agents as able. Discussed risks/benefits of QT prolonging meds with patient this AM, wishes to proceed with IV Reglan administration. - monitor on tele (5) Gastroesophageal reflux disease: Qualifiers: Esophagitis bleeding: without hemorrhage Esophagitis presence: with esophagitis Qualified Code(s): K21.00 - Gastro-esophageal reflux disease with esophagitis, without bleeding Code(s): K21.9 - Gastro-esophageal reflux disease without esophagitis Status: Chronic Assessment and Plan: - continue Protonix (6) Hypokalemia: Code(s): E87.6 - Hypokalemia Status: Resolved Assessment and Plan: - K+ 2.9 this AM - received IV replacement. PO ordered if able to take PO. (7) Leukocytosis: Code(s): D72.829 - Elevated white blood cell count, unspecified Status: Acute Assessment and Plan: - WBC 16 likely due to dehydration - persistently elevated this AM - CT A/P no acute process - UA noninfectious - afebrile, no signs or symptoms infection otherwise - recheck CBC in AM. Check procal, blood cultures, CXR. (8) Metabolic acidosis: Code(s): E87.20 - Acidosis, unspecified Status: Inactive Assessment and Plan: - initial bicarb 18, anion gap 17 - likely due to lactic acidosis and starvation ketosis - continue IV fluids, advance to regular diet as tolerated - resolved Subjective Date/time seen: 06/16/25 07:13 Interval history: Patient seen and examined at bedside. Still with vomiting this morning, no improvement with Tigan. Review of Systems Review of Systems: 12 systems were reviewed with pertinent positives and negatives per HPI. Except as documented in the HPI, all other systems were reviewed and are negative. Exam Narrative: General: ill-appearing Eyes: EOMI ENT: neck supple Cardiovascular: tachycardic, regular rhythm Respiratory: Clear to auscultation, respirations even and unlabored on RA Gastrointestinal: Soft, non tender. Actively retching. Genitourinary: no suprapubic tenderness Musculoskeletal: No edema Skin: warm, dry Neuro: Alert. Psych: Mood appropriate Objective Data Vital Signs Vital Signs: Vital Signs - 24 hr 06/15/25 08:00 06/15/25 08:00 06/15/25 10:00 Temperature 98.2 F Pulse Rate 97 94 Respiratory Rate 18 Blood Pressure 198/104 H 187/101 H Pulse Oximetry 100 Oxygen Delivery 06/15/25 10:00 06/15/25 12:00 06/15/25 12:00 Temperature Pulse Rate 117 H 122 H 120 H Respiratory Rate 18 Blood Pressure 206/115 H Pulse Oximetry 99 Oxygen Delivery 06/15/25 12:14 06/15/25 14:00 06/15/25 14:14 Temperature Pulse Rate 117 H 108 H Respiratory Rate Blood Pressure 175/100 H Pulse Oximetry Oxygen Delivery 06/15/25 15:44 06/15/25 16:00 06/15/25 16:00 Temperature 97.7 F Pulse Rate 112 H 113 H Respiratory Rate 18 Blood Pressure 125/86 Pulse Oximetry 99 Oxygen Delivery Room Air 06/15/25 17:17 06/15/25 18:00 06/15/25 20:00 Temperature Pulse Rate 120 H 105 H Respiratory Rate Blood Pressure Pulse Oximetry 96 Oxygen Delivery Room Air 06/15/25 20:00 06/15/25 20:00 06/15/25 22:00 Temperature Pulse Rate 120 H 101 H 125 H Respiratory Rate Blood Pressure 218/119 H Pulse Oximetry Oxygen Delivery 06/15/25 22:12 06/15/25 23:06 06/15/25 23:51 Temperature Pulse Rate 122 H 102 H Respiratory Rate Blood Pressure 155/95 H Pulse Oximetry 96 Oxygen Delivery Room Air 06/16/25 00:00 06/16/25 00:00 06/16/25 02:00 Temperature 98.1 F Pulse Rate 98 101 H 110 H Respiratory Rate 18 Blood Pressure 166/96 H Pulse Oximetry 98 Oxygen Delivery 06/16/25 03:39 06/16/25 04:00 06/16/25 04:00 Temperature 98.1 F Pulse Rate 109 H 126 H Respiratory Rate 18 Blood Pressure 151/109 H Pulse Oximetry 97 98 Oxygen Delivery Room Air 06/16/25 05:22 06/16/25 06:00 Temperature Pulse Rate 85 92 Respiratory Rate Blood Pressure Pulse Oximetry Oxygen Delivery Intake/Output Intake/Output: Intake & Output 06/13/25 06/14/25 06/15/25 06/16/25 23:59 23:59 23:59 23:59 Intake Total 1999 2833.8 1000 Output Total 1300 450 Balance 1999 1533.8 550 Meds/Results Medications: Active Medications Generic Name Dose Route Start Last Admin Trade Name Freq PRN Reason Stop Dose Admin Acetaminophen 650 mg 06/14/25 22:23 Acetaminophen 325 Mg Tablet PO Q4H PRN Mild Pain (1-3) or Fever Aspirin 81 mg 06/15/25 09:00 06/15/25 09:00 Aspirin 81 Mg Enteric Tablet PO 81 mg DAILY THANH Administration Capsaicin 1 applic 06/15/25 12:00 06/16/25 05:23 Capsaicin 0.025% Cream 60 Gm Tube TOPICAL 1 applic Q6HR THANH Administration Diazepam 5 mg 06/15/25 00:02 06/15/25 20:36 Diazepam Inj (*Crx) 10 Mg/2 Ml Syringe IV PUSH 5 mg Q6H PRN Administration Nausea And Vomiting Enoxaparin Sodium 40 mg 06/15/25 09:00 06/15/25 08:54 Enoxaparin 40 Mg/0.4 Ml Syringe SUB-Q 40 mg DAILY THANH Administration Escitalopram Oxalate 20 mg 06/15/25 09:00 06/15/25 10:25 Escitalopram Oxalate 10 Mg Tablet PO 20 mg DAILY THANH Administration Hydralazine HCl 10 mg 06/14/25 23:59 06/15/25 20:28 Hydralazine Hcl 20 Mg/Ml Vial IV PUSH 10 mg Q4H PRN Administration SBP greater than 180 Dextrose/Lactated Ringer's 1,000 mls @ 100 mls/hr 06/15/25 14:35 06/16/25 01:30 Dextrose 5%/Lactated Ringers IV CONT 100 mls/hr .Q10H HTANH Administration Potassium Chloride 100 mls @ 25 mls/hr 06/16/25 07:10 Kcl 40 Meq/Water 100 Ml IVPB 06/16/25 11:09 ONCE ONE Losartan Potassium 50 mg 06/15/25 09:00 06/15/25 09:00 Losartan Potassium 50 Mg Tablet PO 50 mg DAILY THANH Administration Metoprolol Succinate 50 mg 06/16/25 09:00 Metoprolol Succinate Ext Rel 50 Mg Tabcr PO DAILY THANH Pantoprazole Sodium 40 mg 06/15/25 09:00 06/15/25 20:29 Pantoprazole Sodium Iv 40 Mg Vial IV PUSH 40 mg Q12HR THANH Administration Radiology Results: ITS Impressions Head CT 06/14/25 19:26 IMPRESSION: No acute intracranial hemorrhage or extra axial fluid collections. All CT scans at this facility are performed using low dose modulation techniques as appropriate to perform exam including the following: automated exposure control; use of iterative reconstruction technique; adjustment of the mA and/or kV according to patient size (this includes techniques or standardized protocols for targeted exams where dose is matched to indication/reason for exam). Abdomen/Pelvis CT 06/14/25 19:28 IMPRESSION: No acute abnormality is noted in the abdomen and pelvis. Constipation. Small hiatal hernia. All CT scans at this facility are performed using low dose modulation techniques as appropriate to perform exam including the following: automated exposure control; use of iterative reconstruction technique; adjustment of the mA and/or kV according to patient size (this includes techniques or standardized protocols for targeted exams where dose is matched to indication/reason for exam). Labs Labs: Laboratory Results - last 24 hr 06/15/25 06/15/25 06/15/25 08:53 11:10 17:03 WBC 16.0 H RBC 5.50 H Hgb 16.1 H Hct 46.7 MCV 84.9 MCH 29.3 MCHC 34.5 RDW 14.9 H Plt Count 217 MPV 10.0 Immature Gran % (Auto) 0.3 Neut % (Auto) 90.1 H Lymph % (Auto) 4.6 L Wilkes % (Auto) 4.7 Eos % (Auto) 0.1 Baso % (Auto) 0.2 Lymph # (Auto) 0.74 L Wilkes # (Auto) 0.8 H Eos # (Auto) 0.0 Baso # (Auto) 0.0 Abs Immat Gran (auto) 0.05 H Absolute Neuts (auto) 14.4 H Absolute Nucleated RBC 0.000 Nucleated RBC % 0.0 Sodium 136 L Potassium 3.1 L Chloride 101 Carbon Dioxide 18 L Anion Gap 17 H BUN 13 Creatinine 0.81 Estim Creat Clear Calc 55 Estimated GFR > 60 Glucose 184 H Lactic Acid 3.7 H 2.7 H 1.5 Calcium 9.3 Magnesium 1.8 Total Bilirubin 1.0 AST 29 ALT 27 Alkaline Phosphatase 122 Total Protein 8.5 H Albumin 4.8 06/16/25 04:23 WBC 16.5 H RBC 4.89 Hgb 14.3 Hct 41.7 MCV 85.3 MCH 29.2 MCHC 34.3 RDW 15.2 H Plt Count 215 MPV 10.1 Immature Gran % (Auto) 0.6 H Neut % (Auto) 85.7 H Lymph % (Auto) 6.7 L Wilkes % (Auto) 6.9 Eos % (Auto) 0.0 Baso % (Auto) 0.1 L Lymph # (Auto) 1.10 Wilkes # (Auto) 1.1 H Eos # (Auto) 0.0 Baso # (Auto) 0.0 Abs Immat Gran (auto) 0.10 H Absolute Neuts (auto) 14.2 H Absolute Nucleated RBC 0.000 Nucleated RBC % 0.0 Sodium 136 L Potassium 2.9 L Chloride 104 Carbon Dioxide 21 L Anion Gap 11 BUN 21 H Creatinine 0.98 Estim Creat Clear Calc 45 Estimated GFR 56 L Glucose 145 H Lactic Acid Calcium 9.5 Magnesium Total Bilirubin 0.7 AST 24 ALT 18 Alkaline Phosphatase 112 Total Protein 7.6 Albumin 4.3 Quality VTE Prophylaxis VTE prophylaxis: pharmacologic ordered (Lovenox 40 mg subQ daily.)
[2025-06-16] MEDS: ENOXAPARIN 40 MG/0.4 ML SYRINGE SUB-Q (08:26)
[2025-06-16] MEDS: TRIMETHOBENZAMIDE HCL 200 MG/2 ML VIAL IM (08:26)
[2025-06-16] MEDS: POTASSIUM CHLORIDE INJ 40 MEQ in SODIUM CHLORIDE 0.9% IV 500 ML 130 MEQ IVPB (08:26)
[2025-06-16] MEDS: PANTOPRAZOLE SODIUM IV 40 MG VIAL IV PUSH ×2 (08:26→21:10)
[2025-06-16 08:47] LABS: Magnesium 1.9 mg/dL (1.6-2.3)
[2025-06-16 11:35] LABS: Procalcitonin 0.1 ng/mL
[2025-06-16] MEDS: METOCLOPRAMIDE HCL INJ 10 MG/2 ML VIAL 5 MG IV PUSH ×2 (12:23→18:02)
[2025-06-16] MEDS: SCOPOLAMINE 1 MG PATCH 1 PATCH TRANSDERM (12:27)
[2025-06-16 12:57] LABS: Potassium 3.2 mmol/L (3.4-5.0)
[2025-06-16] MEDS: MAGNESIUM SULF 2 GM/WATER 50ML 2 GM/50 ML BAG IVPB (15:13)
[2025-06-16 15:58] LABS: Potassium 3.2 mmol/L (3.4-5.0)
[2025-06-16] MEDS: KCL 20 MEQ/SW 100 ML 100 ML 50 MEQ IVPB (18:02)
[2025-06-17] VITALS (10 sets, daily range): BP systolic 101–138; BP diastolic 45–89; PULSE 78–102; RESP 15–18; TEMP 36.6–36.9; O2SAT 98–100
[2025-06-17] MEDS: METOPROLOL TARTRATE INJ 5 MG/5 ML VIAL IV PUSH ×2 (00:02→06:09)
[2025-06-17] MEDS: CAPSAICIN 0.025% CREAM 60 GM TUBE 1 APPLIC TOPICAL ×2 (00:02→06:07)
[2025-06-17 05:02] LABS: Hematocrit 34.4 % (37.0-47.0); Hemoglobin 11.5 g/dL (12.0-15.0); Immature Granulocyte Percent A 0.4 % (0-0.5); Lymphocytes Absolute Auto 1.45 K/mm3 (0.9-3.2); Mean Corpuscular HGB Conc 33.4 g/dl (32-36); Mean Corpuscular Hemoglobin 29.8 pg (26-34); Mean Corpuscular Volume 89.1 fl (80-100); Nucleated Red Blood Cells Absolute Auto 0.000 K/mm3 (0.0-0.012); Nucleated Red Blood Cells Perc 0.0 % (0.0-0.2); Platelet Count Result 169 k/mm3 (150-375); Red Blood Count 3.86 M/mm3 (4.2-5.4); White Blood Count 11.0 K/mm3 (4.5-10.0)
[2025-06-17 05:15] LABS: Alanine Aminotransferase 15 U/L (6-35); Albumin Level 3.5 g/dL (3.5-5.1); Alkaline Phosphatase 72 U/L (38-126); Anion Gap 7 mmol/L (4-12); Aspartate Amino Transferase 22 U/L (14-36); Bilirubin,Total 0.7 mg/dL (0.2-1.3); Blood Urea Nitrogen 25 mg/dL (7-17); Calcium 8.7 mg/dL (8.4-10.2); Carbon Dioxide 24 mmol/L (22-30); Chloride 103 mmol/L (98-107); Estimated CRCL calculation 47 ml/min; Estimated Glomerular Filt Rate 58; Glucose 97 mg/dL (65-110); Potassium 3.4 mmol/L (3.4-5.0); Sodium 134 mmol/L (137-145); Total Protein 6.0 g/dL (6.3-8.2)
[2025-06-17] MEDS: DEXTROSE 5%/LACTATED RINGERS 1,000 ML 100 ML IV CONT (06:07)
[2025-06-17] MEDS: ASPIRIN 81 MG ENTERIC TABLET PO (09:47)
[2025-06-17] MEDS: ENOXAPARIN 40 MG/0.4 ML SYRINGE SUB-Q (09:47)
[2025-06-17] MEDS: LOSARTAN POTASSIUM 50 MG TABLET PO (09:47)
[2025-06-17] MEDS: PANTOPRAZOLE SODIUM IV 40 MG VIAL IV PUSH ×2 (09:48→20:36)
--- NOTE | 2025-06-17 13:55 | P.PNIM_ITS ---
Progress Note: A&P Assessment and Plan (1) Intractable nausea and vomiting: Code(s): R11.2 - Nausea with vomiting, unspecified Status: Acute Assessment and Plan: - CT A/P with no acute abnormality, constipation, small hiatal hernia - suspect secondary to cannabis hyperemesis syndrome. Patient has been instructed to abstain from marijuana and is agreeable. - continue PRN Valium, PRN Reglan, capsaicin cream, IV fluids - QTC still mildly elevated, but patient has had no relief with alternative medications. Will trial Reglan 5mg IV q6H PRN. - monitor and replace electrolytes - monitor on telemetry - advance to regular diet as tolerated - doing much better this AM (2) Asymptomatic hypertensive urgency: Code(s): I16.0 - Hypertensive urgency Status: Acute Assessment and Plan: - in setting of above. - PRN IV hydralazine - resume PO losartan and metoprolol (3) Lactic acidosis: Code(s): E87.20 - Acidosis, unspecified Status: Acute Assessment and Plan: - initial LA 3.5, normalized with IV fluids - likely due to dehydration - resolved (4) QT prolongation: Code(s): R94.31 - Abnormal electrocardiogram [ECG] [EKG] Status: Acute Assessment and Plan: - EKG QTc 499 - Keep K>4, mag >2 - hold Lexapro - avoiding QT prolonging agents as able. Discussed risks/benefits of QT prolonging meds with patient this AM, wishes to proceed with IV Reglan administration. - monitor on tele (5) Gastroesophageal reflux disease: Qualifiers: Esophagitis presence: with esophagitis Esophagitis bleeding: without hemorrhage Qualified Code(s): K21.00 - Gastro-esophageal reflux disease with esophagitis, without bleeding Code(s): K21.9 - Gastro-esophageal reflux disease without esophagitis Status: Chronic Assessment and Plan: - continue Protonix (6) Hypokalemia: Code(s): E87.6 - Hypokalemia Status: Resolved Assessment and Plan: - K+ 2.9 this AM - received IV replacement. PO ordered if able to take PO. (7) Leukocytosis: Code(s): D72.829 - Elevated white blood cell count, unspecified Status: Acute Assessment and Plan: - WBC 16 likely due to dehydration - CT A/P no acute process - UA noninfectious - CXR with no acute process - afebrile, no signs or symptoms infection otherwise - trended down this AM. Suspect reactive in setting of nausea/vomiting - follow-up blood cultures (8) Metabolic acidosis: Code(s): E87.20 - Acidosis, unspecified Status: Inactive Assessment and Plan: - initial bicarb 18, anion gap 17 - likely due to lactic acidosis and starvation ketosis - continue IV fluids, advance to regular diet as tolerated - resolved Subjective Date/time seen: 06/17/25 13:55 Interval history: Patient seen and examined at bedside. Doing much better this AM. Tolerating clear liquids without nausea. Review of Systems Review of Systems: 12 systems were reviewed with pertinent positives and negatives per HPI. Except as documented in the HPI, all other systems were reviewed and are negative. Exam Narrative: General: NAD Eyes: EOMI ENT: neck supple Cardiovascular: regular rate and rhythm Respiratory: Clear to auscultation, respirations even and unlabored on RA Gastrointestinal: Soft, non tender. Genitourinary: no suprapubic tenderness Musculoskeletal: No edema Skin: warm, dry Neuro: Alert. Psych: Mood appropriate Objective Data Vital Signs Vital Signs: Vital Signs - 24 hr 06/16/25 14:00 06/16/25 15:21 06/16/25 16:00 Temperature 98.3 F Pulse Rate 113 H 118 H Respiratory Rate 20 Blood Pressure 191/97 H Pulse Oximetry 100 Oxygen Delivery Room Air 06/16/25 16:00 06/16/25 17:59 06/16/25 18:00 Temperature Pulse Rate 110 H 109 H 95 Respiratory Rate Blood Pressure 124/65 Pulse Oximetry Oxygen Delivery 06/16/25 18:02 06/16/25 20:00 06/16/25 20:00 Temperature 97.8 F Pulse Rate 113 H 108 H 98 Respiratory Rate 16 16 Blood Pressure 90/55 L Pulse Oximetry 98 98 Oxygen Delivery Room Air 06/16/25 20:00 06/16/25 21:43 06/16/25 22:00 Temperature Pulse Rate 98 84 Respiratory Rate Blood Pressure Pulse Oximetry 98 Oxygen Delivery Room Air 06/16/25 23:34 06/16/25 23:52 06/16/25 23:52 Temperature 97.7 F Pulse Rate 90 84 90 Respiratory Rate 15 15 Blood Pressure 92/54 L Pulse Oximetry 98 98 Oxygen Delivery Room Air 06/17/25 00:02 06/17/25 04:00 06/17/25 04:00 Temperature Pulse Rate 78 78 78 Respiratory Rate 15 Blood Pressure Pulse Oximetry 98 Oxygen Delivery Room Air 06/17/25 04:00 06/17/25 08:00 06/17/25 08:00 Temperature 98.3 F 98 F Pulse Rate 79 89 Respiratory Rate 18 16 Blood Pressure 116/54 L 138/72 Pulse Oximetry 99 100 Oxygen Delivery Room Air Intake/Output Intake/Output: Intake & Output 06/14/25 06/15/25 06/16/25 06/17/25 23:59 23:59 23:59 23:59 Intake Total 1999 2833.8 2120 1586.7 Output Total 1300 450 850 Balance 1999 1533.8 1670 736.7 Meds/Results Medications: Active Medications Generic Name Dose Route Start Last Admin Trade Name Freq PRN Reason Stop Dose Admin Acetaminophen 650 mg 06/14/25 22:23 Acetaminophen 325 Mg Tablet PO Q4H PRN Mild Pain (1-3) or Fever Aspirin 81 mg 06/15/25 09:00 06/17/25 09:47 Aspirin 81 Mg Enteric Tablet PO 81 mg DAILY THANH Administration Capsaicin 1 applic 06/15/25 12:00 06/17/25 12:35 Capsaicin 0.025% Cream 60 Gm Tube TOPICAL Not Given Q6HR THANH Diazepam 5 mg 06/15/25 00:02 06/15/25 20:36 Diazepam Inj (*Crx) 10 Mg/2 Ml Syringe IV PUSH 5 mg Q6H PRN Administration Nausea And Vomiting Enoxaparin Sodium 40 mg 06/15/25 09:00 06/17/25 09:47 Enoxaparin 40 Mg/0.4 Ml Syringe SUB-Q 40 mg DAILY THANH Administration Escitalopram Oxalate 20 mg 06/15/25 09:00 06/16/25 08:07 Escitalopram Oxalate 10 Mg Tablet PO Not Given On Hold: 06/16/25 11:52 DAILY THANH Hydralazine HCl 10 mg 06/14/25 23:59 06/16/25 16:36 Hydralazine Hcl 20 Mg/Ml Vial IV PUSH 10 mg Q4H PRN Administration SBP greater than 180 Dextrose/Lactated Ringer's 1,000 mls @ 100 mls/hr 06/15/25 14:35 06/17/25 06:07 Dextrose 5%/Lactated Ringers IV CONT 100 mls/hr .Q10H THANH Administration Losartan Potassium 50 mg 06/15/25 09:00 06/17/25 09:47 Losartan Potassium 50 Mg Tablet PO 50 mg DAILY THANH Administration Metoclopramide HCl 5 mg 06/16/25 11:45 06/16/25 18:02 Metoclopramide Hcl Inj 10 Mg/2 Ml Vial IV PUSH 5 mg Q6HR PRN Administration nausea Metoprolol Tartrate 5 mg 06/16/25 12:00 06/17/25 06:09 Metoprolol Tartrate Inj 5 Mg/5 Ml Vial IV PUSH 5 mg Q6HR THANH Administration Pantoprazole Sodium 40 mg 06/15/25 09:00 06/17/25 09:48 Pantoprazole Sodium Iv 40 Mg Vial IV PUSH 40 mg Q12HR THANH Administration Scopolamine 1 patch 06/16/25 12:15 06/16/25 12:27 Scopolamine 1 Mg Patch TRANSDERM 1 patch Q72HR THANH Administration Radiology Results: ITS Impressions Head CT 06/14/25 19:26 IMPRESSION: No acute intracranial hemorrhage or extra axial fluid collections. All CT scans at this facility are performed using low dose modulation techniques as appropriate to perform exam including the following: automated exposure control; use of iterative reconstruction technique; adjustment of the mA and/or kV according to patient size (this includes techniques or standardized protocols for targeted exams where dose is matched to indication/reason for exam). Abdomen/Pelvis CT 06/14/25 19:28 IMPRESSION: No acute abnormality is noted in the abdomen and pelvis. Constipation. Small hiatal hernia. All CT scans at this facility are performed using low dose modulation techniques as appropriate to perform exam including the following: automated exposure control; use of iterative reconstruction technique; adjustment of the mA and/or kV according to patient size (this includes techniques or standardized protocols for targeted exams where dose is matched to indication/reason for exam). Chest X-Ray 06/16/25 12:28 IMPRESSION: 1: NO ACUTE CARDIOPULMONARY DISEASE. Labs Labs: Laboratory Results - last 24 hr 06/16/25 06/17/25 15:42 04:40 WBC 11.0 H RBC 3.86 L Hgb 11.5 L Hct 34.4 L MCV 89.1 MCH 29.8 MCHC 33.4 RDW 15.6 H Plt Count 169 MPV 9.7 Immature Gran % (Auto) 0.4 Neut % (Auto) 79.5 H Lymph % (Auto) 13.2 L Barbour % (Auto) 6.7 Eos % (Auto) 0.1 Baso % (Auto) 0.1 L Lymph # (Auto) 1.45 [place]bour # (Auto) 0.7 H Eos # (Auto) 0.0 Baso # (Auto) 0.0 Abs Immat Gran (auto) 0.04 H Absolute Neuts (auto) 8.7 H Absolute Nucleated RBC 0.000 Nucleated RBC % 0.0 Sodium 134 L Potassium 3.2 L 3.4 Chloride 103 Carbon Dioxide 24 Anion Gap 7 BUN 25 H Creatinine 0.95 Estim Creat Clear Calc 47 Estimated GFR 58 L Glucose 97 Calcium 8.7 Total Bilirubin 0.7 AST 22 ALT 15 Alkaline Phosphatase 72 Total Protein 6.0 L Albumin 3.5 Quality VTE Prophylaxis VTE prophylaxis: pharmacologic ordered (Lovenox 40 mg subQ daily.)
[2025-06-17] MEDS: METOPROLOL SUCCINATE EXT REL 50 MG TABCR PO (14:20)
[2025-06-18 00:37] VITALS: PULSE 72
--- NOTE | 2025-06-18 02:00 | PC.NURSE ---
Daylight Savings Time For Daylight Savings Time Ending in the Fall - Clocks are moved back. For Daylight Savings Time Beginning in the Spring - Clocks are moved ahead. For [facility], the time of change occurs at 0200 hrs. Time is taken from the block hacker. This entry on the patient's chart recognizes the change in time reflected during documentation. Example: 2 entries for vital signs may be charted for 0200 hrs.
--- NOTE | 2025-06-18 02:59 | PC.NURSE ---
Daylight Savings Time For Daylight Savings Time Ending in the Fall - Clocks are moved back. For Daylight Savings Time Beginning in the Spring - Clocks are moved ahead. For [facility], the time of change occurs at 0200 hrs. Time is taken from the dining room server. This entry on the patient's chart recognizes the change in time reflected during documentation. Example: 2 entries for vital signs may be charted for 0200 hrs.
[2025-06-18 04:00] VITALS: PULSE 64
[2025-06-18 05:07] VITALS: BP 109/68; PULSE 73; RESP 17; TEMP 36.3; O2SAT 98
[2025-06-18 05:08] LABS: Hematocrit 32.0 % (37.0-47.0); Hemoglobin 10.7 g/dL (12.0-15.0); Immature Granulocyte Percent A 0.4 % (0-0.5); Lymphocytes Absolute Auto 1.53 K/mm3 (0.9-3.2); Mean Corpuscular HGB Conc 33.4 g/dl (32-36); Mean Corpuscular Hemoglobin 29.7 pg (26-34); Mean Corpuscular Volume 88.9 fl (80-100); Nucleated Red Blood Cells Absolute Auto 0.000 K/mm3 (0.0-0.012); Nucleated Red Blood Cells Perc 0.0 % (0.0-0.2); Platelet Count Result 154 k/mm3 (150-375); Red Blood Count 3.60 M/mm3 (4.2-5.4); White Blood Count 4.8 K/mm3 (4.5-10.0)
[2025-06-18 05:28] LABS: Alanine Aminotransferase 12 U/L (6-35); Albumin Level 3.1 g/dL (3.5-5.1); Alkaline Phosphatase 67 U/L (38-126); Anion Gap 6 mmol/L (4-12); Aspartate Amino Transferase 18 U/L (14-36); Bilirubin,Total 0.5 mg/dL (0.2-1.3); Blood Urea Nitrogen 21 mg/dL (7-17); Calcium 8.5 mg/dL (8.4-10.2); Carbon Dioxide 24 mmol/L (22-30); Chloride 105 mmol/L (98-107); Estimated CRCL calculation 44 ml/min; Estimated Glomerular Filt Rate 55; Glucose 83 mg/dL (65-110); Potassium 3.2 mmol/L (3.4-5.0); Sodium 135 mmol/L (137-145); Total Protein 5.5 g/dL (6.3-8.2)
[2025-06-18 08:00] VITALS: PULSE 72
[2025-06-18 08:58] VITALS: PULSE 72
[2025-06-18] MEDS: METOPROLOL SUCCINATE EXT REL 50 MG TABCR PO (08:58)
[2025-06-18] MEDS: ENOXAPARIN 40 MG/0.4 ML SYRINGE SUB-Q (08:58)
[2025-06-18] MEDS: ASPIRIN 81 MG ENTERIC TABLET PO (08:58)
[2025-06-18] MEDS: ESCITALOPRAM OXALATE 10 MG TABLET 20 MG PO (08:58)
[2025-06-18] MEDS: POTASSIUM CHLORIDE 20 MEQ PACKET (FOR LIQUID) 40 MEQ PO (08:58)
[2025-06-18] MEDS: LOSARTAN POTASSIUM 50 MG TABLET PO (08:58)
[2025-06-18] MEDS: PANTOPRAZOLE SODIUM IV 40 MG VIAL IV PUSH (09:03)
--- NOTE | 2025-06-18 10:32 | P.DS_ITS ---
DS: Admitting Diagnosis Discharge Date 06/18/25 Admitting Diagnosis - intractable nausea/vomiting - hypertensive urgency - lactic acidosis - QT prolongation - GERD - hypokalemia - leukocytosis DS: Discharge Diagnosis Discharge Diagnosis (1) Intractable nausea and vomiting: Code(s): R11.2 - Nausea with vomiting, unspecified Status: Acute (2) Asymptomatic hypertensive urgency: Code(s): I16.0 - Hypertensive urgency Status: Acute (3) Lactic acidosis: Code(s): E87.20 - Acidosis, unspecified Status: Acute (4) QT prolongation: Code(s): R94.31 - Abnormal electrocardiogram [ECG] [EKG] Status: Acute (5) Gastroesophageal reflux disease: Qualifiers: Esophagitis presence: with esophagitis Esophagitis bleeding: without hemorrhage Qualified Code(s): K21.00 - Gastro-esophageal reflux disease with esophagitis, without bleeding Code(s): K21.9 - Gastro-esophageal reflux disease without esophagitis Status: Chronic (6) Hypokalemia: Code(s): E87.6 - Hypokalemia Status: Resolved (7) Leukocytosis: Code(s): D72.829 - Elevated white blood cell count, unspecified Status: Acute (8) Metabolic acidosis: Code(s): E87.20 - Acidosis, unspecified Status: Inactive DS: Summary Hospital Course Reason for hospitalization: - intractable nausea/vomiting - hypertensive urgency - lactic acidosis - QT prolongation - GERD - hypokalemia - leukocytosis Hospital Course: 69-year-old female with a past medical history of cyclic vomiting syndrome, cannabis hyperemesis syndrome, Sow's esophagus, GERD, pancreatitis, depression, QT prolonging and essential hypertension as well as multiple episodes of accelerated hypertension presented to the ER with nausea, vomiting and abdominal pain. In ED, CT A/P with no acute process. WBC 16.6, sodium 133, potassium 3.2, bicarb 12, anion gap 17, glucose 178, lactic acid 3.5. EKG with mildly prolonged QTC. Patient received IV droperidol with no improvement in symptoms. She was admitted for further management of suspected cannabis hyperemesis syndrome. Upon admission, patient was started IV Ativan, capsaicin cream and IV fluids with minimal improvement in her symptoms. Patient's QTC remained slightly prolonged however given persistent vomiting, trialed IV Reglan with significant improvement patient's symptoms. Her diet was advanced to regular diet without further episodes of nausea and vomiting. Patient's potassium improved with IV and p.o. replacement. Tachycardia resolved. Patient was instructed to completely abstain from marijuana use and have repeat lab work in 5-7 days to recheck her potassium. She was discharged with 7 days of potassium supplementation. In regards to leukocytosis, patient's admit WBC was 16.6. She remained afebrile. Chest x-ray, CT abdomen and pelvis and UA were negative for infection. Blood cultures were drawn and pending on discharge. Leukocytosis resolved without antibiotics. Suspect reactive in setting nausea/vomiting and dehydration. Patient also with accelerated hypertension on admission which was asymptomatic. This is likely related to nausea/vomiting. Her blood pressure normalized with resolution of her vomiting and restarting her home blood pressure medications. Patient was ambulating independently on day of discharge. Patient discharged home in stable condition. She was instructed to follow up with her primary care provider in 1 week. Time Spent with Patient Time attestation: Total time spent providing and/or coordinating discharge services: Time spent: Greater than 30 minutes Exam Narrative: General: NAD, well-appearing Eyes: EOMI ENT: neck supple Cardiovascular: regular rate and rhythm Respiratory: Clear to auscultation, respirations even and unlabored on RA Gastrointestinal: Soft, non tender. Genitourinary: no suprapubic tenderness Musculoskeletal: No edema Skin: warm, dry Neuro: Alert. Psych: Mood appropriate DS: Data Data Completed and Pending Completed studies during hospitalization: ITS Impressions Head CT 06/14/25 19:26 IMPRESSION: No acute intracranial hemorrhage or extra axial fluid collections. All CT scans at this facility are performed using low dose modulation techniques as appropriate to perform exam including the following: automated exposure control; use of iterative reconstruction technique; adjustment of the mA and/or kV according to patient size (this includes techniques or standardized protocols for targeted exams where dose is matched to indication/reason for exam). Abdomen/Pelvis CT 06/14/25 19:28 IMPRESSION: No acute abnormality is noted in the abdomen and pelvis. Constipation. Small hiatal hernia. All CT scans at this facility are performed using low dose modulation techniques as appropriate to perform exam including the following: automated exposure control; use of iterative reconstruction technique; adjustment of the mA and/or kV according to patient size (this includes techniques or standardized protocols for targeted exams where dose is matched to indication/reason for exam). Chest X-Ray 06/16/25 12:28 IMPRESSION: 1: NO ACUTE CARDIOPULMONARY DISEASE. Pending studies at discharge: - blood cultures Labs on day of discharge: Labs from last 24 hours 06/18/25 04:37 WBC 4.8 RBC 3.60 L Hgb 10.7 L Hct 32.0 L MCV 88.9 MCH 29.7 MCHC 33.4 RDW 15.1 H Plt Count 154 MPV 9.9 Immature Gran % (Auto) 0.4 Neut % (Auto) 56.2 Lymph % (Auto) 31.6 Walker % (Auto) 8.9 H Eos % (Auto) 2.5 Baso % (Auto) 0.4 Lymph # (Auto) 1.53 Walker # (Auto) 0.4 Eos # (Auto) 0.1 Baso # (Auto) 0.0 Abs Immat Gran (auto) 0.02 Absolute Neuts (auto) 2.7 Absolute Nucleated RBC 0.000 Nucleated RBC % 0.0 Sodium 135 L Potassium 3.2 L Chloride 105 Carbon Dioxide 24 Anion Gap 6 BUN 21 H Creatinine 1.01 H Estim Creat Clear Calc 44 Estimated GFR 55 L Glucose 83 Calcium 8.5 Total Bilirubin 0.5 AST 18 ALT 12 Alkaline Phosphatase 67 Total Protein 5.5 L Albumin 3.1 L Discharge Plan Discharge Attending physician on discharge: Woo Barber Consulting providers: Marie Allen Discharging Clinician: Marie Allen Anticipated Discharge Date/Time: 06/18/25 10:27 Patient Disposition: Home Activity: unlimited Diet: regular Discharge Instructions: The most likely cause of your symptoms is cannabis hyperemesis syndrome (CHS) ?CHS is caused by frequent cannabis use and leads to repeated vomiting and abdominal pain. You were also diagnosed with hypokalemia. Hypokalemia means your body has low potassium, which can happen after vomiting. Romero steps for your recovery: * Stop all cannabis use.?This is the only way to fully resolve CHS. Symptoms may take 7?10 days to improve after stopping cannabis. If you restart cannabis, symptoms are likely to return. * Avoid opioids for pain.?These can make nausea and vomiting worse and are not recommended for CHS. * Symptom relief:?If you have nausea or vomiting, you may use topical capsaicin cream (0.1%) on your upper abdomen. It may cause a burning sensation but can help with symptoms. Hot showers or baths may also provide temporary relief. * Potassium and hydration:?Take any prescribed potassium supplements as directed. Eat foods high in potassium, such as bananas, oranges, potatoes, and spinach. Drink plenty of fluids to stay hydrated, especially if you feel nauseated or have vomiting. * Monitor for warning signs:?Seek medical attention if you have severe weakness, chest pain, palpitations, confusion, persistent vomiting, or cannot keep fluids down. * Follow-up care:?Schedule a follow-up appointment with your healthcare provi elida. If you have trouble stopping cannabis, ask about support programs or counseling. * Medication safety:?Only use medications prescribed or recommended by your healthcare provider. Do not use benzodiazepines or other sedatives unless specifically instructed. Remember:?Stopping cannabis is essential for recovery. If you need help with quitting, talk to your provider about available resources. Most people recover fully with abstinence and supportive care. Have your lab work repeated in 5-7 days to check your blood counts and potassium levels. Follow-up with your primary care provider in 5-7 days. Patient Instructions: Antibiotic Form Patient Language: Malawian Stand Alone Forms: General Discharge Information Follow-up/Referrals: Dc Velarde MD [Primary Care Provider, Internal Medicine] Discharge Medications: New potassium chloride [K-Tab] 20 mEq tablet extended release 20 meq PO DAILY Qty: 7 0RF Continued ergocalciferol (vitamin D2) 1,250 mcg (50,000 unit) capsule 1 unit PO WEEKLY Rx Instructions: Pt takes on thursday escitalopram oxalate 20 mg tablet 20 mg PO DAILY atorvastatin 20 mg tablet 20 mg PO DAILY Qty: 90 1RF aspirin 81 mg Tablet,Delayed Release (Dr/Ec) 81 mg PO DAILY losartan 50 mg tablet 50 mg PO DAILY metoprolol succinate 50 mg tablet extended release 24 hr 50 mg PO DAILY Changed metoclopramide HCl 10 mg tablet 5 mg PO Q6H PRN (Reason: nausea and vomiting) Qty: 10 0RF Other Ambulatory Orders: Basic Metabolic Panel (Routine) Timeframe: 5 Days Location: Determined by Patient Ordered By: Marie Allen Complete Blood Count with Diff (Routine) Timeframe: 5 Days Location: Determined by Patient Ordered By: Marie Allen Date of admission: 06/14/25 22:23 Primary Care Provider: Dc Velarde Admitting Provider: Gail Kim Attending physician on admission: Gail Kim Condition: Stable
== END 2025-06-18 12:55 | disposition home or self-care (01) | DRG 392 ==
LOC: ANHED 23:10 → ANHIMU 23:11 → ANH2MED 06-18 10:29 → ANHIMU 06-21 15:16
PROVIDERS: Student in an Organized Health Care Education/Training Program; Admitting Provider Internal Medicine; Emergency Provider Family Medicine; PCP Internal Medicine; Visit Provider Physician Assistant
DX: R11.16 Cannabis hyperemesis syndrome (principal); E87.20 Acidosis, unspecified; I16.0 Hypertensive urgency; K59.00 Constipation, unspecified; E78.5 Hyperlipidemia, unspecified; F12.90 Cannabis use, unspecified, uncomplicated; R94.31 Abnormal electrocardiogram [ECG] [EKG]; E87.6 Hypokalemia; K44.9 Diaphragmatic hernia without obstruction or gangrene; E86.0 Dehydration; K22.70 Barrett's esophagus without dysplasia; K21.9 Gastro-esophageal reflux disease without esophagitis; F41.9 Anxiety disorder, unspecified; F32.A Depression, unspecified; F10.11 Alcohol abuse, in remission; E55.9 Vitamin D deficiency, unspecified; Z96.641 Presence of right artificial hip joint; Z86.73 Personal history of transient ischemic attack (TIA), and cerebral infarction without residual deficits; Z90.12 Acquired absence of left breast and nipple; Z98.1 Arthrodesis status; Z85.3 Personal history of malignant neoplasm of breast; Z79.82 Long term (current) use of aspirin; T45.0X5 Adverse effect of antiallergic and antiemetic drugs; Z86.74 Personal history of sudden cardiac arrest
CPT/HCPCS: 36415; 70450; 71045; 74177; 80048; 80053; 81001; 83605; 83690; 83735; 84132; 84145; 85025; 87040; 93005; 96361; 96374; 96375; 99285; A9270; J0360; J0616; J1650; J1790; J2470; J2765; J3250; J3360; J3475; J3480; J7030; J7040; J7121; Q9967

== ENCOUNTER 2025-06-23 07:05 | Outpatient (CLI) | payer MEDICARE, SELFPAY ==
[2025-06-23 07:38] LABS: Hematocrit 39.8 % (35.0-42.0); Hemoglobin 12.7 g/dL (11.7-13.8); Immature Granulocyte Percent A 0.6 % (0.0-0.0); Lymphocytes Absolute Auto 1.26 K/mm3 (1.10-4.50); Mean Corpuscular HGB Conc 31.9 g/dL (32-36); Mean Corpuscular Hemoglobin 29.2 pg (27.0-31.0); Mean Corpuscular Volume 91.5 fL (78.0-102.0); Nucleated Red Blood Cells Absolute Auto 0.00 K/mm3 (0.00-0.00); Nucleated Red Blood Cells Perc 0.0 % (0-0.0); Platelet Count Result 270 K/mm3 (150-420); Red Blood Count 4.35 M/mm3 (4.20-5.40); White Blood Count 5.1 K/mm3 (4.8-10.8)
[2025-06-23 07:59] LABS: Anion Gap 11 mmol/L (4-12); Blood Urea Nitrogen 12 mg/dL (7-17); Calcium 9.7 mg/dL (8.4-10.2); Carbon Dioxide 26 mmol/L (22-30); Chloride 103 mmol/L (98-107); Estimated Glomerular Filt Rate 56; Glucose 88 mg/dL (65-110); Osmolality Calculated 288 mOsm/kg (285-295); Potassium 4.8 mmol/L (3.4-5.0); Sodium 140 mmol/L (137-145)
== END 2025-06-23 07:06 | disposition home or self-care (01) ==
LOC: CHSLAB 07:07
PROVIDERS: PCP Internal Medicine; Visit Provider Physician Assistant
DX: D72.829 Elevated white blood cell count, unspecified (principal); E87.6 Hypokalemia
CPT/HCPCS: 36415; 80048; 85025

== ENCOUNTER 2025-07-27 07:18 | Outpatient (CLI) | payer MEDICARE, SELFPAY ==
[2025-07-27 08:22] LABS: Alanine Aminotransferase 12 U/L (6-35); Albumin Level 4.7 g/dL (3.5-5.1); Alkaline Phosphatase 96 U/L (38-126); Anion Gap 6 mmol/L (4-12); Aspartate Amino Transferase 19 U/L (14-36); Bilirubin,Total 0.5 mg/dL (0.2-1.3); Blood Urea Nitrogen 23 mg/dL (7-17); Calcium 9.7 mg/dL (8.4-10.2); Carbon Dioxide 29 mmol/L (22-30); Chloride 104 mmol/L (98-107); Cholesterol 217 mg/dL (0-200); Estimated Glomerular Filt Rate 54; Glucose 86 mg/dL (65-110); HDL Direct 85 mg/dL; Osmolality Calculated 290 mOsm/kg (285-295); Potassium 4.7 mmol/L (3.4-5.0); Sodium 139 mmol/L (137-145); Total Protein 7.3 g/dL (6.3-8.2); Triglycerides 144 mg/dL (<150)
[2025-07-27 08:54] LABS: Thyroid Stimulating Hormone 3.790 uIU/mL (0.465-4.680)
== END 2025-07-27 07:19 | disposition home or self-care (01) ==
PROVIDERS: PCP Internal Medicine; Visit Provider Internal Medicine
DX: E78.5 Hyperlipidemia, unspecified (principal); I10 Essential (primary) hypertension
CPT/HCPCS: 36415; 80053; 80061; 84443